=== PATIENT | female | born 1950 | race Caucasian/White ===

== ENCOUNTER 2016-04-06 14:21 | Outpatient (CLI) | payer MEDICARE, OTHER | END 2016-04-06 14:22 | disposition home or self-care (01) | DX: E55.9 Vitamin D deficiency, unspecified (principal) ==

== ENCOUNTER 2016-05-04 12:40 | Day surgery (SDC) | payer MEDICARE, OTHER ==
[2016-05-04] MEDS ORDERED: TROPICAMIDE 1% OPHTH 2 ML DROPS OPTH ONE (13:24)
[2016-05-04] MEDS ORDERED: CYCLOPENTOLATE 1% OPHTH DROPS 2 ML OPTH ONE (13:24)
[2016-05-04] MEDS ORDERED: KETOROLAC 0.45% OPHTH DROPS OPTH ONE (13:24)
[2016-05-04] MEDS ORDERED: LACTATED RINGERS 500 ML IV ONE (13:34)
[2016-05-04] MEDS ORDERED: CHONDR SULF/HYALURONATE SYRINGE IO ONE (14:25)
[2016-05-04] MEDS ORDERED: PROPARACAINE 0.5% OPHTH DROPS 15 ML OPTH ONE (14:25)
[2016-05-04] MEDS ORDERED: BRIMONIDINE 0.2% OPHTH DROPS 5 ML OPTH ONE (14:25)
[2016-05-04] MEDS ORDERED: TETRACAINE OPHTH DROPS 2 ML OPTH ONE (14:25)
[2016-05-04] MEDS ORDERED: EPINEPHrine 1 MG/ML AMP IO ONE (14:25)
[2016-05-04] MEDS ORDERED: MIDAZOLAM 2 MG/2 ML VIAL IVP ONE (14:30)
[2016-05-04] MEDS ORDERED: BSS/LIDOCAINE/EPINEPHRINE 1 ML SYRINGE IO ONE (14:31)
[2016-05-04] MEDS ORDERED: NEOMYCIN/POLYMYX/DEXAMETH OPHTH OINT OPTH ONE (14:48)
== END 2016-05-04 12:41 | disposition home or self-care (01) ==
PROC: 08RJ3JZ Replacement of Right Lens with Synthetic Substitute, Percutaneous Approach (ICD-10-PCS; principal; 2016-05-04 13:40)
DX: H26.9 Unspecified cataract (principal); J44.9 Chronic obstructive pulmonary disease, unspecified; K21.9 Gastro-esophageal reflux disease without esophagitis; Z85.820 Personal history of malignant melanoma of skin
CPT/HCPCS: 66984; J7120; V2632; V2787

== ENCOUNTER 2016-05-12 14:51 | Outpatient (CLI) | payer MEDICARE, OTHER | END 2016-05-12 14:52 | disposition home or self-care (01) | DX: R31.29 Other microscopic hematuria (principal) ==

== ENCOUNTER 2016-05-18 07:58 | Day surgery (SDC) | payer MEDICARE, OTHER ==
[~2016-05-18 07:58] MED LIST: MIDAZOLAM 2 MG/2 ML VIAL IVP ONE
[2016-05-18] MEDS ORDERED: TROPICAMIDE 1% OPHTH 2 ML DROPS OPTH ONE (08:15)
[2016-05-18] MEDS ORDERED: KETOROLAC 0.45% OPHTH DROPS OPTH ONE (08:15)
[2016-05-18] MEDS ORDERED: CYCLOPENTOLATE 1% OPHTH DROPS 2 ML OPTH ONE (08:15)
[2016-05-18] MEDS ORDERED: LACTATED RINGERS 1,000 ML IV ONE (08:20)
[2016-05-18] MEDS ORDERED: EPINEPHrine 1 MG/ML AMP IO ONE (09:53)
[2016-05-18] MEDS ORDERED: CHONDR SULF/HYALURONATE SYRINGE IO ONE (09:53)
[2016-05-18] MEDS ORDERED: PROPARACAINE 0.5% OPHTH DROPS 15 ML OPTH ONE (09:53)
[2016-05-18] MEDS ORDERED: BRIMONIDINE 0.2% OPHTH DROPS 5 ML OPTH ONE (09:53)
[2016-05-18] MEDS ORDERED: BSS/LIDOCAINE/EPINEPHRINE 1 ML SYRINGE IO ONE (09:53)
[2016-05-18] MEDS ORDERED: TETRACAINE 0.5% OPHTH DROPS 4 ML OPTH ONE (09:53)
== END 2016-05-18 07:59 | disposition home or self-care (01) ==
PROC: 08RK3JZ Replacement of Left Lens with Synthetic Substitute, Percutaneous Approach (ICD-10-PCS; principal; 2016-05-18 09:15)
DX: H26.9 Unspecified cataract (principal)
CPT/HCPCS: 66984; J7120; V2632

== ENCOUNTER 2017-04-17 13:24 | Outpatient (CLI) | payer MEDICARE, OTHER ==
--- NOTE | 2017-04-18 17:47 | XRAY Report ---
DATE OF SERVICE: 04/17/2017 TWO VIEW CHEST: 04/17/2017 CLINICAL INDICATION: Cough. COMPARISON: 12/18/2015 Frontal and lateral views of the chest demonstrate a normal cardiac silhouette. The lungs remain clear. No effusion or pneumothorax is present. IMPRESSION: No evidence of acute cardiopulmonary disease. No significant interval change. TD: 04/18/2017 18:46
== END 2017-04-17 13:25 | disposition home or self-care (01) ==
LOC: DI 13:24
PROVIDERS: ATTEND Internal Medicine
DX: R05 Cough (principal)
CPT/HCPCS: 71046

== ENCOUNTER 2017-05-15 09:18 | Outpatient (CLI) | payer MEDICARE, OTHER ==
[2017-05-15 09:53] LABS: BASOPHILS # (AUTO) 0.1 10^3/uL (0.0-0.1); BASOPHILS % (AUTO) 1.1 %; EOSINOPHILS # (AUTO) 0.2 10^3/uL (0.0-0.7); EOSINOPHILS % (AUTO) 3.8 %; HGB - HEMOGLOBIN 14.1 g/dL (12.0-16.0); LYMPHOCYTES # (AUTO) 1.2 10^3/uL (1.5-3.5); LYMPHOCYTES % (AUTO) 19.4 %; MEAN CORPUSCULAR HEMOGLOBIN 30.8 pg (27.0-31.0); MEAN CORPUSCULAR HGB CONC 33.6 g/dL (32.0-36.0); MEAN CORPUSCULAR VOLUME 91.8 fL (81.0-99.0); MEAN PLATELET VOLUME 8.4 fL (7.9-10.8); MONOCYTES # (AUTO) 0.8 10^3/uL (0.0-1.0); NEUTROPHILS # (AUTO) 3.9 10^3/uL (1.5-6.6); NEUTROPHILS % (AUTO) 62.7 %; PLT - PLATELET COUNT 245 10^3/uL (130-450); RED BLOOD COUNT 4.56 10^6/uL (4.20-5.40); RED CELL DISTRIBUTION WIDTH 13.4 % (12.0-15.0); WHITE BLOOD COUNT 6.3 x10^3/uL (4.8-10.8)
[2017-05-15 10:10] LABS: ALBUMIN 4.2 g/dL (3.2-5.5); ALBUMIN/GLOBULIN RATIO 1.2 (1.0-2.2); BILIRUBIN,TOTAL 0.8 mg/dL (0.2-1.0); CALCIUM 9.3 mg/dL (8.5-10.3); CREATININE 0.8 mg/dL (0.4-1.0); TOTAL PROTEIN 7.6 g/dL (6.7-8.2)
== END 2017-05-15 09:19 | disposition home or self-care (01) ==
LOC: LAB 09:18
PROVIDERS: ATTEND Internal Medicine
DX: M81.0 Age-related osteoporosis without current pathological fracture (principal); K21.9 Gastro-esophageal reflux disease without esophagitis; J42 Unspecified chronic bronchitis; E55.9 Vitamin D deficiency, unspecified; Z79.899 Other long term (current) drug therapy
CPT/HCPCS: 36415; 80053; 82306; 84443; 85025

== ENCOUNTER 2017-06-28 13:32 | Outpatient (CLI) | payer MEDICARE, OTHER ==
--- NOTE | 2017-06-28 17:01 | MRI Report ---
EXAM: LEFT KNEE MRI WITHOUT CONTRAST EXAM DATE: 06/28/2017 02:13 PM. CLINICAL HISTORY: Pain. Concern for meniscus tear. COMPARISON: Radiographs 06/22/2017. TECHNIQUE: Multiplanar, multisequence T1-weighted and fluid-sensitive sequences of the knee without c ontrast. Other: None. FINDINGS: Cruciate ligaments: The anterior and posterior cruciate ligaments appear intact. Medial meniscus: Punctate high signal focus adjacent to the root of the posterior horn near the free margin. Otherwise intact. Lateral meniscus: Small ill-defined tear at the tibial articular surface of the mid body. Remainder o f the meniscus intact. Collateral ligaments: The medial and fibular collateral ligaments appear intact. Bones and articular surfaces: Moderate cartilage thinning and surface irregularity over the patella. Focal subchondral edema at the central aspect of the upper patella. Mild lateral tracking of the cervantes lla. Slight cartilage thinning at the weightbearing medial and lateral compartment. No full thickness defect. Extensor mechanism: The patellar tendon and quadriceps insertion appear intact. IMPRESSION: 1. Small focal tear at the tibial articular surface of the body of the lateral meniscus. 2. Punctate tibial articular surface tear near the root of the posterior horn medial meniscus. 3. Moderate degenerative cartilage changes in the patellofemoral compartment. 4. Mild degenerative cartilage changes in the medial and lateral compartments. [facility] MUSCULOSKELET[facility] RADIOLOGY SECTION Referring Provider Line: [phone] SITE ID: [id number]
== END 2017-06-28 13:33 | disposition home or self-care (01) ==
LOC: DI 13:32
PROVIDERS: ATTEND Orthopaedic Surgery
DX: S83.282A Other tear of lateral meniscus, current injury, left knee, initial encounter (principal); S83.242A Other tear of medial meniscus, current injury, left knee, initial encounter; M17.12 Unilateral primary osteoarthritis, left knee

== ENCOUNTER 2017-12-28 12:02 | Outpatient (CLI) | payer MEDICARE, OTHER | END 2017-12-28 12:03 | disposition home or self-care (01) | LOC: LAB 12:02 | PROVIDERS: ATTEND Pharmacist Pharmacist Clinician (PhC)/ Clinical Pharmacy Specialist | DX: Z96.651 Presence of right artificial knee joint (principal); Z51.81 Encounter for therapeutic drug level monitoring; Z78.9 Other specified health status | CPT/HCPCS: 85610 ==

== ENCOUNTER 2018-07-26 10:51 | Outpatient (CLI) | payer MEDICARE, OTHER ==
--- NOTE | 2018-07-27 08:41 | DEXA Report ---
Reason: OSTEOPOROSIS Procedure Date: 07/26/2018 Accession Number: [id number] / [id number] Procedure: DEX - Dexa Spine and/or Hip CPT Code: FULL RESULT: EXAM: Dexa Spine and/or Hip DATE: 07/26/2018 11:13 AM CLINICAL HISTORY: OSTEOPOROSIS TECHNIQUE: Dual energy x-ray absorptiometry (DXA) was performed on a [employer] System. Regions measured are the AP Spine, femoral neck, and if needed forearm. COMPARISON: 01/04/2016. In accordance with the International Society for Clinical Densitometry (ISCD) guidelines, data from previous exams may be reanalyzed using current recommendations and techniques. This is done to allow a more accurate basis for comparison with the current study. FINDINGS: The data for the lumbar spine is as follows: BMD (g/cm/cm) T-SCORE Z-SCORE REGION L1 0.784 -2.9 -0.8 L2 0.832 -3.1 -1.0 L3 0.856 -2.9 -0.8 L4 0.906 -2.4 -0.4 TOTAL 0.851 -2.7 -0.7 NOTE: All evaluable vertebrae are used for classification The data for the hip is as follows: BMD (g/cm/cm) T-SCORE Z-SCORE REGION Neck 0.681 -2.6 -0.7 TOTAL 0.726 -2.2 -0.5 NOTE: The femoral neck or total proximal femur, whichever is lowest, is used for classification. DXA RESULTS SUMMARY: Spine SCAN DATE AGE BMD CHANGE VS CHANGE VS PREVIOUS PREVIOUS % 07[age]26[birth year]2018 [age] 0.851 -0.072* -7.8* 01/04/2016 65.7 0[age]923 * Denotes significant change at the 95% confidence level. Denotes dissimilar scan types or analysis methods. DXA RESULTS SUMMARY: Hip SCAN DATE AGE BMD CHANGE VS CHANGE VS PREVIOUS PREVIOUS % [birth year]26[birth year]2018 68.3 0.726 0.031 4.5 01/04/2016 65.7 0.695 * Denotes significant change at the 95% confidence level. Denotes dissimilar scan types or analysis methods. IMPRESSION: THE WHO CLASSIFICATION BASED ON THE INTERNATIONAL REFERENCE STANDARD IS OSTEOPOROSIS. THE FRACTURE RISK IS HIGH. RECOMMENDATION: Patients with diagnosis of osteoporosis or osteopenia should have regular bone mineral density assessment. For those eligible for Medicare, routine testing is allowed once every 2 years. Testing frequency can be increased for patients who have rapidly progressing disease or for those who are receiving medical therapy to restore bone mass. COMMENT: World Health Organization (WHO) definitions for osteoporosis and osteopenia: NORMAL BMD: T-score at -1.0 or higher, fracture risk is low OSTEOPENIA BMD: T-score between -1.0 and -2.5, fracture risk is increased. OSTEOPOROSIS BMD: T-score at -2.5 or lower, fracture risk is high. National Osteoporosis Foundation recommends: 1. Obtain adequate dietary calcium (at least 1200 mg per day) and vitamin D (400-800 international units per day). 2. Participate, as appropriate, in regular weightbearing and muscle-strengthening exercise. 3. Avoid tobacco use and reduce alcohol and caffeine intake. 4. For more detailed information see the website at www.NOF.org.
== END 2018-07-26 10:52 | disposition home or self-care (01) ==
LOC: DI 10:51
PROVIDERS: ATTEND Registered Nurse
DX: M81.0 Age-related osteoporosis without current pathological fracture (principal)
CPT/HCPCS: 77080

== ENCOUNTER 2018-08-03 08:19 | Outpatient (CLI) | payer MEDICARE, OTHER ==
[2018-08-03 08:39] LABS: BASOPHILS % (AUTO) 0.6 %; EOSINOPHILS # (AUTO) 0.1 10^3/uL (0.0-0.7); EOSINOPHILS % (AUTO) 1.4 %; HGB - HEMOGLOBIN 14.7 g/dL (12.0-16.0); LYMPHOCYTES # (AUTO) 1.3 10^3/uL (1.5-3.5); LYMPHOCYTES % (AUTO) 22.6 %; MEAN CORPUSCULAR HEMOGLOBIN 30.5 pg (27.0-31.0); MEAN CORPUSCULAR VOLUME 92.2 fL (81.0-99.0); MEAN PLATELET VOLUME 9.2 fL (7.9-10.8); MONOCYTES # (AUTO) 0.6 10^3/uL (0.0-1.0); MONOCYTES % (AUTO) 10.1 %; NEUTROPHILS # (AUTO) 3.8 10^3/uL (1.5-6.6); NEUTROPHILS % (AUTO) 65.3 %; PLT - PLATELET COUNT 275 10^3/uL (130-450); RED BLOOD COUNT 4.83 10^6/uL (4.20-5.40); RED CELL DISTRIBUTION WIDTH 12.9 % (12.0-15.0); WHITE BLOOD COUNT 5.9 x10^3/uL (4.8-10.8)
[2018-08-03 09:04] LABS: ALBUMIN 4.2 g/dL (3.2-5.5); ALBUMIN/GLOBULIN RATIO 1.4 (1.0-2.2); ALKALINE PHOSPHATASE 59 IU/L (42-121); ALT ALANINE AMINOTRANSFERASE 12 IU/L (10-60); AST ASPARTATE AMINOTRANSFERASE 21 IU/L (10-42); BUN - BLOOD UREA NITROGEN 24 mg/dL (6-20); CALCIUM 9.8 mg/dL (8.5-10.3); CARBON DIOXIDE - CO2 31 mmol/L (21-32); CHLORIDE 102 mmol/L (101-111); CHOL/HDL RATIO 3.3 (<4.4); CHOLESTEROL 220 mg/dL; CREATININE 0.8 mg/dL (0.4-1.0); GFR - MDRD 71 (>89); GLUCOSE 104 mg/dL (70-100); HDL CHOLESTEROL 66 mg/dL; LDL CHOLESTEROL,CALCULATED 133 mg/dL; SODIUM 142 mmol/L (135-145); TOTAL PROTEIN 7.1 g/dL (6.7-8.2); VLDL CHOLESTEROL 21 mg/dL
[2018-08-03 09:23] LABS: HB2 TOTAL 15.2 g/dL; HEMOGLOBIN A1C 0.57 g/dL; HEMOGLOBIN A1C % 5.6 % (4.6-6.2)
== END 2018-08-03 08:20 | disposition home or self-care (01) ==
LOC: LAB 08:19
PROVIDERS: ATTEND Registered Nurse
DX: Z78.0 Asymptomatic menopausal state (principal); Z79.899 Other long term (current) drug therapy
CPT/HCPCS: 36415; 80053; 80061; 83036; 83721; 84443; 85025

== ENCOUNTER 2018-08-09 17:13 | Outpatient (CLI) | payer MEDICARE, OTHER | END 2018-08-09 23:59 | disposition home or self-care (01) | LOC: LAB.R 17:13 | PROVIDERS: ATTEND Nurse Practitioner | DX: N39.0 Urinary tract infection, site not specified (principal) | CPT/HCPCS: 87086 ==

== ENCOUNTER 2018-08-29 15:48 | Outpatient (CLI) | payer MEDICARE, OTHER ==
--- NOTE | 2018-08-30 08:51 | Mammography Report ---
Reason: SCREENING FOR BREAST CANCER Procedure Date: 08/29/2018 Accession Number: [id number] / [id number] Procedure: [facility] - Screening Mammo w/Kieran CPT Code: FULL RESULT: EXAM: Screening Mammo w/Kieran DATE: 08/29/2018 4:44 PM CLINICAL HISTORY: TECHNIQUE: (B) - Bilateral CC and MLO views were obtained. In addition 3-D mammography was applied. COMPARISON: None PARENCHYMAL PATTERN: (A) - The breasts demonstrate scattered fibroglandular densities bilaterally. FINDINGS: There are no suspicious masses, calcifications, or areas of distortion. IMPRESSION: Negative examination. BI-RADS category 1. RECOMMENDATION: (ANNUAL) - Recommend routine annual screening mammography. BI-RADS CATEGORY: (1) - Negative. STANDARD QUALIFYING STATEMENTS: 1. This examination was not reviewed with the aid of Computer-Aided Detection (CAD). 2. A negative or benign imaging report should not preclude biopsy if clinically suspicious findings are present. 3. Dense breasts may obscure an underlying neoplasm. 4. This examination was reviewed with the aid of 3D breast imaging (tomosynthesis).
== END 2018-08-29 15:49 | disposition home or self-care (01) ==
LOC: DI 15:48
PROVIDERS: ATTEND Nurse Practitioner
DX: Z12.31 Encounter for screening mammogram for malignant neoplasm of breast (principal)
CPT/HCPCS: 77063; 77067

== ENCOUNTER 2018-12-07 17:44 | Emergency (ER) | payer MEDICARE, OTHER ==
--- NOTE | 2018-12-07 18:28 | ED Physician Documentation ---
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 Since yesterday she is had a sore throat, body aches, swollen glands.) Review of Systems Constitutional: reports: Fever, Chills, Myalgias, Fatigue Nose: denies: Rhinorrhea / runny nose Throat: reports: Sore throat Respiratory: denies: Cough GI: denies: Vomiting, Diarrhea PD PAST MEDICAL HISTORY - Past Medical History Cardiovascular: None Respiratory: None Endocrine/Autoimmune: None GI: None : None HEENT: Other Psych: None Musculoskeletal: None Derm: None - Past Surgical History Past Surgical History: Yes General: Bowel surgery HEENT: Cataracts Derm: Skin cancer surgery - Present Medications Home Medications: Ambulatory Orders Medication Instructions Recorded Confirmed Cholecalciferol (Vitamin D3) 2,000 unit PO DAILY 05/03/16 05/04/16 [Vitamin D] predniSONE [Deltasone] 20 mg PO [id number] #21 tab 12/07/18 - Allergies Allergies/Adverse Reactions: Allergies Allergy/AdvReac Type Severity Reaction Status Date / Time latex Allergy Unknown Verified 12/07/18 17:49 Penicillins Allergy Hives Verified 12/07/18 17:49 - Social History Does the pt smoke?: No Smoking Status: Never smoker Does the pt drink ETOH?: No Does the pt have substance abuse?: No - Immunizations Immunizations are current?: Yes PD ED PE NORMAL - Vitals Vital signs reviewed: Yes - General General: Alert and oriented X 3, No acute distress - HEENT HEENT: Ears normal, Pharynx benign - Neck Neck: Supple, no meningeal sign, No bony TTP, Other (Mild anterior cervical adenopathy, supple neck) - Cardiac Cardiac: RRR, No murmur - Respiratory Respiratory: No respiratory distress, Clear bilaterally - Abdomen Abdomen: Non tender - Neuro Neuro: Alert and oriented X 3, Normal speech Results - Vitals Vitals: Vital Signs - 24 hr 12/07/18 17:49 Temperature 36.9 C Heart Rate 80 Respiratory 16 Rate Blood Pressure 150/77 H O2 Saturation 99 Oxygen O2 Source Room air - Labs Labs: Laboratory Tests 12/07/18 12/07/18 17:53 18:29 Influenza A (Rapid) Negative Influenza B (Rapid) Negative Group A Strep Rapid Negative Departure - Departure Disposition: Home, Self Care Clinical Impression: Acute viral pharyngitis Condition: Good Record reviewed to determine appropriate education?: Yes Instructions: ED Pharyngitis Viral Report Pending Prescriptions: predniSONE [Deltasone] 20 mg PO [id number] #21 tab Comments: Call your doctor to arrange a follow-up appointment, make the next available appointment. In the interim, return anytime if worse or if new symptoms develop. Your blood pressure was elevated today on check into the emergency department. This does not mean that you have hypertension, it is a common phenomenon to come to the emergency department and have elevated blood pressure. I recommend that you see your primary care physician within the week to have it rechecked when you are feeling better.
[2018-12-07 19:23] VITALS: BP 104/80
== END 2018-12-07 19:21 | disposition home or self-care (01) ==
LOC: ED 17:44
DX: J02.8 Acute pharyngitis due to other specified organisms (principal); B97.89 Other viral agents as the cause of diseases classified elsewhere; R03.0 Elevated blood-pressure reading, without diagnosis of hypertension
CPT/HCPCS: 87070; 87275; 87276; 87430; 99283

== ENCOUNTER 2018-12-24 09:27 | Outpatient (CLI) | payer MEDICARE, OTHER ==
[2018-12-24 09:54] LABS: BASOPHILS # (AUTO) 0.1 10^3/uL (0.0-0.1); BASOPHILS % (AUTO) 0.7 %; EOSINOPHILS # (AUTO) 0.1 10^3/uL (0.0-0.7); EOSINOPHILS % (AUTO) 1.3 %; HGB - HEMOGLOBIN 13.9 g/dL (12.0-16.0); LYMPHOCYTES # (AUTO) 1.4 10^3/uL (1.5-3.5); LYMPHOCYTES % (AUTO) 20.5 %; MEAN CORPUSCULAR HEMOGLOBIN 31.2 pg (27.0-31.0); MEAN CORPUSCULAR HGB CONC 32.6 g/dL (32.0-36.0); MEAN CORPUSCULAR VOLUME 95.7 fL (81.0-99.0); MEAN PLATELET VOLUME 10.7 fL (7.9-10.8); MONOCYTES # (AUTO) 0.8 10^3/uL (0.0-1.0); MONOCYTES % (AUTO) 10.7 %; NEUTROPHILS # (AUTO) 4.7 10^3/uL (1.5-6.6); NEUTROPHILS % (AUTO) 66.2 %; PLT - PLATELET COUNT 329 10^3/uL (130-450); RED BLOOD COUNT 4.46 10^6/uL (4.20-5.40); RED CELL DISTRIBUTION WIDTH 12.1 % (12.0-15.0)
[2018-12-24 10:13] LABS: ALBUMIN 4.6 g/dL (3.2-5.5); ALBUMIN/GLOBULIN RATIO 1.5 (1.0-2.2); BILIRUBIN,TOTAL 0.8 mg/dL (0.2-1.0); CALCIUM 9.5 mg/dL (8.5-10.3); CREATININE 0.8 mg/dL (0.4-1.0); TOTAL PROTEIN 7.7 g/dL (6.7-8.2)
== END 2018-12-24 09:28 | disposition home or self-care (01) ==
LOC: LAB 09:27
PROVIDERS: ATTEND Nurse Practitioner
DX: R16.1 Splenomegaly, not elsewhere classified (principal); J45.909 Unspecified asthma, uncomplicated
CPT/HCPCS: 36415; 80053; 85025

== ENCOUNTER 2018-12-24 21:00 | Outpatient (CLI) | payer MEDICARE, OTHER | END 2018-12-24 21:01 | disposition critical access hospital (66) | LOC: EMS 21:00 | PROVIDERS: ATTEND Surgery | DX: R51 Headache (principal); R07.9 Chest pain, unspecified; R47.9 Unspecified speech disturbances | CPT/HCPCS: A0425; A0429 ==

== ENCOUNTER 2018-12-24 21:10 | Observation (INO) | payer MEDICARE, OTHER ==
--- NOTE | 2018-12-24 21:21 | ED Physician Documentation ---
PD HPI FOCAL NEURO - Stated complaint Stated Complaint: CHANGES IN SPEECH - History obtained from History obtained from: Patient, Family, EMS - History of Present Illness Timing - onset: Today Timing - duration: Minutes Timing - details: Abrupt onset, Now resolved Severity of deficit: Moderate Weakness: No: Face, Arm, Hand, Leg, Foot, Right, Left Numbness: No: Face, Arm, Hand, Leg, Foot, Right, Left Associated symptoms: Headache, Nausea / vomiting, Chest pain. 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 She is picked by the ambulance and brought to the hospital.The patient recalls that she was in her kitchen she had sudden onset of a unusual feeling sat down and told her that he needed to call 911. She felt she was having a heart attack. She described a headache and her blood pressure was markedly elevated. She has been in to the ED for a worsening in her cough Review of Systems Constitutional: reports: Myalgias, Fatigue, Sweats. denies: Fever Eyes: denies: Decreased vision Ears: denies: Ear pain Nose: reports: Congestion. denies: Rhinorrhea / runny nose Throat: denies: Sore throat Cardiac: reports: Chest pain / pressure. denies: Palpitations, Pedal edema, Calf pain Respiratory: reports: Cough. denies: Dyspnea GI: reports: Nausea. denies: Abdominal Pain, Vomiting : denies: Dysuria, Frequency Skin: denies: Rash Neurologic: reports: Generalized weakness, Difficulty speaking, Headache. denies: Focal weakness, Numbness, Syncope, Head injury, LOC PD PAST MEDICAL HISTORY - Past Medical History Cardiovascular: None Respiratory: None Endocrine/Autoimmune: None GI: None : None HEENT: Other Psych: None Musculoskeletal: None Derm: None - Past Surgical History Past Surgical History: Yes General: Bowel surgery HEENT: Cataracts Derm: Skin cancer surgery - Present Medications Home Medications: Ambulatory Orders Medication Instructions Recorded Confirmed Cholecalciferol (Vitamin D3) 2,000 unit PO DAILY 05/03/16 05/04/16 [Vitamin D] predniSONE [Deltasone] 20 mg PO [id number] #21 tab 12/07/18 - Allergies Allergies/Adverse Reactions: Allergies Allergy/AdvReac Type Severity Reaction Status Date / Time latex Allergy Unknown Verified 12/24/18 21:27 Penicillins Allergy Hives Verified 12/24/18 21:27 - Social History Does the pt smoke?: No Smoking Status: Never smoker Does the pt drink ETOH?: No Does the pt have substance abuse?: No - Immunizations Immunizations are current?: Yes PD ED PE NORMAL - Vitals Vital signs reviewed: Yes (hypertensive ) - General General: Alert and oriented X 3, Well developed/nourished, Other (speaks quietly with high pitched voice and appears oriented. Answers appropriately and accurately. ) - HEENT HEENT: Atraumatic, PERRL, EOMI, Moist mucous membranes, Pharynx benign, Other (mild inflammation in the right TM left is clear) - Neck Neck: Supple, no meningeal sign, No bony TTP - Cardiac Cardiac: RRR, No murmur - Respiratory Respiratory: No respiratory distress, Clear bilaterally - Abdomen Abdomen: Normal bowel sounds, Soft, Non tender, Non distended, No organomegaly - Back Back: No CVA TTP, No spinal TTP - Derm Derm: Normal color, Warm and dry, No rash - Extremities Extremities: No deformity, No edema - Neuro Neuro: Alert and oriented X 3, box maker wood 2-12 intact, No motor deficit, No sensory deficit, Normal speech Eye Opening: Spontaneous Motor: Obeys Commands Verbal: Oriented GCS Score: 15 - Psych Psych: Normal mood, Normal affect NIHSS - Time Time: 23:50 - Level of Consciousness Level of consciousness: (0) Alert, Keenly responsive LOC Questions: (0) Answers both Q's correct LOC Commands: (0) Performs both correctly - Gaze Best Gaze: (0) Normal - Visual Visual: (0) No loss - Facial Palsy Facial Palsy: (0) Normal, symmetrical movement - Motor Arms (both separate) Motor Arm (right): (0) No drift Motor Arm (left): (0) No drift - Motor Legs (both separate) Motor Leg (right): (0) No drift Motor Leg (left): (1) Drift - Limb Ataxia Limb Ataxia: (2) Present in 2 limbs - Sensory Sensory: (0) Normal - Best Language Best Language: (1) [id number] - Dysarthria Dysarthria: (1) [id number] dysarthria - Extinction and Inattention (formally neg Extinction and inattention: (1) Visual,tactile,auditory,spatial, or personal inattention - Total Score/Results Total Score/Result: 6 Results - Vitals Vitals: Vital Signs - 24 hr 12/24/18 12/24/18 12/24/18 21:23 21:51 22:27 Temperature 98.2 C H Heart Rate 94 89 98 Respiratory 18 15 16 Rate Blood Pressure 188/83 H 184/94 H 161/74 H O2 Saturation 100 98 98 12/24/18 12/25/18 12/25/18 23:00 00:00 01:11 Temperature Heart Rate 60 99 94 Respiratory 16 14 17 Rate Blood Pressure 135/72 H 173/87 H 151/75 H O2 Saturation 98 99 93 12/25/18 12/25/18 02:00 03:03 Temperature Heart Rate 85 87 Respiratory 15 18 Rate Blood Pressure 141/72 H 141/76 H O2 Saturation 97 97 Oxygen O2 Source Room air - EKG (time done) 2125 Rate: Rate (enter#) (94) Rhythm: NSR, LAE, HOME Intervals: Prolonged NV QRS: LVH Ischemia: Q waves Compare to prior EKG: Old EKG unavailable Computer interpretation: Agree with computer - Labs Labs: Laboratory Tests 12/24/18 12/24/18 12/24/18 21:30 21:30 23:05 WBC 7.6 RBC 4.60 Hgb 14.3 Hct 43.2 MCV 93.9 MCH 31.1 H MCHC 33.1 RDW 12.2 Plt Count 334 MPV 10.8 Neut # (Auto) 6.8 H Lymph # (Auto) 0.7 L Wagoner # (Auto) 0.1 Eos # (Auto) 0.0 Baso # (Auto) 0.0 Absolute Nucleated RBC 0.00 Nucleated RBC % 0.0 Sodium 138 Potassium 3.7 Chloride 100 L Carbon Dioxide 24 Anion Gap 14.0 H BUN 21 H Creatinine 1.3 H Estimated GFR (MDRD) 41 L Glucose 286 H Calcium 9.7 Total Bilirubin 0.8 AST 37 ALT 22 Alkaline Phosphatase 76 Total Protein 7.9 Albumin 4.6 Globulin 3.3 Albumin/Globulin Ratio 1.4 Lipase 33 Urine Color YELLOW Urine Clarity CLEAR Urine pH 7.0 Ur Specific Donora 1.010 Urine Protein NEGATIVE Urine Glucose (UA) >=1000 H Urine Ketones NEGATIVE Urine Occult Blood TRACE-INTA Urine Nitrite NEGATIVE Urine Bilirubin NEGATIVE Urine Urobilinogen 0.2 (NORMAL) Ur Leukocyte Esterase NEGATIVE Ur Microscopic Review NOT INDICATED Urine Culture Comments NOT INDICATED Ethyl Alcohol < 5.0 - Rads (name of study) CT head without Radiology: Prelim report reviewed (Impression: No CT evidence of acute intracran ial abnormality, specifically no CT evidence of acute infarct, intracranial hemorrhage, mass-effect, midline shift, or hydrocephalus. Aspect 10), EMP read indepedently, See rad report CT angio neck Radiology: Prelim report reviewed (Impression: 1. No carotid stenosis in the neck. 2. Patent vertebral arteries in the neck bilaterally. 3. No findings concerning for dissection.), EMP read indepedently, See rad report CT angio head Radiology: Prelim report reviewed (Impression: CT head no acute intracranial abnormality seen. Specifically no evidence of acute infarct, hemorrhage, or mass lesion. No abnormal enhancement. CTA head: No significant abnormality identified. No large vessel occlusion, stenosis or aneurysm.), EMP read i ndepedently, See rad report chest Radiology: Prelim report reviewed (Impression: Hyperinflated lungs. No acute cardiopulmonary disease seen.), EMP read indepedently, See rad report Procedures - IVC sono (time) 2134 Bedside IVC sono: IVC measures (cm) (1.43), IVC collapsed c insp (cm) (complete), Dehydration (mild at <1 liter deificit) PD MEDICAL DECISION MAKING - ED course Complexity details: reviewed old records, reviewed results, re-evaluated patient, considered differential, d/w patient, d/w family ED course: 68 y/o female with defined onset of episode of speech difficulty has a non focal exam on initial presentation. She has some high pitched speech and difficulty finding words but appropriate. She is found to have diabetes and has elevated blood sugar, glucosauria and dehydration. She is hydrated with IV saline. Her initial head CT is without acute findings. Her exam changes when she suddenly develops tachycardia and hyperventilation. She has more trouble talking and her left side is weak and difficult to control. 2349. A CT angio of the head and neck are undertaken. These studies are unremarkable as well. Dr. Vázquez neurology at [facility] is consulted in the case and recommends MRI of the brain in am and asa and dipyridamole. After careful review of findings and exam he is mostly concerned about a conversion reaction and recommends close observation and a re- call for new symptoms. In addition the patient's blood sugar is elevated to 269 with glucosauria and dehydration. She is provided hydration. Dr. Joshua is consulted in the case and graciously agrees to care for the patient in the hospital. Departure - Departure Disposition: 65 [facility] DC/[facility] Clinical Impression: Stroke-like symptoms Condition: Stable
--- NOTE | 2018-12-24 21:32 | CT Report ---
Reason: code stroke Procedure Date: 12/24/2018 Accession Number: [id number] / [id number] Procedure: CT - Head W/O Stroke Protocol CPT Code: FULL RESULT: EXAM: CT HEAD EXAM DATE: 12/24/2018 09:19 PM. CLINICAL HISTORY: 68-year-old female, trouble with speech. Code stroke. COMPARISON: None. TECHNIQUE: Multiaxial CT images were obtained from the foramen magnum to the vertex. Reformats: Sagittal and coronal. IV contrast: None. In accordance with CT protocol optimization, one or more of the following dose reduction techniques were utilized for this exam: automated exposure control, adjustment of mA and/or KV based on patient size, or use of iterative reconstructive technique. FINDINGS: Parenchyma: No intraparenchymal hemorrhage. No evidence of mass, midline shift, or CT findings of acute infarction. Bonds-white differentiation is distinct. Extraaxial Spaces: Normal for age. No subdural or epidural collections identified. Ventricles: Normal in size and position. Sinuses and Orbits: Imaged paranasal sinuses, orbits, and mastoids show no significant abnormality. Bones: No evidence of fracture or calvarial defect. Other: None. IMPRESSION: No CT evidence of acute intracranial abnormality, specifically no CT evidence of acute infarct, intracranial hemorrhage, mass effect, midline shift, or hydrocephalus. ASPECTS 10. [facility] The critical test notification system was initiated by Dr. Parminder Fraga at 09:30 PM on 12/24/2018. ADDENDUM: 12/24/18 21:42 The above critical test findings were discussed with ED Physician by Dr. Parminder Fraga at 09:42 PM on 12/24/2018.
[2018-12-24 21:40] LABS: BASOPHILS % (AUTO) 0.3 %; HGB - HEMOGLOBIN 14.3 g/dL (12.0-16.0); LYMPHOCYTES # (AUTO) 0.7 10^3/uL (1.5-3.5); LYMPHOCYTES % (AUTO) 9.4 %; MEAN CORPUSCULAR HEMOGLOBIN 31.1 pg (27.0-31.0); MEAN CORPUSCULAR HGB CONC 33.1 g/dL (32.0-36.0); MEAN CORPUSCULAR VOLUME 93.9 fL (81.0-99.0); MEAN PLATELET VOLUME 10.8 fL (7.9-10.8); MONOCYTES # (AUTO) 0.1 10^3/uL (0.0-1.0); MONOCYTES % (AUTO) 0.8 %; NEUTROPHILS # (AUTO) 6.8 10^3/uL (1.5-6.6); NEUTROPHILS % (AUTO) 89.2 %; PLT - PLATELET COUNT 334 10^3/uL (130-450); RED CELL DISTRIBUTION WIDTH 12.2 % (12.0-15.0); WHITE BLOOD COUNT 7.6 x10^3/uL (4.8-10.8)
[2018-12-24] MEDS ORDERED: SODIUM CHLORIDE 0.9% 1,000 ML IV ONE (21:43)
--- NOTE | 2018-12-24 21:50 | XRAY Report ---
Reason: chest pain Procedure Date: 12/24/2018 Accession Number: [id number] / [id number] Procedure: XR - Chest 1 View X-Ray CPT Code: 65221 FULL RESULT: EXAM: CHEST RADIOGRAPHY EXAM DATE: 12/24/2018 09:21 PM. CLINICAL HISTORY: Chest pain. COMPARISON: CHEST 2 VIEW 04/17/2017 2:16 PM. TECHNIQUE: 1 view. FINDINGS: Lungs/Pleura: Hyperinflated lungs. No consolidation, airspace disease, pleural effusion or pneumothorax. Mediastinum: Within exam limitations, the cardiomediastinal contour is normal. IMPRESSION: Hyperinflated lungs. No acute cardiopulmonary disease seen. [facility]
[2018-12-24 22:07] LABS: ALBUMIN 4.6 g/dL (3.2-5.5); ALBUMIN/GLOBULIN RATIO 1.4 (1.0-2.2); ALKALINE PHOSPHATASE 76 IU/L (42-121); ALT ALANINE AMINOTRANSFERASE 22 IU/L (10-60); AST ASPARTATE AMINOTRANSFERASE 37 IU/L (10-42); BILIRUBIN,TOTAL 0.8 mg/dL (0.2-1.0); BUN - BLOOD UREA NITROGEN 21 mg/dL (6-20); CALCIUM 9.7 mg/dL (8.5-10.3); CARBON DIOXIDE - CO2 24 mmol/L (21-32); CHLORIDE 100 mmol/L (101-111); CREATININE 1.3 mg/dL (0.4-1.0); GFR - MDRD 41 (>89); GLUCOSE 286 mg/dL (70-100); LIPASE 33 U/L (22-51); SODIUM 138 mmol/L (135-145); TOTAL PROTEIN 7.9 g/dL (6.7-8.2)
[2018-12-24 23:20] LABS: BILIRUBIN,URINE NEGATIVE (NEGATIVE); GLUCOSE, URINE (UA) >=1000 mg/dL (NEGATIVE); KETONES,URINE (UA) NEGATIVE (NEGATIVE); LEUKOCYTE ESTERASE, URINE NEGATIVE (NEGATIVE); NITRITE,URINE NEGATIVE (NEGATIVE); OCCULT BLOOD,URINE TRACE-INTA (NEGATIVE); PROTEIN,URINE NEGATIVE (NEGATIVE); UROBILINOGEN,URINE 0.2 (NORMAL) E.U./dL (NORMAL)
[2018-12-24 23:21] LABS: CLARITY,URINE CLEAR (CLEAR)
[2018-12-24] MEDS ORDERED: LORazepam 2 MG/ML VIAL ONE (23:52)
[2018-12-25] MEDS ORDERED: IOVERSOL 320 100 ML VIAL IVP ONE ×2 (00:17→00:48)
--- NOTE | 2018-12-25 01:52 | CT Report ---
Reason: L sided facial droop, L neck pain Procedure Date: 12/25/2018 Accession Number: [id number] / [id number] Procedure: CT - ANGIO NECK W CPT Code: FULL RESULT: EXAM: CT ANGIOGRAM NECK EXAM DATE: 12/25/2018 12:51 AM. CLINICAL HISTORY: L sided facial droop, L neck pain. COMPARISON: HEAD W/O STROKE PROTOCOL 12/24/2018 9:16 PM HEAD ANGIO 12/25/2018 12:32 AM. TECHNIQUE: Routine axial helical imaging was performed from the skull base through the aortic arch. Reconstructions: Routine multiplanar 3D MIP reconstructions. IV Contrast: OPTI 320 80ML. Evaluation of arterial stenosis is based on a NASCET method of measurement. In accordance with CT protocol optimization, one or more of the following dose reduction techniques were utilized for this exam: automated exposure control, adjustment of mA and/or KV based on patient size, or use of iterative reconstructive technique. FINDINGS: Aortic arch, origins of the great vessels, brachiocephalic in both subclavian arteries are patent and unremarkable. Right Carotid: The common carotid, internal carotid, and external carotid arteries are widely patent. No dissection, significant atherosclerotic plaque, or calcification identified. Left Carotid: The common carotid, internal carotid, and external carotid arteries are widely patent. No dissection, significant atherosclerotic plaque, or calcification identified. Vertebrals: Patent throughout the neck. Left is larger than the right. Intracranial Circulation: Normal. No stenoses or aneurysms of the visualized vessels. Other: Pleural/parenchymal scarring at both lung apices. No mass or significant lymphadenopathy identified in the neck. There are degenerative changes in the cervical spine, most pronounced at C5-C6. IMPRESSION: 1. No carotid stenosis in the neck. 2. Patent vertebral arteries in the neck bilaterally. 3. No findings concerning for dissection. [facility]
--- NOTE | 2018-12-25 02:00 | CT Report ---
Reason: L sided facial droop Procedure Date: 12/25/2018 Accession Number: [id number] / [id number] Procedure: CT - ANGIO HEAD W/WO CPT Code: FULL RESULT: EXAM: CT ANGIOGRAM HEAD. CT SCAN OF THE HEAD WITHOUT AND WITH CONTRAST. EXAM DATE: 12/25/2018 12:51 AM CLINICAL HISTORY: L sided facial droop. COMPARISON: HEAD W/O STROKE PROTOCOL 12/24/2018 9:16 PM NECK ANGIO 12/25/2018 12:32 AM. TECHNIQUE: - CT Scan Head: Using a multidetector scanner, axial images were acquired from the foramen magnum to the skull vertex prior to and following contrast administration. - CT Angiogram: Using a multidetector scanner, high-resolution axial images were acquired from the skull base through vertex following rapid infusion of intravenous contrast. Reformats: Multiplanar MIP reformats were reconstructed. Nascet criteria used for stenosis measurement. IV Contrast: OPTI 320 80ML. In accordance with CT protocol optimization, one or more of the following dose reduction techniques were utilized for this exam: automated exposure control, adjustment of mA and/or KV based on patient size, or use of iterative reconstructive technique. FINDINGS: NON-CONTRAST HEAD: Parenchyma: No intraparenchymal hemorrhage. No evidence of mass, midline shift, or CT findings of infarction. Bonds-white differentiation is distinct. Extraaxial Spaces: Normal for age. No subdural or epidural collections identified. Ventricles: Normal in size and position. Sinuses and orbits: Imaged paranasal sinuses, orbits, and mastoids show no significant abnormality. Bones: No evidence of fracture or calvarial defect. Other: None. POST-CONTRAST HEAD: No abnormal enhancement. CT ANGIOGRAM HEAD: Posterior circulation: Dominant left vertebral artery. Basilar artery and both posterior cerebral arteries are patent. Persistent origin right posterior cerebral. A left posterior communicating artery is not seen. Anterior circulation: Both internal carotid arteries, anterior and middle cerebral arteries are patent and unremarkable. Patent anterior communicating artery. DURAL VENOUS SINUSES AND MAJOR CENTRAL VEINS: Left sigmoid sinus does not opacify on the CT angiogram, normal opacification on the postcontrast head CT. IMPRESSION: CT Head: No acute intracranial abnormality. Specifically, no evidence of acute infarct, hemorrhage, or mass lesion. No abnormal enhancement. CTA Head: No significant abnormality identified. No large vessel occlusion, stenosis or aneurysm. RADIA
[2018-12-25] MEDS ORDERED: DIPYRIDAMOLE 25 MG TABLET PO STA (03:25)
[2018-12-25] MEDS ORDERED: ASPIRIN CHEW 81 MG TABLET PO STA (03:25)
[2018-12-25] MEDS ORDERED: ZOLPIDEM 5 MG TABLET PO PRN (03:36)
[2018-12-25] MEDS ORDERED: ACETAMINOPHEN 325 MG TABLET PO PRN (03:36)
[2018-12-25] MEDS ORDERED: ONDANSETRON 4 MG/2 ML VIAL IVP PRN (03:36)
[2018-12-25] MEDS ORDERED: IBUPROFEN 600 MG TABLET PO PRN (03:36)
[2018-12-25] MEDS ORDERED: PROCHLORPERAZINE 10 MG/2 ML VIAL IVP PRN (03:36)
[2018-12-25] MEDS ORDERED: SODIUM CHLORIDE FLUSH 0.9% 10 ML SYRINGE IVP PRN (03:36)
--- NOTE | 2018-12-25 03:44 | HISTORY & PHYSICAL EXAMINATION ---
Chief Complaint - Chief Complaint Chief Complaint: Expressive aphasia and headache History of Present Illness - Admitted From Admitted From:: Emergency department - History Obtained From Records Reviewed: Yes History obtained from: Patient and patient's Exam Limitations: None - History of Present Illness HPI Comment/Other: Patient is a 68-year-old female with a past medical history significant for Budd-Chiari malformation, High sensitivity to pollution with possible asthma, malignant melanoma removed from her left leg, history of diverticulitis status post sigmoidectomy, osteoarthritis status post right knee replacement, osteoporosis and recent concern for hypertension and hyperglycemia who presented to the emergency department with a chief complaint of difficulty with her speech. The patient states that she was in her normal state of health and in fact had seen her primary care physician yesterday and was told that her blood pressure was running high. She states that she was in her kitchen this evening at around 830 when she all of a sudden felt lightheaded and states she could not speak. She states that she knew what she wanted to say but could not get it out. She finally was able to get her 's attention and told him that she is having a heart attack and that he needs to call 911. The patient's then did call 911 and try to get his to raise her arms over her head and s he could not raise either arm over her head, she also could not smile. He stated that she was able to say some words but her speech was slurred. On arrival of EMS they found that she was hypertensive and was continuing to have neurologic symptoms so they brought her to the emergency department. On arrival to the emergency department the patient was able to speak but it was in a very singsong way. The patient's states that the patient was very slow to respond. The patient states that through the stay in the emergency department her symptoms have improved. While she was in the emergency department she did have an episode where she became very tachypneic and tachycardic but this r esolved without intervention. The patient's neurologic exam revealed that she had some left-sided weakness when the emergency room physician saw her. The patient otherwise denies any blurred vision, runny nose, sore throat, chest pain, shortness of breath, orthopnea, abdominal pain, nausea, vomiting, diarrhea, urinary urgency, urinary frequency, dysuria, back pain, neck stiffness, recent unintentional weight loss, night sweats, polyuria, polydipsia, fevers or chills. On presentation to the emergency department the patient was a febrile but she was quite hypertensive with a blood pressure of 188/83 and otherwise had normal respirations and was saturating at 100% on room air. The patient's lab work did reveal hyperglycemia with a blood glucose of 286, her CBC was within normal limits, urinalysis revealed greater than 1000 glucose. The patient's blood alcohol level was less than 5. The patient underwent a CT of her head which showed no evidence of acute intracranial abnormality, specifically no evidence of acute infarct, intracranial hemorrhage, mass-effect, midline shift or hydro cephalus. The patient's chest x-ray showed hyperinflated lungs. No acute cardiopulmonary disease seen. The patient underwent a CT of the head and neck which showed no acute intracranial abnormality. Given the patient's ongoing symptoms that were waxing and waning in the emergency department the emergency room physician spoke with the neurologist at [facility]. The neurologist there felt that the patient's symptoms were likely psychosomatic given that they did not go with any specific cerebral artery distribution. He did however recommend that the patient be treated with Aggrenox and Lipitor. He also recommended patient be placed in observation and undergo MRI and MRA. The patient was placed in observation. History - Past Medical History Cardiovascular: reports: Hypertension Respiratory: reports: None Neuro: reports: Other (Budd-Chiari malformation) Endocrine/Autoimmune: reports: Type 2 diabetes GI: reports: Diverticulitis (Status post sigmoidectomy) : reports: None HEENT: reports: Other Psych: reports: None Musculoskeletal: reports: Osteoarthritis (Status post right knee replacement), Osteoporosis Derm: reports: Other (History of malignant melanoma) MRSA Hx?: No - Past Surgical History General: reports: Bowel surgery Ortho: reports: Knee replacement HEENT: reports: Cataracts Derm: reports: Skin cancer surgery - Family & Social History Family History: Father: COPD/Emphysema, Diabetes, Type 2, Other family: Diabetes, Type 2 Living arrangement: At home Living Situation: With spouse/s.o. Social History Notes: The patient has been to her for over 40 years. They have 2 children together 1 of whom lives in [place]. 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 Her and her moved to [facility] about 3 years ago. Prior to that they lived in [facility] in [place], [place] and [place]. Patient's was in the . The patient does not smoke cigarettes, she occasionally drinks alcohol and denies any illicit drug use. - POLST Patient has POLST: No POLST Status: Full Code Meds/Allgy - Home Medications Home Medications: Ambulatory Orders Medication Instructions Recorded Confirmed Cholecalciferol (Vitamin D3) 2,000 unit PO DAILY 05/03/16 05/04/16 [Vitamin D] predniSONE [Deltasone] 20 mg PO [id number] #21 tab 12/07/18 - Allergies Allergies/Adverse Reactions: Allergies Allergy/AdvReac Type Severity Reaction Status Date / Time latex Allergy Unknown Verified 12/24/18 21:27 Penicillins Allergy Hives Verified 12/24/18 21:27 Review of Systems - Other Findings Other Findings: A comprehensive review of systems was performed the pertinent positives and negatives are stated above in the HPI and the remainder of the review of systems is negative. Prior Level of Functionality: Fully independent Exam - Vital Signs Reviewed Vital Signs: Yes Vital Signs: Vital Signs x48h Temp Pulse Resp BP Pulse Ox 12/25/18 03:03 87 18 141/76 H 97 12/25/18 02:00 85 15 141/72 H 97 12/25/18 01:11 94 17 151/75 H 93 12/25/18 00:00 99 14 173/87 H 99 12/24/18 23:00 60 16 135/72 H 98 12/24/18 22:27 98 16 161/74 H 98 12/24/18 21:51 89 15 184/94 H 98 12/24/18 21:23 98.2 C H 94 18 188/83 H 100 - Physical Exam General Appearance: positive: No acute distress, Alert Eyes Bilateral: positive: Normal inspection, PERRL, EOMI, No lid inflammation, Conjunctivae nml, No scleral icterus ENT: positive: ENT inspection nml, Pharynx nml, No signs of dehydration. negative: Purulent nasal drainage, Pharyngeal erythema, Oral lesions Neck: positive: Nml inspection, Thyroid nml, No JVD, Trachea midline. negative: Lymphadenopathy (R), Lymphadenopathy (L) Respiratory: positive: Chest non-tender, No respiratory distress, Breath sounds nml. negative: Wheezes, Rales, Rhonchi Cardiovascular: positive: Regular rate & rhythm, No murmur, No gallop Peripheral Pulses: positive: 2+ Abdomen: positive: Non-tender, No organomegaly, Nml bowel sounds, No distention. negative: Guarding, Rebound, Hepatomegaly, Splenomegaly Back: positive: Nml inspection. negative: CVA tenderness (R), CVA tenderness (L) Skin: positive: Color nml, No rash, Warm, Dry Extremities: positive: Non-tender, Full ROM, Nml appearance Neurologic/Psychiatric: positive: Oriented x3, Mood/affect nml, Weakness (Very inconsistent exam with left-sided weakness of her left leg and left arm. When the patient's asked to lift her left leg off the gurney she was barely able to lift it. However when I lifted it up for her she brings it down very slowly showing that she has good strength in the left leg. The same goes for her left arm as when I told her to lift it she is only able to lift it minimally against gravity. However when I lifted up for her she brings it down slowly showing again that she has good strength in that arm. When asked to the [id number] test she does not very quickly with her right side but on the left side she is extremely slow but is able to do the exam and completed. The patient's speech is completely intact.) Conclusion/Plan - Problem List (1) Stroke-like symptoms Conclusion/Plan: The patient's symptoms are very inconsistent with any specific cerebral artery distribution. Her expressive aphasia is completely resolved and speech is now completely normal. The patient's weakness on the left side does not appear to be true weakness as there is inconsistencies in her neurologic exam. [facility] neurology felt that this was most likely psychosomatic. I agree with this assessment as the patient's symptoms appear completely psychosomatic to me. However we will complete work-up for stroke with MRI/MRA, echocardiogram, telemetry monitoring The patient will be placed on Aggrenox and Lipitor per neurology recommendations I will have patient evaluated by PT/OT We will check a lipid profile and hemoglobin A1c Allow for permissive hypertension (2) Hyperglycemia Conclusion/Plan: Patient has a blood glucose of 286 on presentation. The patient states that her most recent checkup her blood glucose was also elevated at over 200 and she was told to manage this with diet. Patient states recently she has been having cravings for sweet foods. She denies any polyuria or polydipsia. The patient's UA shows glucose in the urine. The patient appears to have new diagnosis of diabetes. We will check a hemoglobin A1c to confirm. I will place the patient on sliding scale insulin and a diabetic diet. We will check blood glucose AC at bedtime This is obviously a risk factor for stroke (3) Hypertension Conclusion/Plan: The patient states that she is recently been told she has hypertension but is not on any medication at this time. On presentation to the emergency department the patient is hypertensive. Given that we are concerned about possibility of acute stroke will allow for permissive hypertension. Qualifiers: Hypertension type: essential hypertension Qualified Code(s): I10 - Essential (primary) hypertension - Lab Results Lab results reviewed: Yes Fish Bones: 12/24/18 21:30 12/24/18 21: Other Lab Results: Laboratory Results WBC 7.6 x10^3/uL (4.8-10.8) 12/24/18: RBC 4.60 10^6/uL (4.20-5.40) 12/24/18: Hgb 14.3 g/dL (12.0-16.0) 12/24/18: Hct 43.2 % (37.0-47.0) 12/24/18: MCV 93.9 fL (81.0-99.0) 12/24/18: MCH 31.1 pg (27.0-31.0) H 12/24/18: MCHC 33.1 g/dL (32.0-36.0) 12/24/18: RDW 12.2 % (12.0-15.0) 12/24/18: Plt Count 334 10^3/uL (130-450) 12/24/18: MPV 10.8 fL (7.9-10.8) 12/24/18:30 Neut # (Auto) 6.8 10^3/uL (1.5-6.6) H 12/24/18:30 Lymph # (Auto) 0.7 10^3/uL (1.5-3.5) L 12/24/18: [place] # (Auto) 0.1 10^3/uL (0.0-1.0) 12/24/18 21:30 Eos # (Auto) 0.0 10^3/uL (0.0-0.7) 12/24/18 21:30 Baso # (Auto) 0.0 10^3/uL (0.0-0.1) 12/24/18 21:30 Absolute Nucleated RBC 0.00 x10^3/uL 12/24/18 21:30 Nucleated RBC % 0.0 /100WBC 12/24/18 21:30 Sodium 138 mmol/L (135-145) 12/24/18 21:30 Potassium 3.7 mmol/L (3.5-5.0) 12/24/18 21:30 Chloride 100 mmol/L (101-111) L 12/24/18 21:30 Carbon Dioxide 24 mmol/L (21-32) 12/24/18 21:30 Anion Gap 14.0 (6-13) H 12/24/18 21:30 BUN 21 mg/dL (6-20) H 12/24/18 21:30 Creatinine 1.3 mg/dL (0.4-1.0) H 12/24/18 21:30 Estimated GFR (MDRD) 41 (>89) L 12/24/18 21:30 Glucose 286 mg/dL (70-100) H 12/24/18 21:30 Calcium 9.7 mg/dL (8.5-10.3) 12/24/18 21:30 Total Bilirubin 0.8 mg/dL (0.2-1.0) 12/24/18 21:30 AST 37 IU/L (10-42) 12/24/18 21:30 ALT 22 IU/L (10-60) 12/24/18 21:30 Alkaline Phosphatase 76 IU/L (42-121) 12/24/18 21:30 Total Protein 7.9 g/dL (6.7-8.2) 12/24/18 21:30 Albumin 4.6 g/dL (3.2-5.5) 12/24/18 21:30 Globulin 3.3 g/dL (2.1-4.2) 12/24/18 21:30 Albumin/Globulin Ratio 1.4 (1.0-2.2) 12/24/18 21:30 Lipase 33 U/L (22-51) 12/24/18 21:30 Urine Color YELLOW 12/24/18 23:05 Urine Clarity CLEAR (CLEAR) 12/24/18 23:05 Urine pH 7.0 PH (5.0-7.5) 12/24/18 23:05 Ur Specific [place] 1.010 (1.002-1.030) 12/24/18 23:05 Urine Protein NEGATIVE mg/dL (NEGATIVE) 12/24/18 23:05 Urine Glucose (UA) >=1000 mg/dL (NEGATIVE) H 12/24/18 23:05 Urine Ketones NEGATIVE mg/dL (NEGATIVE) 12/24/18 23:05 Urine Occult Blood TRACE-INTA (NEGATIVE) 12/24/18 23:05 Urine Nitrite NEGATIVE (NEGATIVE) 12/24/18 23:05 Urine Bilirubin NEGATIVE (NEGATIVE) 12/24/18 23:05 Urine Urobilinogen 0.2 (NORMAL) E.U./dL (NORMAL) 12/24/18 23:05 Ur Leukocyte Esterase NEGATIVE (NEGATIVE) 12/24/18 23:05 Ur Microscopic Review NOT INDICATED 12/24/18 23:05 Urine Culture Comments NOT INDICATED 12/24/18 23:05 Ethyl Alcohol < 5.0 mg/dL 12/24/18 21:30 - Diagnostic Imaging Results Diagnostic Imaging Results: positive: Final report reviewed - EKG Results EKG Interpreted Independently: Yes Core Measures - Anticipated LOS I expect patient to be DC'd or transferred within 96 hours.: Yes - DVT/VTE - Prophylaxis VTE/DVT Device ordered at admit?: Yes
[2018-12-25] MEDS: SODIUM CHLORIDE 0.9% 1,000 ML IV SCH ×2 (05:22→18:38)
[2018-12-25 05:32] LABS: BASOPHILS % (AUTO) 0.3 %; EOSINOPHILS % (AUTO) 0.1 %; HGB - HEMOGLOBIN 12.9 g/dL (12.0-16.0); LYMPHOCYTES # (AUTO) 1.4 10^3/uL (1.5-3.5); LYMPHOCYTES % (AUTO) 14.6 %; MEAN CORPUSCULAR HEMOGLOBIN 31.2 pg (27.0-31.0); MEAN CORPUSCULAR HGB CONC 33.3 g/dL (32.0-36.0); MEAN CORPUSCULAR VOLUME 93.5 fL (81.0-99.0); MEAN PLATELET VOLUME 10.8 fL (7.9-10.8); MONOCYTES % (AUTO) 9.9 %; NEUTROPHILS # (AUTO) 7.2 10^3/uL (1.5-6.6); NEUTROPHILS % (AUTO) 74.7 %; PLT - PLATELET COUNT 320 10^3/uL (130-450); RED BLOOD COUNT 4.14 10^6/uL (4.20-5.40); RED CELL DISTRIBUTION WIDTH 12.2 % (12.0-15.0); WHITE BLOOD COUNT 9.6 x10^3/uL (4.8-10.8)
[2018-12-25 05:45] LABS: INR 1.1 (0.8-1.2); PT - PROTHROMBIN TIME 12.3 secs (9.9-12.6)
[2018-12-25 05:51] LABS: CHOL/HDL RATIO 2.7 (<4.4); CHOLESTEROL 222 mg/dL; HB2 TOTAL 13.5 g/dL; HDL CHOLESTEROL 81 mg/dL; HEMOGLOBIN A1C 0.49 g/dL; HEMOGLOBIN A1C % 5.5 % (4.6-6.2); LDL CHOLESTEROL,CALCULATED 126 mg/dL; LDL/HDL RATIO 1.6 (<4.4); VLDL CHOLESTEROL 15 mg/dL
[2018-12-25 05:56] LABS: ALBUMIN 3.8 g/dL (3.2-5.5); ALBUMIN/GLOBULIN RATIO 1.4 (1.0-2.2); BILIRUBIN,TOTAL 0.7 mg/dL (0.2-1.0); CALCIUM 8.8 mg/dL (8.5-10.3); CREATININE 0.7 mg/dL (0.4-1.0); TOTAL PROTEIN 6.6 g/dL (6.7-8.2)
[2018-12-25] MEDS ORDERED: MULTIVITAMIN TABLET PO SCH (08:00)
[2018-12-25] MEDS: INSULIN ASPART 300 UNIT/3 ML PEN SUBQ SCH ×2 (08:50→11:10)
[2018-12-25] MEDS: SODIUM CHLORIDE FLUSH 0.9% 10 ML SYRINGE IVP SCH ×2 (08:51→18:39)
[2018-12-25] MEDS ORDERED: ASPIRIN/DIPYRIDAMOLE 25 MG/200 MG CAPSULE PO SCH ×2 (09:00)
[2018-12-25] MEDS ORDERED: FAMOTIDINE 20 MG TABLET PO SCH (09:00)
[2018-12-25] MEDS ORDERED: POLYETHYLENE GLYCOL 3350 17 GM PACKET PO SCH (09:00)
[2018-12-25] MEDS ORDERED: HALOPERIDOL 5 MG/ML VIAL IM ONE (15:00)
--- NOTE | 2018-12-25 15:15 | Discharge Plan ---
Discharge Plan Problem Reviewed?: Yes Disposition: Home, Self Care Condition: Stable Prescriptions: Atorvastatin [Lipitor] 40 mg PO QPM #10 tablet Diet: Regular Activity Restrictions: Activity as Tolerated Shower Restrictions: No (fall precaution, caregiver closely monitor) Instruction Topics: Atorvastatin tablets, TIA Health Concerns: TIA Plan of Treatment: your image studies are unremarkable. PT evaluated and treated with you. you have no focus neurological deficiency now. Lipitor is prescribed for your elevated cholesterol. Care Goals: stabilization and improvement of your medical conditions Assessment: assessment as the above Additional Instructions or Follow Up instructions: you may followup your PCP in two weeks. Should your symptoms return or worsen, you may present ER or call 911 for help. No Smoking: If you smoke, Please STOP! Call for help. Follow-up with: Karine White DO [Primary Care Provider] -
[2018-12-25] MEDS ORDERED: GADOBUTROL 10 MMOL/10 ML VIAL ONE (16:32)
[2018-12-25] MEDS ORDERED: GADOBUTROL 10 MMOL/10 ML VIAL IVP ONE (17:29)
--- NOTE | 2018-12-25 18:08 | MRI Report ---
Reason: Left sided weakness Procedure Date: 12/25/2018 Accession Number: [id number] / [id number] Procedure: MRI - Angio Brain W/O (MRA) CPT Code: FULL RESULT: EXAM MRA BRAIN EXAM DATE: 12/25/2018 05:31 PM. CLINICAL HISTORY: 68-year-old female. Left sided weakness. COMPARISON: CTA head 12/25/2018 TECHNIQUE: Multiplanar, multisequence MRA sequences of the brain were performed. Other: None. Post-processing: Multiplanar 3D MIP reconstructions. IV Contrast: None. FINDINGS: RIGHT Internal Carotid (ICA): No aneurysm, stenosis or anomaly. Middle Cerebral (MCA): No aneurysm, stenosis or anomaly. Anterior Cerebral (MELL): No aneurysm, stenosis or anomaly. Posterior Cerebral (BENCH WORKER HOLLOW HANDLE): origin. No aneurysm, stenosis or anomaly. Posterior Communicating (P-COM): No aneurysm, stenosis or anomaly. Vertebral: No aneurysm, stenosis or anomaly in the visualized upper vertebral artery. LEFT Internal Carotid (ICA): No aneurysm, stenosis or anomaly. Middle Cerebral (MCA): No aneurysm, stenosis or anomaly. Anterior Cerebral (MELL): No aneurysm, stenosis or anomaly. Posterior Cerebral (BENCH WORKER HOLLOW HANDLE): No aneurysm, stenosis or anomaly. Posterior Communicating (P-COM): Not visualized, aplastic versus markedly hypoplastic Vertebral: No aneurysm, stenosis or anomaly in the visualized upper vertebral artery. MIDLINE Anterior Communicating (A-COM): No aneurysm, stenosis or anomaly. Basilar Artery:No aneurysm, stenosis or anomaly. Other: None. IMPRESSION: 1. Normal brain MRA. No stenoses or aneurysms. RADIA
--- NOTE | 2018-12-25 18:33 | MRI Report ---
Reason: Left sided weakness Procedure Date: 12/25/2018 Accession Number: [id number] / [id number] Procedure: MRI - Brain W/O CPT Code: FULL RESULT: EXAM: MRI BRAIN WITHOUT CONTRAST; MRA NECK EXAM DATE: 12/25/2018 05:32 PM. CLINICAL HISTORY: Left sided weakness. COMPARISON: Concurrent MR angiogram brain/neck. Prior CT head 12/24/2018. TECHNIQUE: MRI brain: Multiplanar, multisequence T1-weighted and fluid-sensitive MR sequences of the brain were performed. Sequences optimized for routine evaluation. Other: None. IV Contrast: None. MRA neck: Postcontrast MRA neck performed, multiple maximum intensity projection images are generated. 6 cc Gadavist given intravenously. Findings: Relevant images are indicated (image number, series number). MRI brain: There is no acute/subacute ischemic change in the brain. There is no hemosiderin deposition present in the brain. There is no hemorrhage, mass or midline shift. Orbital contents negative. Some mild white matter disease present within the deidra, minimal periventricular white matter disease present. Pituitary, midbrain, craniocervical junction, limited upper cervical cord negative. MRA neck: Aortic arch: Normal, widely patent, normal configuration of the great vessels. Left carotid artery: Widely patent. Right carotid artery: Widely patent. Left vertebral artery: Widely patent. Right vertebral artery: Widely patent, nondominant vessel. Impressions: MRI brain: 1. No acute/subacute ischemic change. 2. Mild pontine white matter disease, minimal supratentorial white matter disease otherwise negative brain/orbits. MRA neck: 1. Normal. RADIA
--- NOTE | 2018-12-25 18:33 | MRI Report ---
Reason: Left sided weakness Procedure Date: 12/25/2018 Accession Number: [id number] / [id number] Procedure: MRI - Angio Neck W/WO (MRA) CPT Code: FULL RESULT: EXAM: MRI BRAIN WITHOUT CONTRAST; MRA NECK EXAM DATE: 12/25/2018 05:32 PM. CLINICAL HISTORY: Left sided weakness. COMPARISON: Concurrent MR angiogram brain/neck. Prior CT head 12/24/2018. TECHNIQUE: MRI brain: Multiplanar, multisequence T1-weighted and fluid-sensitive MR sequences of the brain were performed. Sequences optimized for routine evaluation. Other: None. IV Contrast: None. MRA neck: Postcontrast MRA neck performed, multiple maximum intensity projection images are generated. 6 cc Gadavist given intravenously. Findings: Relevant images are indicated (image number, series number). MRI brain: There is no acute/subacute ischemic change in the brain. There is no hemosiderin deposition present in the brain. There is no hemorrhage, mass or midline shift. Orbital contents negative. Some mild white matter disease present within the deidra, minimal periventricular white matter disease present. Pituitary, midbrain, craniocervical junction, limited upper cervical cord negative. MRA neck: Aortic arch: Normal, widely patent, normal configuration of the great vessels. Left carotid artery: Widely patent. Right carotid artery: Widely patent. Left vertebral artery: Widely patent. Right vertebral artery: Widely patent, nondominant vessel. Impressions: MRI brain: 1. No acute/subacute ischemic change. 2. Mild pontine white matter disease, minimal supratentorial white matter disease otherwise negative brain/orbits. MRA neck: 1. Normal. RADIA
--- NOTE | 2018-12-25 18:49 | DISCHARGE SUMMARY ---
Discharge Summary Admit Date: 12/24/18 Discharge Date: 12/25/18 Discharging Provider: VYAS Primary Care Provider: Karine Cavazos Condition at Discharge: Stable Discharge Disposition: 01 Home, Self Care Discharge Facility Name: home - DIAGNOSES Admission Diagnoses: (1) Stroke-like symptoms psychosomatic to me (2) Hyperglycemia (3) Hypertension Discharge Diagnoses with Status of Each Condition: 1) Stroke-like symptoms pt has no focus neurological deficiency. PT evaluated pt, pt walked 200 ft without weakness. reported symptoms by pt are psychosomatic to me either. please review Dr. Kaufman's HPI, he stated pt's symptoms are psychosomatic to him. pt's image studies including CT, CTA, MRI, MRA of head, CTA and MRA of neck, ECHO are unremarkable for acute findings. (2) Hyperglycemia resolved. A1C is 5.5. it is likely from the side effect of pt's recently taking Prednisone (3) Hypertension stable (4) elevated cholesterol pt has elevated Cholesterol level. pt is prescribed Lipitor - HPI History of Present Illness: Patient is a 68-year-old female with a past medical history significant for Budd-Chiari malformation, High sensitivity to pollution with possible asthma, malignant melanoma removed from her left leg, history of diverticulitis status post sigmoidectomy, osteoarthritis status post right knee replacement, os teoporosis and recent concern for hypertension and hyperglycemia who presented to the emergency department with a chief complaint of difficulty with her speech. The patient states that she was in her normal state of health and in fact had seen her primary care physician yesterday and was told that her blood pressure was running high. She states that she was in her kitchen this evening at around 830 when she all of a sudden felt lightheaded and states she could not speak. She states that she knew what she wanted to say but could not get it out. She finally was able to get her 's attention and told him that she is having a heart attack and that he needs to call 911. The patient's then did call 911 and try to get his to raise her arms over her head and she could not raise either arm over her head, she also could not smile. He stated that she was able to say some words but her speech was slurred. On arrival of EMS they found that she was hypertensive and was continuing to have neurologic symptoms so they brought her to the emergency department. On arrival to the emergency department the patient was able to speak but it was in a very singsong way. The patient's states that the patient was very slow to respond. The patient states that through the stay in the emergency department her symptoms have improved. While she was in the emergency department she did have an episode where she became very tachypneic and tachycardic but this resolved without intervention. The patient's neurologic exam revealed that she had some left-sided weakness when the emergency room physician saw her. The patient otherwise denies any blurred vision, runny nose, sore throat, chest pain, shortness of breath, orthopnea, abdominal pain, nausea, vomiting, diarrhea, urinary urgency, urinary frequency, dysuria, back pain, neck stiffness, recent unintentional weight loss, night sweats, polyuria, polydipsia, fevers or chills. On presentation to the emergency department the patient was a febrile but she was quite hypertensive with a blood pressure of 188/83 and otherwise had normal respirations and was saturating at 100% on room air. The patient's lab work did reveal hyperglycemia with a blood glucose of 286, her CBC was within normal limits, urinalysis revealed greater than 1000 glucose. The patient's blood alcohol level was less than 5. The patient underwent a CT of her head which showed no evidence of acute intracranial abnormality, specifically no evidence of acute infarct, intracranial hemorrhage, mass-effect, midline shift or hydrocephalus. The patient's chest x-ray showed hyperinflated lungs. No acute cardiopulmonary disease seen. The patient underwent a CT of the head and neck which showed no acute intracranial abnormality. Given the patient's ongoing symptoms that were waxing and waning in the emergency department the emergency room physician spoke with the neurologist at [facility]. The neurologist there felt that the patient's symptoms were likely psychosomatic given that they did not go with any specific cerebral artery distribution. He did however recommend that the patient be treated with Aggrenox and Lipitor. He also recommended patient be placed in observation and undergo MRI and MRA. The patient was placed in observation. - HOSPITAL COURSE Hospital Course: pt was admitted for evaluation of stroke-like symptoms, slurred speech, left side weakness. Admission physician and [facility] we consulted thought pt's symptoms were psychosomatic to them. I examined pt. I did think pt's symptoms were psychosomatic. pt has no focus neurological deficiency in my examination. PT evaluated pt. pt walked with PT for 200 foot without weakness per PT's report. pt's image studies including CT, CTA, MRI, MRA of head, CTA and MRA of neck, ECHO are unremarkable for acute findings. the detail of hospital course is as the below: 1) Stroke-like symptoms pt has no focus neurological deficiency. PT evaluated pt, pt walked 200 ft without weakness. reported symptoms by pt are psychosomatic to me either. please review Dr. Kaufman's HPI, he stated pt's symptoms are psychosomatic to him. pt's image studies including CT, CTA, MRI, MRA of head, CTA and MRA of neck, ECHO are unremarkable for acute findings. (2) Hyperglycemia resolved. A1C is 5.5. it is likely from the side effect of pt's recently taking Prednisone (3) Hypertension stable (4) elevated cholesterol pt has elevated Cholesterol level. pt is prescribed Lipitor - ALLERGIES Allergies/Adverse Reactions: Allergies Allergy/AdvReac Type Severity Reaction Status Date / Time latex Allergy Unknown Verified 12/24/18 21:27 Penicillins Allergy Hives Verified 12/24/18 21:27 - MEDICATIONS Home Medications: Ambulatory Orders Medication Instructions Recorded Confirmed Cholecalciferol (Vitamin D3) 2,000 unit PO DAILY 05/03/16 12/25/18 [Vitamin D3] predniSONE [Deltasone] 20 mg PO [id number] #21 tab 12/07/18 12/25/18 Albuterol Sulfate [Proair Hfa 1 - 2 puffs INH Q6HR PRN 12/25/18 12/25/18 Inhaler] Atorvastatin [Lipitor] 40 mg PO QPM #10 tablet 12/25/18 Benzonatate [Tessalon] 100 mg PO Q6HR PRN 12/25/18 12/25/18 Calcium Carb/Vitamin D3/Vit K1 1 tab PO DAILY 12/25/18 12/25/18 [Viactiv 650 mg-12.5 Mcg Chew] Multivitamin [Multiple Vitamins] 1 tab PO DAILY 12/25/18 12/25/18 - PHYSICAL EXAM AT DISCHARGE General Appearance: positive: No acute distress, Alert. negative: Lethargic Eyes Bilateral: positive: Normal inspection, PERRL, No lid inflammation, Conjunctivae nml ENT: positive: ENT inspection nml, Pharynx nml, No signs of dehydration. negative: Purulent nasal drainage, Pharyngeal erythema, Oral lesions Neck: positive: Nml inspection, Thyroid nml, No JVD, Trachea midline. negative: Thyromegaly, Lymphadenopathy (R), Lymphadenopathy (L), Stiff neck, Swelling/bruising, Tracheal deviation Respiratory: positive: Chest non-tender, No respiratory distress, Breath sounds nml. negative: Wheezes, Rales, Rhonchi Cardiovascular: positive: Regular rate & rhythm, No murmur, No gallop. n egative: Irregularly irregular, Extrasystoles, Tachycardia, Bradycardia, JVD present, Systolic murmur, Diastolic murmur Peripheral Pulses: positive: 2+ Abdomen: positive: Non-tender, No organomegaly, Nml bowel sounds, No distention. negative: Tenderness, Guarding, Rebound Back: positive: Nml inspection. negative: CVA tenderness (R), CVA tenderness (L) Skin: positive: Color nml, No rash, Warm, Dry. negative: Cyanosis, Diaphoresis, Pallor Extremities: positive: Non-tender, Full ROM, Nml appearance. negative: Calf tenderness, Joint swelling, Ting's sign/cords Neurologic/Psychiatric: positive: Oriented x3, Motor nml, Sensation nml, Mood/affect nml. negative: Weakness, Sensory loss, Facial droop, Slurred/abnml speech, Depressed mood/affect - LABS Result Diagrams: 12/25/18 05:10 12/25/18 05:10 - FOLLOW UP Follow Up: your image studies are unremarkable. PT evaluated and treated with you. you have no focus neurological deficiency now. Lipitor is prescribed for your elevated cholesterol. you may followup your PCP in two weeks. Should your symptoms return or worsen, you may present ER or call 911 for help. - TIME SPENT Time Spent in Discharge (Minutes): 50
[2018-12-25 19:10] VITALS: BP 153/75
[2018-12-25] MEDS ORDERED: ATORVASTATIN 40 MG TABLET PO SCH (21:00)
== END 2018-12-25 19:31 | disposition home or self-care (01) ==
LOC: EDUNIT# → ED 21:10 → MS2 12-25 03:36
PROVIDERS: ADMIT Internal Medicine; ATTEND Nurse Practitioner Gerontology
DX: R47.01 Aphasia (principal); R47.1 Dysarthria and anarthria; R47.81 Slurred speech; R53.1 Weakness; R42 Dizziness and giddiness; R51 Headache; R06.4 Hyperventilation; E86.0 Dehydration; E11.65 Type 2 diabetes mellitus with hyperglycemia; I10 Essential (primary) hypertension; E78.00 Pure hypercholesterolemia, unspecified; Z85.820 Personal history of malignant melanoma of skin; Z90.49 Acquired absence of other specified parts of digestive tract; Z87.19 Personal history of other diseases of the digestive system; Z86.718 Personal history of other venous thrombosis and embolism
CPT/HCPCS: 36415; 70450; 70496; 70498; 70544; 70549; 71045; 80053; 80061; 81003; 83036; 83690; 84484; 85025; 85610; 93005; 93306; 96360; 96361; 97161; 99284; 99285; A9270; A9585; G0378; Q9967; 70551; 80320; 81001; 83721; 87086

== ENCOUNTER 2018-12-26 07:49 | Outpatient (CLI) | payer MEDICARE, OTHER | END 2018-12-26 07:50 | disposition critical access hospital (66) | LOC: EMS 07:49 | PROVIDERS: ATTEND Surgery | DX: R07.9 Chest pain, unspecified (principal); R11.0 Nausea; R61 Generalized hyperhidrosis | CPT/HCPCS: A0425; A0427 ==

== ENCOUNTER 2018-12-26 07:59 | Emergency (ER) | payer MEDICARE, OTHER ==
--- NOTE | 2018-12-26 08:03 | ED Physician Documentation ---
PD HPI CHEST PAIN - Stated complaint Stated Complaint: CP - History obtained from History obtained from: Patient - History of Present Illness Timing - onset: Today (The patient was cooking breakfast and started to have some left-sided chest pain that was worse with movement and deep breathing. She had been having feeling of a little bit of shortness of breath the day or 2 before. No cough per se. She had been noticing some general body aches and some muscle aches. She states she does have a history of chronic mono that recurs and she gets arthritis type pains with it at times. She denies any history of coronary disease. The pain is improving on route) Timing - onset during: Light activity Timing - details: Abrupt onset, Still present (It is much lessened from the onset by time of arrival. She states that still hurts a little bit for movement and breathing.) Quality: Aching, Sharp, Pain Location: Left chest Radiation: Back Worsened by: Inspiration, Movement Associated symptoms: Cough, Other (She did notice some trouble speaking sentences briskly and had to be deliberate in her word choice on route. This is similar to 2 days ago when she was here in the hospital. She did not have the chest pain 2 days ago.). No: Shortness of air, Nausea, Vomiting, Feeling faint / dizzy Similar symptoms before: Has not had sx before Recently seen: Emergency Dept, Admitted (She was seen 2 days ago for onset of feeling off balance and some expressive aphasia with deliberate word searching and slow sentence structure. She was in the hospital overnight and had the initial evaluation for stroke assessment with CT and CTA of the head and neck and then overnight had echocardiogram and MRI and MRA of the brain and neck. No findings were found. There are no structural lesions and no ischemic lesions and all the vessels were widely patent. The echo showed normal ejection fraction and no effusion. Lab tests were normal.) Review of Systems Constitutional: reports: Myalgias (for a week or so, that she attributes to recurrent chronic mono.), Fatigue. denies: Fever, Chills Eyes: denies: Loss of vision, Decreased vision Nose: denies: Rhinorrhea / runny nose, Congestion Throat: denies: Sore throat Cardiac: reports: Chest pain / pressure. denies: Palpitations, Pedal edema, Calf pain Respiratory: reports: Cough. denies: Wheezing GI: denies: Nausea, Vomiting, Diarrhea Skin: denies: Rash, Lesions Neurologic: reports: Difficulty speaking. denies: Generalized weakness, Focal weakness, Numbness, Near syncope, Confused, Altered mental status PD PAST MEDICAL HISTORY - Past Medical History Cardiovascular: Hypertension Respiratory: None Neuro: Other Endocrine/Autoimmune: Type 2 diabetes GI: Diverticulitis (Status post sigmoidectomy) : None HEENT: Other Psych: None Musculoskeletal: Osteoarthritis, Osteoporosis Derm: Other (History of malignant melanoma) - Past Surgical History Past Surgical History: Yes General: Bowel surgery Ortho: Knee replacement HEENT: Cataracts Derm: Skin cancer surgery - Present Medications Home Medications: Ambulatory Orders Medication Instructions Recorded Confirmed Cholecalciferol (Vitamin D3) 2,000 unit PO DAILY 05/03/16 12/25/18 [Vitamin D3] predniSONE [Deltasone] 20 mg PO [id number] #21 tab 12/07/18 12/25/18 Albuterol Sulfate [Proair Hfa 1 - 2 puffs INH Q6HR PRN 12/25/18 12/25/18 Inhaler] Atorvastatin [Lipitor] 40 mg PO QPM #10 tablet 12/25/18 Benzonatate [Tessalon] 100 mg PO Q6HR PRN 12/25/18 12/25/18 Calcium Carb/Vitamin D3/Vit K1 1 tab PO DAILY 12/25/18 12/25/18 [Viactiv 650 mg-12.5 Mcg Chew] Multivitamin [Multiple Vitamins] 1 tab PO DAILY 12/25/18 12/25/18 Hydrocodone/Acetaminophen [[place] 1 each PO Q6H PRN #15 tablet 12/26/18 5-325 Tablet] Naproxen 375 mg PO BID #20 tablet 12/26/18 - Allergies Allergies/Adverse Reactions: Allergies Allergy/AdvReac Type Severity Reaction Status Date / Time latex Allergy Unknown Verified 12/24/18 21:27 Penicillins Allergy Hives Verified 12/24/18 21:27 - Social History Does the pt smoke?: No Smoking Status: Never smoker Does the pt drink ETOH?: No Does the pt have substance abuse?: No - Immunizations Immunizations are current?: Yes - POLST Patient has POLST: No POLST Status: Full Code PD ED PE NORMAL - Vitals Vital signs reviewed: Yes - General General: Alert and oriented X 3 (She is able to answer questions clearly and comprehend questions. Her sentences are accurate and clear but she is just very slow at getting the words out just 1 or 2 words at a time with a slight positive between.), No acute distress, Well developed/nourished - HEENT HEENT: Atraumatic, PERRL, EOMI, Pharynx benign - Neck Neck: Supple, no meningeal sign, No adenopathy - Cardiac Cardiac: RRR, No murmur - Respiratory Respiratory: Clear bilaterally, Other (There is some mild chest wall tenderness on the lower costal margin.) - Abdomen Abdomen: Normal bowel sounds, Soft, Non tender, Non distended, No organomegaly - Back Back: No CVA TTP - Derm Derm: Normal color, Warm and dry, No rash - Extremities Extremities: No tenderness to palpate, Normal ROM s pain, No edema, No calf tenderness / cord - Neuro Neuro: Alert and oriented X 3, computer project manager 2-12 intact, No motor deficit, No sensory deficit, Normal speech Eye Opening: Spontaneous Motor: Obeys Commands Verbal: Oriented GCS Score: 15 Results - Vitals Vitals: Vital Signs - 24 hr 12/26/18 12/26/18 08:04 12:18 Temperature 98.1 C H Heart Rate 74 68 Respiratory 14 14 Rate Blood Pressure 178/81 H 132/70 H O2 Saturation 100 97 Oxygen O2 Source Room air - EKG (time done) 08:03 Rate: Rate (enter#) (68) Rhythm: NSR [place]: Normal Intervals: Normal NE QRS: Normal Ischemia: Normal ST segments. No: ST elevation c/w ischemia, ST depression - Labs Labs: Laboratory Tests 12/26/18 12/26/18 12/26/18 09:22 09:22 09:22 WBC 8.2 RBC 4.30 Hgb 13.4 Hct 40.8 MCV 94.9 MCH 31.2 H MCHC 32.8 RDW 12.5 Plt Count 336 MPV 10.5 Neut # (Auto) 5.8 Lymph # (Auto) 1.5 [place] # (Auto) 0.8 Eos # (Auto) 0.1 Baso # (Auto) 0.1 Absolute Nucleated RBC 0.00 Nucleated RBC % 0.0 ESR Sodium 140 Potassium 3.7 Chloride 101 Carbon Dioxide 28 Anion Gap 11.0 BUN 19 Creatinine 0.7 Estimated GFR (MDRD) 83 L Glucose 102 H Calcium 9.0 Magnesium 2.1 Total Bilirubin 0.8 AST 26 ALT 18 Alkaline Phosphatase 60 Troponin I High Sens B-Natriuretic Peptide 135 H Total Protein 7.1 Albumin 4.1 Globulin 3.0 Albumin/Globulin Ratio 1.4 Lipase 32 12/26/18 12/26/18 09:22 09:22 WBC RBC Hgb Hct MCV MCH MCHC RDW Plt Count MPV Neut # (Auto) Lymph # (Auto) [place] # (Auto) Eos # (Auto) Baso # (Auto) Absolute Nucleated RBC Nucleated RBC % ESR 7 Sodium Potassium Chloride Carbon Dioxide Anion Gap BUN Creatinine Estimated GFR (MDRD) Glucose Calcium Magnesium Total Bilirubin AST ALT Alkaline Phosphatase Troponin I High Sens 6.2 B-Natriuretic Peptide Total Protein Albumin Globulin Albumin/Globulin Ratio Lipase - Rads (name of study) chest xray Radiology: Prelim report reviewed (no acute process), See rad report PD MEDICAL DECISION MAKING - ED course Complexity details: reviewed results, re-evaluated patient (Initially she was talking fairly clearly and then started having a very slow pause deliberate speaking style. This is apparently similar to the 2 days ago. I reviewed the records of the stroke work-up. I talked with neurology at [facility] regarding it and he did not see the need for repeating any stroke evaluation type tests. He thinks it is more stress or anxiety related given the negative work-up and the pattern of it.), considered differential (Her pain is more sharp and related to breathing and movement. She states she has been having some muscle aches and arthralgias related to her recurrent mono that she feels is been flaring for the last week or so. She had been in the hospital for day as well. Consider some pleurisy or even atelectasis. No symptoms to suggest pneumonia. She does not have any leg swelling or calf tenderness. We will check cardiac enzymes. Her EKG is normal.), d/w patient Departure - Departure Disposition: 01 Home, Self Care Clinical Impression: Pleurisy, Aphasia, Speaking difficulty Chest pain Qualifiers: Chest pain type: chest pain on breathing Qualified Code(s): R07.1 - Chest pain on breathing Condition: Stable Record reviewed to determine appropriate education?: Yes Instructions: ED Chest Pain Pleurisy Follow-Up: Sena Baker ARNP, WARD NURSE-C [Credentialed Staff Provider] - Prescriptions: Hydrocodone/Acetaminophen [[place] 5-325 Tablet] 1 each PO Q6H PRN #15 tablet PRN Reason: Pain Naproxen 375 mg PO BID #20 tablet Comments: No signs of significant cause of the pain in the chest. I presume some inflammation of the lining of the lung call pleurisy. Treat this with naproxen anti-inflammatory twice daily. Add Tylenol 4 times a day if needed for pain. Can add hydrocodone if needed for worse pain. I talked with the neurologist at [facility] and he did not see any other testing to do regarding the difficulty speaking. It does not appear to be a serious cause. Consideration would be a possible physiologic stress response without being stroke or tumor related or vascular per se. Follow-up with your primary care later this week or early next week for follow- up on these issues. Return as needed. Discharge Date/Time: 12/26/18 12:18
[2018-12-26] MEDS ORDERED: DEXAMETHASONE 10 MG/ML VIAL IVP STA (08:40)
[2018-12-26] MEDS ORDERED: SODIUM CHLORIDE 0.9% 1,000 ML IV ONE (08:40)
[2018-12-26] MEDS ORDERED: KETOROLAC 15 MG/ML VIAL IVP STA (08:59)
--- NOTE | 2018-12-26 09:16 | XRAY Report ---
Reason: dyspnea/ cough Procedure Date: 12/26/2018 Accession Number: [id number] / [id number] Procedure: XR - Chest 2 View X-Ray CPT Code: 29798 FULL RESULT: EXAM: CHEST RADIOGRAPHY EXAM DATE: 12/26/2018 09:05 AM. CLINICAL HISTORY: Dyspnea/cough. COMPARISON: CHEST 1 VIEW 12/24/2018 9:20 PM. TECHNIQUE: 2 views. FINDINGS: Lungs/Pleura: No focal opacities evident. No pleural effusion. No pneumothorax. Normal volumes. Mediastinum: Heart and mediastinal contours are unremarkable. Other: None. IMPRESSION: Normal 2-view chest radiography. [facility]
[2018-12-26 09:33] LABS: BASOPHILS # (AUTO) 0.1 10^3/uL (0.0-0.1); BASOPHILS % (AUTO) 0.6 %; EOSINOPHILS # (AUTO) 0.1 10^3/uL (0.0-0.7); EOSINOPHILS % (AUTO) 1.3 %; HGB - HEMOGLOBIN 13.4 g/dL (12.0-16.0); LYMPHOCYTES # (AUTO) 1.5 10^3/uL (1.5-3.5); LYMPHOCYTES % (AUTO) 18.1 %; MEAN CORPUSCULAR HEMOGLOBIN 31.2 pg (27.0-31.0); MEAN CORPUSCULAR HGB CONC 32.8 g/dL (32.0-36.0); MEAN CORPUSCULAR VOLUME 94.9 fL (81.0-99.0); MEAN PLATELET VOLUME 10.5 fL (7.9-10.8); MONOCYTES # (AUTO) 0.8 10^3/uL (0.0-1.0); MONOCYTES % (AUTO) 9.6 %; NEUTROPHILS # (AUTO) 5.8 10^3/uL (1.5-6.6); PLT - PLATELET COUNT 336 10^3/uL (130-450); RED CELL DISTRIBUTION WIDTH 12.5 % (12.0-15.0); WHITE BLOOD COUNT 8.2 x10^3/uL (4.8-10.8)
[2018-12-26 09:43] LABS: ALBUMIN 4.1 g/dL (3.2-5.5); ALBUMIN/GLOBULIN RATIO 1.4 (1.0-2.2); BILIRUBIN,TOTAL 0.8 mg/dL (0.2-1.0); CREATININE 0.7 mg/dL (0.4-1.0); MAGNESIUM 2.1 mg/dL (1.7-2.8); TOTAL PROTEIN 7.1 g/dL (6.7-8.2)
[2018-12-26 12:19] VITALS: BP 132/70
== END 2018-12-26 12:18 | disposition home or self-care (01) ==
LOC: EDUNIT# → ED 07:59
DX: R09.1 Pleurisy (principal); R07.1 Chest pain on breathing; R47.01 Aphasia; I10 Essential (primary) hypertension; E11.9 Type 2 diabetes mellitus without complications
CPT/HCPCS: 36415; 71046; 80053; 83690; 83735; 83880; 84484; 85025; 85651; 93005; 96361; 96374; 99284

== ENCOUNTER 2018-12-31 18:48 | Outpatient (CLI) | payer MEDICARE, OTHER | END 2018-12-31 18:49 | disposition critical access hospital (66) | LOC: EMS 18:48 | PROVIDERS: ATTEND Surgery | DX: R47.9 Unspecified speech disturbances (principal); R53.1 Weakness; R09.89 Other specified symptoms and signs involving the circulatory and respiratory systems | CPT/HCPCS: A0425; A0429 ==

== ENCOUNTER 2018-12-31 18:56 | Emergency (ER) | payer MEDICARE, OTHER ==
[2018-12-31] MEDS ORDERED: cloNIDine 0.1 MG TABLET PO STA (19:10)
--- NOTE | 2018-12-31 19:13 | ED Physician Documentation ---
PD HPI FOCAL NEURO - Stated complaint Stated Complaint: BILATERAL WEAKNESS - Chief complaint Chief Complaint: Neuro - History obtained from History obtained from: Patient - History of Present Illness Timing - onset: Today (68-year-old woman with history of Chiari malformation, glandular fever, osteoarthritis, history of melanoma. She has been having problems since about 6 days ago. She was admitted here for strokelike symptoms. Her work-up was negative including CTA of the head and neck, MRI/MRA of the head and neck. Subsequent to that she had a return visit and [facility] tele- neurology was called and felt that it was likely psychiatric. She returns tonight, it started again about half an hour ago. She is having trouble speaking with bilateral arm weakness. They note some high blood pressures at home.) Review of Systems Ten Systems: 10 systems reviewed and negative Constitutional: reports: Reviewed and negative Cardiac: reports: Reviewed and negative Respiratory: reports: Reviewed and negative PD PAST MEDICAL HISTORY - Past Medical History Cardiovascular: Hypertension Respiratory: None Neuro: Other Endocrine/Autoimmune: Type 2 diabetes GI: Diverticulitis (Status post sigmoidectomy) : None HEENT: Other Psych: None Musculoskeletal: Osteoarthritis, Osteoporosis Derm: Other (History of malignant melanoma) - Past Surgical History Past Surgical History: Yes General: Bowel surgery Ortho: Knee replacement HEENT: Cataracts Derm: Skin cancer surgery - Present Medications Home Medications: Ambulatory Orders Medication Instructions Recorded Confirmed Cholecalciferol (Vitamin D3) 2,000 unit PO DAILY 05/03/16 12/25/18 [Vitamin D3] predniSONE [Deltasone] 20 mg PO [id number] #21 tab 12/07/18 12/25/18 Albuterol Sulfate [Proair Hfa 1 - 2 puffs INH Q6HR PRN 12/25/18 12/25/18 Inhaler] Atorvastatin [Lipitor] 40 mg PO QPM #10 tablet 12/25/18 Benzonatate [Tessalon] 100 mg PO Q6HR PRN 12/25/18 12/25/18 Calcium Carb/Vitamin D3/Vit K1 1 tab PO DAILY 12/25/18 12/25/18 [Viactiv 650 mg-12.5 Mcg Chew] Multivitamin [Multiple Vitamins] 1 tab PO DAILY 12/25/18 12/25/18 Hydrocodone/Acetaminophen [[place] 1 each PO Q6H PRN #15 tablet 12/26/18 5-325 Tablet] Naproxen 375 mg PO BID #20 tablet 12/26/18 - Allergies Allergies/Adverse Reactions: Allergies Allergy/AdvReac Type Severity Reaction Status Date / Time imipenem Allergy Unknown Verified 12/31/18 19:09 latex Allergy Unknown Verified 12/31/18 19:09 levofloxacin Allergy Unknown Verified 12/31/18 19:09 Penicillins Allergy Hives Verified 12/31/18 19:09 - Social History Does the pt smoke?: No Smoking Status: Never smoker Does the pt drink ETOH?: No Does the pt have substance abuse?: No - Immunizations Immunizations are current?: Yes - POLST Patient has POLST: No POLST Status: Full Code PD ED PE NORMAL - Vitals Vital signs reviewed: Yes - General General: Alert and oriented X 3 (She is alert and oriented to person place and time. She is speaking slowly, kind of hissing speech getting only about 1 word out every couple of seconds. No word finding difficulties though.) - HEENT HEENT: PERRL, EOMI - Neck Neck: Supple, no meningeal sign, No bony TTP - Cardiac Cardiac: RRR, No murmur - Respiratory Respiratory: No respiratory distress, Clear bilaterally - Abdomen Abdomen: Normal bowel sounds, Soft, Non tender - Back Back: No CVA TTP, No spinal TTP - Derm Derm: Normal color, Warm and dry - Extremities Extremities: No edema, No calf tenderness / cord - Neuro Neuro: Alert and oriented X 3, Normal speech NIHSS - Time Time: 19:05 - Level of Consciousness Level of consciousness: (0) Alert, Keenly responsive LOC Questions: (0) Answers both Q's correct LOC Commands: (0) Performs both correctly - Gaze Best Gaze: (0) Normal - Visual Visual: (0) No loss - Facial Palsy Facial Palsy: (0) Normal, symmetrical movement - Motor Arms (both separate) Motor Arm (right): (0) No drift (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 is 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 in both arms, but does not have drift when I bring her arms up.) Motor Arm (left): (0) No drift - Motor Legs (both separate) Motor Leg (right): (0) No drift Motor Leg (left): (1) Drift - Limb Ataxia Limb Ataxia: (0) Absent - Sensory Sensory: (0) Normal - Best Language Best Language: (0) No aphasia - Dysarthria Dysarthria: (0) Normal - Extinction and Inattention (formally neg Extinction and inattention: (0) No abnormality - Total Score/Results Total Score/Result: 1 Results - Vitals Vitals: Vital Signs - 24 hr 12/31/18 12/31/18 12/31/18 19:00 19:45 21:03 Temperature 36.4 C L Heart Rate 74 84 75 Respiratory 16 18 15 Rate Blood Pressure 204/75 H 176/89 H 133/66 H O2 Saturation 98 99 97 Oxygen O2 Source Room air - EKG (time done) 1912 Rate: Rate (enter#) (73) Rhythm: NSR [place]: LAD Intervals: Normal [place] QRS: Normal Ischemia: Normal ST segments Computer interpretation: Agree with computer - Labs Labs: Laboratory Tests 12/31/18 12/31/18 12/31/18 17:20 19:30 19:30 WBC 6.8 RBC 4.15 L Hgb 13.0 Hct 40.5 MCV 97.6 MCH 31.3 H MCHC 32.1 RDW 12.3 Plt Count 279 MPV 11.3 H Neut # (Auto) 3.3 Lymph # (Auto) 2.3 [place] # (Auto) 1.0 Eos # (Auto) 0.2 Baso # (Auto) 0.1 Absolute Nucleated RBC 0.00 Nucleated RBC % 0.0 Sodium 140 Potassium 4.5 Chloride 101 Carbon Dioxide 31 Anion Gap 8.0 BUN 24 H Creatinine 0.8 Estimated GFR (MDRD) 71 L Glucose 105 H Calcium 9.5 Total Bilirubin 0.4 AST 24 ALT 16 Alkaline Phosphatase 63 Total Protein 7.5 Albumin 4.5 Globulin 3.0 Albumin/Globulin Ratio 1.5 Lipase 41 Urine Opiates Screen NEGATIVE Ur Oxycodone Screen NEGATIVE Urine Methadone Screen NEGATIVE Ur Propoxyphene Screen NEGATIVE Ur Barbiturates Screen NEGATIVE Ur Tricyclics Screen NEGATIVE Ur Phencyclidine Scrn NEGATIVE Ur Amphetamine Screen NEGATIVE U Methamphetamines Scrn NEGATIVE U Benzodiazepines Scrn NEGATIVE Urine Cocaine Screen NEGATIVE U Cannabinoids Screen NEGATIVE Ethyl Alcohol < 5.0 - Rads (name of study) Ct Head Radiology: EMP read contemporaneously (normal) PD MEDICAL DECISION MAKING - ED course ED course: Her examination and bilateral for signs and symptoms are more consistent with psychosomatic because then a primary neurologic cause. Blood pressure is high, we will trial some clonidine as it may give her some relief from her blood pressure and/or psychosomatic cause. She did not seem to have any improvement with this. I spoke with the tele- neurologist at [facility] wondering if she would examine her via the tele-stroke machine. She felt like the atypicality of the symptoms would necessitate an in person exam and as such recommended transfer to a facility capable of inpatient neurology. Subsequent to that after I talked to the family we called [facility]. They do not have neurology microsoft infrastructure consultant. And after further discussions with the family they requested a trial called to [facility]. Spoke with Dr Carpio, [facility]. He agrees with transfer and will see in consultation, [id number]. Spoke with Dr Taras Fu; hospitalist at , accepts in transfer. [id number] Departure - Departure Disposition: 02 Transfer Acute Care Hosp Clinical Impression: Stroke-like symptoms Condition: Stable
[2018-12-31 19:27] LABS: BASOPHILS # (AUTO) 0.1 10^3/uL (0.0-0.1); BASOPHILS % (AUTO) 0.7 %; EOSINOPHILS # (AUTO) 0.2 10^3/uL (0.0-0.7); EOSINOPHILS % (AUTO) 2.5 %; LYMPHOCYTES # (AUTO) 2.3 10^3/uL (1.5-3.5); MEAN CORPUSCULAR HEMOGLOBIN 31.3 pg (27.0-31.0); MEAN CORPUSCULAR HGB CONC 32.1 g/dL (32.0-36.0); MEAN CORPUSCULAR VOLUME 97.6 fL (81.0-99.0); MEAN PLATELET VOLUME 11.3 fL (7.9-10.8); MONOCYTES % (AUTO) 14.6 %; NEUTROPHILS # (AUTO) 3.3 10^3/uL (1.5-6.6); NEUTROPHILS % (AUTO) 48.8 %; PLT - PLATELET COUNT 279 10^3/uL (130-450); RED BLOOD COUNT 4.15 10^6/uL (4.20-5.40); RED CELL DISTRIBUTION WIDTH 12.3 % (12.0-15.0); WHITE BLOOD COUNT 6.8 x10^3/uL (4.8-10.8)
[2018-12-31 19:36] LABS: MUDS CUTOFF CONCENTRATIONS CUTOFF CONC BELOW:
[2018-12-31 19:51] LABS: ALBUMIN 4.5 g/dL (3.2-5.5); ALBUMIN/GLOBULIN RATIO 1.5 (1.0-2.2); ALKALINE PHOSPHATASE 63 IU/L (42-121); ALT ALANINE AMINOTRANSFERASE 16 IU/L (10-60); AST ASPARTATE AMINOTRANSFERASE 24 IU/L (10-42); BILIRUBIN,TOTAL 0.4 mg/dL (0.2-1.0); BUN - BLOOD UREA NITROGEN 24 mg/dL (6-20); CALCIUM 9.5 mg/dL (8.5-10.3); CARBON DIOXIDE - CO2 31 mmol/L (21-32); CHLORIDE 101 mmol/L (101-111); CREATININE 0.8 mg/dL (0.4-1.0); GFR - MDRD 71 (>89); GLUCOSE 105 mg/dL (70-100); LIPASE 41 U/L (22-51); SODIUM 140 mmol/L (135-145); TOTAL PROTEIN 7.5 g/dL (6.7-8.2)
[2018-12-31 19:55] LABS: AMPHETAMINE SCREEN,URINE NEGATIVE (NEGATIVE); BENZODIAZEPINES SCREEN, URINE NEGATIVE (NEGATIVE); COCAINE SCREEN URINE NEGATIVE (NEGATIVE); METHADONE SCREEN, URINE NEGATIVE (NEGATIVE); METHAMPHETAMINES SCREEN, URINE NEGATIVE (NEGATIVE); OPIATE SCREEN, URINE NEGATIVE (NEGATIVE); OXYCODONE SCREEN, URINE NEGATIVE (NEGATIVE); PROPOXYPHENE SCREEN, URINE NEGATIVE (NEGATIVE); TRICYCLIC ANTIDEPRESSANT,URINE NEGATIVE (NEGATIVE)
--- NOTE | 2018-12-31 20:27 | CT Report ---
Reason: neur sx Procedure Date: 12/31/2018 Accession Number: [id number] / [id number] Procedure: CT - HEAD WO CPT Code: FULL RESULT: EXAM: CT HEAD EXAM DATE: 12/31/2018 07:45 PM. CLINICAL HISTORY: Faculty speaking, left-sided weakness today COMPARISON: HEAD ANGIO 12/25/2018 12:32 AM. TECHNIQUE: Multiaxial CT images were obtained from the foramen magnum to the vertex. Reformats: Sagittal and coronal. IV contrast: None. In accordance with CT protocol optimization, one or more of the following dose reduction techniques were utilized for this exam: automated exposure control, adjustment of mA and/or KV based on patient size, or use of iterative reconstructive technique. FINDINGS: Parenchyma: No intraparenchymal hemorrhage. No evidence of mass, midline shift, or CT findings of acute infarction. Bonds-white differentiation is distinct. Extraaxial Spaces: Normal for age. No subdural or epidural collections identified. Ventricles: Normal in size and position. Sinuses and Orbits: Imaged paranasal sinuses, orbits, and mastoids show no significant abnormality. Bones: No evidence of fracture or calvarial defect. Other: None. IMPRESSION: No acute intracranial abnormality. RADIA
[2018-12-31 23:05] VITALS: BP 118/65
== END 2018-12-31 23:34 | disposition short-term general hospital (02) ==
LOC: EDBD → EDUNIT# → ED 18:56
DX: R47.89 Other speech disturbances (principal); R29.898 Other symptoms and signs involving the musculoskeletal system; I10 Essential (primary) hypertension; E11.9 Type 2 diabetes mellitus without complications; Z85.820 Personal history of malignant melanoma of skin
CPT/HCPCS: 36415; 70450; 80053; 83690; 85025; 93005; 99285; A9270; 80306; 80320

== ENCOUNTER 2019-01-07 09:49 | Outpatient (CLI) | payer MEDICARE, OTHER ==
[2019-01-07 11:19] LABS: THYROID STIMULATING HORMONE 0.68 uIU/mL (0.34-5.60)
[2019-01-07 11:20] LABS: FREE T4 (FREE THYROXINE) 0.92 ng/dL (0.58-1.64)
== END 2019-01-07 09:50 | disposition home or self-care (01) ==
LOC: LAB 09:49
PROVIDERS: ATTEND Family Medicine
DX: R27.9 Unspecified lack of coordination (principal); R07.1 Chest pain on breathing; I10 Essential (primary) hypertension; R53.81 Other malaise; M54.2 Cervicalgia
CPT/HCPCS: 36415; 84439; 84443; 84481

== ENCOUNTER 2019-01-08 10:07 | Outpatient (CLI) | payer MEDICARE, OTHER | END 2019-01-08 10:08 | disposition critical access hospital (66) | LOC: EMS 10:07 | PROVIDERS: ATTEND Surgery | DX: R47.81 Slurred speech (principal); R53.1 Weakness; R11.0 Nausea; R42 Dizziness and giddiness | CPT/HCPCS: A0425; A0429 ==

== ENCOUNTER 2019-01-08 10:14 | Emergency (ER) | payer MEDICARE, OTHER ==
[2019-01-08] MEDS ORDERED: KETOROLAC 30 MG/ML VIAL IVP STA (10:29)
[2019-01-08] MEDS ORDERED: HALOPERIDOL 5 MG/ML VIAL IVP STA (10:30)
[2019-01-08] MEDS ORDERED: diphenhydrAMINE INJ 50 MG/ML VIAL IVP STA (10:30)
--- NOTE | 2019-01-08 10:35 | ED Physician Documentation ---
History of Present Illness - Stated complaint Stated Complaint: POSS STROKE - History obtained from History obtained from: Patient, Family, EMS - History of Present Illness Timing: Today Pain level max: 0 Pain level now: 0 - Additonal information Additional information: 68-year-old female presents to the emergency department stating that she felt her heart racing, developed a headache then had trouble speaking as well as bilateral arm and leg weakness. This has happened to her 3 or 4 times in the past. Negative work-ups at both events. She was recently admitted to [facility] for same. She knows she is supposed to follow-up with ENT and neurology. She states negative MRI and MRA at that time. Typically this lasts for approximately 4 to 6 hours. No history of recent trauma. No recent stress or anxiety. Nothing makes it better or worse Review of Systems Ten Systems: 10 systems reviewed and negative Constitutional: denies: Fever, Chills Nose: denies: Rhinorrhea / runny nose, Congestion Throat: denies: Sore throat Cardiac: reports: Palpitations. denies: Chest pain / pressure Respiratory: denies: Dyspnea, Cough, Wheezing GI: reports: Nausea (She states that she has had nausea ongoing for the past several weeks.), Other (Early satiety). denies: Abdominal Pain, Vomiting, Diarrhea : denies: Dysuria, Frequency, Hesitancy Skin: denies: Rash Musculoskeletal: denies: Neck pain, Back pain Neurologic: reports: Headache (Gradual onset, 5 out of 10, holoacranial.). denies: Confused, Altered mental status PD PAST MEDICAL HISTORY - Past Medical History Cardiovascular: Hypertension Respiratory: None Neuro: Other Endocrine/Autoimmune: Type 2 diabetes GI: Diverticulitis (Status post sigmoidectomy) : None HEENT: Other Psych: None Musculoskeletal: Osteoarthritis, Osteoporosis Derm: Other (History of malignant melanoma) - Past Surgical History Past Surgical History: Yes General: Bowel surgery Ortho: Knee replacement HEENT: Cataracts Derm: Skin cancer surgery - Present Medications Home Medications: Ambulatory Orders Medication Instructions Recorded Confirmed Cholecalciferol (Vitamin D3) 2,000 unit PO DAILY 05/03/16 12/25/18 [Vitamin D3] predniSONE [Deltasone] 20 mg PO [id number] #21 tab 12/07/18 12/25/18 Albuterol Sulfate [Proair Hfa 1 - 2 puffs INH Q6HR PRN 12/25/18 12/25/18 Inhaler] Atorvastatin [Lipitor] 40 mg PO QPM #10 tablet 12/25/18 Benzonatate [Tessalon] 100 mg PO Q6HR PRN 12/25/18 12/25/18 Calcium Carb/Vitamin D3/Vit K1 1 tab PO DAILY 12/25/18 12/25/18 [Viactiv 650 mg-12.5 Mcg Chew] Multivitamin [Multiple Vitamins] 1 tab PO DAILY 12/25/18 12/25/18 Hydrocodone/Acetaminophen [[place] 1 each PO Q6H PRN #15 tablet 12/26/18 5-325 Tablet] Naproxen 375 mg PO BID #20 tablet 12/26/18 - Allergies Allergies/Adverse Reactions: Allergies Allergy/AdvReac Type Severity Reaction Status Date / Time imipenem Allergy Unknown Verified 12/31/18 19:09 latex Allergy Unknown Verified 12/31/18 19:09 levofloxacin Allergy Unknown Verified 12/31/18 19:09 Penicillins Allergy Hives Verified 12/31/18 19:09 - Social History Does the pt smoke?: No Smoking Status: Never smoker Does the pt drink ETOH?: No Does the pt have substance abuse?: No - Immunizations Immunizations are current?: Yes - POLST Patient has POLST: No POLST Status: Full Code PD ED PE NORMAL - Vitals Vital signs reviewed: Yes - General General: Alert and oriented X 3, No acute distress, Well developed/nourished - HEENT HEENT: Atraumatic, PERRL, Moist mucous membranes, Pharynx benign, Other (Speaking in a high-pitched voice, one word at a time.) - Neck Neck: Supple, no meningeal sign - Cardiac Cardiac: RRR, Strong equal pulses - Respiratory Respiratory: No respiratory distress, Clear bilaterally - Abdomen Abdomen: Soft, Non tender, Non distended - Back Back: No CVA TTP, No spinal TTP - Derm Derm: Warm and dry - Extremities Extremities: No edema, No calf tenderness / cord - Neuro Neuro: Alert and oriented X 3, No sensory deficit, Other (Generalized weakness throughout her entire exam.) Eye Opening: Spontaneous Motor: Obeys Commands Verbal: Oriented GCS Score: 15 - Psych Psych: Normal mood, Normal affect Results - Vitals Vitals: Vital Signs - 24 hr 1001/08/19 01/08/19 10:15 11:00 11:03 Temperature 36.7 C Heart Rate 81 74 89 Respiratory 16 14 14 Rate Blood Pressure 136/77 H 165/74 H 165/74 H O2 Saturation 100 99 100 01/08/19 01/08/19 01/08/19 11:42 12:57 13:06 Temperature 36.6 C Heart Rate 74 70 67 Respiratory 16 16 16 Rate Blood Pressure 135/78 H 141/72 H 116/62 O2 Saturation 100 99 99 01/08/19 01/08/19 01/08/19 13:21 14:28 15:26 Temperature Heart Rate 72 77 67 Respiratory 14 16 16 Rate Blood Pressure 113/62 131/64 H 121/70 O2 Saturation 99 99 98 01/08/19 01/08/19 01/08/19 16:00 16:46 17:03 Temperature 36.9 C Heart Rate 78 74 81 Respiratory 16 14 16 Rate Blood Pressure 139/68 H 110/53 L 133/74 H O2 Saturation 100 100 100 Oxygen O2 Source Room air - EKG (time done) 1017 Rate: Rate (enter#) (79) Rhythm: NSR [place]: Normal Intervals: Normal [place] QRS: Normal Ischemia: Normal ST segments - Labs Labs: Laboratory Tests 01/08/19 01/08/19 01/08/19 10:20 10:20 11:38 WBC 6.4 RBC 4.21 Hgb 13.2 Hct 39.9 MCV 94.8 MCH 31.4 H MCHC 33.1 RDW 12.3 Plt Count 244 MPV 11.1 H Neut # (Auto) 4.1 Lymph # (Auto) 1.3 L [place] # (Auto) 0.8 Eos # (Auto) 0.1 Baso # (Auto) 0.1 Absolute Nucleated RBC 0.00 Nucleated RBC % 0.0 Sodium 136 Potassium 4.1 Chloride 97 L Carbon Dioxide 28 Anion Gap 11.0 BUN 20 Creatinine 0.8 Estimated GFR (MDRD) 71 L Glucose 118 H Calcium 9.4 Total Bilirubin 0.7 AST 31 ALT 29 Alkaline Phosphatase 60 Total Protein 7.0 Albumin 4.3 Globulin 2.7 Albumin/Globulin Ratio 1.6 Lipase 32 Urine Color YELLOW Urine Clarity CLEAR Urine pH 6.5 Ur Specific [place] <=1.005 Urine Protein NEGATIVE Urine Glucose (UA) NEGATIVE Urine Ketones NEGATIVE Urine Occult Blood NEGATIVE Urine Nitrite NEGATIVE Urine Bilirubin NEGATIVE Urine Urobilinogen 0.2 (NORMAL) Ur Leukocyte Esterase NEGATIVE Ur Microscopic Review NOT INDICATED Urine Culture Comments NOT INDICATED - Rads (name of study) CT abdomen pelvis Radiology: Prelim report reviewed, EMP read contemporaneously, See rad report (No acute abnormality) PD MEDICAL DECISION MAKING - ED course Complexity details: reviewed old records, reviewed results, re-evaluated patient, considered differential, d/w patient, d/w family, d/w sap security consultant ED course: 68-year-old female with generalized weakness of unclear etiology. No acute findings on laboratory testing, EKG or CT of the abdomen pelvis. Since she was having neurological issues and palpitations, potential pheochromocytoma? She is also having early satiety and nausea. Recommend she have an endoscopy. Her symptoms seem to resolve after approximately 4 to 6 hours. Her symptoms are not consistent with stroke or TIA. She does frequently have a headache with this, possible complex migraine? She apparently has a history of a Chiari malformation, cervical spine should be evaluated for potential syringomyelia. This can be done with an MRI of the cervical spine with her doctor. I can only find MR angiograms of the cervical spine. Unclear if this is been done elsewhere. She has appointment scheduled with neurology and ENT already. As symptoms resolved, she would like to go home at this time. Patient and family counseled regarding signs and symptoms for which I believe and urgent re- evaluation would be necessary. Patient with good understanding of and agreement to plan and is comfortable going home at this time This document was made in part using voice recognition software. While efforts are made to proofread this document, sound alike and grammatical errors may occur. Departure - Departure Disposition: 01 Home, Self Care Clinical Impression: Dysphonia, Weakness Condition: Good Instructions: ED Weakness [facility] Follow-Up: Sam Franz MD [Primary Care Provider] - Within 1 week Comments: The cause of your symptoms is unclear today. Return if you worsen. Follow-up with neurology and ENT for further evaluation. You should have an MRI of your C-spine if this has not been done yet. Discharge Date/Time: 01/08/19 17:19 NIHSS - Time Time: 10:30 - Level of Consciousness Level of consciousness: (0) Alert, Keenly responsive LOC Questions: (0) Answers both Q's correct LOC Commands: (0) Performs both correctly - Gaze Best Gaze: (0) Normal - Visual Visual: (0) No loss - Facial Palsy Facial Palsy: (0) Normal, symmetrical movement - Motor Arms (both separate) Motor Arm (right): (0) No drift Motor Arm (left): (0) No drift - Motor Legs (both separate) Motor Leg (right): (0) No drift Motor Leg (left): (0) No drift - Limb Ataxia Limb Ataxia: (0) Absent - Sensory Sensory: (0) Normal - Best Language Best Language: (0) No aphasia - Dysarthria Dysarthria: (0) Normal - Extinction and Inattention (formally neg Extinction and inattention: (0) No abnormality - Total Score/Results Total Score/Result: 0
[2019-01-08 10:36] LABS: BASOPHILS # (AUTO) 0.1 10^3/uL (0.0-0.1); BASOPHILS % (AUTO) 0.8 %; EOSINOPHILS # (AUTO) 0.1 10^3/uL (0.0-0.7); HGB - HEMOGLOBIN 13.2 g/dL (12.0-16.0); LYMPHOCYTES # (AUTO) 1.3 10^3/uL (1.5-3.5); LYMPHOCYTES % (AUTO) 20.5 %; MEAN CORPUSCULAR HEMOGLOBIN 31.4 pg (27.0-31.0); MEAN CORPUSCULAR HGB CONC 33.1 g/dL (32.0-36.0); MEAN CORPUSCULAR VOLUME 94.8 fL (81.0-99.0); MEAN PLATELET VOLUME 11.1 fL (7.9-10.8); MONOCYTES # (AUTO) 0.8 10^3/uL (0.0-1.0); MONOCYTES % (AUTO) 12.4 %; NEUTROPHILS # (AUTO) 4.1 10^3/uL (1.5-6.6); PLT - PLATELET COUNT 244 10^3/uL (130-450); RED BLOOD COUNT 4.21 10^6/uL (4.20-5.40); RED CELL DISTRIBUTION WIDTH 12.3 % (12.0-15.0); WHITE BLOOD COUNT 6.4 x10^3/uL (4.8-10.8)
[2019-01-08 11:44] LABS: ALBUMIN 4.3 g/dL (3.2-5.5); ALBUMIN/GLOBULIN RATIO 1.6 (1.0-2.2); BILIRUBIN,TOTAL 0.7 mg/dL (0.2-1.0); CALCIUM 9.4 mg/dL (8.5-10.3); CREATININE 0.8 mg/dL (0.4-1.0)
[2019-01-08 12:07] LABS: BILIRUBIN,URINE NEGATIVE (NEGATIVE); GLUCOSE, URINE (UA) NEGATIVE (NEGATIVE); KETONES,URINE (UA) NEGATIVE (NEGATIVE); LEUKOCYTE ESTERASE, URINE NEGATIVE (NEGATIVE); NITRITE,URINE NEGATIVE (NEGATIVE); OCCULT BLOOD,URINE NEGATIVE (NEGATIVE); PH,URINE 6.5 PH (5.0-7.5); PROTEIN,URINE NEGATIVE (NEGATIVE); UROBILINOGEN,URINE 0.2 (NORMAL) E.U./dL (NORMAL)
[2019-01-08 12:09] LABS: CLARITY,URINE CLEAR (CLEAR)
[2019-01-08] MEDS ORDERED: SODIUM CHLORIDE 0.9% 1,000 ML IV ONE ×2 (12:37→14:54)
[2019-01-08] MEDS ORDERED: IOVERSOL 320 100 ML VIAL IVP ONE ×2 (13:53→14:01)
--- NOTE | 2019-01-08 14:26 | CT Report ---
Reason: abd pain, nausea Procedure Date: 01/08/2019 Accession Number: [id number] / [id number] Procedure: CT - Abdomen/Pelvis W CPT Code: FULL RESULT: EXAM: CT ABDOMEN AND PELVIS EXAM DATE: 01/08/2019 01:58 PM. CLINICAL HISTORY: Abd pain, nausea. COMPARISONS: None. TECHNIQUE: Routine helical CT imaging was performed through the abdomen and pelvis. IV contrast: OPTI 320 90ML. Enteric contrast: No. Reconstructions: Coronal and sagittal. In accordance with CT protocol optimization, one or more of the following dose reduction techniques were utilized for this exam: automated exposure control, adjustment of mA and/or KV based on patient size, or use of iterative reconstructive technique. FINDINGS: Lung Bases: Unremarkable. Liver: Normal. No masses. Gallbladder/Bile Ducts: Unremarkable. Spleen: Normal. Pancreas: Normal. Adrenal Glands: Normal. Kidneys: Normal. No masses or hydronephrosis. Peritoneal Cavity/Bowel: Patent bowel anastomosis in the pelvis.. No free fluid, free air or adenopathy. No masses or acute inflammatory process. The appendix is well visualized and normal. Pelvic Organs: Normal. The bladder and visualized pelvic organs are within normal limits. Vasculature: No aneurysms or other significant abnormality. Bones: No significant abnormality. Other: None. IMPRESSION: 1. No bowel obstruction or inflammatory process associated with bowel. 2. No free air or fluid in the abdomen or pelvis. 3. The appendix images normally. 4. Patent bowel anastomosis in the pelvis. RADIA
[2019-01-08 17:05] VITALS: BP 133/74
== END 2019-01-08 17:19 | disposition home or self-care (01) ==
LOC: EDUNIT# → ED 10:14
DX: R49.0 Dysphonia (principal); R53.1 Weakness; R00.2 Palpitations; R51 Headache; R11.0 Nausea; I10 Essential (primary) hypertension; E11.9 Type 2 diabetes mellitus without complications
CPT/HCPCS: 36415; 74177; 80053; 81003; 83690; 85025; 93005; 99284; J1200; Q9967; 81001; 87086

== ENCOUNTER 2019-01-17 07:00 | Outpatient (CLI) | payer MEDICARE, OTHER | END 2019-01-17 23:59 | disposition home or self-care (01) | LOC: LAB.R 07:00 | PROVIDERS: ATTEND Family Medicine | DX: I10 Essential (primary) hypertension (principal); R07.1 Chest pain on breathing; R53.81 Other malaise; R53.83 Other fatigue; G98.8 Other disorders of nervous system | CPT/HCPCS: 81599; 82384; 82570; 83835 ==

== ENCOUNTER 2019-07-01 12:51 | Outpatient (CLI) | payer MEDICARE, OTHER ==
[2019-07-01 17:30] LABS: BASOPHILS # (AUTO) 0.1 10^3/uL (0.0-0.1); BASOPHILS % (AUTO) 0.7 %; EOSINOPHILS # (AUTO) 0.2 10^3/uL (0.0-0.7); EOSINOPHILS % (AUTO) 2.2 %; LYMPHOCYTES # (AUTO) 1.7 10^3/uL (1.5-3.5); LYMPHOCYTES % (AUTO) 25.2 %; MEAN CORPUSCULAR HEMOGLOBIN 29.4 pg (27.0-31.0); MEAN CORPUSCULAR HGB CONC 31.3 g/dL (32.0-36.0); MEAN CORPUSCULAR VOLUME 93.9 fL (81.0-99.0); MEAN PLATELET VOLUME 11.6 fL (7.9-10.8); MONOCYTES # (AUTO) 0.8 10^3/uL (0.0-1.0); MONOCYTES % (AUTO) 11.3 %; NEUTROPHILS % (AUTO) 60.3 %; PLT - PLATELET COUNT 296 10^3/uL (130-450); RED BLOOD COUNT 4.42 10^6/uL (4.20-5.40); RED CELL DISTRIBUTION WIDTH 13.1 % (12.0-15.0); WHITE BLOOD COUNT 6.7 x10^3/uL (4.8-10.8)
[2019-07-01 17:52] LABS: ALBUMIN 4.6 g/dL (3.2-5.5); ALBUMIN/GLOBULIN RATIO 1.5 (1.0-2.2); BILIRUBIN,TOTAL 0.5 mg/dL (0.2-1.0); CALCIUM 9.3 mg/dL (8.5-10.3); CREATININE 0.8 mg/dL (0.4-1.0); TOTAL PROTEIN 7.6 g/dL (6.7-8.2)
--- NOTE | 2019-07-02 03:22 | XRAY Report ---
Reason: DORSALGIA Procedure Date: 07/01/2019 Accession Number: [id number] / [id number] Procedure: XR - Thoracic Spine 2 View CPT Code: Final Report FULL RESULT: EXAM: THORACIC SPINE RADIOGRAPHY EXAM DATE: 07/01/2019 01:03 PM. CLINICAL HISTORY: DORSALGIA. COMPARISON: CHEST 2 VIEW 12/26/2018 8:52 AM. TECHNIQUE: 3 views. FINDINGS: Alignment: Normal. No spondylolisthesis or scoliosis. Bones: No fractures or bone lesions. Disks: Minimal multilevel degenerative changes. Soft Tissues: Grossly unremarkable. IMPRESSION: 1. No acute thoracic spine abnormality. 2. Minimal multilevel degenerative disk disease. RADIA
--- NOTE | 2019-07-02 03:23 | XRAY Report ---
Reason: DORSALGIA Procedure Date: 07/01/2019 Accession Number: [id number] / [id number] Procedure: XR - Chest 2 View X-Ray CPT Code: 87702 Final Report FULL RESULT: EXAM: CHEST RADIOGRAPHY EXAM DATE: 07/01/2019 01:03 PM. CLINICAL HISTORY: Mid to lower back pain. Left-sided chest pain. COMPARISON: CHEST 2 VIEW 12/26/2018 8:52 AM. TECHNIQUE: 2 views. FINDINGS: Lungs/Pleura: No alveolar consolidation or pleural effusion seen. No pneumothorax. Mediastinum: Heart and mediastinal contours are unremarkable. Other: None. IMPRESSION: 1. No acute abnormality seen in the chest. RADIA
--- NOTE | 2019-07-02 03:25 | XRAY Report ---
Reason: DORSALGIA Procedure Date: 07/01/2019 Accession Number: [id number] / [id number] Procedure: XR - Ribs 2 View LT CPT Code: Final Report FULL RESULT: EXAM: LEFT RIB RADIOGRAPHY EXAM DATE: 07/01/2019 01:18 PM. CLINICAL HISTORY: Left-sided chest pain. COMPARISON: CHEST 2 VIEW 12/26/2018 8:52 AM. TECHNIQUE: 2 views. FINDINGS: Bones: No acute fracture seen. Lungs: No alveolar consolidation or pleural effusion seen. No pneumothorax. Mediastinum: Within exam limitations, cardiomediastinal silhouette is unremarkable. Other: None. IMPRESSION: 1. No acute abnormality seen. RADIA
== END 2019-07-01 12:52 | disposition home or self-care (01) ==
LOC: DI 12:51
PROVIDERS: ATTEND Family Medicine
DX: M51.34 Other intervertebral disc degeneration, thoracic region (principal); R07.1 Chest pain on breathing
CPT/HCPCS: 36415; 71046; 72070; 80053; 85025; 85651

== ENCOUNTER 2019-09-18 09:16 | Outpatient (CLI) | payer MEDICARE, OTHER ==
[2019-09-18 11:57] LABS: BILIRUBIN,URINE NEGATIVE (NEGATIVE); GLUCOSE, URINE (UA) NEGATIVE (NEGATIVE); KETONES,URINE (UA) NEGATIVE (NEGATIVE); LEUKOCYTE ESTERASE, URINE NEGATIVE (NEGATIVE); NITRITE,URINE NEGATIVE (NEGATIVE); OCCULT BLOOD,URINE TRACE-INTA (NEGATIVE); PH,URINE 5.5 PH (5.0-7.5); PROTEIN,URINE NEGATIVE (NEGATIVE); UROBILINOGEN,URINE 0.2 (NORMAL) E.U./dL (NORMAL)
[2019-09-18 11:58] LABS: BASOPHILS # (AUTO) 0.1 10^3/uL (0.0-0.1); BASOPHILS % (AUTO) 0.6 %; EOSINOPHILS # (AUTO) 0.1 10^3/uL (0.0-0.7); EOSINOPHILS % (AUTO) 1.7 %; LYMPHOCYTES # (AUTO) 1.4 10^3/uL (1.5-3.5); LYMPHOCYTES % (AUTO) 17.4 %; MEAN CORPUSCULAR HEMOGLOBIN 31.1 pg (27.0-31.0); MEAN CORPUSCULAR HGB CONC 33.4 g/dL (32.0-36.0); MEAN CORPUSCULAR VOLUME 93.1 fL (81.0-99.0); MEAN PLATELET VOLUME 11.6 fL (7.9-10.8); MONOCYTES # (AUTO) 0.7 10^3/uL (0.0-1.0); MONOCYTES % (AUTO) 8.8 %; NEUTROPHILS # (AUTO) 5.6 10^3/uL (1.5-6.6); NEUTROPHILS % (AUTO) 71.1 %; PLT - PLATELET COUNT 300 10^3/uL (130-450); RED CELL DISTRIBUTION WIDTH 12.4 % (12.0-15.0); WHITE BLOOD COUNT 7.8 x10^3/uL (4.8-10.8)
[2019-09-18 12:04] LABS: CLARITY,URINE CLEAR (CLEAR)
[2019-09-18 12:19] LABS: BACTERIA,URINE None Seen /HPF (None Seen); RBC,URINE 0-5 /HPF (0-5); SQUAMOUS EPITHELIAL CELL,UR RARE Squamous (<= Few)
[2019-09-18 12:52] LABS: ALBUMIN 4.7 g/dL (3.2-5.5); ALBUMIN/GLOBULIN RATIO 1.6 (1.0-2.2); ALKALINE PHOSPHATASE 87 IU/L (42-121); ALT ALANINE AMINOTRANSFERASE 23 IU/L (10-60); AST ASPARTATE AMINOTRANSFERASE 30 IU/L (10-42); BILIRUBIN,TOTAL 0.6 mg/dL (0.2-1.0); BUN - BLOOD UREA NITROGEN 29 mg/dL (6-20); CALCIUM 9.7 mg/dL (8.5-10.3); CARBON DIOXIDE - CO2 30 mmol/L (21-32); CHLORIDE 98 mmol/L (101-111); CREATININE 0.9 mg/dL (0.4-1.0); GLUCOSE 115 mg/dL (70-100); SODIUM 137 mmol/L (135-145); TOTAL PROTEIN 7.7 g/dL (6.7-8.2)
[2019-09-18 12:57] LABS: CRP - C-REACTIVE PROTEIN < 1.0 mg/dL (0-1.0)
[2019-09-18 12:58] LABS: THYROID STIMULATING HORMONE 0.8 uIU/mL (0.34-5.60)
[2019-09-18 12:59] LABS: FREE T3 3.64 pg/mL (2.5-3.9)
[2019-09-18 13:00] LABS: FREE T4 (FREE THYROXINE) 0.88 ng/dL (0.58-1.64)
[2019-09-18 16:10] LABS: RHEUMATOID FACTOR NEGATIVE (Negative)
[2019-09-23 15:09] LABS: ANA SCREEN NEGATIVE (NEGATIVE)
== END 2019-09-18 23:59 | disposition home or self-care (01) ==
LOC: LAB.WCP 09:16
PROVIDERS: ATTEND Family Medicine
DX: R63.5 Abnormal weight gain (principal); Z86.19 Personal history of other infectious and parasitic diseases; I10 Essential (primary) hypertension; M79.2 Neuralgia and neuritis, unspecified; R53.81 Other malaise; K21.9 Gastro-esophageal reflux disease without esophagitis; G98.8 Other disorders of nervous system; J45.909 Unspecified asthma, uncomplicated
CPT/HCPCS: 36415; 80053; 81001; 84439; 84443; 84481; 84550; 85025; 86038; 86140; 86200; 86430

== ENCOUNTER 2019-12-04 07:00 | Outpatient (CLI) | payer MEDICARE, OTHER ==
[2019-12-04 18:35] LABS: BASOPHILS # (AUTO) 0.1 10^3/uL (0.0-0.1); BASOPHILS % (AUTO) 0.8 %; EOSINOPHILS # (AUTO) 0.2 10^3/uL (0.0-0.7); EOSINOPHILS % (AUTO) 2.5 %; HGB - HEMOGLOBIN 12.8 g/dL (12.0-16.0); LYMPHOCYTES # (AUTO) 1.5 10^3/uL (1.5-3.5); LYMPHOCYTES % (AUTO) 25.4 %; MEAN CORPUSCULAR HEMOGLOBIN 30.8 pg (27.0-31.0); MEAN CORPUSCULAR HGB CONC 32.5 g/dL (32.0-36.0); MEAN CORPUSCULAR VOLUME 94.9 fL (81.0-99.0); MEAN PLATELET VOLUME 11.3 fL (7.9-10.8); MONOCYTES # (AUTO) 0.7 10^3/uL (0.0-1.0); NEUTROPHILS # (AUTO) 3.5 10^3/uL (1.5-6.6); NEUTROPHILS % (AUTO) 58.8 %; PLT - PLATELET COUNT 269 10^3/uL (130-450); RED BLOOD COUNT 4.15 10^6/uL (4.20-5.40); RED CELL DISTRIBUTION WIDTH 12.9 % (12.0-15.0); WHITE BLOOD COUNT 5.9 x10^3/uL (4.8-10.8)
[2019-12-04 19:00] LABS: ALBUMIN 4.3 g/dL (3.2-5.5); ALBUMIN/GLOBULIN RATIO 1.6 (1.0-2.2); BILIRUBIN,TOTAL 0.6 mg/dL (0.2-1.0); CREATININE 0.8 mg/dL (0.4-1.0)
[2019-12-04 19:02] LABS: CALCIUM 9.7 mg/dL (8.5-10.3)
== END 2019-12-04 23:59 | disposition home or self-care (01) ==
LOC: LAB.WCP 07:00
PROVIDERS: ATTEND Family Medicine
DX: K92.1 Melena (principal)
CPT/HCPCS: 36415; 80053; 85025

== ENCOUNTER 2020-01-02 08:00 | Outpatient (CLI) | payer MEDICARE, OTHER | END 2020-01-02 23:59 | LOC: LAB.R 08:00 | DX: R19.7 Diarrhea, unspecified (principal) | CPT/HCPCS: 81599; 83993; 87045; 87046; 87177; 87209; 87427; 87493 ==

== ENCOUNTER 2020-02-06 08:00 | Outpatient (CLI) | payer MEDICARE, OTHER ==
[2020-02-06 11:58] LABS: BASOPHILS # (AUTO) 0.1 10^3/uL (0.0-0.1); BASOPHILS % (AUTO) 0.8 %; EOSINOPHILS # (AUTO) 0.1 10^3/uL (0.0-0.7); EOSINOPHILS % (AUTO) 1.6 %; HGB - HEMOGLOBIN 13.7 g/dL (12.0-16.0); LYMPHOCYTES # (AUTO) 1.4 10^3/uL (1.5-3.5); LYMPHOCYTES % (AUTO) 22.2 %; MEAN CORPUSCULAR HEMOGLOBIN 30.4 pg (27.0-31.0); MEAN CORPUSCULAR HGB CONC 32.9 g/dL (32.0-36.0); MEAN CORPUSCULAR VOLUME 92.5 fL (81.0-99.0); MEAN PLATELET VOLUME 11.9 fL (7.9-10.8); MONOCYTES # (AUTO) 0.8 10^3/uL (0.0-1.0); MONOCYTES % (AUTO) 13.4 %; NEUTROPHILS # (AUTO) 3.8 10^3/uL (1.5-6.6); NEUTROPHILS % (AUTO) 61.7 %; PLT - PLATELET COUNT 284 10^3/uL (130-450); RED BLOOD COUNT 4.51 10^6/uL (4.20-5.40); RED CELL DISTRIBUTION WIDTH 12.5 % (12.0-15.0); WHITE BLOOD COUNT 6.1 x10^3/uL (4.8-10.8)
[2020-02-06 12:04] LABS: ALBUMIN 4.5 g/dL (3.2-5.5); ALBUMIN/GLOBULIN RATIO 1.5 (1.0-2.2); BILIRUBIN,TOTAL 0.7 mg/dL (0.2-1.0); CALCIUM 9.9 mg/dL (8.5-10.3); TOTAL PROTEIN 7.5 g/dL (6.7-8.2)
== END 2020-02-06 23:59 | disposition home or self-care (01) ==
LOC: LAB.WCP 08:00
PROVIDERS: ATTEND Family Medicine
DX: R10.13 Epigastric pain (principal); R63.5 Abnormal weight gain; R51.0 Headache with orthostatic component, not elsewhere classified; R11.0 Nausea
CPT/HCPCS: 36415; 80053; 85025

== ENCOUNTER 2020-06-12 09:04 | Outpatient (CLI) | payer MEDICARE, OTHER | END 2020-06-12 09:05 | disposition home or self-care (01) | LOC: DI 09:04 | PROVIDERS: ATTEND Family Medicine | DX: I51.7 Cardiomegaly (principal); I35.1 Nonrheumatic aortic (valve) insufficiency | CPT/HCPCS: 93306 ==

== ENCOUNTER 2020-11-06 09:33 | Outpatient (CLI) | payer MEDICARE, OTHER ==
[2020-11-06 09:52] LABS: BASOPHILS # (AUTO) 0.1 10^3/uL (0.0-0.1); EOSINOPHILS # (AUTO) 0.1 10^3/uL (0.0-0.7); EOSINOPHILS % (AUTO) 1.8 %; HCT - HEMATOCRIT 43.4 % (37.0-47.0); HGB - HEMOGLOBIN 14.2 g/dL (12.0-16.0); LYMPHOCYTES # (AUTO) 1.6 10^3/uL (1.5-3.5); LYMPHOCYTES % (AUTO) 33.3 %; MEAN CORPUSCULAR HEMOGLOBIN 30.5 pg (27.0-31.0); MEAN CORPUSCULAR HGB CONC 32.7 g/dL (32.0-36.0); MEAN CORPUSCULAR VOLUME 93.1 fL (81.0-99.0); MEAN PLATELET VOLUME 11.9 fL (7.9-10.8); MONOCYTES # (AUTO) 0.5 10^3/uL (0.0-1.0); MONOCYTES % (AUTO) 10.1 %; NEUTROPHILS # (AUTO) 2.7 10^3/uL (1.5-6.6); NEUTROPHILS % (AUTO) 53.8 %; PLT - PLATELET COUNT 258 10^3/uL (130-450); RED BLOOD COUNT 4.66 10^6/uL (4.20-5.40); RED CELL DISTRIBUTION WIDTH 13.2 % (12.0-15.0); WHITE BLOOD COUNT 4.9 x10^3/uL (4.8-10.8)
[2020-11-06 10:07] LABS: ALBUMIN 4.6 g/dL (3.2-5.5); ALBUMIN/GLOBULIN RATIO 1.6 (1.0-2.2); ALKALINE PHOSPHATASE 47 IU/L (42-121); ALT ALANINE AMINOTRANSFERASE 17 IU/L (10-60); AST ASPARTATE AMINOTRANSFERASE 24 IU/L (10-42); BILIRUBIN,TOTAL 0.8 mg/dL (0.2-1.0); BUN - BLOOD UREA NITROGEN 33 mg/dL (6-20); CALCIUM 9.8 mg/dL (8.5-10.3); CARBON DIOXIDE - CO2 31 mmol/L (21-32); CHLORIDE 102 mmol/L (101-111); CHOL/HDL RATIO 3.1 (<4.4); CHOLESTEROL 213 mg/dL; CREATININE 0.9 mg/dL (0.4-1.0); GFR - MDRD 62 (>89); GLUCOSE 112 mg/dL (70-100); HDL CHOLESTEROL 69 mg/dL; LDL CHOLESTEROL,CALCULATED 132 mg/dL; LDL/HDL RATIO 1.9 (<4.4); POTASSIUM 4.3 mmol/L (3.5-5.0); SODIUM 141 mmol/L (135-145); TOTAL PROTEIN 7.5 g/dL (6.7-8.2); TRIGLYCERIDES 59 mg/dL; VLDL CHOLESTEROL 12 mg/dL
[2020-11-06 10:18] LABS: THYROID STIMULATING HORMONE 0.76 uIU/mL (0.34-5.60)
== END 2020-11-06 09:34 | disposition home or self-care (01) ==
LOC: LAB 09:33
PROVIDERS: ATTEND Family Medicine
DX: E87.6 Hypokalemia (principal); K57.30 Diverticulosis of large intestine without perforation or abscess without bleeding; I48.0 Paroxysmal atrial fibrillation; M79.7 Fibromyalgia; B27.90 Infectious mononucleosis, unspecified without complication; I10 Essential (primary) hypertension
CPT/HCPCS: 36415; 80053; 80061; 83721; 84443; 85025

== ENCOUNTER 2021-05-05 10:31 | Outpatient (CLI) | payer MEDICARE, OTHER ==
[2021-05-05 10:52] LABS: BASOPHILS % (AUTO) 0.7 %; EOSINOPHILS # (AUTO) 0.1 10^3/uL (0.0-0.7); EOSINOPHILS % (AUTO) 1.2 %; HCT - HEMATOCRIT 43.6 % (37.0-47.0); HGB - HEMOGLOBIN 14.9 g/dL (12.0-16.0); LYMPHOCYTES # (AUTO) 1.6 10^3/uL (1.5-3.5); LYMPHOCYTES % (AUTO) 36.8 %; MEAN CORPUSCULAR HEMOGLOBIN 31.6 pg (27.0-31.0); MEAN CORPUSCULAR HGB CONC 34.2 g/dL (32.0-36.0); MEAN CORPUSCULAR VOLUME 92.4 fL (81.0-99.0); MEAN PLATELET VOLUME 10.8 fL (7.9-10.8); MONOCYTES # (AUTO) 0.5 10^3/uL (0.0-1.0); MONOCYTES % (AUTO) 11.1 %; NEUTROPHILS # (AUTO) 2.2 10^3/uL (1.5-6.6); NEUTROPHILS % (AUTO) 50.2 %; PLT - PLATELET COUNT 278 10^3/uL (130-450); RED BLOOD COUNT 4.72 10^6/uL (4.20-5.40); RED CELL DISTRIBUTION WIDTH 12.1 % (12.0-15.0); WHITE BLOOD COUNT 4.3 x10^3/uL (4.8-10.8)
[2021-05-05 11:22] LABS: THYROID STIMULATING HORMONE 1.27 uIU/mL (0.34-5.60)
[2021-05-05 13:18] LABS: ALBUMIN 4.5 g/dL (3.2-5.5); ALBUMIN/GLOBULIN RATIO 1.7 (1.0-2.2); ALKALINE PHOSPHATASE 50 IU/L (42-121); ALT ALANINE AMINOTRANSFERASE 24 IU/L (10-60); AST ASPARTATE AMINOTRANSFERASE 30 IU/L (10-42); BILIRUBIN,TOTAL 0.8 mg/dL (0.2-1.0); BUN - BLOOD UREA NITROGEN 23 mg/dL (6-20); CALCIUM 9.7 mg/dL (8.5-10.3); CARBON DIOXIDE - CO2 30 mmol/L (21-32); CHLORIDE 97 mmol/L (101-111); CHOL/HDL RATIO 2.6 (<4.4); CHOLESTEROL 198 mg/dL; CREATININE 0.9 mg/dL (0.4-1.0); CRP - C-REACTIVE PROTEIN < 1.0 mg/dL (0-1.0); GFR - MDRD 62 (>89); GLUCOSE 96 mg/dL (70-100); HDL CHOLESTEROL 76 mg/dL; LDL CHOLESTEROL,CALCULATED 107 mg/dL; LDL/HDL RATIO 1.4 (<4.4); POTASSIUM 3.7 mmol/L (3.5-5.0); SODIUM 138 mmol/L (135-145); TOTAL PROTEIN 7.2 g/dL (6.7-8.2); TRIGLYCERIDES 76 mg/dL; VLDL CHOLESTEROL 15 mg/dL
== END 2021-05-05 10:32 | disposition home or self-care (01) ==
LOC: LAB 10:31
PROVIDERS: ATTEND Family Medicine
DX: I48.0 Paroxysmal atrial fibrillation (principal); E87.6 Hypokalemia; M79.7 Fibromyalgia; M81.0 Age-related osteoporosis without current pathological fracture; Q07.00 Arnold-Chiari syndrome without spina bifida or hydrocephalus; B27.00 Gammaherpesviral mononucleosis without complication
CPT/HCPCS: 36415; 80053; 80061; 83721; 84443; 85025; 85651; 86140

== ENCOUNTER 2021-07-14 16:17 | Inpatient (IN) | payer MEDICARE, OTHER ==
[2021-07-14] MEDS ORDERED: SODIUM CHLORIDE 0.9% 1,000 ML IV STA (16:58)
[2021-07-14] MEDS ORDERED: diltiaZEM INJ 5 MG/ML VIAL IVP STA (16:58)
--- NOTE | 2021-07-14 17:00 | ED Physician Documentation ---
History of Present Illness - Stated complaint Stated Complaint: VOMIT/WEAK/ABD PX - Chief complaint Chief Complaint: Abd Pain - History obtained from History obtained from: Patient, Family - History of Present Illness Timing: How many days ago (2) Pain level max: 7 Pain level now: 6 - Additonal information Additional information: Patient is a 71-year-old female who presents to the emergency department stating that she has had abdominal pain, vomiting and no bowel movement for the past 2 days. Brought in by her today. Nothing makes it better. Worse with attempting to eat and drink. No fevers. She has not taken any medication for the past 2 days as she is unable to keep any medication down. Has had abdominal surgery for diverticulitis in the past. Patient also has a history of atrial fibrillation. No chest pain. No shortness of breath. Review of Systems Ten Systems: 10 systems reviewed and negative Constitutional: denies: Fever, Chills Respiratory: denies: Cough GI: reports: Nausea, Vomiting : denies: Dysuria, Frequency, Hesitancy Skin: denies: Rash Musculoskeletal: denies: Neck pain, Back pain Neurologic: denies: Focal weakness, Numbness, Headache PD PAST MEDICAL HISTORY - Past Medical History Past Medical History: Yes Cardiovascular: Hypertension Respiratory: None Neuro: Other Endocrine/Autoimmune: Type 2 diabetes GI: Diverticulitis (Status post sigmoidectomy) : None HEENT: Other Psych: None Musculoskeletal: Osteoarthritis, Osteoporosis Derm: Other (History of malignant melanoma) - Past Surgical History Past Surgical History: Yes General: Bowel surgery Ortho: Knee replacement HEENT: Cataracts Derm: Skin cancer surgery - Present Medications Home Medications: Ambulatory Orders Medication Instructions Recorded Confirmed Cholecalciferol (Vitamin D3) 2,000 unit PO DAILY 05/03/16 12/25/18 [Vitamin D3] predniSONE [Deltasone] 20 mg PO [id number] #21 tab 12/07/18 12/25/18 Albuterol Sulfate [Proair Hfa 1 - 2 puffs INH Q6HR PRN 12/25/18 12/25/18 Inhaler] Atorvastatin [Lipitor] 40 mg PO QPM #10 tablet 12/25/18 Benzonatate [Tessalon] 100 mg PO Q6HR PRN 12/25/18 12/25/18 Calcium Carb/Vitamin D3/Vit K1 1 tab PO DAILY 12/25/18 12/25/18 [Viactiv 650 mg-12.5 Mcg Chew] Multivitamin [Multiple Vitamins] 1 tab PO DAILY 12/25/18 12/25/18 Hydrocodone/Acetaminophen [[place] 1 each PO Q6H PRN #15 tablet 12/26/18 5-325 Tablet] Naproxen 375 mg PO BID #20 tablet 12/26/18 - Allergies Allergies/Adverse Reactions: Allergies Allergy/AdvReac Type Severity Reaction Status Date / Time imipenem Allergy Unknown Verified 12/31/18 19:09 latex Allergy Unknown Verified 07/14/21 16:45 levofloxacin Allergy Unknown Verified 12/31/18 19:09 Penicillins Allergy Hives Verified 07/14/21 16:45 - Social History Does the pt smoke?: No Smoking Status: Never smoker Does the pt drink ETOH?: No Does the pt have substance abuse?: No - Immunizations Immunizations are current?: Yes - POLST Patient has POLST: No POLST Status: Full Code PD ED PE NORMAL - Vitals Vital signs reviewed: Yes - General General: Alert and oriented X 3, No acute distress - HEENT HEENT: Moist mucous membranes - Neck Neck: Supple, no meningeal sign - Cardiac Cardiac: RRR, Strong equal pulses - Respiratory Respiratory: No respiratory distress, Clear bilaterally - Abdomen Abdomen: Other (Diffusely tender to palpation. Positive rebound and guarding. Distended abdomen.) - Derm Derm: Warm and dry - Extremities Extremities: No edema, No calf tenderness / cord - Neuro Neuro: Alert and oriented X 3 - Psych Psych: Normal mood, Normal affect Results - Vitals Vitals: Vital Signs - 24 hr 07/14/21 07/14/21 07/14/21 16:42 16:45 18:03 Temperature 35.7 C L Heart Rate 144 H 147 H 107 H Respiratory 24 25 H 24 Rate Blood Pressure 113/68 113/68 125/101 H O2 Saturation 95 98 97 07/14/21 18:11 Temperature Heart Rate 80 Respiratory 28 H Rate Blood Pressure 118/70 O2 Saturation 97 Oxygen O2 Source Room air - EKG (time done) 1821 Rate: Rate (enter#) (85) Rhythm: Atrial fibrillation QRS: LVH Ischemia: Q waves (II, III, aVF), Non specific changes - Labs Labs: Laboratory Tests 07/14/21 07/14/21 07/14/21 16:53 16:53 17:05 WBC 34.7 H RBC 5.24 Hgb 16.7 H Hct 47.1 H MCV 89.9 MCH 31.9 H MCHC 35.5 RDW 12.7 Plt Count 300 MPV 12.0 H Neut # (Auto) 29.9 H Lymph # (Auto) 1.4 L [place] # (Auto) 2.8 H Eos # (Auto) 0.0 Baso # (Auto) 0.1 Absolute Nucleated RBC 0.00 Band Neuts % (Manual) Not Reportable Abnorm Lymph % (Manual) Not Reportable Nucleated RBC % 0.0 Neutrophils # (Manual) Not Reportable Lymphocytes # (Manual) Not Reportable Monocytes # (Manual) Not Reportable Eosinophils # (Manual) Not Reportable Basophils # (Manual) Not Reportable Differential Comment MANUAL=AUTO DIFF Manual Slide Review Indicated WBC Morphology NORMAL APPEARANCE Platelet Estimate NORMAL (130-450,000) Platelet Morphology NORMAL APPEARANCE RBC Morph Micro Appear NORMAL APPEARANCE Sodium 127 L Potassium 3.7 Chloride 87 L Carbon Dioxide 22 Anion Gap 18.0 H BUN 81 H* Creatinine 2.6 H Estimated GFR (MDRD) 18 L Glucose 176 H Calcium 9.2 Total Bilirubin 1.6 H AST 48 H ALT 21 Alkaline Phosphatase 43 Total Protein 6.9 Albumin 4.0 Globulin 2.9 Albumin/Globulin Ratio 1.4 Lipase 28 Nasal Adenovirus (PCR) NOT DETECTED Nasal B. parapertussis DNA (PCR) NOT DETECTED Nasal Coronavir 229E PCR NOT DETECTED Nasal Coronavir HKU1 PCR NOT DETECTED Nasal Coronavir NL63 PCR NOT DETECTED Nasal Coronavir OC43 PCR NOT DETECTED Nasal Enterovir/Rhinovir PCR NOT DETECTED Nasal Influenza B PCR NOT DETECTED Nasal Influenza A PCR NOT DETECTED Nasal Parainfluen 1 PCR NOT DETECTED Nasal Parainfluen 2 PCR NOT DETECTED Nasal Parainfluen 3 PCR NOT DETECTED Nasal Parainfluen 4 PCR NOT DETECTED Nasal RSV (PCR) NOT DETECTED Nasal B.pertussis DNA PCR NOT DETECTED Nasal C.pneumoniae (PCR) NOT DETECTED [employer] Human Metapneumo PCR NOT DETECTED Nasal M.pneumoniae (PCR) NOT DETECTED Nasal SARS-CoV-2 (PCR) NOT DETECTED - Rads (name of study) CT abdomen pelvis Radiology: Final report received, EMP read contemporaneously, See rad report PD MEDICAL DECISION MAKING - ED course Complexity details: reviewed results, re-evaluated patient, considered differential, d/w patient, d/w field consultant ED course: 71-year-old female presents to the emergency department with a bowel obstruction. She appears significantly dehydrated, atrial fibrillation with rapid ventricular response, acute kidney injury. Given IV fluids, diltiazem. Heart rate stabilized. Feels better. Declines any pain medication here. NG tube was placed. Discussed the case with Dr. Orozco, general surgery who will evaluate the patient. Recommends admission to the hospitalist service. Discussed the case with KENRICK Frankel who accepts. This document was made in part using voice recognition software. While efforts are made to proofread this document, sound alike and grammatical errors may occur. IMPRESSION: 1. Small bowel obstruction. 2. Remote hysterectomy. 3. At least moderate right pleural effusion with compressive atelectasis in the right lung base. Small left pleural effusion with associated minimal atelectasis. Departure - Departure Disposition: 66 [facility] DC/Xfer Clinical Impression: Small bowel obstruction, Atrial fibrillation with RVR, Acute renal insufficiency, Dehydration Condition: Stable Discharge Date/Time: 07/14/21 19:09
[2021-07-14 17:02] LABS: BASOPHILS # (AUTO) 0.1 10^3/uL (0.0-0.1); BASOPHILS % (AUTO) 0.3 %; HCT - HEMATOCRIT 47.1 % (37.0-47.0); HGB - HEMOGLOBIN 16.7 g/dL (12.0-16.0); LYMPHOCYTES # (AUTO) 1.4 10^3/uL (1.5-3.5); LYMPHOCYTES % (AUTO) 4.1 %; MEAN CORPUSCULAR HEMOGLOBIN 31.9 pg (27.0-31.0); MEAN CORPUSCULAR HGB CONC 35.5 g/dL (32.0-36.0); MEAN CORPUSCULAR VOLUME 89.9 fL (81.0-99.0); MONOCYTES # (AUTO) 2.8 10^3/uL (0.0-1.0); MONOCYTES % (AUTO) 8.1 %; NEUTROPHILS # (AUTO) 29.9 10^3/uL (1.5-6.6); NEUTROPHILS % (AUTO) 86.2 %; PLT - PLATELET COUNT 300 10^3/uL (130-450); RED BLOOD COUNT 5.24 10^6/uL (4.20-5.40); RED CELL DISTRIBUTION WIDTH 12.7 % (12.0-15.0); WHITE BLOOD COUNT 34.7 x10^3/uL (4.8-10.8)
[2021-07-14 17:08] LABS: SLIDE REVIEW? Indicated
[2021-07-14 17:16] LABS: ALBUMIN/GLOBULIN RATIO 1.4 (1.0-2.2); BILIRUBIN,TOTAL 1.6 mg/dL (0.2-1.0); CALCIUM 9.2 mg/dL (8.5-10.3); CREATININE 2.6 mg/dL (0.4-1.0); POTASSIUM 3.7 mmol/L (3.5-5.0); TOTAL PROTEIN 6.9 g/dL (6.7-8.2)
[2021-07-14] MEDS ORDERED: IOVERSOL 320 50 ML VIAL ONE (17:17)
[2021-07-14 17:48] LABS: DIFFERENTIAL COMMENT MANUAL=AUTO DIFF; PLATELET ESTIMATE, MANUAL NORMAL (130-450,000) (NORMAL); PLATELET MORPHOLOGY NORMAL APPEARANCE (NORMAL); RBC MORPHOLOGY (MULTIPLE) NORMAL APPEARANCE (NORMAL); WBC MORPHOLOGY (MULTIPLE) NORMAL APPEARANCE (NORMAL)
[2021-07-14] MEDS ORDERED: MORPHINE 2 MG/ML CARPUJECT IVP STA (18:06)
[2021-07-14 18:07] LABS: B. PARAPERTUSSIS- RESP PCR PAN NOT DETECTED; B. PERTUSSIS- RESP PCR PANEL NOT DETECTED; C. PNEUMONIAE- RESP PCR PANEL NOT DETECTED; CORONAVIRUS 229E-RESP PCR NOT DETECTED; CORONAVIRUS HKU1-RESP PCR NOT DETECTED; CORONAVIRUS NL63-RESP PCR NOT DETECTED; CORONAVIRUS OC43-RESP PCR NOT DETECTED; HUMAN METAPNEUMOVIRUS NOT DETECTED; INFLUENZA A- RESP PCR PANEL NOT DETECTED; INFLUENZA B - RESP PCR PANEL NOT DETECTED; M. PNEUMONIAE- RESP PCR PANEL NOT DETECTED; PARAINFLUENZA VIRUS 1 NOT DETECTED; PARAINFLUENZA VIRUS 2 NOT DETECTED; PARAINFLUENZA VIRUS 3 NOT DETECTED; PARAINFLUENZA VIRUS 4 NOT DETECTED; RHINOVIRUS/ENTEROVIRUS NOT DETECTED; RSV- RESP PCR PANEL NOT DETECTED; SARS-CoV-2 -RESP PCR PANEL NOT DETECTED
[2021-07-14] MEDS: SODIUM CHLORIDE 0.9% 1,000 ML IV STA ×2 (18:11→20:51)
--- NOTE | 2021-07-14 18:18 | CT Report ---
PROCEDURE: Abdomen/Pelvis WO INDICATIONS: diffuse abd pain TECHNIQUE: Noncontrast 5 mm thick sections acquired from the diaphragms to the symphysis. 5 mm coronal and sagi ttal reformats were then performed. For radiation dose reduction, the following was used: automated exposure control, adjustment of mA and/or kV according to patient size. COMPARISON: 01/08/2019. FINDINGS: Image quality: Excellent. ABDOMEN: Lung bases: At least moderate right pleural effusion with compressive atelectasis in the right lung b ase. Small left pleural effusion with minimal left basilar compressive atelectasis. Heart size is nor mal. Small pericardial effusion. Solid organs: Liver and spleen are normal in size. Gallbladder is unremarkable. Pancreas is normal in contours. No adrenal nodules. Kidneys are normal in size, without hydronephrosis or nephrolithi asis. Peritoneum and bowel: There is a high-grade small bowel obstruction present. The exact location of th e obstruction is not well seen. There is a small amount of free fluid. There is no free air. Distal c olonic remote partial colonic resection. Nodes and vessels: No retroperitoneal or mesenteric adenopathy by size criteria. Aorta and inferior vena cava are normal in caliber. Miscellaneous: No ventral hernias. PELVIS: Genitourinary: Bladder wall thickness is normal. Miscellaneous: No inguinal hernias or adenopathy. Uterus is surgically absent. Bones: No suspicious bony lesions. No vertebral body compression fractures. IMPRESSION: 1. Small bowel obstruction. 2. Remote hysterectomy. 3. At least moderate right pleural effusion with compressive atelectasis in the right lung base. Smal l left pleural effusion with associated minimal atelectasis. Reviewed by: Brooks Ghosh MD on 07/14/2021 6:16 PM PDT Approved by: Brooks Ghosh MD on 07/14/2021 6:16 PM PDT Station ID: [id number]
[2021-07-14] MEDS ORDERED: ONDANSETRON 4 MG/2 ML VIAL IVP PRN (18:26)
[2021-07-14] MEDS ORDERED: LEVALBUTEROL 1.25 MG/3 ML NEB INH PRN (18:34)
--- NOTE | 2021-07-14 19:46 | HISTORY & PHYSICAL EXAMINATION ---
Chief Complaint - Chief Complaint Chief Complaint: abd pain w n/v History of Present Illness - Admitted From Admitted From:: ER/Home - History [facility]btained [facility] History obtained from: patient and Exam Limitations: pain - History of Present Illness HPI Comment/Other: She is a 71-year-old female who is seen by Dr. Franz in our local clinic and has high sensitivity problems to pollution with asthma, and hives due to imipenem, Levaquin, and penicillin. She has had previous diverticulitis with resection. The last time she was in the hospital and was in 2019 when she had a series of "TIAs" with aphasia, headache, and generalized weakness. It was also associate with high blood pressure episodes. She had a couple of episodes here in our emergency room and with the last one was transferred to [facility]. She has not been diagnosed with a stroke. She has been in good health. Has not been seen urgently or emergently in any institution since 2018 and now presents with abdominal pain that is been going on for 2 days. No bowel movement for 2 days. And then early yesterday started having vomiting. There is been no antecedent change in bowel habits prior to this. She denies fevers, chills, rigors. But anything that makes her body move, even the weight of a blanket coming across her belly is agonizingly painful. She has not been able to eat or drink anything for 2 days. She denies cough, wheezing, shortness of breath. She says that she had no antecedent weight changes. She has chronic intermittent atrial fibrillation and that has been stable without any chest pain, palpitations, edema, orthopnea. She had an echocardiogram in December 2018 as well as May 2020. She has mild concentric left ventricular hypertrophy. Overall left ventricular systolic function normal with an ejection fraction of 60 to 65%. Mild to moderate aortic regurgitation, mild primary (organic) mitral regurgitation. She has a mild increase in left atrial volume index. At 36 mils per meter squared. She states that she is stable with her weight. She is not any thinner than normal. But I am noting [employer] EMR that in 2019 weight varied between 52 kg that is lowest and 58 kg at its highest. Today's weight is 43.9 kg. In her primary care provider office, she was 148 pounds in November 2019. 135 pounds April 2020. 110 pounds October 2020. And most recently was 103 pounds in April 2021. In the emergency room temperature was 35.7. Heart rate 144. Respiratory rate 24. Blood pressure 113/68. 95% saturation on room air. She had moist mucous membranes. No respiratory distress. Abdomen was diffusely tender to palpation with positive rebound and guarding. Distended belly. White cell count was 34,000 with a left shift. Abdomen pelvis CT had high-grade bowel obstruction with the exact location not quite seen. There is a small amount of free fluid. No free air. Distal colonic remote partial colonic resection. It was noted that she was in atrial fibrillation when she first came in. Tachycardic. She converted to sinus in the emergency room. Her home medication list does not note anticoagulation or rate lowering medication. General surgery has been called. They would prefer that the patient be admitted to our service and they will consult. History - Past Medical History Cardiovascular: reports: Hypertension (w episodic severe eleva. Prim aldosteronism neg. Pheo neg. ), Atrial fibrillation (presented w/csope @ . paroxysmal. Card CHADS=2, needs apixabanor xarelto), Murmur (small ASD, cardiology feels no further treatment or eval. ), Valve disorder (Aortic regurg worsening since 2019) Respiratory: reports: Asthma (self diagnosis. Eval in past all neg in neg pressure test) Neuro: reports: TIA (multiple "TIA" in 2019 w/o CVA. 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 Seen by Neurology) Endocrine/Autoimmune: reports: Type 2 diabetes, Other (Low Vitamin D) GI: reports: GERD, Ulcers, Diverticulitis (Status post sigmoidectomy) DIRECTOR STARS: reports: Other () : reports: None HEENT: reports: Other Psych: reports: None Musculoskeletal: reports: Osteoarthritis, Fibromyalgia, Rheumatoid arthritis (seen by [facility]. Inflammatory markers all negative so doesn't treat as RA), Osteoporosis, Other (plantar fasciitis) Derm: reports: Other (History of malignant melanoma) MRSA Hx?: No Other Past Medical History: chronic ebstein mckeon infection - Past Surgical History General: reports: Bowel surgery Ortho: reports: Knee replacement /DIRECTOR STARS: reports: Hysterectomy HEENT: reports: Cataracts Derm: reports: Skin cancer surgery - Family & Social History Family History Comment/Other: Father had a history of diabetes, COPD, heart disease, stroke. Mom had a history of osteoporosis, anxiety, Parkinson's disease Living arrangement: At home Living Situation: With spouse/s.o. Social History Notes: The patient has been to her for over 40 ye ars. They have 2 children together 1 of whom lives in [place]. 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 She and her moved to [facility] about 2015. Prior to that they lived in [facility], [facility] and [place]. Patient's was in the . The patient does not smoke cigarettes, she occasionally drinks alcohol and denies any illicit drug use. - Substance History Use: Uses substance without health or social issues: Alcohol (1 glass of wine) Abuse: Recurrent use of substance despite neg consequences: NONE Dependence: Experiences withdrawal or developed tolerances: NONE - POLST Patient has POLST: No POLST Status: Full Code Meds/Allgy - Home Medications Home Medications: Ambulatory Orders Medication Instructions Recorded Confirmed Cholecalciferol (Vitamin D3) 2,000 unit PO DAILY 05/03/16 12/25/18 [Vitamin D3] predniSONE [Deltasone] 20 mg PO [id number] #21 tab 12/07/18 12/25/18 Albuterol Sulfate [Proair Hfa 1 - 2 puffs INH Q6HR PRN 12/25/18 12/25/18 Inhaler] Atorvastatin [Lipitor] 40 mg PO QPM #10 tablet 12/25/18 Benzonatate [Tessalon] 100 mg PO Q6HR PRN 12/25/18 12/25/18 Calcium Carb/Vitamin D3/Vit K1 1 tab PO DAILY 12/25/18 12/25/18 [Viactiv 650 mg-12.5 Mcg Chew] Multivitamin [Multiple Vitamins] 1 tab PO DAILY 12/25/18 12/25/18 Hydrocodone/Acetaminophen [Belden 1 each PO Q6H PRN #15 tablet 12/26/18 5-325 Tablet] Naproxen 375 mg PO BID #20 tablet 12/26/18 - Allergies Allergies/Adverse Reactions: Allergies Allergy/AdvReac Type Severity Reaction Status Date / Time imipenem Allergy Unknown Verified 12/31/18 19:09 latex Allergy Unknown Verified 07/14/21 16:45 levofloxacin Allergy Unknown Verified 12/31/18 19:09 Penicillins Allergy Hives Verified 07/14/21 16:45 Review of Systems - Constitutional Constitutional: reports: Fatigue, Other (she denies weight changes even though cachectic and record documents 10 Kg weight loss). denies: Fever, Chills, Malaise, Diaphoresis, Night sweats - Eyes Eyes: reports: Vision loss (with age). denies: Pain, Irritation, Amaurosis, Blurred vision - Ears, Nose & Throat Ears, Nose & Throat: denies: Ear pain, Hearing loss, Hearing aids, Tinnitus, Vertigo, Sore throat, Hoarseness - Cardiovascular Cariovascular: reports: Irregular heart rate (in the past but doesn't feel it), Palpitations. denies: Exertional dyspnea, Decr. exercise tolerance - Respiratory Respiratory: reports: Cough, Wheezing (Cough and wheezing due to "pollution in t he air", excessive sense. Objective evaluation has been negative to document obstructive response.). denies: Sputum production, SOB at rest, SOB with exertion - Gastrointestinal Gastrointestinal: reports: Abdominal pain, Abdominal distention, Bloody stools (in 2019 and scope w internal hemorrhoids at ? [facility]? States she had small bowel resection? 2005 after 1st scope years ago.), Reflux/heartburn (Underwent upper GI for dysphagia, GERD August 2017. Normal EGD with biopsies also negative), Bloating - Genitourinary Genitourinary: denies: Dysuria, Frequency, Urgency, Incontinence - Musculoskeletal Musculoskeletal: reports: Muscle pain, Back pain, Muscle aches, Stiffness, Joint pain, Joint swelling - Integumentary Integumentary: denies: Rash, Pruritis, Lesions - Neurological Neurological: reports: General weakness (worse proximally), Numbness, Incoordination (chronic balance probs), Slurred speech (tension dysphonia). denies: Focal weakness, Headache, Dizziness, Memory problems, Abnormal gait - Psychiatric Psychiatric: denies: Depression, Anxiety, Suicidal, Delusions, Hallucinations, Homicidal - Endocrine Endocrine: reports: Intolerance to cold. denies: Polyuria, Polydypsia, Polyphagia - Hematologic/Lymphatic Hematologic/Lymphatic: denies: Anemia, Bruising Prior Level of Functionality: She considers her self independent with activities of daily living. Exam - Vital Signs Reviewed Vital Signs: Yes Vital Signs: Vital Signs x48h Temp Pulse Pulse Resp BP BP Pulse Ox 07/14/21 19:16 36.7 C 89 16 123/60 93 07/14/21 18:54 96 22 97 07/14/21 18:45 90 30 H 144/107 H 997 H 07/14/21 18:11 80 28 H 118/70 97 07/14/21 18:03 107 H 24 125/101 H 97 07/14/21 16:45 147 H 25 H 113/68 98 07/14/21 16:42 35.7 C L 144 H 24 113/68 95 - Physical Exam General Appearance: positive: Severe distress (Lying perfectly still. The weighted the blanket causes her to cry out in pain. at the bedside, both anxious.), Other (Profoundly cachectic female who looks older than stated age) Eyes Bilateral: positive: PERRL, EOMI ENT: positive: Pharynx nml, Other (NG in place and draining green bilious drainage. voice so low and hoarse that she is almost inaudible) Neck: positive: No JVD. negative: Stiff neck Respiratory: positive: No respiratory distress, Other (Rib cage visible through soft tissue, cachexia). negative: Wheezes, Rales, Rhonchi Cardiovascular: positive: Regular rate & rhythm, Systolic murmur. negative: Gallop/S4, Friction rub Abdomen: positive: Other (Rigid abdomen, no bowel sounds, positive guarding and rebound. Any movement whatsoever causes her to cry out in pain) Skin: positive: Warm, Dry, Pallor Extremities: positive: Full ROM, No pedal edema Neurologic/Psychiatric: positive: Oriented x3, CN's nml (2-12), Motor nml, Sensation nml Conclusion/Plan - Problem List (1) Peritonitis Conclusion/Plan: CT abd is relatively benign other than showing the bowel obstruction. There is no free air, no leakage of fluid. But on physical exam this woman is quite rigid. White cell count is 34,000. It is reassuring that her lactic acid is only 2.1. I do not know if this was quite presented to the surgeon as I am seeing it at this point in time. I have called general surgery on-call and notified them of her severity of illness and they will come in and see her right now. Unfortunately this patient confirms that she is truly allergic to imipenem, Levaquin, and penicillins. She has never had anaphylaxis with them and is only had body rashes and occasional swollen mouth. I had initially thought to put her on single agent Zosyn but that is out of the question. Then meropenem but that is not possible. Then I thought Levaquin and Flagyl or Cipro and Flagyl but she is allergic to the Levaquin. At this time I will start her on cefepime. (2) Small bowel obstruction Conclusion/Plan: As seen on CT scan. She has a previous diverticular episode in the past. And notes that she has had a "small bowel resection" in 2004 but I am unclear if this is a small bowel disease or sigmoid disease. At this time CT reports a "high-grade small bowel obstruction". Cause would most likely be adhesions. She denies weight loss but she has had si gnificant weight loss in the last 2 years and I worry about neoplasm. Her primary care provider office does note that she has had colonoscopies in the past. But I am not finding the actual reports. (3) Atrial fibrillation with RVR Conclusion/Plan: Paroxysmal. Is followed by Dane [facility] at [facility] cardiology. Most recently seen in the last few months. At this time he had recommended Eliquis for stroke prevention but I am not noticing that on her list. She does not quite remember the conversation. She is asymptomatic with regards to her atrial fibrillation. She is not on any rate lowering drugs since her episodes appear to be episodic and infrequent. He does not recommend any treatment for her small ASD. During her stay she will be monitored on telemetry. We will try and document how many episodes she has, if any. We will need to discuss anticoagulation in the outpatient setting (4) MATILDA (acute kidney injury) Conclusion/Plan: Severe. Her usual baseline creatinine is 0.9 and she is 2.6. CT does not confirm any hydronephrosis. At this time she will be receiving antibiotics for peritoneal findings. She is also received IV fluids. We will recheck labs daily and avoid nephrotoxic agents. (5) Pleural effusion Conclusion/Plan: Unclear why this should be present. This woman does not have congestive heart failure. Atrial fibrillation is not severe. She does not have cirrhosis. She does appear to be quite malnourished but the effusion is isolated. She does not have diffuse anasarca. Depending on how long her stay is here we may have to address that issue with a diagnostic thoracentesis. (6) Polyarthralgia Conclusion/Plan: Long complicated history with this. She has chronic knee pain due to osteoarthritis and even a knee replacement has not helped. She has been seen by rheumatology for inflammatory disorders and all of her serologies have been negative. She has been evaluated a few times and no specific diagnosis other than possible fibromyalgia. She is not in any disease modulating agents at this time. We will continue to address this with intermittent Tylenol or intermitten t nonsteroidals. (7) Weight loss Conclusion/Plan: She states that she is always been "thin" and is not aware of any weight loss. She is not describing anorexia, change in bowel habits. This will have to be addressed in a global fashion. My concern is that of an eating disorder, psychological disorder, cancer, or malabsorption (but she does not describe d iarrhea). Pleural effusion on exam today is concerning. (8) Severe protein-calorie malnutrition Conclusion/Plan: She has lost a significant amount of weight in the last year. On examination severe loss of body mass. We will seek nutrition consult and support (9) Dysphonia Conclusion/Plan: In looking at her old records, she does not have vocal cord prolapse. My concern would be risk of aspiration. 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 Episodically worse. Today she is almost an audible and her ability to speak to me. We will just continue to monitor. - Lab Results Lab results reviewed: Yes Fish Bones: 07/14/21 16:53 07/14/21 16:53 - Diagnostic Imaging Results Diagnostic Imaging Results: positive: Final report reviewed Diagnostic Imaging Results Comments: Abdomen pelvis CT had high-grade bowel obstruction with the exact location not quite seen. There is a small amount of free fluid. No free air. Distal colonic remote partial colonic resection. She has a moderate right pleural effusion with compressive atelectasis in the right lung base. Small left pleural effusion with minimal left basilar compressive atelectasis. Heart size normal. No lung masses seen. - EKG Results EKG Interpreted Independently: No Core Measures - Anticipated LOS I expect patient to be DC'd or transferred within 96 hours.: Yes - DVT/VTE - Prophylaxis VTE/DVT Device ordered at admit?: Yes
--- NOTE | 2021-07-14 20:30 | HISTORY & PHYSICAL EXAMINATION ---
HPI - Admitted From Admitted from: ED - History Obtained From History obtained from: Patient, Family Exam limitations: No limitations - History of Present Illness Severity at the worst: reports: Severe Pain Quality: reports: Sharp, Aching Context-Pain started w/: reports: Rest Timing: reports: Gradual onset Duration: reports: Days: (2) Improved with: reports: Nothing Worsened by: reports: Exertion, Inspiration, Movement, Palpation Associated symptoms: reports: Vomiting HPI Comment/Other: Very pleasant and relatively healthy 71-year-old lady who presented to the emergency room with her after 2 days of severe abdominal pain associated with nausea and vomiting. He reports that she initially thought she might have a stomach virus but it did not get better. She has not passed any flatus or had a bowel movement for the 2-day. And she has had repeated vomiting. She has not been able to tolerate liquids. She had a sigmoid colectomy in around the year 1999 for diverticular disease. She reports that she had a TIA in 2019. Upon presenting to the emergency room she had atrial fibrillation with rapid ventricular response. She has a history of atrial fibrillation but her rate is generally controlled with meds and she has not been on anticoagulants. At this time she reports that she is quite miserable. She is hesitant to let me even touch her belly. She reports points to her umbilicus as the site of greatest tenderness.This has not been associated with any fever or constitutional symptom s. PMH/PSH - Past Medical History Cardiovascular: positive: Hypertension (w episodic severe eleva. Prim aldosteronism neg. Pheo neg. ), Atrial fibrillation (presented w/csope @ . paroxysmal. Card CHADS=2, needs apixabanor xarelto), Murmur (small ASD, cardiology feels no further treatment or eval. ), Valve disorder (Aortic regurg worsening since 2019) Respiratory: positive: Asthma (self diagnosis. Eval in past all neg in neg pressure test) Neuro: positive: TIA (multiple "TIA" in 2019 w/o CVA. 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 Seen by Neurology) Endocrine/Autoimmune: positive: Type 2 diabetes GI: positive: Diverticulitis (Status post sigmoidectomy) : positive: None HEENT: positive: Other Psych: positive: None Musculoskeletal: positive: Osteoarthritis, Fibromyalgia, Rheumatoid arthritis (seen by [facility]. Inflammatory markers all negative so doesn't treat as RA), Osteoporosis, Other (plantar fasciitis) Derm: positive: Other (History of malignant melanoma) MRSA Hx?: No - Past Surgical History General: positive: Bowel surgery Ortho: positive: Knee replacement HEENT: positive: Cataracts Derm: positive: Skin cancer surgery Social & Family Hx - Living Situation Living Arrangement: At home Living Situation: With spouse/s.o. - Social History Does the pt smoke?: No Smoking Status: Never smoker Does the pt drink ETOH?: No Does the pt have substance abuse?: No - POLST Patient has POLST: No POLST Status: Full Code Meds/Allgy - Home Medications Home Medications: Ambulatory Orders Medication Instructions Recorded Confirmed Cholecalciferol (Vitamin D3) 2,000 unit PO DAILY 05/03/16 12/25/18 [Vitamin D3] predniSONE [Deltasone] 20 mg PO [id number] #21 tab 12/07/18 12/25/18 Albuterol Sulfate [Proair Hfa 1 - 2 puffs INH Q6HR PRN 12/25/18 12/25/18 Inhaler] Atorvastatin [Lipitor] 40 mg PO QPM #10 tablet 12/25/18 Benzonatate [Tessalon] 100 mg PO Q6HR PRN 12/25/18 12/25/18 Calcium Carb/Vitamin D3/Vit K1 1 tab PO DAILY 12/25/18 12/25/18 [Viactiv 650 mg-12.5 Mcg Chew] Multivitamin [Multiple Vitamins] 1 tab PO DAILY 12/25/18 12/25/18 Hydrocodone/Acetaminophen [[place] 1 each PO Q6H PRN #15 tablet 12/26/18 5-325 Tablet] Naproxen 375 mg PO BID #20 tablet 12/26/18 - Allergies Allergies/Adverse Reactions: Allergies Allergy/AdvReac Type Severity Reaction Status Date / Time imipenem Allergy Unknown Verified 12/31/18 19:09 latex Allergy Unknown Verified 07/14/21 16:45 levofloxacin Allergy Unknown Verified 12/31/18 19:09 Penicillins Allergy Hives Verified 07/14/21 16:45 Review of Systems - Constitutional Constitutional: reports: Fatigue, Weakness, Poor appetite - Cardiovascular Cariovascular: reports: Irregular heart rate - Respiratory Respiratory: denies: Cough, Sputum production, Wheezing, SOB at rest, SOB with exertion - Gastrointestinal Gastrointestinal: reports: Abdominal pain, Nausea, Vomiting - All Other Systems All Other Systems: reports: Reviewed and negative Exam - Vital Signs Reviewed Vital Signs: Yes Vital Signs: Vital Signs x48h Temp Pulse Pulse Resp BP BP Pulse Ox 07/14/21 19:16 36.7 C 89 16 123/60 93 07/14/21 18:54 96 22 97 07/14/21 18:45 90 30 H 144/107 H 997 H 07/14/21 18:11 80 28 H 118/70 97 07/14/21 18:03 107 H 24 125/101 H 97 07/14/21 16:45 147 H 25 H 113/68 98 07/14/21 16:42 35.7 C L 144 H 24 113/68 95 - Physical Exam General Appearance: positive: Alert, Moderate distress Eyes Bilateral: positive: Normal inspection, PERRL, EOMI ENT: positive: ENT inspection nml, Pharynx nml, No signs of dehydration Neck: positive: Nml inspection Respiratory: positive: Chest non-tender, No respiratory distress, Breath sounds nml Cardiovascular: positive: Regular rate & rhythm Abdomen: positive: Tenderness, Guarding, Rebound, Abnml bowel sounds, Other (Distended and quiet and exquisitely tender.) Skin: positive: Color nml Extremities: positive: Non-tender Neurologic/Psychiatric: positive: Oriented x3 Results - Lab Results Fish Bones: 07/14/21 16:53 07/14/21 16:53 Other Lab Results: Lab Results x24hrs 07/14/21 07/14/21 07/14/21 Range/Units 19:30 17:05 16:53 WBC (4.8-10.8) x10^3/uL RBC (4.20-5.40) 10^6/uL Hgb (12.0-16.0) g/dL Hct (37.0-47.0) % MCV (81.0-99.0) fL MCH (27.0-31.0) pg MCHC (32.0-36.0) g/dL RDW (12.0-15.0) % Plt Count (130-450) 10^3/uL MPV (7.9-10.8) fL Neut # (Auto) (1.5-6.6) 10^3/uL Lymph # (Auto) (1.5-3.5) 10^3/uL [place] # (Auto) (0.0-1.0) 10^3/uL Eos # (Auto) (0.0-0.7) 10^3/uL Baso # (Auto) (0.0-0.1) 10^3/uL Absolute Nucleated RBC x10^3/uL Band Neuts % (Manual) Abnorm Lymph % (Manual) Nucleated RBC % /100WBC Neutrophils # (Manual) Lymphocytes # (Manual) Monocytes # (Manual) Eosinophils # (Manual) Basophils # (Manual) Differential Comment Manual Slide Review WBC Morphology (NORMAL) Platelet Estimate (NORMAL) Platelet Morphology (NORMAL) RBC Morph Micro Appear (NORMAL) Sodium 127 L (135-145) mmol/L Potassium 3.7 (3.5-5.0) mmol/L Chloride 87 L (101-111) mmol/L Carbon Dioxide 22 (21-32) mmol/L Anion Gap 18.0 H (6-13) BUN 81 H* (6-20) mg/dL Creatinine 2.6 H (0.4-1.0) mg/dL Estimated GFR (MDRD) 18 L (>89) Glucose 176 H (70-100) mg/dL Lactic Acid 2.1 (0.5-2.2) mmol/L Calcium 9.2 (8.5-10.3) mg/dL Total Bilirubin 1.6 H (0.2-1.0) mg/dL AST 48 H (10-42) IU/L ALT 21 (10-60) IU/L Alkaline Phosphatase 43 (42-121) IU/L Total Protein 6.9 (6.7-8.2) g/dL Albumin 4.0 (3.2-5.5) g/dL Globulin 2.9 (2.1-4.2) g/dL Albumin/Globulin Ratio 1.4 (1.0-2.2) Lipase 28 (22-51) U/L Nasal Adenovirus (PCR) NOT DETECTED Nasal B. parapertussis DNA (PCR) NOT DETECTED Nasal Coronavir 229E PCR NOT DETECTED Nasal Coronavir HKU1 PCR NOT DETECTED Nasal Coronavir NL63 PCR NOT DETECTED Nasal Coronavir OC43 PCR NOT DETECTED Nasal Enterovir/Rhinovir PCR NOT DETECTED Nasal Influenza B PCR NOT DETECTED Nasal Influenza A PCR NOT DETECTED Nasal Parainfluen 1 PCR NOT DETECTED Nasal Parainfluen 2 PCR NOT DETECTED Nasal Parainfluen 3 PCR NOT DETECTED Nasal Parainfluen 4 PCR NOT DETECTED Nasal RSV (PCR) NOT DETECTED Nasal B.pertussis DNA PCR NOT DETECTED Nasal C.pneumoniae (PCR) NOT DETECTED [employer] Human Metapneumo PCR NOT DETECTED Nasal M.pneumoniae (PCR) NOT DETECTED Nasal SARS-CoV-2 (PCR) NOT DETECTED 07/14/21 Range/Units 16:53 WBC 34.7 H (4.8-10.8) x10^3/uL RBC 5.24 (4.20-5.40) 10^6/uL Hgb 16.7 H (12.0-16.0) g/dL Hct 47.1 H (37.0-47.0) % MCV 89.9 (81.0-99.0) fL MCH 31.9 H (27.0-31.0) pg MCHC 35.5 (32.0-36.0) g/dL RDW 12.7 (12.0-15.0) % Plt Count 300 (130-450) 10^3/uL MPV 12.0 H (7.9-10.8) fL Neut # (Auto) 29.9 H (1.5-6.6) 10^3/uL Lymph # (Auto) 1.4 L (1.5-3.5) 10^3/uL [place] # (Auto) 2.8 H (0.0-1.0) 10^3/uL Eos # (Auto) 0.0 (0.0-0.7) 10^3/uL Baso # (Auto) 0.1 (0.0-0.1) 10^3/uL Absolute Nucleated RBC 0.00 x10^3/uL Band Neuts % (Manual) Not Reportable Abnorm Lymph % (Manual) Not Reportable Nucleated RBC % 0.0 /100WBC Neutrophils # (Manual) Not Reportable Lymphocytes # (Manual) Not Reportable Monocytes # (Manual) Not Reportable Eosinophils # (Manual) Not Reportable Basophils # (Manual) Not Reportable Differential Comment MANUAL=AUTO DIFF Manual Slide Review Indicated WBC Morphology NORMAL APPEARANCE (NORMAL) Platelet Estimate NORMAL (130-450,000) (NORMAL) Platelet Morphology NORMAL APPEARANCE (NORMAL) RBC Morph Micro Appear NORMAL APPEARANCE (NORMAL) Sodium (135-145) mmol/L Potassium (3.5-5.0) mmol/L Chloride (101-111) mmol/L Carbon Dioxide (21-32) mmol/L Anion Gap (6-13) BUN (6-20) mg/dL Creatinine (0.4-1.0) mg/dL Estimated GFR (MDRD) (>89) Glucose (70-100) mg/dL Lactic Acid (0.5-2.2) mmol/L Calcium (8.5-10.3) mg/dL Total Bilirubin (0.2-1.0) mg/dL AST (10-42) IU/L ALT (10-60) IU/L Alkaline Phosphatase (42-121) IU/L Total Protein (6.7-8.2) g/dL Albumin (3.2-5.5) g/dL Globulin (2.1-4.2) g/dL Albumin/Globulin Ratio (1.0-2.2) Lipase (22-51) U/L Nasal Adenovirus (PCR) Nasal B. parapertussis DNA (PCR) Nasal Coronavir 229E PCR Nasal Coronavir HKU1 PCR Nasal Coronavir NL63 PCR Nasal Coronavir OC43 PCR Nasal Enterovir/Rhinovir PCR Nasal Influenza B PCR Nasal Influenza A PCR Nasal Parainfluen 1 PCR Nasal Parainfluen 2 PCR Nasal Parainfluen 3 PCR Nasal Parainfluen 4 PCR Nasal RSV (PCR) Nasal B.pertussis DNA PCR Nasal C.pneumoniae (PCR) [employer] Human Metapneumo PCR Nasal M.pneumoniae (PCR) Nasal SARS-CoV-2 (PCR) - Diagnostic Imaging Results Diagnostic Imaging Results: positive: Final report reviewed Diagnostic Imaging Results Comments: Final report indicates a high grade small bowel obstruction with an associated small amount of free fluid Impression/Plan - Problem List Problem List: High grade small bowel obstruction 1. Profound leukocytosis and peritoneal signs - I have recommend urgent trip to the operating room for exploratory laparotomy with indicated procedures, possible bowel resection 2. Volume contraction with presumed prerenal azotemia. 3. Atrial fibrillation - management per Hospitalist service 4. Additional recommendations to follow surgical intervention.
[2021-07-14] MEDS ORDERED: fentaNYL 100 MCG/2 ML VIAL ONE (20:39)
[2021-07-14] MEDS ORDERED: PROPOFOL 200 MG/20 ML VIAL IVP ONE (20:39)
[2021-07-14] MEDS ORDERED: DEXAMETHASONE 4 MG/ML VIAL ONE (20:40)
[2021-07-14] MEDS ORDERED: ONDANSETRON 4 MG/2 ML VIAL ONE (20:40)
[2021-07-14] MEDS ORDERED: ROCURONIUM 50 MG/5 ML VIAL ONE (20:40)
--- NOTE | 2021-07-14 20:48 | ANESTHESIA ---
Pre-Anesthesia VS, & Labs - Diagnosis Bowel obstruction - Procedure exploratory laparotomy Vital Signs: Temp Pulse Resp BP Pulse Ox 36.7 C 89 16 123/60 93 07/14/21 19:16 07/14/21 19:16 07/14/21 19:16 07/14/21 19:16 07/14/21 19:16 Height: 5 ft 5 in Weight (kg): 45 kg Body Mass Index: 16.5 BMI Classification: Underweight - NPO >8 hours - Is Patient ?: No - Lab Results Current Lab Results: Laboratory Tests 07/14/21 19:30: Lactic Acid 2.1 07/14/21 16:53: Sodium 127 L, Potassium 3.7, Chloride 87 L, Carbon Dioxide 22, Anion Gap 18.0 H, BUN 81 H*, Creatinine 2.6 H, Estimated GFR (MDRD) 18 L, Glucose 176 H, Calcium 9.2, Total Bilirubin 1.6 H, AST 48 H, ALT 21, Alkaline Phosphatase 43, Total Protein 6.9, Albumin 4.0, Globulin 2.9, Albumin/Globulin Ratio 1.4, Lipase 28 07/14/21 16:53: WBC 34.7 H, RBC 5.24, Hgb 16.7 H, Hct 47.1 H, MCV 89.9, MCH 31.9 H, MCHC 35.5, RDW 12.7, Plt Count 300, MPV 12.0 H, Neut # (Auto) 29.9 H, Lymph # (Auto) 1.4 L, [place] # (Auto) 2.8 H, Eos # (Auto) 0.0, Baso # (Auto) 0.1, Absolute Nucleated RBC 0.00, Band Neuts % (Manual) Not Reportable, Abnorm Lymph % (Manual) Not Reportable, Nucleated RBC % 0.0, Neutrophils # (Manual) Not Reportable, Lymphocytes # (Manual) Not Reportable, Monocytes # (Manual) Not Reportable, Eosinophils # (Manual) Not Reportable, Basophils # (Manual) Not Reportable, Differential Comment MANUAL=AUTO DIFF, Manual Slide Review Indicated, WBC Morphology NORMAL APPEARANCE, Platelet Estimate NORMAL (130- 450,000), Platelet Morphology NORMAL APPEARANCE, RBC Morph Micro Appear NORMAL APPEARANCE Lab results reviewed: Yes Fish Bones: 07/14/21 16:53 07/14/21 16:53 Home Medications and Allergies Active Medications Acetaminophen (Acetaminophen 325 Mg Tablet) 650 mg PO Q4HR PRN PRN Reason: Pain 1 to 4, or Fever Heparin Sodium (Porcine) (Heparin 5,000 Unit/Ml Vial) 5,000 unit SUBQ BID [facility] Sodium Chloride (Normal Saline 0.9%) 1,000 mls @ 150 mls/hr IV .Q6H40M STA Stop: 07/14/21 23:37 Last Admin: 07/14/21 18:11 Dose: 150 mls/hr Sodium Chloride (Normal Saline 0.9%) 1,000 mls @ 100 mls/hr IV .Q10H KARLY Cefepime HCl 2 gm/ Sodium (Chloride) 100 mls @ 200 mls/hr IV BID KARLY Levalbuterol HCl (Levalbuterol 1.25 Mg/3 Ml Neb) 1.25 mg INH Q4H PRN PRN Reason: Shortness of Air/Wheezing Metoprolol Tartrate (Metoprolol 5 Mg/5 Ml Vial) 5 mg IVP Q6H PRN PRN Reason: Tachycardia Morphine Sulfate (Morphine 2 Mg/Ml Carpuject) 2 mg IVP Q2HR PRN PRN Reason: Pain 8 to 10 Ondansetron HCl (Ondansetron 4 Mg/2 Ml Vial) 4 mg IVP Q6HR PRN PRN Reason: Nausea / Vomiting Sodium Chloride (Sodium Chloride Flush 0.9% 10 Ml Syringe) 10 ml IVP PRN PRN PRN Reason: NEEDED PER PROVIDER ORDERS Sodium Chloride (Sodium Chloride Flush 0.9% 10 Ml Syringe) 10 ml IVP 0100,0900,1700 [facility] Cholecalciferol (Vitamin D3) [Vitamin D3] 2,000 unit PO DAILY 05/03/16 Albuterol Sulfate [Proair Hfa Inhaler] 1 - 2 puffs INH Q6HR PRN 12/25/18 Benzonatate [Tessalon] 100 mg PO Q6HR PRN 12/25/18 Calcium Carb/Vitamin D3/Vit K1 [Viactiv 650 mg-12.5 Mcg Chew] 1 tab PO DAILY 12/25/18 Multivitamin [Multiple Vitamins] 1 tab PO DAILY 12/25/18 Allergies/Adverse Reactions: Allergies Allergy/AdvReac Type Severity Reaction Status Date / Time imipenem Allergy Unknown Verified 12/31/18 19:09 latex Allergy Unknown Verified 07/14/21 16:45 levofloxacin Allergy Unknown Verified 12/31/18 19:09 Penicillins Allergy Hives Verified 07/14/21 16:45 Anes History & Medical History - Anesthetic History Anesthesia Complications: reports: No previous complications Family history of Anesthesia Complications: Denies Family history of Malignant Hyperthermia: Denies - Medical History Cardiovascular: reports: Hypertension (w episodic severe eleva. Prim aldosteronism neg. Pheo neg. ), Atrial fibrillation (presented w/csope @ . paroxysmal. Card CHADS=2, needs apixabanor xarelto), Murmur (small ASD, cardiology feels no further treatment or eval. ), Valve disorder (Aortic regurg worsening since 2019) Pulmonary: reports: Asthma (self diagnosis. Eval in past all neg in neg pressure test) Gastrointestinal: reports: GERD, Ulcers, Diverticulitis (Status post sigmoide ctomy) Urinary: reports: None Neuro: reports: TIA (multiple "TIA" in 2019 w/o CVA. 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 Seen by Neurology) Musculoskeletal: reports: Osteoarthritis, Fibromyalgia, Rheumatoid arthritis (seen by [facility]. Inflammatory markers all negative so doesn't treat as RA), Osteoporosis, Other (plantar fasciitis) Endocrine/Autoimmune: reports: Type 2 diabetes, Other (Low Vitamin D) Skin: reports: Other (History of malignant melanoma) Smoking Status: Never smoker Other Past Medical History: chronic ebstein mckeon infection - Surgical History General: reports: Bowel surgery Eyes Ears Nose Throat (EENT): reports: Cataracts Gynecologic: reports: Hysterectomy Orthopedic: reports: Knee replacement Dermatologic: reports: Skin cancer surgery Results - Echo Results Echo Results: Report reviewed Exam General: Alert, Oriented x3, Cooperative, No acute distress Dental: WNL Mouth Openin Fingerbreadth Neck Mobility: Reduced Mallampati classification: II Plan Anesthesia Type: General Consent for Procedure(s) Verified and Reviewed: Yes Code Status: Attempt Resuscitation ASA classification: 3-Severe systemic disease Is this case an emergency?: Yes
[2021-07-14 20:52] LABS: BILIRUBIN,URINE NEGATIVE (NEGATIVE); GLUCOSE, URINE (UA) NEGATIVE (NEGATIVE); KETONES,URINE (UA) NEGATIVE (NEGATIVE); LEUKOCYTE ESTERASE, URINE NEGATIVE (NEGATIVE); NITRITE,URINE NEGATIVE (NEGATIVE); OCCULT BLOOD,URINE SMALL (NEGATIVE); PROTEIN,URINE NEGATIVE (NEGATIVE); UROBILINOGEN,URINE 0.2 (NORMAL) E.U./dL (NORMAL)
[2021-07-14 20:54] LABS: CLARITY,URINE CLEAR (CLEAR)
[2021-07-14] MEDS ORDERED: CEFEPIME 2 GM in SODIUM CHLORIDE 0.9% MINIBAG 100 ML IV SCH (21:00)
--- NOTE | 2021-07-14 21:04 | XRAY Report ---
PROCEDURE: Chest 1 View X-Ray INDICATIONS: sob TECHNIQUE: One view of the chest was acquired. COMPARISON: 07/01/2019 FINDINGS: Surgical changes and devices: NG tube in satisfactory position.. Lungs and pleura: Trace left pleural effusion. No definite right pleural effusion. Lungs are mildly h yperinflated. There is prominent biapical pleural plaquing. Mediastinum: Mediastinal contours appear normal. Heart size is normal. Bones and chest wall: No suspicious bony lesions. Overlying soft tissues appear unremarkable. IMPRESSION: 1. NG tube in satisfactory position. 2. Trace left pleural effusion. 3. Mildly hyperinflated lungs. Reviewed by: Leila Sommer MD on 07/14/2021 9:02 PM PDT Approved by: Leila Sommer MD on 07/14/2021 9:02 PM PDT Station ID: [id number]
[2021-07-14 21:05] LABS: BACTERIA,URINE Rare /HPF (None Seen); CASTS, URINE 0-2 Hyaline Casts /LPF; RBC,URINE 0-5 /HPF (0-5); SQUAMOUS EPITHELIAL CELL,UR RARE Squamous (<= Few); WBC,URINE 0-3 /HPF (0-5)
[2021-07-14] MEDS ORDERED: LIDOCAINE 2%-EPI 1:100000 20 ML MDV ONE (21:17)
[2021-07-14] MEDS ORDERED: BUPIVACAINE 0.25% PF 10 ML VIAL ONE (21:17)
[2021-07-14] MEDS ORDERED: LIDOCAINE 2%-EPI 1:100000 20 ML MDV SUBQ ONE (21:45)
[2021-07-14] MEDS ORDERED: BUPIVACAINE 0.25% PF 10 ML VIAL SUBQ ONE (21:45)
[2021-07-14] MEDS ORDERED: KETAMINE 500 MG/10 ML VIAL ONE (22:09)
[2021-07-14] MEDS ORDERED: SUGAMMADEX 200 MG/2 ML VIAL IVP ONE (23:06)
--- NOTE | 2021-07-14 23:20 | OPERATIVE REPORT ---
Operative Report - General Admit Date: 07/14/21 Procedure Date: 07/14/21 Planned Procedure: Exploratory laparotomy with indicated procedures Pre-Op Diagnosis: High-grade small bowel obstruction Procedure Performed: Exploratory laparotomy with lysis of adhesions, small bowel resection, and primary anastomosis Post Op Diagnosis: Internal hernia causing a high-grade small bowel obstruction with necrosis - Procedure Note Primary Surgeon: Ernesto Anesthesia Provider: LYNDA Ulloa Anesthesia Technique: General ET tube Pathology: Portions of mid small bowel to pathology in formalin Estimated Blood Loss (mL): 20 Findings: Internal hernia with near complete obstruction and vascular compromise. Approximately at 100 cm of ischemic small bowel with a frankly necrotic section of approximately 30 cm. Complications: None apparent - Other Other Information/Narrative: After obtaining informed consent, the patient is brought to the operating room and placed in the supine position on the operating table. Following successful induction of general endotracheal anesthesia, appropriate padding of all bony prominences, and placement of appropriate monitors, the abdomen was prepped and draped in the standard surgical fashion. A timeout was held per scope protocol. All elements of the surgical safety checklist were followed before, during, and after the procedure. We began the procedure by infiltrating a mixture of local anesthetics in the existing healed lower midline incision and up around the umbilicus. We began our incision just above the umbilicus and an area of virgin abdominal territory. The abdomen was entered under direct vision and we noted there were minimal adhesions to the surface of the abdominal wall. We immediately encountered frankly bloody peritoneal fluid and distended and necrotic appearing small bowel. The incision was extended inferiorly and the bowel lifted into the wound. This revealed a tight adhesive band at the root of the mesentery causing vascular compromise and near complete obstruction. This band was lysed sharply freeing the bowel.There were no other significant adhesions.The frankly necrotic bowel was immediately isolated by creating windows in the involved mesentery and placing cramp clamps across that portion. A 75 mm gastrointestinal anastomotic device was used to divide the bowel at the proximal and distal portions of the frankly necrotic area. This was approximately 20 to 30 cm of the mid small bowel.Once the frankly necrotic area was removed, the bowel was covered with a warm damp lap sponge and kept moist as we waited approximately 10 minutes to reexamine the bowel.It did improve appear improved after approximately 10 minutes. A Doppler ultrasound was used to verify an arterial pulse in all segments of the remaining small bowel.I elected to perform side to side functional end-to-end anastomosis.This was accomplished using a 75 mm ALONZO stapling device and oversewing all areas of the anastomosis with 3-0 Vicryl suture. The mesenteric window was then completely closed.The abdomen was checked for hemostasis and irrigated with 2 L of warm saline solution until it was free of all bloody fluid and particulate matter.The colon was normal in appearance but had notably large firm fecal matter throughout the transverse colon and extending into the right colon.No other nathalie pathology or abnormalities were appreciated.The small bowel was then gently placed back into the abdominal cavity and covered with the tiny bit of remaining omentum.The abdominal incision was closed with a running looped PDS suture and skin clips were applied in the skin.All sponge, needle, and instrument counts were correct at the conclusion of the case. The patient was allowed to awaken from anesthesia and taken to the critical care unit in guarded condition.
[2021-07-14] MEDS ORDERED: LACTATED RINGERS 800 ML IV ONE (23:37)
--- NOTE | 2021-07-14 23:51 | ANESTHESIA POST OP EVALUATION ---
Anesthesia Post Eval - Post Anesthesia Eval Vitals: Last Vital Signs Temp 36.7 C 07/14/21 19:16 Pulse 89 07/14/21 19:16 Resp 16 07/14/21 19:16 BP 123/60 07/14/21 19:16 Pulse Ox 93 07/14/21 19:16 CV Function Including HR & BP: Stable Pain Control: Satisfactory Nausea & Vomiting: Negative Mental Status: Baseline Respiratory Status: Airway Patent Hydration Status: Satisfactory Anesthesia Complications: None
[2021-07-15] MEDS: HEPARIN 5,000 UNIT/ML VIAL SUBQ SCH ×3 (00:14→20:33)
[2021-07-15] MEDS ORDERED: PHENOL THROAT SPRAY 177 ML MM PRN (00:14)
[2021-07-15] MEDS ORDERED: CEFEPIME 1 GM in SODIUM CHLORIDE 0.9% MINIBAG 100 ML IV SCH (01:00)
[2021-07-15] MEDS: SODIUM CHLORIDE 0.9% 1,000 ML IV SCH ×4 (01:07→23:06)
[2021-07-15] MEDS: SODIUM CHLORIDE FLUSH 0.9% 10 ML SYRINGE IVP SCH ×4 (01:08→23:06)
[2021-07-15 01:22] LABS: LACTIC ACID, VENOUS 2.9 mmol/L (0.5-2.2)
[2021-07-15 04:08] LABS: BASOPHILS % (AUTO) 0.2 %; HCT - HEMATOCRIT 36.1 % (37.0-47.0); LYMPHOCYTES % (AUTO) 2.6 %; MEAN CORPUSCULAR HEMOGLOBIN 31.8 pg (27.0-31.0); MEAN CORPUSCULAR VOLUME 88.3 fL (81.0-99.0); MEAN PLATELET VOLUME 11.6 fL (7.9-10.8); MONOCYTES % (AUTO) 8.9 %; NEUTROPHILS % (AUTO) 87.7 %; PLT - PLATELET COUNT 249 10^3/uL (130-450); RED BLOOD COUNT 4.09 10^6/uL (4.20-5.40); RED CELL DISTRIBUTION WIDTH 12.5 % (12.0-15.0); WHITE BLOOD COUNT 24.8 x10^3/uL (4.8-10.8)
[2021-07-15 04:11] LABS: ABNORMAL LYMPHS % (MANUAL) 0 %; BAND NEUTROPHILS % (MANUAL) 0 %
[2021-07-15] MEDS: MORPHINE 2 MG/ML CARPUJECT IVP PRN ×5 (04:14→19:44)
[2021-07-15 04:17] LABS: CREATININE 1.3 mg/dL (0.4-1.0); POTASSIUM 3.7 mmol/L (3.5-5.0)
[2021-07-15 04:29] LABS: LYMPHOCYTES # (MANUAL) 1.5 10^3/uL (1.5-3.5); LYMPHOCYTES % (MANUAL) 6 %; NEUTROPHILS # (MANUAL) 21.3 10^3/uL (1.5-6.6)
[2021-07-15 04:30] LABS: DIFFERENTIAL COMMENT MANUAL DIFFERENTIAL; PLATELET ESTIMATE, MANUAL NORMAL (130-450,000) (NORMAL); PLATELET MORPHOLOGY NORMAL APPEARANCE (NORMAL); RBC MORPHOLOGY (MULTIPLE) NORMAL APPEARANCE (NORMAL); WBC MORPHOLOGY (MULTIPLE) NORMAL APPEARANCE (NORMAL)
--- NOTE | 2021-07-15 06:46 | PROVIDER PROGRESS NOTE ---
Subjective - Prog Note Date Prog Note Date: 07/15/21 Prog Note Time: 18:26 - Subjective Subjective: After being seen by general surgery yesterday evening, she was taken to the operating room. A segment of necrotic black bowel was seen with further extens ion of dusky bowel. The necrotic section was resected. The bowel was then warmed and Doppler studies were done and there was viable bowel still present and as such anastomosed. The cause was adhesion. During the case she remained hemodynamically stable and produced urine. Patient was placed in the ICU. She is still currently on antibiotics. Has not needed pressors. Vitals have remained stable with a blood pressure in the 120s to 140s systolic. She is on room air oxygen at 93 to 94%. Urine output overnight was 240 cc. She got up and sat in a chair today for many hours. She says it hurt but she would rather be sitting up than laying in bed. She feels that her pain that she had yesterday is much, much improved in spite of incisional pain today. Still no flatus. No bowel sounds. NG tube in place and draining Current Medications - Current Medications Current Medications: Active Medications Acetaminophen (Acetaminophen 325 Mg Tablet) 650 mg PO Q4HR PRN PRN Reason: Pain 1 to 4, or Fever Heparin Sodium (Porcine) (Heparin 5,000 Unit/Ml Vial) 5,000 unit SUBQ BID [facility] Last Admin: 07/15/21 00:14 Dose: Not Given Sodium Chloride (Normal Saline 0.9%) 1,000 mls @ 100 mls/hr IV .Q10H [facility] Last Infusion: 07/15/21 05:00 Dose: 100 mls/hr Cefepime HCl 1 gm/ Sodium (Chloride) 100 mls @ 200 mls/hr IV Q24H [facility] Last Infusion: 07/15/21 01:40 Dose: Infused Levalbuterol HCl (Levalbuterol 1.25 Mg/3 Ml Neb) 1.25 mg INH Q4H PRN PRN Reason: Shortness of Air/Wheezing Metoprolol Tartrate (Metoprolol 5 Mg/5 Ml Vial) 5 mg IVP Q6H PRN PRN Reason: Tachycardia Morphine Sulfate (Morphine 2 Mg/Ml Carpuject) 2 mg IVP Q2HR PRN PRN Reason: Pain 8 to 10 Last Admin: 07/15/21 04:14 Dose: 2 mg Ondansetron HCl (Ondansetron 4 Mg/2 Ml Vial) 4 mg IVP Q6HR PRN PRN Reason: Nausea / Vomiting Phenol/Menthol (Phenol Throat [place] 177 Ml) 2 sprays MM Q2HR PRN PRN Reason: Throat Pain Last Admin: 07/15/21 04:15 Dose: 2 sprays Sodium Chloride (Sodium Chloride Flush 0.9% 10 Ml Syringe) 10 ml IVP PRN PRN PRN Reason: NEEDED PER PROVIDER ORDERS Sodium Chloride (Sodium Chloride Flush 0.9% 10 Ml Syringe) 10 ml IVP 0100,0900,1700 KARLY Last Admin: 07/15/21 01:08 Dose: 10 ml Cholecalciferol (Vitamin D3) [Vitamin D3] 2,000 unit PO DAILY 05/03/16 Albuterol Sulfate [Proair Hfa Inhaler] 1 - 2 puffs INH Q6HR PRN 12/25/18 Benzonatate [Tessalon] 100 mg PO Q6HR PRN 12/25/18 Calcium Carb/Vitamin D3/Vit K1 [Viactiv 650 mg-12.5 Mcg Chew] 1 tab PO DAILY 12/25/18 Multivitamin [Multiple Vitamins] 1 tab PO DAILY 12/25/18 Objective - Vital Signs/Intake & Output Reviewed Vital Signs: Yes Vital Signs: Vital Signs x48h Temp Pulse Resp BP Pulse Ox 07/15/21 06:00 96 20 137/72 H 93 07/15/21 05:00 96 18 129/71 93 07/15/21 04:25 37.1 C 93 22 131/68 H 93 07/15/21 03:00 91 19 140/70 H 94 07/15/21 02:24 20 94 07/15/21 02:00 91 18 133/69 H 97 07/15/21 01:16 17 98 07/15/21 00:30 91 24 159/72 H 97 Intake & Output: Intake & Output 07/12/21 07/13/21 07/14/21 07/15/21 23:59 23:59 23:59 23:59 Intake Total 1819.5 468.333 Output Total 240 Balance 1819.5 228.333 - Objective General Appearance: positive: Alert, Moderate distress (Abdominal incision site.), Other ( Cachectic, Good skin color, at the bedside) Eyes Bilateral: positive: PERRL, EOMI ENT: positive: Other (NG in place. Sipping on ice chips) Neck: positive: No JVD. negative: Stiff neck Respiratory: positive: No respiratory distress. negative: Wheezes, Rales, Rhonchi Cardiovascular: positive: Regular rate & rhythm, No murmur, No gallop. negative: Gallop/S4, Friction rub Abdomen: positive: Other (Tender, slightly distended. It is not rigid. Much softer than yesterday. No bowel sounds.) Skin: positive: Warm, Dry, Pallor Extremities: positive: Full ROM, No pedal edema Neurologic/Psychiatric: positive: Oriented x3, CN's nml (2-12), Motor nml - Lab Results Fish Bones: 07/15/21 04:03 07/15/21 04:03 Other Labs: Lab Results x24hrs 07/15/21 07/15/21 07/15/21 Range/Units 04:03 04:03 04:03 WBC 24.8 H (4.8-10.8) x10^3/uL RBC 4.09 L (4.20-5.40) 10^6/uL Hgb 13.0 (12.0-16.0) g/dL Hct 36.1 L (37.0-47.0) % MCV 88.3 (81.0-99.0) fL MCH 31.8 H (27.0-31.0) pg MCHC 36.0 (32.0-36.0) g/dL RDW 12.5 (12.0-15.0) % Plt Count 249 (130-450) 10^3/uL MPV 11.6 H (7.9-10.8) fL Neut # (Auto) Not Reportable (1.5-6.6) 10^3/uL Lymph # (Auto) Not Reportable (1.5-3.5) 10^3/uL Wilkin # (Auto) Not Reportable (0.0-1.0) 10^3/uL Eos # (Auto) Not Reportable (0.0-0.7) 10^3/uL Baso # (Auto) Not Reportable (0.0-0.1) 10^3/uL Absolute Nucleated RBC Not Reportable x10^3/uL Total Counted 100 Band Neuts % (Manual) 0 Abnorm Lymph % (Manual) 0 Nucleated RBC % Not Reportable /100WBC Neutrophils # (Manual) 21.3 H Lymphocytes # (Manual) 1.5 Monocytes # (Manual) 2.0 H Eosinophils # (Manual) 0.0 Basophils # (Manual) 0.0 Differential Comment MANUAL DIFFERENTIAL Manual Slide Review WBC Morphology NORMAL APPEARANCE (NORMAL) Platelet Estimate NORMAL (130-450,000) (NORMAL) Platelet Morphology NORMAL APPEARANCE (NORMAL) RBC Morph Micro Appear NORMAL APPEARANCE (NORMAL) Sodium 134 L (135-145) mmol/L Potassium 3.7 (3.5-5.0) mmol/L Chloride 100 L (101-111) mmol/L Carbon Dioxide 24 (21-32) mmol/L Anion Gap 10.0 (6-13) BUN 62 H (6-20) mg/dL Creatinine 1.3 H (0.4-1.0) mg/dL Estimated GFR (MDRD) 40 L (>89) Glucose 138 H (70-100) mg/dL Lactic Acid 1.1 Calcium 8.0 L (8.5-10.3) mg/dL Total Bilirubin (0.2-1.0) mg/dL AST (10-42) IU/L ALT (10-60) IU/L Alkaline Phosphatase (42-121) IU/L Total Protein (6.7-8.2) g/dL Albumin (3.2-5.5) g/dL Globulin (2.1-4.2) g/dL Albumin/Globulin Ratio (1.0-2.2) Lipase (22-51) U/L Urine Color Urine Clarity (CLEAR) Urine pH (5.0-7.5) PH Ur Specific B[place]te (1.002-1.030) Urine Protein (NEGATIVE) mg/dL Urine Glucose (UA) (NEGATIVE) mg/dL Urine Ketones (NEGATIVE) mg/dL Urine Occult Blood (NEGATIVE) Urine Nitrite (NEGATIVE) Urine Bilirubin (NEGATIVE) Urine Urobilinogen (NORMAL) E.U./dL Ur Leukocyte Esterase (NEGATIVE) Urine RBC (0-5) /HPF Urine WBC (0-5) /HPF Ur Squamous Epith Cells (<= Few) Urine Bacteria (None Seen) /HPF Urine Casts /LPF Ur Microscopic Review Urine Culture Comments Nasal Adenovirus (PCR) Nasal B. parapertussis DNA (PCR) Nasal Coronavir 229E PCR Nasal Coronavir HKU1 PCR Nasal Coronavir NL63 PCR Nasal Coronavir OC43 PCR Nasal Enterovir/Rhinovir PCR Nasal Influenza B PCR Nasal Influenza A PCR Nasal Parainfluen 1 PCR Nasal Parainfluen 2 PCR Nasal Parainfluen 3 PCR Nasal Parainfluen 4 PCR Nasal RSV (PCR) Nasal Screen MRSA (PCR) (NEGATIVE) Nasal B.pertussis DNA PCR Nasal C.pneumoniae (PCR) [employer] Human Metapneumo PCR Nasal M.pneumoniae (PCR) Nasal SARS-CoV-2 (PCR) 07/15/21 07/14/21 07/14/21 Range/Units 00:18 23:45 20:15 WBC (4.8-10.8) x10^3/uL RBC (4.20-5.40) 10^6/uL Hgb (12.0-16.0) g/dL Hct (37.0-47.0) % MCV (81.0-99.0) fL MCH (27.0-31.0) pg MCHC (32.0-36.0) g/dL RDW (12.0-15.0) % Plt Count (130-450) 10^3/uL MPV (7.9-10.8) fL Neut # (Auto) (1.5-6.6) 10^3/uL Lymph # (Auto) (1.5-3.5) 10^3/uL Wilkin # (Auto) (0.0-1.0) 10^3/uL Eos # (Auto) (0.0-0.7) 10^3/uL Baso # (Auto) (0.0-0.1) 10^3/uL Absolute Nucleated RBC x10^3/uL Total Counted Band Neuts % (Manual) Abnorm Lymph % (Manual) Nucleated RBC % /100WBC Neutrophils # (Manual) Lymphocytes # (Manual) Monocytes # (Manual) Eosinophils # (Manual) Basophils # (Manual) Differential Comment Manual Slide Review WBC Morphology (NORMAL) Platelet Estimate (NORMAL) Platelet Morphology (NORMAL) RBC Morph Micro Appear (NORMAL) Sodium (135-145) mmol/L Potassium (3.5-5.0) mmol/L Chloride (101-111) mmol/L Carbon Dioxide (21-32) mmol/L Anion Gap (6-13) BUN (6-20) mg/dL Creatinine (0.4-1.0) mg/dL Estimated GFR (MDRD) (>89) Glucose (70-100) mg/dL Lactic Acid 2.9 H Calcium (8.5-10.3) mg/dL Total Bilirubin (0.2-1.0) mg/dL AST (10-42) IU/L ALT (10-60) IU/L Alkaline Phosphatase (42-121) IU/L Total Protein (6.7-8.2) g/dL Albumin (3.2-5.5) g/dL Globulin (2.1-4.2) g/dL Albumin/Globulin Ratio (1.0-2.2) Lipase (22-51) U/L Urine Color YELLOW Urine Clarity CLEAR (CLEAR) Urine pH 6.0 (5.0-7.5) PH Ur Specific [place] 1.025 (1.002-1.030) Urine Protein NEGATIVE (NEGATIVE) mg/dL Urine Glucose (UA) NEGATIVE (NEGATIVE) mg/dL Urine Ketones NEGATIVE (NEGATIVE) mg/dL Urine Occult Blood SMALL H (NEGATIVE) Urine Nitrite NEGATIVE (NEGATIVE) Urine Bilirubin NEGATIVE (NEGATIVE) Urine Urobilinogen 0.2 (NORMAL) (NORMAL) E.U./dL Ur Leukocyte Esterase NEGATIVE (NEGATIVE) Urine RBC 0-5 (0-5) /HPF Urine WBC 0-3 (0-5) /HPF Ur Squamous Epith Cells RARE Squamous (<= Few) Urine Bacteria Rare (None Seen) /HPF Urine Casts 0-2 Hyaline Casts /LPF Ur Microscopic Review INDICATED Urine Culture Comments NOT INDICATED Nasal Adenovirus (PCR) Nasal B. parapertussis DNA (PCR) Nasal Coronavir 229E PCR Nasal Coronavir HKU1 PCR Nasal Coronavir NL63 PCR Nasal Coronavir OC43 PCR Nasal Enterovir/Rhinovir PCR Nasal Influenza B PCR Nasal Influenza A PCR Nasal Parainfluen 1 PCR Nasal Parainfluen 2 PCR Nasal Parainfluen 3 PCR Nasal Parainfluen 4 PCR Nasal RSV (PCR) Nasal Screen MRSA (PCR) NEGATIVE (NEGATIVE) Nasal B.pertussis DNA PCR Nasal C.pneumoniae (PCR) [employer] Human Metapneumo PCR Nasal M.pneumoniae (PCR) Nasal SARS-CoV-2 (PCR) 07/14/21 07/14/21 07/14/21 Range/Units 19:30 17:05 16:53 WBC (4.8-10.8) x10^3/uL RBC (4.20-5.40) 10^6/uL Hgb (12.0-16.0) g/dL Hct (37.0-47.0) % MCV (81.0-99.0) fL MCH (27.0-31.0) pg MCHC (32.0-36.0) g/dL RDW (12.0-15.0) % Plt Count (130-450) 10^3/uL MPV (7.9-10.8) fL Neut # (Auto) (1.5-6.6) 10^3/uL Lymph # (Auto) (1.5-3.5) 10^3/uL [place] # (Auto) (0.0-1.0) 10^3/uL Eos # (Auto) (0.0-0.7) 10^3/uL Baso # (Auto) (0.0-0.1) 10^3/uL Absolute Nucleated RBC x10^3/uL Total Counted Band Neuts % (Manual) Abnorm Lymph % (Manual) Nucleated RBC % /100WBC Neutrophils # (Manual) Lymphocytes # (Manual) Monocytes # (Manual) Eosinophils # (Manual) Basophils # (Manual) Differential Comment Manual Slide Review WBC Morphology (NORMAL) Platelet Estimate (NORMAL) Platelet Morphology (NORMAL) RBC Morph Micro Appear (NORMAL) Sodium 127 L (135-145) mmol/L Potassium 3.7 (3.5-5.0) mmol/L Chloride 87 L (101-111) mmol/L Carbon Dioxide 22 (21-32) mmol/L Anion Gap 18.0 H (6-13) BUN 81 H* (6-20) mg/dL Creatinine 2.6 H (0.4-1.0) mg/dL Estimated GFR (MDRD) 18 L (>89) Glucose 176 H (70-100) mg/dL Lactic Acid 2.1 Calcium 9.2 (8.5-10.3) mg/dL Total Bilirubin 1.6 H (0.2-1.0) mg/dL AST 48 H (10-42) IU/L ALT 21 (10-60) IU/L Alkaline Phosphatase 43 (42-121) IU/L Total Protein 6.9 (6.7-8.2) g/dL Albumin 4.0 (3.2-5.5) g/dL Globulin 2.9 (2.1-4.2) g/dL Albumin/Globulin Ratio 1.4 (1.0-2.2) Lipase 28 (22-51) U/L Urine Color Urine Clarity (CLEAR) Urine pH (5.0-7.5) PH Ur Specific [place] (1.002-1.030) Urine Protein (NEGATIVE) mg/dL Urine Glucose (UA) (NEGATIVE) mg/dL Urine Ketones (NEGATIVE) mg/dL Urine Occult Blood (NEGATIVE) Urine Nitrite (NEGATIVE) Urine Bilirubin (NEGATIVE) Urine Urobilinogen (NORMAL) E.U./dL Ur Leukocyte Esterase (NEGATIVE) Urine RBC (0-5) /HPF Urine WBC (0-5) /HPF Ur Squamous Epith Cells (<= Few) Urine Bacteria (None Seen) /HPF Urine Casts /LPF Ur Microscopic Review Urine Culture Comments Nasal Adenovirus (PCR) NOT DETECTED Nasal B. parapertussis DNA (PCR) NOT DETECTED Nasal Coronavir 229E PCR NOT DETECTED Nasal Coronavir HKU1 PCR NOT DETECTED Nasal Coronavir NL63 PCR NOT DETECTED Nasal Coronavir OC43 PCR NOT DETECTED Nasal Enterovir/Rhinovir PCR NOT DETECTED Nasal Influenza B PCR NOT DETECTED Nasal Influenza A PCR NOT DETECTED Nasal Parainfluen 1 PCR NOT DETECTED Nasal Parainfluen 2 PCR NOT DETECTED Nasal Parainfluen 3 PCR NOT DETECTED Nasal Parainfluen 4 PCR NOT DETECTED Nasal RSV (PCR) NOT DETECTED Nasal Screen MRSA (PCR) (NEGATIVE) Nasal B.pertussis DNA PCR NOT DETECTED Nasal C.pneumoniae (PCR) NOT DETECTED [employer] Human Metapneumo PCR NOT DETECTED Nasal M.pneumoniae (PCR) NOT DETECTED Nasal SARS-CoV-2 (PCR) NOT DETECTED 07/14/21 07/14/21 Range/Units 16:53 00:18 WBC 34.7 H (4.8-10.8) x10^3/uL RBC 5.24 (4.20-5.40) 10^6/uL Hgb 16.7 H (12.0-16.0) g/dL Hct 47.1 H (37.0-47.0) % MCV 89.9 (81.0-99.0) fL MCH 31.9 H (27.0-31.0) pg MCHC 35.5 (32.0-36.0) g/dL RDW 12.7 (12.0-15.0) % Plt Count 300 (130-450) 10^3/uL MPV 12.0 H (7.9-10.8) fL Neut # (Auto) 29.9 H (1.5-6.6) 10^3/uL Lymph # (Auto) 1.4 L (1.5-3.5) 10^3/uL [place] # (Auto) 2.8 H (0.0-1.0) 10^3/uL Eos # (Auto) 0.0 (0.0-0.7) 10^3/uL Baso # (Auto) 0.1 (0.0-0.1) 10^3/uL Absolute Nucleated RBC 0.00 x10^3/uL Total Counted Band Neuts % (Manual) Not Reportable Abnorm Lymph % (Manual) Not Reportable Nucleated RBC % 0.0 /100WBC Neutrophils # (Manual) Not Reportable Lymphocytes # (Manual) Not Reportable Monocytes # (Manual) Not Reportable Eosinophils # (Manual) Not Reportable Basophils # (Manual) Not Reportable Differential Comment MANUAL=AUTO DIFF Manual Slide Review Indicated WBC Morphology NORMAL APPEARANCE (NORMAL) Platelet Estimate NORMAL (130-450,000) (NORMAL) Platelet Morphology NORMAL APPEARANCE (NORMAL) RBC Morph Micro Appear NORMAL APPEARANCE (NORMAL) Sodium (135-145) mmol/L Potassium (3.5-5.0) mmol/L Chloride (101-111) mmol/L Carbon Dioxide (21-32) mmol/L Anion Gap (6-13) BUN (6-20) mg/dL Creatinine (0.4-1.0) mg/dL Estimated GFR (MDRD) (>89) Glucose (70-100) mg/dL Lactic Acid Cancelled Calcium (8.5-10.3) mg/dL Total Bilirubin (0.2-1.0) mg/dL AST (10-42) IU/L ALT (10-60) IU/L Alkaline Phosphatase (42-121) IU/L Total Protein (6.7-8.2) g/dL Albumin (3.2-5.5) g/dL Globulin (2.1-4.2) g/dL Albumin/Globulin Ratio (1.0-2.2) Lipase (22-51) U/L Urine Color Urine Clarity (CLEAR) Urine pH (5.0-7.5) PH Ur Specific Boutte (1.002-1.030) Urine Protein (NEGATIVE) mg/dL Urine Glucose (UA) (NEGATIVE) mg/dL Urine Ketones (NEGATIVE) mg/dL Urine Occult Blood (NEGATIVE) Urine Nitrite (NEGATIVE) Urine Bilirubin (NEGATIVE) Urine Urobilinogen (NORMAL) E.U./dL Ur Leukocyte Esterase (NEGATIVE) Urine RBC (0-5) /HPF Urine WBC (0-5) /HPF Ur Squamous Epith Cells (<= Few) Urine Bacteria (None Seen) /HPF Urine Casts /LPF Ur Microscopic Review Urine Culture Comments Nasal Adenovirus (PCR) Nasal B. parapertussis DNA (PCR) Nasal Coronavir 229E PCR Nasal Coronavir HKU1 PCR Nasal Coronavir NL63 PCR Nasal Coronavir OC43 PCR Nasal Enterovir/Rhinovir PCR Nasal Influenza B PCR Nasal Influenza A PCR Nasal Parainfluen 1 PCR Nasal Parainfluen 2 PCR Nasal Parainfluen 3 PCR Nasal Parainfluen 4 PCR Nasal RSV (PCR) Nasal Screen MRSA (PCR) (NEGATIVE) Nasal B.pertussis DNA PCR Nasal C.pneumoniae (PCR) [employer] Human Metapneumo PCR Nasal M.pneumoniae (PCR) Nasal SARS-CoV-2 (PCR) ABX Reporting Has patient been on IV antibiotics over the past 48 hours?: Yes Assessment/Plan - Problem List (1) Peritonitis Impression: She presented has 2 days of abdominal pain with nausea and vomiting. CT abd was relatively benign other than showing the bowel obstruction. There is no free air, no leakage of fluid. But on physical exam this woman was quite rigid. White cell count is 34,000. It is reassuring that her lactic acid is only 2.1. As such general surgery was called and they came in after I reexamined her. Taken her to the operating room. Due to multiple allergens patient is on cefepime. Post op day #1 Plan: Hopefully she will progress. Still NPO. No bowel sounds. As normal bowel function returns, she will go from n.p.o. to clear liquids and then diet. General surgery to follow. (2) Small bowel obstruction resolved Conclusion/Plan: As seen on CT scan. She has a previous diverticular episode in the past. Even though the medical record and the patient stated that she had a small bowel resection in 2004, general surgery states the patient had a sigmoid bowel resection. Because of obstruction was an adhesion. Please read the op report (3) Atrial fibrillation with RVR Conclusion/Plan: Paroxysmal. Is followed by Dane Diaz at [facility] cardiology. Most recently seen in the last few months. At that time he had recommended Eliquis for stroke prevention but I am not noticing that on her list. She does not quite remember the conversation. She is asymptomatic with regards to her atrial fibrillation. She is not on any rate lowering drugs since her episodes appear to be episodic and infrequent. He did not recommend any treatment for her small ASD. Plan:Monitor on telemetry. Document how many episodes she has, if any. We will need to discuss anticoagulation in the outpatient setting. Lopressor prn for rate control. (4) MATILDA (acute kidney injury) improving Conclusion/Plan: Severe. Her usual baseline creatinine is 0.9 and she is 2.6. CT does not confirm any hydronephrosis. Creat 2.6>>1.3 (5) Pleural effusion Conclusion/Plan: Unclear why this should be present. This woman does not have congestive heart failure. Atrial fibrillation is not severe. She does not have cirrhosis. She does appear to be quite malnourished but the effusion is isolated. She does not have diffuse anasarca. Depending on how long her stay is here we may have to address that issue with a diagnostic thoracentesis. (6) Polyarthralgia Conclusion/Plan: Long complicated history with this. She has chronic knee pain due to osteoarthritis and even a knee replacement has not helped. She has been seen by rheumatology for inflammatory disorders and all of her serologies have been negative. She has been evaluated a few times and no specific diagnosis other than possible fibromyalgia. She is not in any disease modulating agents at this time. We will continue to address this with intermittent Tylenol or intermittent nonsteroidals. (7) Weight loss Conclusion/Plan: She states that she is always been "thin" and is not aware of any weight loss. She is not describing anorexia, change in bowel habits. This will have to be addressed in a global fashion. My concern is that of an eating disorder, psychological disorder, cancer, or malabsorption (but she does not describe diarrhea). Pleural effusion on exam today is concerning. (8) Severe protein-calorie malnutrition Conclusion/Plan: She has lost a significant amount of weight in the last year. On examination severe loss of body mass. PICC line for today is planned and then TPN to start. (9) Dysphonia Conclusion/Plan: In looking at her old records, she does not have vocal cord prolapse. My co ncern would be risk of aspiration. 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 Episodically worse. On admission, she was almost an audible in her ability to speak to me. We will just continue to monitor. Today much clearer tone. Even w NG in place.
[2021-07-15] MEDS ORDERED: BENZOCAINE/MENTHOL LOZENGE MM PRN (09:48)
--- NOTE | 2021-07-15 09:59 | PROVIDER PROGRESS NOTE ---
Subjective - General Admit Date: 07/14/21 Procedure Date: 07/14/21 Post Op Days: 1 Procedure Performed: Exploratory laparotomy with small bowel resection and primary anastomosis - Review of Systems Wound/Incisions: positive: Dressing dry and intact All Other Systems: positive: Reviewed and negative - Other Other Information/Narrative: Alysa looks remarkably well this morning considering the events of last night. She is awake and alert. She reports that she is comfortable. She did get a dose of morphine this morning and that was followed by a good nap. She says the discomfort is manageable as long as she is quite still.She denies any nausea.She continued to make urine overnight and there have been no additional episodes of atrial fibrillation. Her is at the bedside.Excellent nursing staff reports she has been using her I-S as instructed. Volumes are not large but they are consistent. Objective - Patient Data Reviewed Vital Signs: Yes Vital Signs: Vital Signs x48h Temp Pulse Resp BP Pulse Ox 07/15/21 09:00 90 21 143/57 H 95 07/15/21 08:00 36.8 C 89 26 H 133/73 H 94 07/15/21 07:00 93 21 134/75 H 93 07/15/21 06:00 96 20 137/72 H 93 07/15/21 05:00 96 18 129/71 93 07/15/21 04:25 37.1 C 93 22 131/68 H 93 07/15/21 03:00 91 19 140/70 H 94 07/15/21 02:24 20 94 07/15/21 02:00 91 18 133/69 H 97 Weight: Weight 07/13/21 07/14/21 07/15/21 23:59 23:59 23:59 Weight (kg) 45 kg Intake & Output: Intake and Output Totals x24h 07/13/21 07/14/21 07/15/21 23:59 23:59 23:59 Intake Total 1819.5 768.333 Output Total 400 Balance 1819.5 368.333 - Lab Results Lab Results: 07/15/21 04:03 07/15/21 04:03 Other Lab Results: Lab Results x24hrs 07/15/21 07/15/21 07/15/21 Range/Units 04:03 04:03 04:03 WBC 24.8 H (4.8-10.8) x10^3/uL RBC 4.09 L (4.20-5.40) 10^6/uL Hgb 13.0 (12.0-16.0) g/dL Hct 36.1 L (37.0-47.0) % MCV 88.3 (81.0-99.0) fL MCH 31.8 H (27.0-31.0) pg MCHC 36.0 (32.0-36.0) g/dL RDW 12.5 (12.0-15.0) % Plt Count 249 (130-450) 10^3/uL MPV 11.6 H (7.9-10.8) fL Neut # (Auto) Not Reportable (1.5-6.6) 10^3/uL Lymph # (Auto) Not Reportable (1.5-3.5) 10^3/uL Hale # (Auto) Not Reportable (0.0-1.0) 10^3/uL Eos # (Auto) Not Reportable (0.0-0.7) 10^3/uL Baso # (Auto) Not Reportable (0.0-0.1) 10^3/uL Absolute Nucleated RBC Not Reportable x10^3/uL Total Counted 100 Band Neuts % (Manual) 0 Abnorm Lymph % (Manual) 0 Nucleated RBC % Not Reportable /100WBC Neutrophils # (Manual) 21.3 H Lymphocytes # (Manual) 1.5 Monocytes # (Manual) 2.0 H Eosinophils # (Manual) 0.0 Basophils # (Manual) 0.0 Differential Comment MANUAL DIFFERENTIAL Manual Slide Review WBC Morphology NORMAL APPEARANCE (NORMAL) Platelet Estimate NORMAL (130-450,000) (NORMAL) Platelet Morphology NORMAL APPEARANCE (NORMAL) RBC Morph Micro Appear NORMAL APPEARANCE (NORMAL) Sodium 134 L (135-145) mmol/L Potassium 3.7 (3.5-5.0) mmol/L Chloride 100 L (101-111) mmol/L Carbon Dioxide 24 (21-32) mmol/L Anion Gap 10.0 (6-13) BUN 62 H (6-20) mg/dL Creatinine 1.3 H (0.4-1.0) mg/dL Estimated GFR (MDRD) 40 L (>89) Glucose 138 H (70-100) mg/dL Lactic Acid 1.1 Calcium 8.0 L (8.5-10.3) mg/dL Total Bilirubin (0.2-1.0) mg/dL AST (10-42) IU/L ALT (10-60) IU/L Alkaline Phosphatase (42-121) IU/L Total Protein (6.7-8.2) g/dL Albumin (3.2-5.5) g/dL Globulin (2.1-4.2) g/dL Albumin/Globulin Ratio (1.0-2.2) Lipase (22-51) U/L Urine Color Urine Clarity (CLEAR) Urine pH (5.0-7.5) PH Ur Specific [place] (1.002-1.030) Urine Protein (NEGATIVE) mg/dL Urine Glucose (UA) (NEGATIVE) mg/dL Urine Ketones (NEGATIVE) mg/dL Urine Occult Blood (NEGATIVE) Urine Nitrite (NEGATIVE) Urine Bilirubin (NEGATIVE) Urine Urobilinogen (NORMAL) E.U./dL Ur Leukocyte Esterase (NEGATIVE) Urine RBC (0-5) /HPF Urine WBC (0-5) /HPF Ur Squamous Epith Cells (<= Few) Urine Bacteria (None Seen) /HPF Urine Casts /LPF Ur Microscopic Review Urine Culture Comments Nasal Adenovirus (PCR) Nasal B. parapertussis DNA (PCR) Nasal Coronavir 229E PCR Nasal Coronavir HKU1 PCR Nasal Coronavir NL63 PCR Nasal Coronavir OC43 PCR Nasal Enterovir/Rhinovir PCR Nasal Influenza B PCR Nasal Influenza A PCR Nasal Parainfluen 1 PCR Nasal Parainfluen 2 PCR Nasal Parainfluen 3 PCR Nasal Parainfluen 4 PCR Nasal RSV (PCR) Nasal Screen MRSA (PCR) (NEGATIVE) Nasal B.pertussis DNA PCR Nasal C.pneumoniae (PCR) [employer] Human Metapneumo PCR Nasal M.pneumoniae (PCR) Nasal SARS-CoV-2 (PCR) 07/15/21 07/14/21 07/14/21 Range/Units 00:18 23:45 20:15 WBC (4.8-10.8) x10^3/uL RBC (4.20-5.40) 10^6/uL Hgb (12.0-16.0) g/dL Hct (37.0-47.0) % MCV (81.0-99.0) fL MCH (27.0-31.0) pg MCHC (32.0-36.0) g/dL RDW (12.0-15.0) % Plt Count (130-450) 10^3/uL MPV (7.9-10.8) fL Neut # (Auto) (1.5-6.6) 10^3/uL Lymph # (Auto) (1.5-3.5) 10^3/uL Hale # (Auto) (0.0-1.0) 10^3/uL Eos # (Auto) (0.0-0.7) 10^3/uL Baso # (Auto) (0.0-0.1) 10^3/uL Absolute Nucleated RBC x10^3/uL Total Counted Band Neuts % (Manual) Abnorm Lymph % (Manual) Nucleated RBC % /100WBC Neutrophils # (Manual) Lymphocytes # (Manual) Monocytes # (Manual) Eosinophils # (Manual) Basophils # (Manual) Differential Comment Manual Slide Review WBC Morphology (NORMAL) Platelet Estimate (NORMAL) Platelet Morphology (NORMAL) RBC Morph Micro Appear (NORMAL) Sodium (135-145) mmol/L Potassium (3.5-5.0) mmol/L Chloride (101-111) mmol/L Carbon Dioxide (21-32) mmol/L Anion Gap (6-13) BUN (6-20) mg/dL Creatinine (0.4-1.0) mg/dL Estimated GFR (MDRD) (>89) Glucose (70-100) mg/dL Lactic Acid 2.9 H Calcium (8.5-10.3) mg/dL Total Bilirubin (0.2-1.0) mg/dL AST (10-42) IU/L ALT (10-60) IU/L Alkaline Phosphatase (42-121) IU/L Total Protein (6.7-8.2) g/dL Albumin (3.2-5.5) g/dL Globulin (2.1-4.2) g/dL Albumin/Globulin Ratio (1.0-2.2) Lipase (22-51) U/L Urine Color YELLOW Urine Clarity CLEAR (CLEAR) Urine pH 6.0 (5.0-7.5) PH Ur Specific [place] 1.025 (1.002-1.030) Urine Protein NEGATIVE (NEGATIVE) mg/dL Urine Glucose (UA) NEGATIVE (NEGATIVE) mg/dL Urine Ketones NEGATIVE (NEGATIVE) mg/dL Urine Occult Blood SMALL H (NEGATIVE) Urine Nitrite NEGATIVE (NEGATIVE) Urine Bilirubin NEGATIVE (NEGATIVE) Urine Urobilinogen 0.2 (NORMAL) (NORMAL) E.U./dL Ur Leukocyte Esterase NEGATIVE (NEGATIVE) Urine RBC 0-5 (0-5) /HPF Urine WBC 0-3 (0-5) /HPF Ur Squamous Epith Cells RARE Squamous (<= Few) Urine Bacteria Rare (None Seen) /HPF Urine Casts 0-2 Hyaline Casts /LPF Ur Microscopic Review INDICATED Urine Culture Comments NOT INDICATED Nasal Adenovirus (PCR) Nasal B. parapertussis DNA (PCR) Nasal Coronavir 229E PCR Nasal Coronavir HKU1 PCR Nasal Coronavir NL63 PCR Nasal Coronavir OC43 PCR Nasal Enterovir/Rhinovir PCR Nasal Influenza B PCR Nasal Influenza A PCR Nasal Parainfluen 1 PCR Nasal Parainfluen 2 PCR Nasal Parainfluen 3 PCR Nasal Parainfluen 4 PCR Nasal RSV (PCR) Nasal Screen MRSA (PCR) NEGATIVE (NEGATIVE) Nasal B.pertussis DNA PCR Nasal C.pneumoniae (PCR) [employer] Human Metapneumo PCR Nasal M.pneumoniae (PCR) Nasal SARS-CoV-2 (PCR) 07/14/21 07/14/21 07/14/21 Range/Units 19:30 17:05 16:53 WBC (4.8-10.8) x10^3/uL RBC (4.20-5.40) 10^6/uL Hgb (12.0-16.0) g/dL Hct (37.0-47.0) % MCV (81.0-99.0) fL MCH (27.0-31.0) pg MCHC (32.0-36.0) g/dL RDW (12.0-15.0) % Plt Count (130-450) 10^3/uL MPV (7.9-10.8) fL Neut # (Auto) (1.5-6.6) 10^3/uL Lymph # (Auto) (1.5-3.5) 10^3/uL [place] # (Auto) (0.0-1.0) 10^3/uL Eos # (Auto) (0.0-0.7) 10^3/uL Baso # (Auto) (0.0-0.1) 10^3/uL Absolute Nucleated RBC x10^3/uL Total Counted Band Neuts % (Manual) Abnorm Lymph % (Manual) Nucleated RBC % /100WBC Neutrophils # (Manual) Lymphocytes # (Manual) Monocytes # (Manual) Eosinophils # (Manual) Basophils # (Manual) Differential Comment Manual Slide Review WBC Morphology (NORMAL) Platelet Estimate (NORMAL) Platelet Morphology (NORMAL) RBC Morph Micro Appear (NORMAL) Sodium 127 L (135-145) mmol/L Potassium 3.7 (3.5-5.0) mmol/L Chloride 87 L (101-111) mmol/L Carbon Dioxide 22 (21-32) mmol/L Anion Gap 18.0 H (6-13) BUN 81 H* (6-20) mg/dL Creatinine 2.6 H (0.4-1.0) mg/dL Estimated GFR (MDRD) 18 L (>89) Glucose 176 H (70-100) mg/dL Lactic Acid 2.1 Calcium 9.2 (8.5-10.3) mg/dL Total Bilirubin 1.6 H (0.2-1.0) mg/dL AST 48 H (10-42) IU/L ALT 21 (10-60) IU/L Alkaline Phosphatase 43 (42-121) IU/L Total Protein 6.9 (6.7-8.2) g/dL Albumin 4.0 (3.2-5.5) g/dL Globulin 2.9 (2.1-4.2) g/dL Albumin/Globulin Ratio 1.4 (1.0-2.2) Lipase 28 (22-51) U/L Urine Color Urine Clarity (CLEAR) Urine pH (5.0-7.5) PH Ur Specific [place] (1.002-1.030) Urine Protein (NEGATIVE) mg/dL Urine Glucose (UA) (NEGATIVE) mg/dL Urine Ketones (NEGATIVE) mg/dL Urine Occult Blood (NEGATIVE) Urine Nitrite (NEGATIVE) Urine Bilirubin (NEGATIVE) Urine Urobilinogen (NORMAL) E.U./dL Ur Leukocyte Esterase (NEGATIVE) Urine RBC (0-5) /HPF Urine WBC (0-5) /HPF Ur Squamous Epith Cells (<= Few) Urine Bacteria (None Seen) /HPF Urine Casts /LPF Ur Microscopic Review Urine Culture Comments Nasal Adenovirus (PCR) NOT DETECTED Nasal B. parapertussis DNA (PCR) NOT DETECTED Nasal Coronavir 229E PCR NOT DETECTED Nasal Coronavir HKU1 PCR NOT DETECTED Nasal Coronavir NL63 PCR NOT DETECTED Nasal Coronavir OC43 PCR NOT DETECTED Nasal Enterovir/Rhinovir PCR NOT DETECTED Nasal Influenza B PCR NOT DETECTED Nasal Influenza A PCR NOT DETECTED Nasal Parainfluen 1 PCR NOT DETECTED Nasal Parainfluen 2 PCR NOT DETECTED Nasal Parainfluen 3 PCR NOT DETECTED Nasal Parainfluen 4 PCR NOT DETECTED Nasal RSV (PCR) NOT DETECTED Nasal Screen MRSA (PCR) (NEGATIVE) Nasal B.pertussis DNA PCR NOT DETECTED Nasal C.pneumoniae (PCR) NOT DETECTED [employer] Human Metapneumo PCR NOT DETECTED Nasal M.pneumoniae (PCR) NOT DETECTED Nasal SARS-CoV-2 (PCR) NOT DETECTED 07/14/21 07/14/21 Range/Units 16:53 00:18 WBC 34.7 H (4.8-10.8) x10^3/uL RBC 5.24 (4.20-5.40) 10^6/uL Hgb 16.7 H (12.0-16.0) g/dL Hct 47.1 H (37.0-47.0) % MCV 89.9 (81.0-99.0) fL MCH 31.9 H (27.0-31.0) pg MCHC 35.5 (32.0-36.0) g/dL RDW 12.7 (12.0-15.0) % Plt Count 300 (130-450) 10^3/uL MPV 12.0 H (7.9-10.8) fL Neut # (Auto) 29.9 H (1.5-6.6) 10^3/uL Lymph # (Auto) 1.4 L (1.5-3.5) 10^3/uL Hale # (Auto) 2.8 H (0.0-1.0) 10^3/uL Eos # (Auto) 0.0 (0.0-0.7) 10^3/uL Baso # (Auto) 0.1 (0.0-0.1) 10^3/uL Absolute Nucleated RBC 0.00 x10^3/uL Total Counted Band Neuts % (Manual) Not Reportable Abnorm Lymph % (Manual) Not Reportable Nucleated RBC % 0.0 /100WBC Neutrophils # (Manual) Not Reportable Lymphocytes # (Manual) Not Reportable Monocytes # (Manual) Not Reportable Eosinophils # (Manual) Not Reportable Basophils # (Manual) Not Reportable Differential Comment MANUAL=AUTO DIFF Manual Slide Review Indicated WBC Morphology NORMAL APPEARANCE (NORMAL) Platelet Estimate NORMAL (130-450,000) (NORMAL) Platelet Morphology NORMAL APPEARANCE (NORMAL) RBC Morph Micro Appear NORMAL APPEARANCE (NORMAL) Sodium (135-145) mmol/L Potassium (3.5-5.0) mmol/L Chloride (101-111) mmol/L Carbon Dioxide (21-32) mmol/L Anion Gap (6-13) BUN (6-20) mg/dL Creatinine (0.4-1.0) mg/dL Estimated GFR (MDRD) (>89) Glucose (70-100) mg/dL Lactic Acid Cancelled Calcium (8.5-10.3) mg/dL Total Bilirubin (0.2-1.0) mg/dL AST (10-42) IU/L ALT (10-60) IU/L Alkaline Phosphatase (42-121) IU/L Total Protein (6.7-8.2) g/dL Albumin (3.2-5.5) g/dL Globulin (2.1-4.2) g/dL Albumin/Globulin Ratio (1.0-2.2) Lipase (22-51) U/L Urine Color Urine Clarity (CLEAR) Urine pH (5.0-7.5) PH Ur Specific [place] (1.002-1.030) Urine Protein (NEGATIVE) mg/dL Urine Glucose (UA) (NEGATIVE) mg/dL Urine Ketones (NEGATIVE) mg/dL Urine Occult Blood (NEGATIVE) Urine Nitrite (NEGATIVE) Urine Bilirubin (NEGATIVE) Urine Urobilinogen (NORMAL) E.U./dL Ur Leukocyte Esterase (NEGATIVE) Urine RBC (0-5) /HPF Urine WBC (0-5) /HPF Ur Squamous Epith Cells (<= Few) Urine Bacteria (None Seen) /HPF Urine Casts /LPF Ur Microscopic Review Urine Culture Comments Nasal Adenovirus (PCR) Nasal B. parapertussis DNA (PCR) Nasal Coronavir 229E PCR Nasal Coronavir HKU1 PCR Nasal Coronavir NL63 PCR Nasal Coronavir OC43 PCR Nasal Enterovir/Rhinovir PCR Nasal Influenza B PCR Nasal Influenza A PCR Nasal Parainfluen 1 PCR Nasal Parainfluen 2 PCR Nasal Parainfluen 3 PCR Nasal Parainfluen 4 PCR Nasal RSV (PCR) Nasal Screen MRSA (PCR) (NEGATIVE) Nasal B.pertussis DNA PCR Nasal C.pneumoniae (PCR) [employer] Human Metapneumo PCR Nasal M.pneumoniae (PCR) Nasal SARS-CoV-2 (PCR) - Current Medications Current Medications: Current Medications Generic Name Dose Route Start Last Admin Trade Name Freq PRN Reason Stop Dose Admin Heparin Sodium (Porcine) 5,000 unit 07/14/21 21:00 07/15/21 08:36 Heparin 5,000 Unit/Ml Vial SUBQ 5,000 unit BID KARLY Administration Sodium Chloride 1,000 mls @ 100 mls/hr 07/14/21 19:00 07/15/21 08:00 Normal Saline 0.9% IV 100 mls/hr .Q10H KARLY Infusion Morphine Sulfate 2 mg 07/14/21 18:26 07/15/21 04:14 Morphine 2 Mg/Ml Carpuject IVP 2 mg Q2HR PRN Administration Pain 8 to 10 Phenol/Menthol 2 sprays 07/15/21 00:14 07/15/21 04:15 Phenol Throat [place] 177 Ml MM 2 sprays Q2HR PRN Administration Throat Pain Sodium Chloride 10 ml 07/15/21 01:00 07/15/21 08:40 Sodium Chloride Flush 0.9% 10 Ml Syringe IVP 10 ml 0100,0900,1700 KARLY Administration - Physical Exam General Appearance: positive: No acute distress, Alert Eyes Bilateral: positive: Normal inspection Neck: positive: Nml inspection Respiratory: positive: No respiratory distress, Breath sounds nml Cardiovascular: positive: Regular rate & rhythm Skin: positive: Color nml Neurologic/Psychiatric: positive: Oriented x3 Comments/Other: Abdomen is quiet. Dressing is dry and intact. Betadine on the dressing from the gauze packed in between the openings. We will plan to remove that tomorrow. ABX Reporting Has patient been on IV antibiotics over the past 48 hours?: Yes Impression/Plan - Problem List Problem List: 1. High-grade, closed-loop, bowel obstruction secondary to adhesions. Necrotic bowel removed with a new anastomosis. She did have a long segment of ischemic bowel that will require time for healing. I would expect a prolonged ileus. 2. We will request a PICC line today. Patient is quite thin and will benefit from TPN. Nutritional support services already been consulted. 3. PPI added today. 4. Continue twice daily heparin for DVT prophylaxis. 5. Would continue Cefepime until we see normal white count and normal differential. Bacterial translocation is a certainty here 6. If vitals continue within acceptable limits and she continues to improve over the next 24 hours, could consider transfer to Med/Surg tomorrow
--- NOTE | 2021-07-15 10:09 | PHARMACY PROGRESS NOTE ---
- Best Possible Medication History Admit Date and Time: 07/14/21 1826 Processed by: Pharmacy Medication History completed: Yes Patient Interview: Pt unable to participate Secondary Source(s): Physician records, Pharmacy records, Insurance records As the person ultimately responsible for medication therapy, providers are able to order a medication from an existing home medication list in [facility] via the "Reconcile Routine" prior to Confirmation of that medication by litigation support analyst. Such practice is discouraged except when the physician, in their clinical judgment, deems that a medical need exists for a medication without regard to previous use.
[2021-07-15] MEDS: PANTOPRAZOLE 40 MG VIAL IVP SCH (10:30)
[2021-07-15] MEDS: CEFEPIME 1 GM in SODIUM CHLORIDE 0.9% MINIBAG 100 ML IV SCH ×2 (11:10→20:33)
[2021-07-15] MEDS: FAT EMULSION 20% 250 ML IV SCH (19:56)
[2021-07-15] MEDS: TPN (CLINIMIX E 5/15) 2,000 ML with MULTIVITAMIN 10 ML, TRACE ELEMENTS 1 ML IV SCH ×3 (19:56)
[2021-07-15 22:06] LABS: CALCIUM 7.9 mg/dL (8.5-10.3); CREATININE 0.7 mg/dL (0.4-1.0); MAGNESIUM 2.4 mg/dL (1.7-2.8); PHOSPHORUS 1.8 mg/dL (2.5-4.6); POTASSIUM 3.9 mmol/L (3.5-5.0)
[2021-07-15] MEDS ORDERED: POTASSIUM PHOSPHATE 15 MMOL in SODIUM CHLORIDE 0.9% 250 ML IV ONE (22:15)
[2021-07-16] MEDS: MORPHINE 2 MG/ML CARPUJECT IVP PRN ×2 (02:26→09:21)
[2021-07-16 05:50] LABS: CALCIUM, IONIZED 1.09 mmol/L (1.15-1.33); VBG PH 7.457 (7.31-7.41)
[2021-07-16 05:51] LABS: BASOPHILS % (AUTO) 0.1 %; HCT - HEMATOCRIT 29.7 % (37.0-47.0); HGB - HEMOGLOBIN 10.3 g/dL (12.0-16.0); LYMPHOCYTES # (AUTO) 0.6 10^3/uL (1.5-3.5); LYMPHOCYTES % (AUTO) 4.9 %; MEAN CORPUSCULAR HEMOGLOBIN 31.9 pg (27.0-31.0); MEAN CORPUSCULAR HGB CONC 34.7 g/dL (32.0-36.0); MEAN PLATELET VOLUME 11.5 fL (7.9-10.8); MONOCYTES # (AUTO) 1.3 10^3/uL (0.0-1.0); MONOCYTES % (AUTO) 10.2 %; NEUTROPHILS # (AUTO) 10.8 10^3/uL (1.5-6.6); NEUTROPHILS % (AUTO) 84.4 %; PLT - PLATELET COUNT 183 10^3/uL (130-450); RED BLOOD COUNT 3.23 10^6/uL (4.20-5.40); WHITE BLOOD COUNT 12.7 x10^3/uL (4.8-10.8)
[2021-07-16 06:06] LABS: ALBUMIN 2.5 g/dL (3.2-5.5); ALBUMIN/GLOBULIN RATIO 1.1 (1.0-2.2); BILIRUBIN,TOTAL 0.9 mg/dL (0.2-1.0); CALCIUM 7.9 mg/dL (8.5-10.3); CREATININE 0.6 mg/dL (0.4-1.0); MAGNESIUM 2.3 mg/dL (1.7-2.8); PHOSPHORUS 2.3 mg/dL (2.5-4.6); POTASSIUM 3.9 mmol/L (3.5-5.0); TOTAL PROTEIN 4.8 g/dL (6.7-8.2)
[2021-07-16] MEDS ORDERED: CALCIUM GLUC 1,000MG/50ML-NACL 1,000 MG/50 ML BAG IV ONE (06:10)
[2021-07-16] MEDS: PANTOPRAZOLE 40 MG VIAL IVP SCH (06:38)
[2021-07-16] MEDS: METOPROLOL 5 MG/5 ML VIAL IVP PRN (07:26)
[2021-07-16] MEDS ORDERED: POTASSIUM PHOSPHATE 15 MMOL in SODIUM CHLORIDE 0.9% 250 ML IV ONE ×2 (08:00→15:30)
[2021-07-16] MEDS: CEFEPIME 1 GM in SODIUM CHLORIDE 0.9% MINIBAG 100 ML IV SCH ×2 (09:08→21:21)
[2021-07-16] MEDS: HEPARIN 5,000 UNIT/ML VIAL SUBQ SCH ×2 (09:21→21:23)
[2021-07-16] MEDS: SODIUM CHLORIDE FLUSH 0.9% 10 ML SYRINGE IVP PRN ×3 (09:22→12:20)
--- NOTE | 2021-07-16 09:35 | XRAY Report ---
PROCEDURE: Chest for Line Placement INDICATIONS: Picc line placement TECHNIQUE: One view of the chest was acquired. COMPARISON: CXR 07/14/2021. CT abdomen pelvis 07/14/2021. FINDINGS: Surgical changes and devices: Right-sided PICC line with the tip at the cavoatrial junction. Enteric tube coursing down the esophagus and into the stomach. The tip is outside the field of view. Lungs and pleura: No pneumothorax. Layering of pleural effusions. Lungs appear clear. Prominent lung volumes. Mediastinum: Mediastinal contours appear normal. Heart size is normal. Bones and chest wall: No suspicious bony lesions. Overlying soft tissues appear unremarkable. IMPRESSION: Right-sided PICC line with the tip at the cavoatrial junction in satisfactory position. Layering pleural effusions. Reviewed by: Shiva Morales MD on 07/16/2021 9:33 AM PDT Approved by: Shiva Morales MD on 07/16/2021 9:33 AM PDT Station ID: [id number]
[2021-07-16] MEDS: SODIUM CHLORIDE FLUSH 0.9% 10 ML SYRINGE IVP SCH ×2 (10:11→19:16)
--- NOTE | 2021-07-16 10:17 | ANESTHESIA PROCEDURE NOTE ---
Anesth Central Line Template - Central Line Central Line Preparation: Consent Obtained Central line location: Right Basilic Central line type: PICC Double Lumen Central line catheter tip site resides: Superior vena cava (SVC) Central line aftercare: Chlorhexidine disc placed, Secured, Placement confirmed, No pneumothorax, No complications, Bundle checklist complete, Pt tolerated well
[2021-07-16] MEDS: FAT EMULSION 20% 250 ML IV SCH ×2 (10:24→20:30)
[2021-07-16] MEDS: TPN (CLINIMIX E 5/15) 2,000 ML with MULTIVITAMIN 10 ML, TRACE ELEMENTS 1 ML IV SCH ×6 (10:50→19:50)
[2021-07-16] MEDS: ACETAMINOPHEN 325 MG TABLET PO PRN ×2 (12:16→20:28)
--- NOTE | 2021-07-16 12:18 | PROVIDER PROGRESS NOTE ---
Subjective - Subjective Pt reports feeling: No change (no problems. abdomen still quiet. no flatus) Objective - Vital Signs/Intake & Output Vital Signs: Vital Signs x48h Temp Pulse Resp BP BP BP Pulse Ox 07/16/21 12:00 37 C 105 H 25 H 104/50 L 96 07/16/21 11:00 90 16 104/59 L 97 07/16/21 09:00 98 26 H 124/69 96 07/16/21 08:32 36.5 C 102 H 21 124/78 100 07/16/21 07:53 107/54 L 07/16/21 07:35 82 111/74 07/16/21 07:26 117/61 07/16/21 07:00 81 16 121/60 97 07/16/21 06:00 85 25 H 157/61 H 99 07/16/21 04:30 36.8 C Intake & Output: Intake & Output 07/13/21 07/14/21 07/15/21 07/16/21 23:59 23:59 23:59 23:59 Intake Total 1819.5 3371.667 1510.000 Output Total 2125 1600 Balance 1819.5 1246.667 -90.000 - Objective General Appearance: positive: No acute distress, Alert Eyes Bilateral: positive: PERRL, EOMI, No scleral icterus Neck: positive: No JVD, Trachea midline Respiratory: positive: No respiratory distress Cardiovascular: positive: Irregularly irregular Abdomen: positive: Non-tender, No distention, Other (incision c/d/i. no erythema. gauze strips removed and dressing changed) Neurologic/Psychiatric: positive: Oriented x3 - Lab Results Fish Bones: 07/16/21 05:23 07/16/21 05:23 Other Labs: Lab Results x24hrs 07/16/21 07/16/21 07/16/21 Range/Units 05:23 05:23 05:23 WBC 12.7 H (4.8-10.8) x10^3/uL RBC 3.23 L (4.20-5.40) 10^6/uL Hgb 10.3 L (12.0-16.0) g/dL Hct 29.7 L (37.0-47.0) % MCV 92.0 (81.0-99.0) fL MCH 31.9 H (27.0-31.0) pg MCHC 34.7 (32.0-36.0) g/dL RDW 13.0 (12.0-15.0) % Plt Count 183 (130-450) 10^3/uL MPV 11.5 H (7.9-10.8) fL Neut # (Auto) 10.8 H (1.5-6.6) 10^3/uL Lymph # (Auto) 0.6 L (1.5-3.5) 10^3/uL [place] # (Auto) 1.3 H (0.0-1.0) 10^3/uL Eos # (Auto) 0.0 (0.0-0.7) 10^3/uL Baso # (Auto) 0.0 (0.0-0.1) 10^3/uL Absolute Nucleated RBC 0.00 x10^3/uL Nucleated RBC % 0.0 /100WBC VBG pH 7.457 H (7.31-7.41) Ionized Calcium 1.09 L (1.15-1.33) mmol/L Sodium 142 (135-145) mmol/L Potassium 3.9 (3.5-5.0) mmol/L Chloride 108 (101-111) mmol/L Carbon Dioxide 26 (21-32) mmol/L Anion Gap 8.0 (6-13) BUN 34 H (6-20) mg/dL Creatinine 0.6 (0.4-1.0) mg/dL Estimated GFR (MDRD) 98 (>89) Glucose 93 (70-100) mg/dL Calcium 7.9 L (8.5-10.3) mg/dL Phosphorus 2.3 L (2.5-4.6) mg/dL Magnesium 2.3 (1.7-2.8) mg/dL Total Bilirubin 0.9 (0.2-1.0) mg/dL AST 48 H (10-42) IU/L ALT 22 (10-60) IU/L Alkaline Phosphatase 29 L (42-121) IU/L Total Protein 4.8 L (6.7-8.2) g/dL Albumin 2.5 L (3.2-5.5) g/dL Globulin 2.3 (2.1-4.2) g/dL Albumin/Globulin Ratio 1.1 (1.0-2.2) Prealbumin 7 L (18-45) mg/dL Triglycerides 63 ( - 149) mg/dL 07/15/21 Range/Units 21:47 WBC (4.8-10.8) x10^3/uL RBC (4.20-5.40) 10^6/uL Hgb (12.0-16.0) g/dL Hct (37.0-47.0) % MCV (81.0-99.0) fL MCH (27.0-31.0) pg MCHC (32.0-36.0) g/dL RDW (12.0-15.0) % Plt Count (130-450) 10^3/uL MPV (7.9-10.8) fL Neut # (Auto) (1.5-6.6) 10^3/uL Lymph # (Auto) (1.5-3.5) 10^3/uL [place] # (Auto) (0.0-1.0) 10^3/uL Eos # (Auto) (0.0-0.7) 10^3/uL Baso # (Auto) (0.0-0.1) 10^3/uL Absolute Nucleated RBC x10^3/uL Nucleated RBC % /100WBC VBG pH (7.31-7.41) Ionized Calcium (1.15-1.33) mmol/L Sodium 138 (135-145) mmol/L Potassium 3.9 (3.5-5.0) mmol/L Chloride 105 (101-111) mmol/L Carbon Dioxide 25 (21-32) mmol/L Anion Gap 8.0 (6-13) BUN 41 H (6-20) mg/dL Creatinine 0.7 (0.4-1.0) mg/dL Estimated GFR (MDRD) 82 L (>89) Glucose 102 H (70-100) mg/dL Calcium 7.9 L (8.5-10.3) mg/dL Phosphorus 1.8 L (2.5-4.6) mg/dL Magnesium 2.4 (1.7-2.8) mg/dL Total Bilirubin (0.2-1.0) mg/dL AST (10-42) IU/L ALT (10-60) IU/L Alkaline Phosphatase (42-121) IU/L Total Protein (6.7-8.2) g/dL Albumin (3.2-5.5) g/dL Globulin (2.1-4.2) g/dL Albumin/Globulin Ratio (1.0-2.2) Prealbumin (18-45) mg/dL Triglycerides ( - 149) mg/dL Assessment/Plan - Problem List (1) Small bowel obstruction Impression: ileus. improving. continue present care
[2021-07-16 14:19] LABS: CALCIUM, IONIZED 1.12 mmol/L (1.15-1.33); VBG PH 7.425 (7.31-7.41)
[2021-07-16] MEDS: SODIUM CHLORIDE 0.9% 1,000 ML IV SCH (14:37)
--- NOTE | 2021-07-16 18:23 | PROVIDER PROGRESS NOTE ---
Subjective - Prog Note Date Prog Note Date: 07/16/21 Prog Note Time: 18:36 - Subjective Subjective: General surgery notes that the patient has ileus that is slowly resolving. He feels that the incision is clean dry and intact. No new orders today. The patient herself states that she is doing well. She is uncomfortable from her abdominal pain but that is significantly better from when she was first admitted. That her effective peritoneal findings are much improved. Still no flatus, and no bowel sounds Up in chair today for several hours. She laments that she gets so tired so easily that when she gets back in bed she sleeps. Current Medications - Current Medications Current Medications: Active Medications Acetaminophen (Acetaminophen 325 Mg Tablet) 650 mg PO Q4HR PRN PRN Reason: Pain 1 to 4, or Fever Last Admin: 07/16/21 12:16 Dose: 650 mg Heparin Sodium (Porcine) (Heparin 5,000 Unit/Ml Vial) 5,000 unit SUBQ BID KARLY Last Admin: 07/16/21 09:21 Dose: 5,000 unit Cefepime HCl 1 gm/ Sodium (Chloride) 100 mls @ 200 mls/hr IV BID KARLY Last Infusion: 07/16/21 09:40 Dose: Infused Multivitamins 10 ml/ TRACE ELEMENTS 1 ml/ Amino Ac/Electrol/Dextrose/Calcium 2,011 mls @ 50 mls/hr IV 1900 KARLY; Protocol Last Infusion: 07/16/21 11:02 Dose: 30 mls/hr Fat Emulsion Intravenous (Intralipid 20%) 250 mls @ 21 mls/hr IV 1900 KARLY Last Admin: 07/16/21 10:24 Dose: 21 mls/hr Potassium Phosphate 15 mmol/ (Sodium Chloride) 255 mls @ 63 mls/hr IV ONCE ONE; Protocol Stop: 07/16/21 19:32 Last Admin: 07/16/21 15:00 Dose: 63 mls/hr Levalbuterol HCl (Levalbuterol 1.25 Mg/3 Ml Neb) 1.25 mg INH Q4H PRN PRN Reason: Shortness of Air/Wheezing Metoprolol Tartrate (Metoprolol 5 Mg/5 Ml Vial) 5 mg IVP Q6H PRN PRN Reason: Tachycardia Last Admin: 07/16/21 07:26 Dose: 5 mg Morphine Sulfate (Morphine 2 Mg/Ml Carpuject) 2 mg IVP Q2HR PRN PRN Reason: Pain 8 to 10 Last Admin: 07/16/21 09:21 Dose: 2 mg Ondansetron HCl (Ondansetron 4 Mg/2 Ml Vial) 4 mg IVP Q6HR PRN PRN Reason: Nausea / Vomiting Pantoprazole Sodium (Pantoprazole 40 Mg Vial) 40 mg IVP QDAC [facility] Last Admin: 07/16/21 06:38 Dose: 40 mg Phenol/Menthol (Phenol Throat [place] 177 Ml) 2 sprays MM Q2HR PRN PRN Reason: Throat Pain Last Admin: 07/15/21 04:15 Dose: 2 sprays Sodium Chloride (Sodium Chloride Flush 0.9% 10 Ml Syringe) 10 ml IVP PRN PRN PRN Reason: NEEDED PER PROVIDER ORDERS Last Admin: 07/16/21 12:20 Dose: 10 ml Sodium Chloride (Sodium Chloride Flush 0.9% 10 Ml Syringe) 10 ml IVP 0100,0900,1700 [facility] Last Admin: 07/16/21 10:11 Dose: Not Given Throat Lozenges (Benzocaine/Menthol Lozenge) 1 lozenge MM Q2HR PRN PRN Reason: Mouth Sore Pain Cholecalciferol (Vitamin D3) [Vitamin D3] 2,000 unit PO DAILY 05/03/16 Albuterol Sulfate [Proair Hfa Inhaler] 2 puffs INH Q4H PRN 12/25/18 Calcium Carb/Vitamin D3/Vit K1 [Viactiv 650 mg-12.5 Mcg Chew] 1 tab PO DAILY 12/25/18 Multivitamin [Multiple Vitamins] 1 tab PO DAILY 12/25/18 DULoxetine [Cymbalta] 20 mg PO DAILY 07/15/21 Hydroxychloroquine [Plaquenil] 200 mg PO DAILY 07/15/21 Sucralfate [Carafate] 1 tablet PO ACHS 07/15/21 amLODIPine [Norvasc] 2.5 mg PO DAILY 07/15/21 hydroCHLOROthiazide [Hydrodiuril] 25 mg PO DAILY 07/15/21 Objective - Vital Signs/Intake & Output Reviewed Vital Signs: Yes Vital Signs: Vital Signs x48h Temp Pulse Resp BP Pulse Ox 07/16/21 17:00 80 110/65 96 07/16/21 15:00 87 18 105/58 L 96 07/16/21 13:00 101 H 18 108/67 94 07/16/21 12:00 37 C 105 H 25 H 104/50 L 96 07/16/21 11:00 90 16 104/59 L 97 Intake & Output: Intake & Output 07/13/21 07/14/21 07/15/21 07/16/21 23:59 23:59 23:59 23:59 Intake Total 1819.5 3371.667 2448.000 Output Total 2125 2870 Balance 1819.5 1246.667 -422.000 - Objective General Appearance: positive: No acute distress, Alert, Other (Cachectic white female. Hazen cheeks, warm skin, good turgor. Has been at the bedside.) Eyes Bilateral: positive: PERRL, EOMI ENT: positive: Other (Voice much more audible today than usual) Neck: positive: No JVD. negative: Stiff neck Respiratory: positive: No respiratory distress. negative: Wheezes, Rales, Rhonchi Cardiovascular: positive: Irregularly irregular. negative: Gallop/S4, Friction rub Abdomen: positive: Other (No bowel sounds, not distended, soft. generalized tenderness but mainly centered around the incision site. She said is not worse than yesterday.) Skin: positive: Warm, Dry Extremities: positive: Full ROM, No pedal edema Neurologic/Psychiatric: positive: Oriented x3, CN's nml (2-12), Motor nml - Lab Results Fish Bones: 07/16/21 05:23 07/16/21 05:23 Other Labs: Lab Results x24hrs 07/16/21 07/16/21 07/16/21 Range/Units 14:00 14:00 05:23 WBC (4.8-10.8) x10^3/uL RBC (4.20-5.40) 10^6/uL Hgb (12.0-16.0) g/dL Hct (37.0-47.0) % MCV (81.0-99.0) fL MCH (27.0-31.0) pg MCHC (32.0-36.0) g/dL RDW (12.0-15.0) % Plt Count (130-450) 10^3/uL MPV (7.9-10.8) fL Neut # (Auto) (1.5-6.6) 10^3/uL Lymph # (Auto) (1.5-3.5) 10^3/uL [place] # (Auto) (0.0-1.0) 10^3/uL Eos # (Auto) (0.0-0.7) 10^3/uL Baso # (Auto) (0.0-0.1) 10^3/uL Absolute Nucleated RBC x10^3/uL Nucleated RBC % /100WBC VBG pH 7.425 H 7.457 H (7.31-7.41) Ionized Calcium 1.12 L 1.09 L (1.15-1.33) mmol/L Sodium (135-145) mmol/L Potassium (3.5-5.0) mmol/L Chloride (101-111) mmol/L Carbon Dioxide (21-32) mmol/L Anion Gap (6-13) BUN (6-20) mg/dL Creatinine (0.4-1.0) mg/dL Estimated GFR (MDRD) (>89) Glucose (70-100) mg/dL Calcium (8.5-10.3) mg/dL Phosphorus 1.6 L (2.5-4.6) mg/dL Magnesium (1.7-2.8) mg/dL Total Bilirubin (0.2-1.0) mg/dL AST (10-42) IU/L ALT (10-60) IU/L Alkaline Phosphatase (42-121) IU/L Total Protein (6.7-8.2) g/dL Albumin (3.2-5.5) g/dL Globulin (2.1-4.2) g/dL Albumin/Globulin Ratio (1.0-2.2) Prealbumin (18-45) mg/dL Triglycerides ( - 149) mg/dL 07/16/21 07/16/21 07/15/21 Range/Units 05:23 05:23 21:47 WBC 12.7 H (4.8-10.8) x10^3/uL RBC 3.23 L (4.20-5.40) 10^6/uL Hgb 10.3 L (12.0-16.0) g/dL Hct 29.7 L (37.0-47.0) % MCV 92.0 (81.0-99.0) fL MCH 31.9 H (27.0-31.0) pg MCHC 34.7 (32.0-36.0) g/dL RDW 13.0 (12.0-15.0) % Plt Count 183 (130-450) 10^3/uL MPV 11.5 H (7.9-10.8) fL Neut # (Auto) 10.8 H (1.5-6.6) 10^3/uL Lymph # (Auto) 0.6 L (1.5-3.5) 10^3/uL [place] # (Auto) 1.3 H (0.0-1.0) 10^3/uL Eos # (Auto) 0.0 (0.0-0.7) 10^3/uL Baso # (Auto) 0.0 (0.0-0.1) 10^3/uL Absolute Nucleated RBC 0.00 x10^3/uL Nucleated RBC % 0.0 /100WBC VBG pH (7.31-7.41) Ionized Calcium (1.15-1.33) mmol/L Sodium 142 138 (135-145) mmol/L Potassium 3.9 3.9 (3.5-5.0) mmol/L Chloride 108 105 (101-111) mmol/L Carbon Dioxide 26 25 (21-32) mmol/L Anion Gap 8.0 8.0 (6-13) BUN 34 H 41 H (6-20) mg/dL Creatinine 0.6 0.7 (0.4-1.0) mg/dL Estimated GFR (MDRD) 98 82 L (>89) Glucose 93 102 H (70-100) mg/dL Calcium 7.9 L 7.9 L (8.5-10.3) mg/dL Phosphorus 2.3 L 1.8 L (2.5-4.6) mg/dL Magnesium 2.3 2.4 (1.7-2.8) mg/dL Total Bilirubin 0.9 (0.2-1.0) mg/dL AST 48 H (10-42) IU/L ALT 22 (10-60) IU/L Alkaline Phosphatase 29 L (42-121) IU/L Total Protein 4.8 L (6.7-8.2) g/dL Albumin 2.5 L (3.2-5.5) g/dL Globulin 2.3 (2.1-4.2) g/dL Albumin/Globulin Ratio 1.1 (1.0-2.2) Prealbumin 7 L (18-45) mg/dL Triglycerides 63 ( - 149) mg/dL ABX Reporting Has patient been on IV antibiotics over the past 48 hours?: Yes Assessment/Plan - Problem List (1) Peritonitis Impression: She presented has 2 days of abdominal pain with nausea and vomiting. CT abd was relatively benign other than showing the bowel obstruction. There is no free air, no leakage of fluid. But on physical exam this woman was quite rigid. White cell count is 34,000. It is reassuring that her lactic acid is only 2.1. A s such general surgery was called and they came in after I reexamined her. Taken to the operating room. Due to multiple allergens patient is on cefepime. Post op day #2 Plan: Hopefully she will progress. Still NPO. No bowel sounds. As normal bowel function returns, she will go from n.p.o. to clear liquids and then diet. General surgery is following (2) Small bowel obstruction resolved and now with postop ileus Conclusion/Plan: SBO seen on Ct scan. She has a previous diverticular episode in the past. Even though the medical record and the patient stated that she had a small bowel resection in 2004, general surgery states the patient had a sigmoid bowel resection. Because of obstruction was an adhesion. Please read the op report (3) Atrial fibrillation with RVR Conclusion/Plan: Paroxysmal. Is followed by Dane Diaz at [facility] cardiology. Most recently seen in the last few months. At that time he had recommended Eliquis for stroke prevention but I am not noticing that on her list. She does not quite remember the conversation. She is asymptomatic with regards to her atrial fibrillation. She is not on any rate lowering drugs since her episodes appear to be episodic and infrequent. He did not recommend any treatment for her small ASD. Plan:Monitor on telemetry. She is in afib today. We will need to discuss anticoagulation in the outpatient setting. Lopressor prn for rate control. (4) MATILDA (acute kidney injury) resolved. Conclusion/Plan: Severe. Her usual baseline creatinine is 0.9 and she is 2.6. CT does not confirm any hydronephrosis. Creat 2.6>>1.3>>0.7>>0.6 today. (5) Pleural effusion Conclusion/Plan: Unclear why this should be present. This woman does not have congestive heart failure. Atrial fibrillation is not severe. She does not have cirrhosis. She does appear to be quite malnourished but the effusion is isolated. She does not have diffuse anasarca. Depending on how long her stay is here we may have to address that issue with a diagnostic thoracentesis. (6) Polyarthralgia Conclusion/Plan: Long complicated history with this. She has chronic knee pain due to osteoarthritis and even a knee replacement has not helped. She has been seen by rheumatology for inflammatory disorders and all of her serologies have been negative. She has been evaluated a few times and no specific diagnosis other than possible fibromyalgia. She is not in any disease modulating agents at this time. We will continue to address this with intermittent Tylenol or intermittent nonsteroidals. (7) Weight loss Conclusion/Plan: She states that she is always been "thin" and is not aware of any weight loss. She is not describing anorexia, change in bowel habits. This will have to be addressed in a global fashion. My concern is that of an eating disorder, psychological disorder, cancer, or malabsorption (but she does not describe diarrhea). Pleural effusion on exam today is concerning. (8) Severe protein-calorie malnutrition Conclusion/Plan: She has lost a significant amount of weight in the last year. On examination severe loss of body mass. PICC line this morning. TPN has been started. (9) Dysphonia Conclusion/Plan: In looking at her old records, she does not have vocal cord prolapse. My concern would be risk of aspiration. 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 Episodically worse. On admission, she was almost an audible in her ability to speak to me. We will just continue to monitor. Today even stronger voice. Even w NG in place.
[2021-07-17 05:36] LABS: BASOPHILS % (AUTO) 0.1 %; CALCIUM, IONIZED 1.15 mmol/L (1.15-1.33); EOSINOPHILS % (AUTO) 0.3 %; HCT - HEMATOCRIT 30.6 % (37.0-47.0); HGB - HEMOGLOBIN 10.4 g/dL (12.0-16.0); LYMPHOCYTES # (AUTO) 1.1 10^3/uL (1.5-3.5); LYMPHOCYTES % (AUTO) 10.8 %; MEAN CORPUSCULAR HEMOGLOBIN 31.8 pg (27.0-31.0); MEAN CORPUSCULAR VOLUME 93.6 fL (81.0-99.0); MEAN PLATELET VOLUME 12.2 fL (7.9-10.8); MONOCYTES % (AUTO) 9.6 %; NEUTROPHILS % (AUTO) 78.9 %; PLT - PLATELET COUNT 206 10^3/uL (130-450); RED BLOOD COUNT 3.27 10^6/uL (4.20-5.40); VBG PH 7.431 (7.31-7.41); WHITE BLOOD COUNT 10.2 x10^3/uL (4.8-10.8)
[2021-07-17] MEDS: ACETAMINOPHEN 325 MG TABLET PO PRN ×3 (05:49→16:16)
[2021-07-17] MEDS: SODIUM CHLORIDE FLUSH 0.9% 10 ML SYRINGE IVP SCH ×3 (05:50→17:45)
[2021-07-17 05:53] LABS: CREATININE 0.5 mg/dL (0.4-1.0); POTASSIUM 3.4 mmol/L (3.5-5.0)
[2021-07-17 06:27] LABS: MAGNESIUM 2.2 mg/dL (1.7-2.8); PHOSPHORUS 1.5 mg/dL (2.5-4.6)
[2021-07-17] MEDS: PANTOPRAZOLE 40 MG VIAL IVP SCH (06:36)
[2021-07-17] MEDS: MORPHINE 2 MG/ML CARPUJECT IVP PRN (09:03)
[2021-07-17] MEDS: CEFEPIME 1 GM in SODIUM CHLORIDE 0.9% MINIBAG 100 ML IV SCH ×2 (09:07→21:25)
[2021-07-17] MEDS: SODIUM CHLORIDE FLUSH 0.9% 10 ML SYRINGE IVP PRN ×2 (09:08→09:53)
[2021-07-17] MEDS ORDERED: POTASSIUM PHOSPHATE 21 MMOL in SODIUM CHLORIDE 0.9% 250 ML IV ONE ×3 (09:10→16:38)
[2021-07-17] MEDS: HEPARIN 5,000 UNIT/ML VIAL SUBQ SCH ×2 (09:39→21:44)
[2021-07-17] MEDS: METOPROLOL 5 MG/5 ML VIAL IVP PRN (09:46)
--- NOTE | 2021-07-17 16:49 | PROVIDER PROGRESS NOTE ---
Subjective - Prog Note Date Prog Note Date: 07/17/21 Prog Note Time: 16:47 - Subjective Subjective: she is exhausted today. voice back to being low and almost inaudible. daughter is at the bedside today as well as later. pain is controlled but she winces more today with exam. no flatus. tolerating TPN. has been in atrial fib since yesterday am. Current Medications - Current Medications Current Medications: Active Medications Acetaminophen (Acetaminophen 325 Mg Tablet) 650 mg PO Q4HR PRN PRN Reason: Pain 1 to 4, or Fever Last Admin: 07/17/21 16:16 Dose: 650 mg Heparin Sodium (Porcine) (Heparin 5,000 Unit/Ml Vial) 5,000 unit SUBQ BID KARLY Last Admin: 07/17/21 09:39 Dose: 5,000 unit Cefepime HCl 1 gm/ Sodium (Chloride) 100 mls @ 200 mls/hr IV BID KARLY Last Infusion: 07/17/21 09:54 Dose: Infused Multivitamins 10 ml/ TRACE ELEMENTS 1 ml/ Amino Ac/Electrol/Dextrose/Calcium 2,011 mls @ 50 mls/hr IV 1900 KARLY; Protocol Last Infusion: 07/17/21 07:56 Dose: 50 mls/hr Fat Emulsion Intravenous (Intralipid 20%) 250 mls @ 21 mls/hr IV 1900 KARLY Last Infusion: 07/17/21 08:25 Dose: Infused Potassium Phosphate 21 mmol/ (Sodium Chloride) 257 mls @ 64 mls/hr IV ONCE ONE; Protocol Stop: 07/17/21 20:38 Levalbuterol HCl (Levalbuterol 1.25 Mg/3 Ml Neb) 1.25 mg INH Q4H PRN PRN Reason: Shortness of Air/Wheezing Metoprolol Tartrate (Metoprolol 5 Mg/5 Ml Vial) 5 mg IVP Q6H PRN PRN Reason: Tachycardia Last Admin: 07/17/21 09:46 Dose: 5 mg Morphine Sulfate (Morphine 2 Mg/Ml Carpuject) 2 mg IVP Q2HR PRN PRN Reason: Pain 8 to 10 Last Admin: 07/17/21 09:03 Dose: 2 mg Ondansetron HCl (Ondansetron 4 Mg/2 Ml Vial) 4 mg IVP Q6HR PRN PRN Reason: Nausea / Vomiting Pantoprazole Sodium (Pantoprazole 40 Mg Vial) 40 mg IVP QDAC KARLY Last Admin: 07/17/21 06:36 Dose: 40 mg Phenol/Menthol (Phenol Throat [place] 177 Ml) 2 sprays MM Q2HR PRN PRN Reason: Throat Pain Last Admin: 07/15/21 04:15 Dose: 2 sprays Sodium Chloride (Sodium Chloride Flush 0.9% 10 Ml Syringe) 10 ml IVP PRN PRN PRN Reason: NEEDED PER PROVIDER ORDERS Last Admin: 07/17/21 09:53 Dose: 10 ml Sodium Chloride (Sodium Chloride Flush 0.9% 10 Ml Syringe) 10 ml IVP 0100,0900,1700 [facility] Last Admin: 07/17/21 08:12 Dose: 20 ml Throat Lozenges (Benzocaine/Menthol Lozenge) 1 lozenge MM Q2HR PRN PRN Reason: Mouth Sore Pain Cholecalciferol (Vitamin D3) [Vitamin D3] 2,000 unit PO DAILY 05/03/16 Albuterol Sulfate [Proair Hfa Inhaler] 2 puffs INH Q4H PRN 12/25/18 Calcium Carb/Vitamin D3/Vit K1 [Viactiv 650 mg-12.5 Mcg Chew] 1 tab PO DAILY 12/25/18 Multivitamin [Multiple Vitamins] 1 tab PO DAILY 12/25/18 DULoxetine [Cymbalta] 20 mg PO DAILY 07/15/21 Hydroxychloroquine [Plaquenil] 200 mg PO DAILY 07/15/21 Sucralfate [Carafate] 1 tablet PO ACHS 07/15/21 amLODIPine [Norvasc] 2.5 mg PO DAILY 07/15/21 hydroCHLOROthiazide [Hydrodiuril] 25 mg PO DAILY 07/15/21 Objective - Vital Signs/Intake & Output Reviewed Vital Signs: Yes Vital Signs: Vital Signs x48h Temp Pulse Resp BP BP Pulse Ox 07/17/21 16:00 37.3 C 102 H 21 139/70 H 96 07/17/21 14:57 91 20 123/63 97 07/17/21 14:00 81 20 118/60 98 07/17/21 13:00 88 16 135/6 H 97 07/17/21 11:00 90 26 H 118/55 L 99 07/17/21 10:10 96/62 07/17/21 09:57 83 24 109/59 L 98 07/17/21 09:46 136/63 H Intake & Output: Intake & Output 07/14/21 07/15/21 07/16/21 07/17/21 23:59 23:59 23:59 23:59 Intake Total 1819.5 3371.667 3830.100 1612.00 Output Total 2125 2950 1052 Balance 1819.5 1246.667 880.100 560.00 - Objective General Appearance: positive: No acute distress, Alert, Other (pale, cachectic, not as interactive today,) Eyes Bilateral: positive: PERRL, EOMI ENT: positive: Pharynx nml Neck: positive: No JVD. negative: Stiff neck Respiratory: positive: No respiratory distress. negative: Wheezes, Rales, Rhonchi Abdomen: positive: Tenderness, Other (hypoactive bowel tones present.) Skin: positive: Warm, Dry, Pallor Extremities: positive: Full ROM, No pedal edema Neurologic/Psychiatric: positive: Oriented x3, CN's nml (2-12) (except for voice today), Motor nml - Lab Results Fish Bones: 07/17/21 04:30 07/17/21 04:30 Other Labs: Lab Results x24hrs 07/17/21 07/17/21 07/17/21 Range/Units 04:30 04:30 04:30 WBC (4.8-10.8) x10^3/uL RBC (4.20-5.40) 10^6/uL Hgb (12.0-16.0) g/dL Hct (37.0-47.0) % MCV (81.0-99.0) fL MCH (27.0-31.0) pg MCHC (32.0-36.0) g/dL RDW (12.0-15.0) % Plt Count (130-450) 10^3/uL MPV (7.9-10.8) fL Neut # (Auto) (1.5-6.6) 10^3/uL Lymph # (Auto) (1.5-3.5) 10^3/uL [place] # (Auto) (0.0-1.0) 10^3/uL Eos # (Auto) (0.0-0.7) 10^3/uL Baso # (Auto) (0.0-0.1) 10^3/uL Absolute Nucleated RBC x10^3/uL Nucleated RBC % /100WBC VBG pH 7.431 H (7.31-7.41) Ionized Calcium 1.15 (1.15-1.33) mmol/L Sodium (135-145) mmol/L Potassium 3.5 (3.5-5.0) mmol/L Chloride (101-111) mmol/L Carbon Dioxide (21-32) mmol/L Anion Gap (6-13) BUN (6-20) mg/dL Creatinine (0.4-1.0) mg/dL Estimated GFR (MDRD) (>89) Glucose (70-100) mg/dL Calcium (8.5-10.3) mg/dL Phosphorus 1.5 L 1.5 L (2.5-4.6) mg/dL Magnesium 2.2 (1.7-2.8) mg/dL 07/17/21 07/17/21 Range/Units 04:30 04:30 WBC 10.2 (4.8-10.8) x10^3/uL RBC 3.27 L (4.20-5.40) 10^6/uL Hgb 10.4 L (12.0-16.0) g/dL Hct 30.6 L (37.0-47.0) % MCV 93.6 (81.0-99.0) fL MCH 31.8 H (27.0-31.0) pg MCHC 34.0 (32.0-36.0) g/dL RDW 13.0 (12.0-15.0) % Plt Count 206 (130-450) 10^3/uL MPV 12.2 H (7.9-10.8) fL Neut # (Auto) 8.0 H (1.5-6.6) 10^3/uL Lymph # (Auto) 1.1 L (1.5-3.5) 10^3/uL [place] # (Auto) 1.0 (0.0-1.0) 10^3/uL Eos # (Auto) 0.0 (0.0-0.7) 10^3/uL Baso # (Auto) 0.0 (0.0-0.1) 10^3/uL Absolute Nucleated RBC 0.00 x10^3/uL Nucleated RBC % 0.0 /100WBC VBG pH (7.31-7.41) Ionized Calcium (1.15-1.33) mmol/L Sodium 140 (135-145) mmol/L Potassium 3.4 L (3.5-5.0) mmol/L Chloride 104 (101-111) mmol/L Carbon Dioxide 27 (21-32) mmol/L Anion Gap 9.0 (6-13) BUN 23 H (6-20) mg/dL Creatinine 0.5 (0.4-1.0) mg/dL Estimated GFR (MDRD) 121 (>89) Glucose 131 H (70-100) mg/dL Calcium 8.0 L (8.5-10.3) mg/dL Phosphorus (2.5-4.6) mg/dL Magnesium (1.7-2.8) mg/dL Assessment/Plan - Problem List (1) Peritonitis Impression: She presented has 2 days of abdominal pain with nausea and vomiting. CT abd was relatively benign other than showing the bowel obstruction. There is no free air, no leakage of fluid. But on physical exam this woman was quite rigid. White cell count is 34,000. It is reassuring that her lactic acid is only 2.1. As such general surgery was called and they came in after I reexamined her. Taken to the operating room. Due to multiple allergens patient is on cefepime. Laboratory Tests 07/14/21 07/15/21 07/16/21 16:53 04:03 05:23 WBC 34.7 H 24.8 H 12.7 H 07/17/21 04:30 WBC 10.2 Post op day #3. [place] and wounds good. Plan: Bowel sounds today. No flatus. Still NPO. As normal bowel function returns, she will go from n.p.o. to clear liquids and then diet. General surgery is following (2) Small bowel obstruction resolved and now with postop ileus Conclusion/Plan: SBO seen on Ct scan. She has a previous diverticular episode in the past. Even though the medical record and the patient stated that she had a small bowel resection in 2004, general surgery states the patient had a sigmoid bowel resection. Because of obstruction was an adhesion. Please read the op report (3) Atrial fibrillation with RVR Conclusion/Plan: Paroxysmal. Is followed by Dane Diaz at [facility] cardiology. Most recently seen in the last few months. At that time he had recommended Eliquis for stroke prevention but I am not noticing that on her list. She does not quite remember the conversation. She is asymptomatic with regards to her atrial fibrillation. She is not on any rate lowering drugs since her episodes appear to be episodic and infrequent. He did not recommend any treatment for her small ASD. She has gone from NSR to afib since morning of 07/16 so I will most likely dc on eliquis. Plan: continue to monitor tele. In afib. Anticoagulation in the outpatient setting. Lopressor prn for rate control. (4) MATILDA (acute kidney injury) resolved. Conclusion/Plan: Severe. Her usual baseline creatinine is 0.9 and she was 2.[address] does not confirm any hydronephrosis. Creat 2.6>>1.3>>0.7>>0.6>>0.5 today. (5) Pleural effusion Conclusion/Plan: Unclear why this should be present. This woman does not have congestive heart failure. Atrial fibrillation is not severe. She does not have cirrhosis. She does appear to be quite malnourished but the effusion is isolated. She does not have diffuse anasarca. Depending on how long her stay is here we may have to address that issue with a diagnostic thoracentesis. (6) Polyarthralgia Conclusion/Plan: Long complicated history with this. She has chronic knee pain due to osteoarth ritis and even a knee replacement has not helped. She has been seen by rheumatology for inflammatory disorders and all of her serologies have been negative. She has been evaluated a few times and no specific diagnosis other than possible fibromyalgia. Her admit med list was not correct and she was not on a DMARD. Pharmacy updated it and she is on plaquenil. I won't resume until discharge. We will continue to address this with intermittent Tylenol or intermittent nonsteroidals. (7) Weight loss Conclusion/Plan: She states that she is always been "thin" and is not aware of any weight loss. She is not describing anorexia, change in bowel habits. This will have to be addressed in a global fashion. My concern is that of an eating disorder, psychological disorder, cancer, or malabsorption (but she does not describe diarrhea). Pleural effusion on exam today is concerning. (8) Severe protein-calorie malnutrition Conclusion/Plan: She has lost a significant amount of weight in the last year. On examination severe loss of body mass. PICC line am of 07/16. TPN has been started. (9) Dysphonia Conclusion/Plan: In looking at her old records, she does not have vocal cord prolapse. My concern would be risk of aspiration. She appears to have atrophic vocal cords b ut they are intact. 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 Episodically worse. On admission, she was almost an audible in her ability to speak to me. We will just continue to monitor. Today even stronger voice. Even w NG in place.
[2021-07-17 17:20] LABS: PHOSPHORUS 2.7 mg/dL (2.5-4.6); POTASSIUM 3.9 mmol/L (3.5-5.0)
[2021-07-17] MEDS: POTASSIUM CHLOR 10 MEQ/100 ML 10 MEQ/100 ML BAG IV SCH ×2 (17:41→18:50)
[2021-07-17] MEDS: FAT EMULSION 20% 250 ML IV SCH (18:55)
[2021-07-17] MEDS: TPN (CLINIMIX E 5/15) 2,000 ML with MULTIVITAMIN 10 ML, TRACE ELEMENTS 1 ML IV SCH ×3 (18:56)
[2021-07-18 05:23] LABS: BASOPHILS % (AUTO) 0.1 %; EOSINOPHILS # (AUTO) 0.2 10^3/uL (0.0-0.7); EOSINOPHILS % (AUTO) 1.9 %; HCT - HEMATOCRIT 32.4 % (37.0-47.0); HGB - HEMOGLOBIN 10.8 g/dL (12.0-16.0); LYMPHOCYTES # (AUTO) 1.1 10^3/uL (1.5-3.5); LYMPHOCYTES % (AUTO) 11.9 %; MEAN CORPUSCULAR HEMOGLOBIN 31.2 pg (27.0-31.0); MEAN CORPUSCULAR HGB CONC 33.3 g/dL (32.0-36.0); MEAN CORPUSCULAR VOLUME 93.6 fL (81.0-99.0); MEAN PLATELET VOLUME 11.7 fL (7.9-10.8); MONOCYTES # (AUTO) 0.8 10^3/uL (0.0-1.0); MONOCYTES % (AUTO) 9.1 %; NEUTROPHILS # (AUTO) 6.9 10^3/uL (1.5-6.6); NEUTROPHILS % (AUTO) 76.7 %; PLT - PLATELET COUNT 237 10^3/uL (130-450); RED BLOOD COUNT 3.46 10^6/uL (4.20-5.40); RED CELL DISTRIBUTION WIDTH 12.9 % (12.0-15.0); WHITE BLOOD COUNT 9.1 x10^3/uL (4.8-10.8)
[2021-07-18 05:34] LABS: CALCIUM, IONIZED 1.1 mmol/L (1.15-1.33); VBG PH 7.467 (7.31-7.41)
[2021-07-18 05:40] LABS: ALBUMIN 2.4 g/dL (3.2-5.5); ALBUMIN/GLOBULIN RATIO 0.9 (1.0-2.2); BILIRUBIN,TOTAL 0.4 mg/dL (0.2-1.0); CALCIUM 8.2 mg/dL (8.5-10.3); CREATININE 0.5 mg/dL (0.4-1.0); MAGNESIUM 1.8 mg/dL (1.7-2.8); PHOSPHORUS 2.1 mg/dL (2.5-4.6); POTASSIUM 3.6 mmol/L (3.5-5.0); TOTAL PROTEIN 5.2 g/dL (6.7-8.2)
[2021-07-18] MEDS ORDERED: SODIUM PHOSPHATE 15 MMOL in SODIUM CHLORIDE 0.9% 250 ML IV ONE (06:01)
[2021-07-18] MEDS: SODIUM CHLORIDE FLUSH 0.9% 10 ML SYRINGE IVP SCH ×3 (07:02→21:36)
[2021-07-18] MEDS: PANTOPRAZOLE 40 MG VIAL IVP SCH (07:02)
[2021-07-18] MEDS: CALCIUM CARBONATE CHEW 500 MG TABLET PO SCH ×2 (07:03→13:51)
[2021-07-18] MEDS: MORPHINE 2 MG/ML CARPUJECT IVP PRN ×4 (08:01→19:56)
[2021-07-18] MEDS ORDERED: POTASSIUM PHOSPHATE 15 MMOL in SODIUM CHLORIDE 0.9% 250 ML IV ONE (09:00)
[2021-07-18] MEDS: CEFEPIME 1 GM in SODIUM CHLORIDE 0.9% MINIBAG 100 ML IV SCH ×2 (10:34→21:35)
[2021-07-18] MEDS: HEPARIN 5,000 UNIT/ML VIAL SUBQ SCH ×2 (10:35→21:35)
--- NOTE | 2021-07-18 14:31 | PROVIDER PROGRESS NOTE ---
Subjective - Prog Note Date Prog Note Date: 07/18/21 Prog Note Time: 14:39 - Subjective Subjective: Tired yesterday. Was much more awake this morning. Pain is about the same. Controlled. She is able to get out of bed and sit in a chair. Good she marc nues to have bowel sounds, occasional flatus, but no BM yet. Tolerating TPN. Vitals are stable. No fever. White cell count has dropped to normal since yesterday and drops even further today. Current Medications - Current Medications Current Medications: Active Medications Acetaminophen (Acetaminophen 325 Mg Tablet) 650 mg PO Q4HR PRN PRN Reason: Pain 1 to 4, or Fever Last Admin: 07/17/21 16:16 Dose: 650 mg Heparin Sodium (Porcine) (Heparin 5,000 Unit/Ml Vial) 5,000 unit SUBQ BID [facility] Last Admin: 07/18/21 10:35 Dose: 5,000 unit Cefepime HCl 1 gm/ Sodium (Chloride) 100 mls @ 200 mls/hr IV BID [facility] Last Admin: 07/18/21 10:34 Dose: 200 mls/hr Multivitamins 10 ml/ TRACE ELEMENTS 1 ml/ Amino Ac/Electrol/Dextrose/Calcium 2,011 mls @ 50 mls/hr IV 1900 KARLY; Protocol Last Admin: 07/17/21 18:56 Dose: 50 mls/hr Fat Emulsion Intravenous (Intralipid 20%) 250 mls @ 21 mls/hr IV 1900 KARLY Last Infusion: 07/18/21 07:15 Dose: Infused Levalbuterol HCl (Levalbuterol 1.25 Mg/3 Ml Neb) 1.25 mg INH Q4H PRN PRN Reason: Shortness of Air/Wheezing Metoprolol Tartrate (Metoprolol 5 Mg/5 Ml Vial) 5 mg IVP Q6H PRN PRN Reason: Tachycardia Last Admin: 07/17/21 09:46 Dose: 5 mg Morphine Sulfate (Morphine 2 Mg/Ml Carpuject) 2 mg IVP Q2HR PRN PRN Reason: Pain 8 to 10 Last Admin: 07/18/21 13:52 Dose: 2 mg Ondansetron HCl (Ondansetron 4 Mg/2 Ml Vial) 4 mg IVP Q6HR PRN PRN Reason: Nausea / Vomiting Pantoprazole Sodium (Pantoprazole 40 Mg Vial) 40 mg IVP QDAC [facility] Last Admin: 07/18/21 07:02 Dose: 40 mg Phenol/Menthol (Phenol Throat [place] 177 Ml) 2 sprays MM Q2HR PRN PRN Reason: Throat Pain Last Admin: 07/15/21 04:15 Dose: 2 sprays Sodium Chloride (Sodium Chloride Flush 0.9% 10 Ml Syringe) 10 ml IVP PRN PRN PRN Reason: NEEDED PER PROVIDER ORDERS Last Admin: 07/17/21 09:53 Dose: 10 ml Sodium Chloride (Sodium Chloride Flush 0.9% 10 Ml Syringe) 10 ml IVP 0100,0900,1700 [facility] Last Admin: 07/18/21 10:58 Dose: 10 ml Throat Lozenges (Benzocaine/Menthol Lozenge) 1 lozenge MM Q2HR PRN PRN Reason: Mouth Sore Pain Cholecalciferol (Vitamin D3) [Vitamin D3] 2,000 unit PO DAILY 05/03/16 Albuterol Sulfate [Proair Hfa Inhaler] 2 puffs INH Q4H PRN 12/25/18 Calcium Carb/Vitamin D3/Vit K1 [Viactiv 650 mg-12.5 Mcg Chew] 1 tab PO DAILY 12/25/18 Multivitamin [Multiple Vitamins] 1 tab PO DAILY 12/25/18 DULoxetine [Cymbalta] 20 mg PO DAILY 07/15/21 Hydroxychloroquine [Plaquenil] 200 mg PO DAILY 07/15/21 Sucralfate [Carafate] 1 tablet PO ACHS 07/15/21 amLODIPine [Norvasc] 2.5 mg PO DAILY 07/15/21 hydroCHLOROthiazide [Hydrodiuril] 25 mg PO DAILY 07/15/21 Objective - Vital Signs/Intake & Output Reviewed Vital Signs: Yes Vital Signs: Vital Signs x48h Temp Pulse Resp BP Pulse Ox 07/18/21 11:00 117 H 26 H 145/66 H 96 07/18/21 09:00 80 15 148/62 H 98 07/18/21 06:30 36.9 C 86 18 139/70 H 96 Intake & Output: Intake & Output 07/15/21 07/16/21 07/17/21 07/18/21 23:59 23:59 23:59 23:59 Intake Total 3371.667 3830.100 2552.00 340 Output Total 2125 2950 1702 1925 Balance 1246.667 880.100 850.00 -1585 - Objective General Appearance: positive: No acute distress - Lab Results Fish Bones: 07/18/21 04:10 07/18/21 04:10 Other Labs: Lab Results x24hrs 07/18/21 07/18/21 07/18/21 Range/Units 04:10 04:10 04:10 WBC 9.1 (4.8-10.8) x10^3/uL RBC 3.46 L (4.20-5.40) 10^6/uL Hgb 10.8 L (12.0-16.0) g/dL Hct 32.4 L (37.0-47.0) % MCV 93.6 (81.0-99.0) fL MCH 31.2 H (27.0-31.0) pg MCHC 33.3 (32.0-36.0) g/dL RDW 12.9 (12.0-15.0) % Plt Count 237 (130-450) 10^3/uL MPV 11.7 H (7.9-10.8) fL Neut # (Auto) 6.9 H (1.5-6.6) 10^3/uL Lymph # (Auto) 1.1 L (1.5-3.5) 10^3/uL [place] # (Auto) 0.8 (0.0-1.0) 10^3/uL Eos # (Auto) 0.2 (0.0-0.7) 10^3/uL Baso # (Auto) 0.0 (0.0-0.1) 10^3/uL Absolute Nucleated RBC 0.00 x10^3/uL Nucleated RBC % 0.0 /100WBC VBG pH 7.467 H (7.31-7.41) Ionized Calcium 1.10 L (1.15-1.33) mmol/L Sodium 139 (135-145) mmol/L Potassium 3.6 (3.5-5.0) mmol/L Chloride 103 (101-111) mmol/L Carbon Dioxide 28 (21-32) mmol/L Anion Gap 8.0 (6-13) BUN 16 (6-20) mg/dL Creatinine 0.5 (0.4-1.0) mg/dL Estimated GFR (MDRD) 121 (>89) Glucose 133 H (70-100) mg/dL Calcium 8.2 L (8.5-10.3) mg/dL Phosphorus 2.1 L (2.5-4.6) mg/dL Magnesium 1.8 (1.7-2.8) mg/dL Total Bilirubin 0.4 (0.2-1.0) mg/dL AST 34 (10-42) IU/L ALT 22 (10-60) IU/L Alkaline Phosphatase 33 L (42-121) IU/L Total Protein 5.2 L (6.7-8.2) g/dL Albumin 2.4 L (3.2-5.5) g/dL Globulin 2.8 (2.1-4.2) g/dL Albumin/Globulin Ratio 0.9 L (1.0-2.2) Prealbumin 13 L (18-45) mg/dL Triglycerides 135 ( - 149) mg/dL 07/17/21 07/17/21 Range/Units 20:10 16:00 WBC (4.8-10.8) x10^3/uL RBC (4.20-5.40) 10^6/uL Hgb (12.0-16.0) g/dL Hct (37.0-47.0) % MCV (81.0-99.0) fL MCH (27.0-31.0) pg MCHC (32.0-36.0) g/dL RDW (12.0-15.0) % Plt Count (130-450) 10^3/uL MPV (7.9-10.8) fL Neut # (Auto) (1.5-6.6) 10^3/uL Lymph # (Auto) (1.5-3.5) 10^3/uL [place] # (Auto) (0.0-1.0) 10^3/uL Eos # (Auto) (0.0-0.7) 10^3/uL Baso # (Auto) (0.0-0.1) 10^3/uL Absolute Nucleated RBC x10^3/uL Nucleated RBC % /100WBC VBG pH (7.31-7.41) Ionized Calcium (1.15-1.33) mmol/L Sodium (135-145) mmol/L Potassium 4.1 3.9 (3.5-5.0) mmol/L Chloride (101-111) mmol/L Carbon Dioxide (21-32) mmol/L Anion Gap (6-13) BUN (6-20) mg/dL Creatinine (0.4-1.0) mg/dL Estimated GFR (MDRD) (>89) Glucose (70-100) mg/dL Calcium (8.5-10.3) mg/dL Phosphorus 2.7 (2.5-4.6) mg/dL Magnesium (1.7-2.8) mg/dL Total Bilirubin (0.2-1.0) mg/dL AST (10-42) IU/L ALT (10-60) IU/L Alkaline Phosphatase (42-121) IU/L Total Protein (6.7-8.2) g/dL Albumin (3.2-5.5) g/dL Globulin (2.1-4.2) g/dL Albumin/Globulin Ratio (1.0-2.2) Prealbumin (18-45) mg/dL Triglycerides ( - 149) mg/dL Assessment/Plan - Problem List (1) Peritonitis Impression: Resolved. She presented as 2 days of abdominal pain with nausea and vomiting. CT abd was relatively benign other than showing the bowel obstruction. There was no free air, no leakage of fluid. But on physical exam this woman was quite rigid. White cell count is 34,000. It is reassuring that her lactic acid is only 2.1. As such general surgery was called and they came in after I reexamined her. Taken to the operating room. Due to multiple allergens patient is on cefepime. Laboratory Tests 07/14/21 07/15/21 07/16/21 16:53 04:03 05:23 WBC 34.7 H 24.8 H 12.7 H 07/17/21 04:30 WBC 10.2 Laboratory Tests 07/18/21 04:10 WBC 9.1 Post op day #4. walden and wounds good. So far no complications. Plan: Bowel sounds since 07/17, flatus was yesterday and today. Still NPO. General surgery has not rounded since 07/16. Will ask them to round. As normal bowel function returns, she will go from n.p.o. to clear liquids and then diet. Transfer to med surg status from ICU status. (2) Small bowel obstruction resolved and now with postop ileus Conclusion/Plan: On admit, SBO seen on Ct scan. She has a previous diverticular episode in the past. Even though the medical record and the patient stated that she had a small bowel resection in 2004, general surgery states the patient had a sigmoid bowel resection. Because of obstruction was an adhesion. Please read the op report (3) Atrial fibrillation with RVR Conclusion/Plan: Paroxysmal. Is followed by Dane Diaz at [facility] cardiology. Most recently seen in the last few months. At that time he had recommended Eliquis for stroke prevention but I am not noticing that on her list. She does not quite remember the conversation. She is asymptomatic with regards to her atrial fibrillation. She is not on any rate lowering drugs since her episodes appear to be episodic and infrequent. He did not recommend any treatment for her small ASD. She has gone from NSR to afib on the morning of 07/16 so I will most likely dc on eliquis. She then converted back to sinus yesterday afternoon (07/17) Plan: continue to monitor tele. Anticoagulation in the outpatient setting. Lopressor prn for rate control. (4) MATILDA (acute kidney injury) resolved. Conclusion/Plan: Severe. Her usual baseline creatinine is 0.9 and she was 2.[address] does not confirm any hydronephrosis. Creat 2.6>>1.3>>0.7>>0.6>>0.5>>0.5 today. (5) Pleural effusion Conclusion/Plan: Unclear why this should be present. This woman does not have congestive heart failure. Atrial fibrillation is not severe. She does not have cirrhosis. She does appear to be quite malnourished but the effusion is isolated. She does not have diffuse anasarca. Depending on how long her stay is here we may have to address that issue with a diagnostic thoracentesis. (6) Polyarthralgia Conclusion/Plan: Long complicated history with this. She has chronic knee pain due to osteoarthritis and even a knee replacement has not helped. She has been seen by rheumatology for inflammatory disorders and all of her serologies have been negative. She has been evaluated a few times and no specific diagnosis other than possible fibromyalgia. Her admit med list was not correct and she was not on a DMARD. Pharmacy updated it and she is on plaquenil. I won't resume until discharge. We will continue to address this with intermittent Tylenol or intermittent nonsteroidals. (7) Weight loss Conclusion/Plan: She states that she is always been "thin" and is not aware of any weight loss. She is not describing anorexia, change in bowel habits. This will have to be addressed in a global fashion. My concern is that of an eating disorder, psychological disorder, cancer, or malabsorption (but she does not describe diarrhea). Pleural effusion on exam today is concerning. (8) Severe protein-calorie malnutrition Conclusion/Plan: She has lost a significant amount of weight in the last year. On examination severe loss of body mass. PICC line am of 07/16. TPN has been started. (9) Dysphonia Conclusion/Plan: In looking at her old records, she does not have vocal cord prolapse. My concern would be risk of aspiration. 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 Episodically worse. On admission, she was almost an audible in her ability to speak to me. We will just continue to monitor. Today even stronger voice. Even w NG in place.
[2021-07-18] MEDS: FAT EMULSION 20% 250 ML IV SCH (19:20)
[2021-07-18] MEDS: TPN (CLINIMIX E 5/15) 2,000 ML with MULTIVITAMIN 10 ML, TRACE ELEMENTS 1 ML IV SCH ×3 (19:21)
[2021-07-19] MEDS: SODIUM CHLORIDE FLUSH 0.9% 10 ML SYRINGE IVP SCH ×3 (01:04→21:30)
[2021-07-19 06:03] LABS: BASOPHILS % (AUTO) 0.2 %; EOSINOPHILS # (AUTO) 0.3 10^3/uL (0.0-0.7); EOSINOPHILS % (AUTO) 2.8 %; HCT - HEMATOCRIT 34.3 % (37.0-47.0); HGB - HEMOGLOBIN 11.6 g/dL (12.0-16.0); LYMPHOCYTES # (AUTO) 1.4 10^3/uL (1.5-3.5); LYMPHOCYTES % (AUTO) 14.1 %; MEAN CORPUSCULAR HEMOGLOBIN 31.6 pg (27.0-31.0); MEAN CORPUSCULAR HGB CONC 33.8 g/dL (32.0-36.0); MEAN CORPUSCULAR VOLUME 93.5 fL (81.0-99.0); MONOCYTES # (AUTO) 1.2 10^3/uL (0.0-1.0); MONOCYTES % (AUTO) 11.8 %; NEUTROPHILS # (AUTO) 7.1 10^3/uL (1.5-6.6); NEUTROPHILS % (AUTO) 70.3 %; PLT - PLATELET COUNT 297 10^3/uL (130-450); RED BLOOD COUNT 3.67 10^6/uL (4.20-5.40); RED CELL DISTRIBUTION WIDTH 12.7 % (12.0-15.0); WHITE BLOOD COUNT 10.1 x10^3/uL (4.8-10.8)
[2021-07-19 06:12] LABS: CALCIUM 8.4 mg/dL (8.5-10.3); CREATININE 0.4 mg/dL (0.4-1.0); POTASSIUM 4.1 mmol/L (3.5-5.0)
[2021-07-19] MEDS: PANTOPRAZOLE 40 MG VIAL IVP SCH (06:12)
[2021-07-19] MEDS ORDERED: guaiFENesin 600 MG TABLET PO SCH (09:00)
[2021-07-19] MEDS: CEFEPIME 1 GM in SODIUM CHLORIDE 0.9% MINIBAG 100 ML IV SCH ×2 (09:28→21:30)
[2021-07-19] MEDS: HEPARIN 5,000 UNIT/ML VIAL SUBQ SCH ×2 (09:29→21:30)
--- NOTE | 2021-07-19 10:07 | PROVIDER PROGRESS NOTE ---
Subjective - General Admit Date: 07/14/21 Procedure Date: 07/14/21 Post Op Days: 5 Procedure Performed: Exploratory laparotomy with small bowel resection and primary anastomosis - Review of Systems Wound/Incisions: positive: Dressing dry and intact General: positive: No symptoms HEENT: positive: Sore throat Pulmonary: positive: No symptoms Cardiovascular: positive: No symptoms Gastrointestinal: positive: Abdominal pain. negative: Nausea, Vomiting Genitourinary: positive: Other (Walden remains in place) Musculoskeletal: positive: No symptoms Skin: positive: No symptoms Psychiatric: positive: No symptoms All Other Systems: positive: Reviewed and negative - Other Other Information/Narrative: Sleepy but easily aroused. Reports pain is well controlled. Denies nausea. Reports bowel movements and flatus today. Objective - Patient Data Reviewed Vital Signs: Yes Vital Signs: Vital Signs x48h Temp Pulse Resp BP BP Pulse Ox 07/19/21 09:03 36.7 C 91 19 133/53 H 96 07/19/21 05:00 36.7 C 88 18 132/57 H 96 Weight: Weight 07/17/21 07/18/21 07/19/21 23:59 23:59 23:59 Weight (kg) 44 kg Intake & Output: Intake and Output Totals x24h 07/17/21 07/18/21 07/19/21 23:59 23:59 23:59 Intake Total 2552.00 2065.833 290 Output Total 1702 2435 850 Balance 850.00 -369.167 -560 - Lab Results Lab Results: 07/19/21 05:50 07/19/21 05:50 Other Lab Results: Lab Results x24hrs 07/19/21 07/19/21 07/18/21 Range/Units 05:50 05:50 14:46 WBC 10.1 (4.8-10.8) x10^3/uL RBC 3.67 L (4.20-5.40) 10^6/uL Hgb 11.6 L (12.0-16.0) g/dL Hct 34.3 L (37.0-47.0) % MCV 93.5 (81.0-99.0) fL MCH 31.6 H (27.0-31.0) pg MCHC 33.8 (32.0-36.0) g/dL RDW 12.7 (12.0-15.0) % Plt Count 297 (130-450) 10^3/uL MPV 11.0 H (7.9-10.8) fL Neut # (Auto) 7.1 H (1.5-6.6) 10^3/uL Lymph # (Auto) 1.4 L (1.5-3.5) 10^3/uL [place] # (Auto) 1.2 H (0.0-1.0) 10^3/uL Eos # (Auto) 0.3 (0.0-0.7) 10^3/uL Baso # (Auto) 0.0 (0.0-0.1) 10^3/uL Absolute Nucleated RBC 0.00 x10^3/uL Nucleated RBC % 0.0 /100WBC Sodium 136 (135-145) mmol/L Potassium 4.1 4.1 (3.5-5.0) mmol/L Chloride 100 L (101-111) mmol/L Carbon Dioxide 28 (21-32) mmol/L Anion Gap 8.0 (6-13) BUN 16 (6-20) mg/dL Creatinine 0.4 (0.4-1.0) mg/dL Estimated GFR (MDRD) 157 (>89) Glucose 109 H (70-100) mg/dL Calcium 8.4 L (8.5-10.3) mg/dL Phosphorus (2.5-4.6) mg/dL 07/18/21 Range/Units 14:46 WBC (4.8-10.8) x10^3/uL RBC (4.20-5.40) 10^6/uL Hgb (12.0-16.0) g/dL Hct (37.0-47.0) % MCV (81.0-99.0) fL MCH (27.0-31.0) pg MCHC (32.0-36.0) g/dL RDW (12.0-15.0) % Plt Count (130-450) 10^3/uL MPV (7.9-10.8) fL Neut # (Auto) (1.5-6.6) 10^3/uL Lymph # (Auto) (1.5-3.5) 10^3/uL [place] # (Auto) (0.0-1.0) 10^3/uL Eos # (Auto) (0.0-0.7) 10^3/uL Baso # (Auto) (0.0-0.1) 10^3/uL Absolute Nucleated RBC x10^3/uL Nucleated RBC % /100WBC Sodium (135-145) mmol/L Potassium (3.5-5.0) mmol/L Chloride (101-111) mmol/L Carbon Dioxide (21-32) mmol/L Anion Gap (6-13) BUN (6-20) mg/dL Creatinine (0.4-1.0) mg/dL Estimated GFR (MDRD) (>89) Glucose (70-100) mg/dL Calcium (8.5-10.3) mg/dL Phosphorus 3.1 (2.5-4.6) mg/dL - Current Medications Current Medications: Current Medications Generic Name Dose Route Start Last Admin Trade Name Freq PRN Reason Stop Dose Admin Acetaminophen 650 mg 07/14/21 18:26 07/17/21 16:16 Acetaminophen 325 Mg Tablet PO 650 mg Q4HR PRN Administration Pain 1 to 4, or Fever Heparin Sodium (Porcine) 5,000 unit 07/14/21 21:00 07/19/21 09:29 Heparin 5,000 Unit/Ml Vial SUBQ 5,000 unit BID KARLY Administration Cefepime HCl 1 gm/ Sodium 100 mls @ 200 mls/hr 07/15/21 11:00 07/19/21 09:28 Chloride IV 200 mls/hr BID KARLY Administration Multivitamins 10 ml/ TRACE 2,011 mls @ 50 mls/hr 07/15/21 19:00 07/18/21 19:21 ELEMENTS 1 ml/ Amino Ac/ IV 50 mls/hr Electrol/Dextrose/Calcium 1900 [facility] Administration Protocol Fat Emulsion Intravenous 250 mls @ 21 mls/hr 07/15/21 19:00 07/19/21 07:17 Intralipid 20% IV Infused 1900 [facility] Infusion Metoprolol Tartrate 5 mg 07/14/21 18:32 07/17/21 09:46 Metoprolol 5 Mg/5 Ml Vial IVP 5 mg Q6H PRN Administration Tachycardia Morphine Sulfate 2 mg 07/14/21 18:26 07/18/21 19:56 Morphine 2 Mg/Ml Carpuject IVP 2 mg Q2HR PRN Administration Pain 8 to 10 Pantoprazole Sodium 40 mg 07/15/21 10:00 07/19/21 06:12 Pantoprazole 40 Mg Vial IVP 40 mg QDAC KARLY Administration Phenol/Menthol 2 sprays 07/15/21 00:14 07/15/21 04:15 Phenol Throat [place] 177 Ml MM 2 sprays Q2HR PRN Administration Throat Pain Sodium Chloride 10 ml 07/14/21 18:26 07/17/21 09:53 Sodium Chloride Flush 0.9% 10 Ml Syringe IVP 10 ml PRN PRN Administration NEEDED PER PROVIDER ORDERS Sodium Chloride 10 ml 07/15/21 01:00 07/19/21 09:28 Sodium Chloride Flush 0.9% 10 Ml Syringe IVP 10 ml 0100,0900,1700 KARLY Administration - Physical Exam Wound/Incisions: positive: Healing well, Dressing dry and intact, No drainage General Appearance: positive: No acute distress Eyes Bilateral: positive: Normal inspection Respiratory: positive: No respiratory distress, Other (decreased at the bases bilaterally) Cardiovascular: positive: Regular rate & rhythm Abdomen: positive: Nml bowel sounds, No distention. negative: Guarding, Rebound Skin: positive: Color nml Neurologic/Psychiatric: positive: Oriented x3 ABX Reporting Has patient been on IV antibiotics over the past 48 hours?: Yes Impression/Plan - Problem List Problem List: POD #5 After Ex Lap with Small bowel resection 1. Remove NGT and start clears 2. Remove walden catheter 3. Could stop antibiotic as she has normal WBCs and no continuing source of intra-abdominal infection 4. Would continue TPN through the day but plan to stop after this bag if she is able to tolerate clears
[2021-07-19] MEDS: ACETAMINOPHEN 325 MG TABLET PO PRN (10:17)
--- NOTE | 2021-07-19 11:05 | PROVIDER PROGRESS NOTE ---
Subjective - Prog Note Date Prog Note Date: 07/19/21 Prog Note Time: 11:03 - Subjective Subjective: she is just really tired and her incision hurts but she is so happy she had a BM today. no cp, no sob, no leg edema Current Medications - Current Medications Current Medications: Active Medications Acetaminophen (Acetaminophen 325 Mg Tablet) 650 mg PO Q4HR PRN PRN Reason: Pain 1 to 4, or Fever Last Admin: 07/19/21 10:17 Dose: 650 mg Heparin Sodium (Porcine) (Heparin 5,000 Unit/Ml Vial) 5,000 unit SUBQ BID [facility] Last Admin: 07/19/21 09:29 Dose: 5,000 unit Cefepime HCl 1 gm/ Sodium (Chloride) 100 mls @ 200 mls/hr IV BID [facility] Last Infusion: 07/19/21 10:06 Dose: Infused Multivitamins 10 ml/ TRACE ELEMENTS 1 ml/ Amino Ac/Electrol/Dextrose/Calcium 2,011 mls @ 50 mls/hr IV 1900 [facility]; Protocol Last Admin: 07/18/21 19:21 Dose: 50 mls/hr Fat Emulsion Intravenous (Intralipid 20%) 250 mls @ 21 mls/hr IV 1900 [facility] Last Infusion: 07/19/21 07:17 Dose: Infused Levalbuterol HCl (Levalbuterol 1.25 Mg/3 Ml Neb) 1.25 mg INH Q4H PRN PRN Reason: Shortness of Air/Wheezing Metoprolol Tartrate (Metoprolol 5 Mg/5 Ml Vial) 5 mg IVP Q6H PRN PRN Reason: Tachycardia Last Admin: 07/17/21 09:46 Dose: 5 mg Morphine Sulfate (Morphine 2 Mg/Ml Carpuject) 2 mg IVP Q2HR PRN PRN Reason: Pain 8 to 10 Last Admin: 07/18/21 19:56 Dose: 2 mg Ondansetron HCl (Ondansetron 4 Mg/2 Ml Vial) 4 mg IVP Q6HR PRN PRN Reason: Nausea / Vomiting Pantoprazole Sodium (Pantoprazole 40 Mg Vial) 40 mg IVP QDAC [facility] Last Admin: 07/19/21 06:12 Dose: 40 mg Phenol/Menthol (Phenol Throat [place] 177 Ml) 2 sprays MM Q2HR PRN PRN Reason: Throat Pain Last Admin: 07/15/21 04:15 Dose: 2 sprays Sodium Chloride (Sodium Chloride Flush 0.9% 10 Ml Syringe) 10 ml IVP PRN PRN PRN Reason: NEEDED PER PROVIDER ORDERS Last Admin: 07/17/21 09:53 Dose: 10 ml Sodium Chloride (Sodium Chloride Flush 0.9% 10 Ml Syringe) 10 ml IVP 0100,0900,1700 KARLY Last Admin: 07/19/21 09:28 Dose: 10 ml Throat Lozenges (Benzocaine/Menthol Lozenge) 1 lozenge MM Q2HR PRN PRN Reason: Mouth Sore Pain Cholecalciferol (Vitamin D3) [Vitamin D3] 2,000 unit PO DAILY 05/03/16 Albuterol Sulfate [Proair Hfa Inhaler] 2 puffs INH Q4H PRN 12/25/18 Calcium Carb/Vitamin D3/Vit K1 [Viactiv 650 mg-12.5 Mcg Chew] 1 tab PO DAILY 12/25/18 Multivitamin [Multiple Vitamins] 1 tab PO DAILY 12/25/18 DULoxetine [Cymbalta] 20 mg PO DAILY 07/15/21 Hydroxychloroquine [Plaquenil] 200 mg PO DAILY 07/15/21 Sucralfate [Carafate] 1 tablet PO ACHS 07/15/21 amLODIPine [Norvasc] 2.5 mg PO DAILY 07/15/21 hydroCHLOROthiazide [Hydrodiuril] 25 mg PO DAILY 07/15/21 Objective - Vital Signs/Intake & Output Reviewed Vital Signs: Yes Vital Signs: Vital Signs x48h Temp Pulse Resp BP BP Pulse Ox 07/19/21 09:03 36.7 C 91 19 133/53 H 96 07/19/21 05:00 36.7 C 88 18 132/57 H 96 Intake & Output: Intake & Output 07/16/21 07/17/21 07/18/21 07/19/21 23:59 23:59 23:59 23:59 Intake Total 3830.100 2552.00 2065.833 390 Output Total 2950 1702 2435 925 Balance 880.100 850.00 -369.167 -535 - Objective General Appearance: positive: No acute distress, Alert, Other (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 negative: Stiff neck Respiratory: positive: No respiratory distress. negative: Wheezes, Rales, Rhonchi Cardiovascular: positive: Regular rate & rhythm (she was atrial fib for 24 hours and self resolved). negative: Gallop/S4, Friction rub Abdomen: positive: Nml bowel sounds, No distention, Tenderness (at incision that is clean, dry). negative: Guarding, Rebound Skin: positive: Warm, Dry, Pallor Extremities: positive: Full ROM, No pedal edema (cachectic female) Neurologic/Psychiatric: positive: Oriented x3, CN's nml (2-12), Motor nml, Sensation nml - Lab Results Fish Bones: 07/19/21 05:50 07/19/21 05:50 Other Labs: Lab Results x24hrs 07/19/21 07/19/21 07/18/21 Range/Units 05:50 05:50 14:46 WBC 10.1 (4.8-10.8) x10^3/uL RBC 3.67 L (4.20-5.40) 10^6/uL Hgb 11.6 L (12.0-16.0) g/dL Hct 34.3 L (37.0-47.0) % MCV 93.5 (81.0-99.0) fL MCH 31.6 H (27.0-31.0) pg MCHC 33.8 (32.0-36.0) g/dL RDW 12.7 (12.0-15.0) % Plt Count 297 (130-450) 10^3/uL MPV 11.0 H (7.9-10.8) fL Neut # (Auto) 7.1 H (1.5-6.6) 10^3/uL Lymph # (Auto) 1.4 L (1.5-3.5) 10^3/uL [place] # (Auto) 1.2 H (0.0-1.0) 10^3/uL Eos # (Auto) 0.3 (0.0-0.7) 10^3/uL Baso # (Auto) 0.0 (0.0-0.1) 10^3/uL Absolute Nucleated RBC 0.00 x10^3/uL Nucleated RBC % 0.0 /100WBC Sodium 136 (135-145) mmol/L Potassium 4.1 4.1 (3.5-5.0) mmol/L Chloride 100 L (101-111) mmol/L Carbon Dioxide 28 (21-32) mmol/L Anion Gap 8.0 (6-13) BUN 16 (6-20) mg/dL Creatinine 0.4 (0.4-1.0) mg/dL Estimated GFR (MDRD) 157 (>89) Glucose 109 H (70-100) mg/dL Calcium 8.4 L (8.5-10.3) mg/dL Phosphorus (2.5-4.6) mg/dL 07/18/21 Range/Units 14:46 WBC (4.8-10.8) x10^3/uL RBC (4.20-5.40) 10^6/uL Hgb (12.0-16.0) g/dL Hct (37.0-47.0) % MCV (81.0-99.0) fL MCH (27.0-31.0) pg MCHC (32.0-36.0) g/dL RDW (12.0-15.0) % Plt Count (130-450) 10^3/uL MPV (7.9-10.8) fL Neut # (Auto) (1.5-6.6) 10^3/uL Lymph # (Auto) (1.5-3.5) 10^3/uL [place] # (Auto) (0.0-1.0) 10^3/uL Eos # (Auto) (0.0-0.7) 10^3/uL Baso # (Auto) (0.0-0.1) 10^3/uL Absolute Nucleated RBC x10^3/uL Nucleated RBC % /100WBC Sodium (135-145) mmol/L Potassium (3.5-5.0) mmol/L Chloride (101-111) mmol/L Carbon Dioxide (21-32) mmol/L Anion Gap (6-13) BUN (6-20) mg/dL Creatinine (0.4-1.0) mg/dL Estimated GFR (MDRD) (>89) Glucose (70-100) mg/dL Calcium (8.5-10.3) mg/dL Phosphorus 3.1 (2.5-4.6) mg/dL ABX Reporting Has patient been on IV antibiotics over the past 48 hours?: Yes Assessment/Plan - Problem List (1) Peritonitis Impression: She presented as 2 days of abdominal pain with nausea and vomiting. CT abd was relatively benign other than showing the small bowel obstruction. There was no free air, no leakage of fluid. But on physical exam this woman was quite rigid. White cell count is 34,000. It is reassuring that her lactic acid is only 2.1. As such general surgery was called and they came in after I reexamined her. Taken to the operating room. Due to multiple allergens patient is on cefepime. She underwent she was found to have had a small bowel obstruction . Small bowel was necrotic due to internal hernia. She underwent an exploratory laparotomy with lysis of adhesions, small bowel resection and primary anastomosis on July 14. She is now postoperative day #5. She had a large bowel movement today. NG tube has been pulled, Fernandez has been pulled. She will now be progressed to clear liquids and then a full diet per orders of general surgery. Plan: Start assessing for discharge. I would anticipate discharge in the next 2 days when she is tolerating a diet. She is ambulating in the room with 2-3 steps. Sits up in her chair. Main barrier to discharge is incisional pain. But that appears to be well controlled. She is on day #6 of antibiotics. I would think those can be stopped now as well. She is currently on TPN. I will let that last bag stop at 7 PM tonight and no further TPN. I will look at her home medication list and reconcile home meds. (2) Atrial fibrillation with RVR Conclusion/Plan: Paroxysmal. Is followed by Dane Diaz at [facility], [place], operated by [facility] cardiology. Most recently seen in the last few months. At that time he had recommended Eliquis for stroke prevention but I am not noticing that on her list. She does not quite remember the conversation. She is asymptomatic with regards to her atrial fibrillation. She is not on any rate lowering drugs since her episodes appear to be episodic and infrequent. He did not recommend any treatment for her small ASD. She has gone from NSR to afib on the morning of 07/16 so I will most likely dc on eliquis. 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 We need to make sure that Dr. Diaz knows that. I would consider anticoagulation in the outpatient setting with Em. She is received it twice here. That was when she was in atrial fibrillation. I will stop her as needed Lopressor IV and changed that to metoprolol XL 25 mg a day. At discharge would consider only low-dose in order to avoid significant bradycardia when not in atrial fibrillation. (3) MATILDA (acute kidney injury) resolved. Conclusion/Plan: Severe. Her usual baseline creatinine is 0.9 and she was 2.[address] does not confirm any hydronephrosis. Creat 2.6>>1.3>>0.7>>0.6>>0.5>>0.5>>0.4 today. (4) Pleural effusion Conclusion/Plan: Unclear why this should be present on admission. Effusion was not present on 06/2019 xrays. She does not have sob or wu as complaint. No fever, chills, cough. This woman does not have congestive heart failure. Atrial fibrillation is intermittent and she does not describe tachycardic episodes. She does not have cirrhosis. She does appear to be quite malnourished but the effusion is isolated. She does not have diffuse anasarca. Depending on how long her stay is here we may have to address that issue with a diagnostic thoracentesis. So far we have not addressed this due to her surgery and recovery. She is not having symptoms from this effusion so if she gets a thoracentesis it would be diagnostic. (6) Polyarthralgia Conclusion/Plan: Long complicated history with this. She has chronic knee pain due to osteoarthritis and even a knee replacement has not helped. She has been seen by rheumatology for inflammatory disorders and all of her serologies have been ne gative. She has been evaluated a few times and no specific diagnosis other than possible fibromyalgia. Her admit med list was not correct and she was not on a DMARD on that list. Once Pharmacy updated it, she is on plaquenil. I won't resume until discharge. We will continue to address the arthralgia with intermittent Tylenol or intermittent nonsteroidals. (7) Weight loss Conclusion/Plan: She states that she is always been "thin" and is not aware of any weight loss. She is not describing anorexia, change in bowel habits. This will have to be addressed in a global fashion. My concern is that of an eating disorder, psychological disorder, cancer, or malabsorption (but she does not describe diarrhea). Pleural effusion on xray is concerning since neoplasm is in the differential diagnosis in view of her weight loss as well. (8) Severe protein-calorie malnutrition Conclusion/Plan: She has lost a significant amount of weight in the last year. On examination severe loss of body mass. PICC line am of 07/16. TPN has been started. TPN will stop tonight at the end of her current bag at 7 pm. She is being started on a diet today and will progress. (9) Dysphonia Conclusion/Plan: In looking at her old records, she does not have vocal cord prolapse. My concern would be risk of aspiration. 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 Episodically worse. On admission, she was almost an audible in her ability to speak to me. We will just continue to monitor. Today even stronger voice. Even w NG in place.
[2021-07-20] MEDS: PANTOPRAZOLE 40 MG TABLET PO SCH (07:21)
[2021-07-20] MEDS: ACETAMINOPHEN 325 MG TABLET PO PRN (07:21)
[2021-07-20] MEDS: SODIUM CHLORIDE FLUSH 0.9% 10 ML SYRINGE IVP PRN (07:23)
[2021-07-20 07:28] LABS: BASOPHILS % (AUTO) 0.3 %; EOSINOPHILS # (AUTO) 0.2 10^3/uL (0.0-0.7); EOSINOPHILS % (AUTO) 2.9 %; HCT - HEMATOCRIT 30.2 % (37.0-47.0); HGB - HEMOGLOBIN 10.4 g/dL (12.0-16.0); LYMPHOCYTES # (AUTO) 1.1 10^3/uL (1.5-3.5); LYMPHOCYTES % (AUTO) 16.6 %; MEAN CORPUSCULAR HEMOGLOBIN 32.2 pg (27.0-31.0); MEAN CORPUSCULAR HGB CONC 34.4 g/dL (32.0-36.0); MEAN CORPUSCULAR VOLUME 93.5 fL (81.0-99.0); MONOCYTES # (AUTO) 0.9 10^3/uL (0.0-1.0); MONOCYTES % (AUTO) 13.7 %; NEUTROPHILS # (AUTO) 4.5 10^3/uL (1.5-6.6); NEUTROPHILS % (AUTO) 65.2 %; PLT - PLATELET COUNT 275 10^3/uL (130-450); RED BLOOD COUNT 3.23 10^6/uL (4.20-5.40); RED CELL DISTRIBUTION WIDTH 12.5 % (12.0-15.0); WHITE BLOOD COUNT 6.9 x10^3/uL (4.8-10.8)
[2021-07-20 07:35] LABS: ALBUMIN 2.4 g/dL (3.2-5.5); ALBUMIN/GLOBULIN RATIO 0.9 (1.0-2.2); BILIRUBIN,TOTAL 0.5 mg/dL (0.2-1.0); CALCIUM 8.3 mg/dL (8.5-10.3); CREATININE 0.5 mg/dL (0.4-1.0); MAGNESIUM 1.7 mg/dL (1.7-2.8); PHOSPHORUS 2.7 mg/dL (2.5-4.6); POTASSIUM 4.1 mmol/L (3.5-5.0)
--- NOTE | 2021-07-20 07:38 | PROVIDER PROGRESS NOTE ---
Assessment/Plan - Problem List (1) Small bowel obstruction Assessment/Plan: Post small bowel resection and primary anastomosis postop day #6. Bowel obstruction was due to internal hernia causing a high-grade small bowel obstruction with necrosis. Abdominal pain is minimal. Patient reported flatulence and a bowel movement within the past 24 hours. TPN and NG tube were discontinued on 07/19/2021 Placed on a soft diet on 07/20/21. If patient tolerates diet and continues to do well, she could potentially be discharged on 07/21/2021. General surgery following. (2) Atrial fibrillation with RVR Assessment/Plan: Paroxysmal. 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 Heart rate is currently between 70 and 90. Currently on metoprolol succinate 25 mg p.o. daily. It has been recommended that patient be on an anticoagulant. It is unclear why she currently is not on 1. Will recommend Eliquis in the outpatient setting. (3) MATILDA (acute kidney injury) Assessment/Plan: Resolved. Creatinine on 07/20/21 was 0.5 with an estimated GFR of 121. At time of admission creatinine was 2.6 (4) Pleural effusion Assessment/Plan: Etiology undetermined. Patient was asymptomatic. (5) Polyarthralgia Assessment/Plan: Chronic. Chronic knee pain due to osteoarthritis and subsequent knee replacement has not helped. Will resume patient's Plaquenil upon discharge. Tramadol ordered for pain management in the hospital. (6) Severe protein-calorie malnutrition Assessment/Plan: Patient was on TPN from 07/16/2021 until 07/19/2021. Nutrition to assist with continued management. - Current Meds Current Meds: Current Medications Generic Name Dose Route Start Last Admin Trade Name Freq PRN Reason Stop Dose Admin Acetaminophen 650 mg 07/14/21 18:26 07/20/21 07:21 Acetaminophen 325 Mg Tablet PO 650 mg Q4HR PRN Administration Pain 1 to 4, or Fever Heparin Sodium (Porcine) 5,000 unit 07/14/21 21:00 07/19/21 21:30 Heparin 5,000 Unit/Ml Vial SUBQ 5,000 unit BID KARLY Administration Cefepime HCl 1 gm/ Sodium 100 mls @ 200 mls/hr 07/15/21 11:00 07/19/21 22:00 Chloride IV 07/20/21 09:00 Infused BID KARLY Infusion Morphine Sulfate 2 mg 07/14/21 18:26 07/18/21 19:56 Morphine 2 Mg/Ml Carpuject IVP 2 mg Q2HR PRN Administration Pain 8 to 10 Pantoprazole Sodium 40 mg 07/20/21 07:00 07/20/21 07:21 Pantoprazole 40 Mg Tablet PO 40 mg QDAC KARLY Administration Phenol/Menthol 2 sprays 07/15/21 00:14 07/15/21 04:15 Phenol Throat [place] 177 Ml MM 2 sprays Q2HR PRN Administration Throat Pain Sodium Chloride 10 ml 07/14/21 18:26 07/20/21 07:23 Sodium Chloride Flush 0.9% 10 Ml Syringe IVP 50 ml PRN PRN Administration NEEDED PER PROVIDER ORDERS Sodium Chloride 10 ml 07/15/21 01:00 07/19/21 21:30 Sodium Chloride Flush 0.9% 10 Ml Syringe IVP 10 ml 0100,0900,1700 KARLY Administration - Lab Result Fish Bone Diagrams: 07/20/21 07:00 07/20/21 07:00 - Additional Planning My Orders: My Active Orders 07/20/21 07:36 BMP - BASIC METABOLIC PANEL [CHEM] Stat CBC - COMP BLD CT W/AUTO DIFF [HEME] Stat 07/21/21 05:00 BMP - BASIC METABOLIC PANEL [CHEM] DAILYLAB CBC - COMP BLD CT W/AUTO DIFF [HEME] DAILYLAB 07/22/21 05:00 BMP - BASIC METABOLIC PANEL [CHEM] DAILYLAB CBC - COMP BLD CT W/AUTO DIFF [HEME] DAILYLAB 07/23/21 05:00 BMP - BASIC METABOLIC PANEL [CHEM] DAILYLAB CBC - COMP BLD CT W/AUTO DIFF [HEME] DAILYLAB Subjective - Subjective Patient Reports: Other (Resting comfortably in bed at time of exam. was at bedside. She rated her abdominal pain 1 out of 10 scale. She denied nausea or vomiting. Reported flatulence and bowel movement in the past 24 hours. Significant bowel sounds appreciable on auscultation.) Objective Vital Signs: Vital Signs - 24 hr 07/19/21 07/19/21 07/19/21 09:03 12:06 16:09 Temperature 36.7 C 36.5 C 37.1 C Heart Rate [ Monitoring electrodes] Heart Rate [ 91 106 H 70 Radial] Respiratory 19 16 18 Rate Blood Pressure 133/53 H 103/79 112/44 L [Left Brachial artery] Blood Pressure [Right Brachial artery] O2 Saturation 96 98 98 07/19/21 07/20/21 07/20/21 21:00 00:15 05:35 Temperature 37.1 C 37 C 36.9 C Heart Rate [ 89 83 82 Monitoring electrodes] Heart Rate [ Radial] Respiratory 14 18 18 Rate Blood Pressure 100/52 L [Left Brachial artery] Blood Pressure 115/53 L 116/58 L [Right Brachial artery] O2 Saturation 97 95 96 Oxygen O2 Source Room air I&O (Last 24 Hrs): Intake and Output Totals x24h 07/18/21 07/19/21 07/20/21 23:59 23:59 23:59 Intake Total 2065.833 2442.5 Output Total 2435 1525 Balance -369.167 917.5 General: Alert, Oriented x3, Mild distress HEENT: PERRLA, EOMI Neck: Supple, No JVD Neuro: Alert, Non Focal, Oriented Times 3 Cardiovascular: Regular rate Respiratory: Chest non-tender, No respiratory distress, Breath sounds nml Abdomen: Normal bowel sounds, Soft, Other (tenderness to palpation at surgical site) Extremities: No clubbing, No cyanosis, No edema Skin: No rashes, No breakdown, No significant lesion - Results Results: Laboratory Results WBC 6.9 x10^3/uL (4.8-10.8) 07/20/21 07:00 RBC 3.23 10^6/uL (4.20-5.40) L 07/20/21 07:00 Hgb 10.4 g/dL (12.0-16.0) L 07/20/21 07:00 Hct 30.2 % (37.0-47.0) L 07/20/21 07:00 MCV 93.5 fL (81.0-99.0) 07/20/21 07:00 MCH 32.2 pg (27.0-31.0) H 07/20/21 07:00 MCHC 34.4 g/dL (32.0-36.0) 07/20/21 07:00 RDW 12.5 % (12.0-15.0) 07/20/21 07:00 Plt Count 275 10^3/uL (130-450) 07/20/21 07:00 MPV 11.0 fL (7.9-10.8) H 07/20/21 07:00 Neut # (Auto) 4.5 10^3/uL (1.5-6.6) 07/20/21 07:00 Lymph # (Auto) 1.1 10^3/uL (1.5-3.5) L 07/20/21 07:00 [place] # (Auto) 0.9 10^3/uL (0.0-1.0) 07/20/21 07:00 Eos # (Auto) 0.2 10^3/uL (0.0-0.7) 07/20/21 07:00 Baso # (Auto) 0.0 10^3/uL (0.0-0.1) 07/20/21 07:00 Absolute Nucleated RBC 0.00 x10^3/uL 07/20/21 07:00 Total Counted 100 07/15/21 04:03 Band Neuts % (Manual) 0 % (0-10) 07/15/21 04:03 Abnorm Lymph % (Manual) 0 % 07/15/21 04:03 Nucleated RBC % 0.0 /100WBC 07/20/21 07:00 Neutrophils # (Manual) 21.3 10^3/uL (1.5-6.6) H 07/15/21 04:03 Lymphocytes # (Manual) 1.5 10^3/uL (1.5-3.5) 07/15/21 04:03 Monocytes # (Manual) 2.0 10^3/uL (0.0-1.0) H 07/15/21 04:03 Eosinophils # (Manual) 0.0 10^3/uL (0-0.7) 07/15/21 04:03 Basophils # (Manual) 0.0 10^3/uL (0-0.1) 07/15/21 04:03 Differential Comment MANUAL DIFFERENTIAL 07/15/21 04:03 Manual Slide Review Indicated 07/14/21 16:53 WBC Morphology NORMAL APPEARANCE (NORMAL) 07/15/21 04:03 Platelet Estimate NORMAL (130-450,000) (NORMAL) 07/15/21 04:03 Platelet Morphology NORMAL APPEARANCE (NORMAL) 07/15/21 04:03 RBC Morph Micro Appear NORMAL APPEARANCE (NORMAL) 07/15/21 04:03 VBG pH 7.467 (7.31-7.41) H 07/18/21 04:10 Ionized Calcium 1.10 mmol/L (1.15-1.33) L 07/18/21 04:10 Sodium 140 mmol/L (135-145) 07/20/21 07:00 Potassium 4.1 mmol/L (3.5-5.0) 07/20/21 07:00 Chloride 105 mmol/L (101-111) 07/20/21 07:00 Carbon Dioxide 28 mmol/L (21-32) 07/20/21 07:00 Anion Gap 7.0 (6-13) 07/20/21 07:00 BUN 16 mg/dL (6-20) 07/20/21 07:00 Creatinine 0.5 mg/dL (0.4-1.0) 07/20/21 07:00 Estimated GFR (MDRD) 121 (>89) 07/20/21 07:00 Glucose 94 mg/dL (70-100) 07/20/21 07:00 Lactic Acid 1.1 mmol/L (0.5-2.2) 07/15/21 04:03 Calcium 8.3 mg/dL (8.5-10.3) L 07/20/21 07:00 Phosphorus 2.7 mg/dL (2.5-4.6) 07/20/21 07:00 Magnesium 1.7 mg/dL (1.7-2.8) 07/20/21 07:00 Total Bilirubin 0.5 mg/dL (0.2-1.0) 07/20/21 07:00 AST 103 IU/L (10-42) H 07/20/21 07:00 ALT 68 IU/L (10-60) H 07/20/21 07:00 Alkaline Phosphatase 92 IU/L (42-121) 07/20/21 07:00 Total Protein 5.0 g/dL (6.7-8.2) L 07/20/21 07:00 Albumin 2.4 g/dL (3.2-5.5) L 07/20/21 07:00 Globulin 2.6 g/dL (2.1-4.2) 07/20/21 07:00 Albumin/Globulin Ratio 0.9 (1.0-2.2) L 07/20/21 07:00 Prealbumin 17 mg/dL (18-45) L 07/20/21 07:00 Triglycerides 149 mg/dL (-149) 07/20/21 07:00 Lipase 28 U/L (22-51) 07/14/21 16:53 Urine Color YELLOW 07/14/21 20:15 Urine Clarity CLEAR (CLEAR) 07/14/21 20:15 Urine pH 6.0 PH (5.0-7.5) 07/14/21 20:15 Ur Specific [place] 1.025 (1.002-1.030) 07/14/21 20:15 Urine Protein NEGATIVE mg/dL (NEGATIVE) 07/14/21 20:15 Urine Glucose (UA) NEGATIVE mg/dL (NEGATIVE) 07/14/21 20:15 Urine Ketones NEGATIVE mg/dL (NEGATIVE) 07/14/21 20:15 Urine Occult Blood SMALL (NEGATIVE) H 07/14/21 20:15 Urine Nitrite NEGATIVE (NEGATIVE) 07/14/21 20:15 Urine Bilirubin NEGATIVE (NEGATIVE) 07/14/21 20:15 Urine Urobilinogen 0.2 (NORMAL) E.U./dL (NORMAL) 07/14/21 20:15 Ur Leukocyte Esterase NEGATIVE (NEGATIVE) 07/14/21 20:15 Urine RBC 0-5 /HPF (0-5) 07/14/21 20:15 Urine WBC 0-3 /HPF (0-5) 07/14/21 20:15 Ur Squamous Epith Cells RARE Squamous (<= Few) 07/14/21 20:15 Urine Bacteria Rare /HPF (None Seen) 07/14/21 20:15 Urine Casts 0-2 Hyaline Casts /LPF 07/14/21 20:15 Ur Microscopic Review INDICATED 07/14/21 20:15 Urine Culture Comments NOT INDICATED 07/14/21 20:15 Nasal Adenovirus (PCR) NOT DETECTED 07/14/21 17:05 Nasal B. parapertussis DNA (PCR) NOT DETECTED 07/14/21 17:05 Nasal Coronavir 229E PCR NOT DETECTED 07/14/21 17:05 Nasal Coronavir HKU1 PCR NOT DETECTED 07/14/21 17:05 Nasal Coronavir NL63 PCR NOT DETECTED 07/14/21 17:05 Nasal Coronavir OC43 PCR NOT DETECTED 07/14/21 17:05 Nasal Enterovir/Rhinovir PCR NOT DETECTED 07/14/21 17:05 Nasal Influenza B PCR NOT DETECTED 07/14/21 17:05 Nasal Influenza A PCR NOT DETECTED 07/14/21 17:05 Nasal Parainfluen 1 PCR NOT DETECTED 07/14/21 17:05 Nasal Parainfluen 2 PCR NOT DETECTED 07/14/21 17:05 Nasal Parainfluen 3 PCR NOT DETECTED 07/14/21 17:05 Nasal Parainfluen 4 PCR NOT DETECTED 07/14/21 17:05 Nasal RSV (PCR) NOT DETECTED 07/14/21 17:05 Nasal Screen MRSA (PCR) NEGATIVE (NEGATIVE) 07/14/21 23:45 Nasal B.pertussis DNA PCR NOT DETECTED 07/14/21 17:05 Nasal C.pneumoniae (PCR) NOT DETECTED 07/14/21 17:05 [employer] Human Metapneumo PCR NOT DETECTED 07/14/21 17:05 Nasal M.pneumoniae (PCR) NOT DETECTED 07/14/21 17:05 Nasal SARS-CoV-2 (PCR) NOT DETECTED 07/14/21 17:05 - Procedures Procedures: Procedures REPLACEMENT OF LEFT LENS WITH SYNTH SUB, PERC APPROACH (05/18/16) REPLACEMENT OF RIGHT LENS WITH SYNTH SUB, PERC APPROACH (05/04/16) ABX Reporting Has patient been on IV antibiotics over the past 48 hours?: No
--- NOTE | 2021-07-20 08:44 | PROVIDER PROGRESS NOTE ---
Subjective - General Admit Date: 07/14/21 Procedure Date: 07/14/21 Post Op Days: 6 Procedure Performed: Exploratory laparotomy with small bowel resection and primary anastomosis - Review of Systems Wound/Incisions: positive: Healing well, Dressing dry and intact, No drainage General: positive: No symptoms HEENT: positive: Sore throat Pulmonary: positive: No symptoms Cardiovascular: positive: No symptoms Gastrointestinal: positive: Abdominal pain. negative: Nausea, Vomiting Genitourinary: positive: Other (Fernandez remains in place) Musculoskeletal: positive: No symptoms Skin: positive: No symptoms Psychiatric: positive: No symptoms All Other Systems: positive: Reviewed and negative - Other Other Information/Narrative: Very bright and awake and alert this morning. Feeling much better. No complaints. Has not had any nausea. Tolerating clear liquids without difficulty. Pain is well controlled Objective - Patient Data Reviewed Vital Signs: Yes Vital Signs: Vital Signs x48h Temp Pulse Pulse Resp BP Pulse Ox 07/20/21 07:48 36.5 C 79 16 113/53 L 99 07/20/21 05:35 36.9 C 82 18 116/58 L 96 Intake & Output: Intake and Output Totals x24h 07/18/21 07/19/21 07/20/21 23:59 23:59 23:59 Intake Total 2065.833 2442.5 Output Total 2435 1525 Balance -369.167 917.5 - Lab Results Lab Results: 07/20/21 07:00 07/20/21 07:00 Other Lab Results: Lab Results x24hrs 07/20/21 07/20/21 Range/Units 07:00 07:00 WBC 6.9 (4.8-10.8) x10^3/uL RBC 3.23 L (4.20-5.40) 10^6/uL Hgb 10.4 L (12.0-16.0) g/dL Hct 30.2 L (37.0-47.0) % MCV 93.5 (81.0-99.0) fL MCH 32.2 H (27.0-31.0) pg MCHC 34.4 (32.0-36.0) g/dL RDW 12.5 (12.0-15.0) % Plt Count 275 (130-450) 10^3/uL MPV 11.0 H (7.9-10.8) fL Neut # (Auto) 4.5 (1.5-6.6) 10^3/uL Lymph # (Auto) 1.1 L (1.5-3.5) 10^3/uL [place] # (Auto) 0.9 (0.0-1.0) 10^3/uL Eos # (Auto) 0.2 (0.0-0.7) 10^3/uL Baso # (Auto) 0.0 (0.0-0.1) 10^3/uL Absolute Nucleated RBC 0.00 x10^3/uL Nucleated RBC % 0.0 /100WBC Sodium 140 (135-145) mmol/L Potassium 4.1 (3.5-5.0) mmol/L Chloride 105 (101-111) mmol/L Carbon Dioxide 28 (21-32) mmol/L Anion Gap 7.0 (6-13) BUN 16 (6-20) mg/dL Creatinine 0.5 (0.4-1.0) mg/dL Estimated GFR (MDRD) 121 (>89) Glucose 94 (70-100) mg/dL Calcium 8.3 L (8.5-10.3) mg/dL Phosphorus 2.7 (2.5-4.6) mg/dL Magnesium 1.7 (1.7-2.8) mg/dL Total Bilirubin 0.5 (0.2-1.0) mg/dL AST 103 H (10-42) IU/L ALT 68 H (10-60) IU/L Alkaline Phosphatase 92 (42-121) IU/L Total Protein 5.0 L (6.7-8.2) g/dL Albumin 2.4 L (3.2-5.5) g/dL Globulin 2.6 (2.1-4.2) g/dL Albumin/Globulin Ratio 0.9 L (1.0-2.2) Prealbumin 17 L (18-45) mg/dL Triglycerides 149 ( - 149) mg/dL - Current Medications Current Medications: Current Medications Generic Name Dose Route Start Last Admin Trade Name Freq PRN Reason Stop Dose Admin Acetaminophen 650 mg 07/14/21 18:26 07/20/21 07:21 Acetaminophen 325 Mg Tablet PO 650 mg Q4HR PRN Administration Pain 1 to 4, or Fever Heparin Sodium (Porcine) 5,000 unit 07/14/21 21:00 07/19/21 21:30 Heparin 5,000 Unit/Ml Vial SUBQ 5,000 unit BID KARLY Administration Cefepime HCl 1 gm/ Sodium 100 mls @ 200 mls/hr 07/15/21 11:00 07/19/21 22:00 Chloride IV 07/20/21 09:00 Infused BID KARLY Infusion Morphine Sulfate 2 mg 07/14/21 18:26 07/18/21 19:56 Morphine 2 Mg/Ml Carpuject IVP 2 mg Q2HR PRN Administration Pain 8 to 10 Pantoprazole Sodium 40 mg 07/20/21 07:00 07/20/21 07:21 Pantoprazole 40 Mg Tablet PO 40 mg QDAC KARLY Administration Phenol/Menthol 2 sprays 07/15/21 00:14 07/15/21 04:15 Phenol Throat [place] 177 Ml MM 2 sprays Q2HR PRN Administration Throat Pain Sodium Chloride 10 ml 07/14/21 18:26 07/20/21 07:23 Sodium Chloride Flush 0.9% 10 Ml Syringe IVP 50 ml PRN PRN Administration NEEDED PER PROVIDER ORDERS Sodium Chloride 10 ml 07/15/21 01:00 07/19/21 21:30 Sodium Chloride Flush 0.9% 10 Ml Syringe IVP 10 ml 0100,[id number],1700 [facility] Administration - Physical Exam Wound/Incisions: positive: Healing well General Appearance: positive: No acute distress, Alert Eyes Bilateral: positive: Normal inspection, PERRL, EOMI ENT: positive: Pharynx nml Respiratory: positive: No respiratory distress, Breath sounds nml Cardiovascular: positive: Regular rate & rhythm, No murmur Abdomen: positive: Nml bowel sounds, No distention, Other (Appropriately tender to palpation) Back: positive: Nml inspection Skin: positive: Color nml Extremities: positive: Non-tender, Full ROM ABX Reporting Has patient been on IV antibiotics over the past 48 hours?: Yes Impression/Plan - Problem List Problem List: Improving daily. Much better today even than yesterday. 1. Advance to soft diet. 2. Change to p.o. pain medications. 3. Resume p.o. outpatient meds if hospitalist service is in agreement. 4. Ambulate in the halls at least twice today. 5. Plan Home tomorrow if she continues to improve and tolerates oral medications.
[2021-07-20] MEDS ORDERED: traMADol 50 MG TABLET PO PRN (08:49)
[2021-07-20] MEDS: HEPARIN 5,000 UNIT/ML VIAL SUBQ SCH ×2 (10:54→20:42)
[2021-07-20] MEDS: CEFEPIME 1 GM in SODIUM CHLORIDE 0.9% MINIBAG 100 ML IV SCH (10:57)
[2021-07-20] MEDS: METOPROLOL SUCCINATE 25 MG TABLET PO SCH (10:58)
[2021-07-20] MEDS: SODIUM CHLORIDE FLUSH 0.9% 10 ML SYRINGE IVP SCH ×4 (10:58→23:57)
[2021-07-20] MEDS: MULTIVITAMIN W/MINERALS TABLET PO SCH (12:59)
[2021-07-20] MEDS: SACCHAROMYCES BOULARDII 250 MG CAPSULE PO SCH (16:47)
[2021-07-21 05:19] LABS: BASOPHILS % (AUTO) 0.4 %; EOSINOPHILS # (AUTO) 0.2 10^3/uL (0.0-0.7); EOSINOPHILS % (AUTO) 2.1 %; HCT - HEMATOCRIT 30.8 % (37.0-47.0); HGB - HEMOGLOBIN 10.1 g/dL (12.0-16.0); LYMPHOCYTES # (AUTO) 1.2 10^3/uL (1.5-3.5); LYMPHOCYTES % (AUTO) 16.9 %; MEAN CORPUSCULAR HEMOGLOBIN 30.8 pg (27.0-31.0); MEAN CORPUSCULAR HGB CONC 32.8 g/dL (32.0-36.0); MEAN CORPUSCULAR VOLUME 93.9 fL (81.0-99.0); MEAN PLATELET VOLUME 11.6 fL (7.9-10.8); MONOCYTES % (AUTO) 14.2 %; NEUTROPHILS # (AUTO) 4.6 10^3/uL (1.5-6.6); PLT - PLATELET COUNT 275 10^3/uL (130-450); RED BLOOD COUNT 3.28 10^6/uL (4.20-5.40); RED CELL DISTRIBUTION WIDTH 12.6 % (12.0-15.0); WHITE BLOOD COUNT 7.1 x10^3/uL (4.8-10.8)
[2021-07-21 05:28] LABS: CALCIUM 8.6 mg/dL (8.5-10.3); CREATININE 0.6 mg/dL (0.4-1.0); POTASSIUM 3.9 mmol/L (3.5-5.0)
[2021-07-21] MEDS: PANTOPRAZOLE 40 MG TABLET PO SCH (05:36)
[2021-07-21] MEDS: HEPARIN 5,000 UNIT/ML VIAL SUBQ SCH (07:44)
[2021-07-21] MEDS: MULTIVITAMIN W/MINERALS TABLET PO SCH (07:46)
[2021-07-21] MEDS: SACCHAROMYCES BOULARDII 250 MG CAPSULE PO SCH (07:46)
[2021-07-21] MEDS: METOPROLOL SUCCINATE 25 MG TABLET PO SCH (07:46)
[2021-07-21] MEDS: SODIUM CHLORIDE FLUSH 0.9% 10 ML SYRINGE IVP SCH (07:47)
[2021-07-21 08:15] VITALS: BP 118/68
--- NOTE | 2021-07-21 09:07 | DISCHARGE SUMMARY ---
Discharge Summary Admit Date: 07/14/21 Discharge Date: 07/21/21 Discharging Provider: Eduar Boswell Primary Care Provider: Sam Franz Code Status: Attempt Resuscitation Condition at Discharge: Stable Discharge Disposition: 01 Home, Self Care - DIAGNOSES Admission Diagnoses: Peritonitis Small bowel obstruction Atrial fibrillation with RVR MATILDA Pleural effusion Polyarthralgia Weight loss Severe protein calorie malnutrition Dysphonia Discharge Diagnoses with Status of Each Condition: Small bowel obstruction: Acute. Resolved. S/P Bowel resection Atrial fibrillation with RVR: Paroxysmal. Resolved. On metoprolol. To follow up with marine animal trainer regarding oral anticoagulation MATILDA: Acute. Resolved Pleural effusion: Asymptomatic. Stable Polyarthralgia: Chronic. Continue home medication Weight loss Severe protein calorie malnutrition Dysphonia: Chronic - HPI History of Present Illness: She is a 71-year-old female who is seen by Dr. Franz in our local clinic and has high sensitivity problems to pollution with asthma, and hives due to imipenem, Levaquin, and penicillin. She has had previous diverticulitis with resection. The last time she was in the hospital and was in 2018 when she had a series of "TIAs" with aphasia, headache, and generalized weakness. It was also associate with high blood pressure episodes. She had a couple of episodes here in our emergency room and with the last one was transferred to [facility]. She has not been diagnosed with a stroke. She has been in good health. Has not been seen urgently or emergently in any institution since 2018 and now presents with abdominal pain that is been going on for 2 days. No bowel movement for 2 days. And then early yesterday started having vomiting. There is been no antecedent change in bowel habits prior to this. She denies fevers, chills, rigors. But anything that makes her body move, even the weight of a blanket coming across her belly is agonizingly painful. She has not been able to eat or drink anything for 2 days. She denies cough, wheezing, shortness of breath. She says that she had no antecedent weight changes. She has chronic intermittent atrial fibrillation and that has been stable without any chest pain, palpitations, edema, orthopnea. She had an echocardiogram in December 2018 as well as May 2020. She has mild concentric left ventricular hypertrophy. Overall left ventricular systolic function normal with an ejection fraction of 60 to 65%. Mild to moderate aortic regurgitation, mild primary (organic) mitral regurgitation. She has a mild increase in left atrial volume index. At 36 mils per meter squared. She states that she is stable with her weight. She is not any thinner than normal. But I am noting [facility]YL[facility] EMR that in 2019 weight varied between 52 kg that is lowest and 58 kg at its highest. Today's weight is 43.9 kg. In her primary care provider office, she was 148 pounds in November 2019. 135 pounds April 2020. 110 pounds October 2020. And most recently was 103 pounds in April 2021. In the emergency room temperature was 35.7. Heart rate 144. Respiratory rate 24. Blood pressure 113/68. 95% saturation on room air. She had moist mucous membranes. No respiratory distress. Abdomen was diffusely tender to palpation with positive rebound and guarding. Distended belly. White cell count was 34,000 with a left shift. Abdomen pelvis CT had high-grade bowel obstruction with the exact location not quite seen. There is a small amount of free fluid. No free air. Distal colonic remote partial colonic resection. It was noted that she was in atrial fibrillation when she first came in. Tachycardic. She converted to sinus in the emergency room. Her home medication list does not note anticoagulation or rate lowering medication. General surgery has been called. They would prefer that the patient be admitted to our service and they will consult. - HOSPITAL COURSE Hospital Course: She was seen by Dr. María Orozco with general surgery on the day of admission. She was taken to the OR on 07/14/21 and underwent an Exploratory laparotomy with lysis of adhesions, small bowel resection and primary anastomosis. This is because an internal hernia was causing a high-grade small bowel obstruction with necrosis. She was treated with cefepime around the time of surgery. She had an NG tube in place and received TPN after surgery. 3 days prior to discharge TPN was discontinued, she was started on a diet which was advanced to soft diet as tolerated. She had several bowel movements prior to discharge. Her pain was managed initially with morphine and then subsequently switched to tramadol. She was discharged home with a prescription of tramadol to take 1 tablet every 6 hours as needed. Her pain was minimal by the time of discharge. She has history of paroxysmal atrial fibrillation. She sees Dr. Dane Diaz cardiology with [facility]. It had been recommended in the past that she take an oral anticoagulation however she is currently not on 1. The reason is unknown. She has been advised to follow-up with her marine animal trainer regarding oral anticoagulation. She is to resume her home medications at home doses upon discharge. She is to follow-up with general surgery in the outpatient setting as planned. She may follow-up with her primary care physician within 7 to 10 days as needed. - ALLERGIES Allergies/Adverse Reactions: Allergies Allergy/AdvReac Type Severity Reaction Status Date / Time imipenem Allergy Unknown Verified 12/31/18 19:09 latex Allergy Unknown Verified 07/14/21 16:45 levofloxacin Allergy Unknown Verified 12/31/18 19:09 Penicillins Allergy Hives Verified 07/14/21 16:45 - MEDICATIONS Home Medications: Ambulatory Orders Medication Instructions Recorded Confirmed Cholecalciferol (Vitamin D3) 2,000 unit PO DAILY 05/03/16 07/15/21 [Vitamin D3] Albuterol Sulfate [Proair Hfa 2 puffs INH Q4H PRN 12/25/18 07/15/21 Inhaler] Calcium Carb/Vitamin D3/Vit K1 1 tab PO DAILY 12/25/18 07/15/21 [Viactiv 650 mg-12.5 Mcg Chew] Multivitamin [Multiple Vitamins] 1 tab PO DAILY 12/25/18 07/15/21 DULoxetine [Cymbalta] 20 mg PO DAILY 07/15/21 07/15/21 Hydroxychloroquine [Plaquenil] 200 mg PO DAILY 07/15/21 07/15/21 Sucralfate [Carafate] 1 tablet PO ACHS 07/15/21 07/15/21 amLODIPine [Norvasc] 2.5 mg PO DAILY 07/15/21 07/15/21 hydroCHLOROthiazide [Hydrodiuril] 25 mg PO DAILY 07/15/21 07/15/21 traMADol [Ultram] 50 mg PO Q6HR PRN #20 tablet 07/21/21 - PHYSICAL EXAM AT DISCHARGE General Appearance: positive: Alert, Mild distress Eyes Bilateral: positive: PERRL, EOMI ENT: positive: No signs of dehydration Neck: positive: No JVD, Trachea midline Cardiovascular: positive: Irregularly irregular Abdomen: positive: Tenderness (mild to moderate. Around surgical sites) Back: positive: Nml inspection Skin: positive: Color nml, No rash, Warm, Dry Extremities: positive: Non-tender, Full ROM, Nml appearance, No pedal edema Neurologic/Psychiatric: positive: Oriented x3, Mood/affect nml - LABS Result Diagrams: 07/21/21 04:10 07/21/21 04:10 - TIME SPENT Time Spent in Discharge (Minutes): 20
--- NOTE | 2021-07-21 09:15 | Discharge Plan ---
Discharge Plan Problem Reviewed?: Yes Disposition: Home, Self Care Condition: Stable Prescriptions: traMADol [Ultram] 50 mg PO Q6HR PRN #20 tablet PRN Reason: Pain Diet: Soft Activity Restrictions: Activity as Tolerated Health Concerns: You were admitted on 07/14/21 with abdominal pain, nausea and vomiting. She was evaluated by general surgery and subsequently taken to the OR where she un derwent a small bowel resction For a high-grade small bowel obstruction with necrosis. This was caused by an internal hernia. Surgery was fairly unremarkable and you steadily recovered over the course of the following 7 days. 2 days prior to discharge diet was initiated and advanced to soft diet as tolerated. You tolerated this well. Consequently you are being discharged home on 07/21/21 in stable condition. You are advised to maintain a soft diet for the next 3 to 5 days. Then advance as tolerated. You have been advised to keep hydrated. Activity as tolerated. You have been prescribed tramadol to take for pain as needed. You may resume your home medications at the home doses you have been taking. You are to follow-up with general surgery as planned or call (Dr María Orozco's) office for an appointment. Avoid lifting any weights greater than 5 pounds while you recover and your stitches are still in place. You may follow-up with your primary care physician within 7 to 10 days or as needed. No Smoking: If you smoke, Please STOP! Call for help. Follow-up with: Sam Franz MD [Primary Care Provider] -
== END 2021-07-21 11:25 | disposition home or self-care (01) | DRG 329 ==
LOC: ED 16:17 → MS2 18:26 → ICU 23:41 → MS2 07-18 16:46
PROVIDERS: ADMIT Specialist; ATTEND Internal Medicine
PROC: 0DN80ZZ Release Small Intestine, Open Approach (ICD-10-PCS; 2021-07-14)
PROC: 0DB80ZZ Excision of Small Intestine, Open Approach (ICD-10-PCS; principal; 2021-07-14 19:15)
PROC: 02HV33Z Insertion of Infusion Device into Superior Vena Cava, Percutaneous Approach (ICD-10-PCS; 2021-07-16)
DX: K56.609 Unspecified intestinal obstruction, unspecified as to partial versus complete obstruction (principal); E86.0 Dehydration; N28.9 Disorder of kidney and ureter, unspecified; I10 Essential (primary) hypertension; I48.91 Unspecified atrial fibrillation; E11.9 Type 2 diabetes mellitus without complications; M19.90 Unspecified osteoarthritis, unspecified site; K56.51 Intestinal adhesions [bands], with partial obstruction; Z20.822 Contact with and (suspected) exposure to COVID-19; E43 Unspecified severe protein-calorie malnutrition; K65.9 Peritonitis, unspecified; N17.9 Acute kidney failure, unspecified; J90 Pleural effusion, not elsewhere classified; I48.20 Chronic atrial fibrillation, unspecified; K46.0 Unspecified abdominal hernia with obstruction, without gangrene; Z68.1 Body mass index [BMI] 19.9 or less, adult; I48.0 Paroxysmal atrial fibrillation; E11.42 Type 2 diabetes mellitus with diabetic polyneuropathy; K21.9 Gastro-esophageal reflux disease without esophagitis; M06.9 Rheumatoid arthritis, unspecified; M17.10 Unilateral primary osteoarthritis, unspecified knee; M81.0 Age-related osteoporosis without current pathological fracture; R49.0 Dysphonia; Z79.899 Other long term (current) drug therapy; Z82.3 Family history of stroke; Z82.49 Family history of ischemic heart disease and other diseases of the circulatory system; Z83.3 Family history of diabetes mellitus; Z83.6 Family history of other diseases of the respiratory system; Z86.73 Personal history of transient ischemic attack (TIA), and cerebral infarction without residual deficits; Z88.0 Allergy status to penicillin; Z88.8 Allergy status to other drugs, medicaments and biological substances; Z90.49 Acquired absence of other specified parts of digestive tract; Z90.710 Acquired absence of both cervix and uterus; Z91.040 Latex allergy status
CPT/HCPCS: 36415; 71045; 74176; 80048; 80053; 81001; 82330; 83605; 83690; 83735; 84100; 84132; 84134; 84478; 85025; 87150; 87633; 93005; 96361; 96374; 99284; 99285; A9270; J3490; J7120; 81003; 87086

== ENCOUNTER 2021-07-28 17:37 | Inpatient (IN) | payer MEDICARE, OTHER ==
[2021-07-28] MEDS ORDERED: SODIUM CHLORIDE 0.9% 1,000 ML IV STA ×3 (17:51→19:42)
[2021-07-28] MEDS ORDERED: HYDROmorphone 1 MG/ML CARPUJECT IVP STA (17:51)
[2021-07-28] MEDS ORDERED: ONDANSETRON 4 MG/2 ML VIAL IVP STA (17:53)
[2021-07-28] MEDS ORDERED: IOPAMIDOL-300 100 ML VIAL ONE (18:05)
[2021-07-28] MEDS ORDERED: IOVERSOL 320 50 ML VIAL ONE (18:05)
--- NOTE | 2021-07-28 18:13 | ED Physician Documentation ---
PD HPI ABD PAIN - Stated complaint Stated Complaint: ABD PX POST SURG - Chief complaint Chief Complaint: Abd Pain - History obtained from History obtained from: Patient, Family - History of Present Illness Timing - onset: Today Timing - duration: Days (1) Timing - details: Gradual onset Pain level max: 8 Pain level now: 8 Quality: Aching, Pain Location: All over / everywhere Radiation: No: Chest, , Lower back, Left flank, Left shoulder, Right flank, Right shoulder, Upper back Improved by: Vomiting Worsened by: Eating Associated symptoms: Vomiting. No: Fever, Nausea, Hematemesis, Diarrhea, Constipation, Melena, Hematochezia, Dysuria, Hematuria - Additional information Additional information: 71-year-old female who is 2 weeks status post a high-grade small bowel obstruction with approximately 100 cm of necrotic bowel. She states that she had been doing well until today when she developed recurrent abdominal pain and vomiting. Came in for evaluation. No fevers. No chills. No blood in the vomit. She states she has not been needing pain medication at home. Did have constipation recently. Review of Systems Ten Systems: 10 systems reviewed and negative Constitutional: denies: Fever, Chills Ears: denies: Ear pain Nose: denies: Rhinorrhea / runny nose, Congestion Cardiac: denies: Chest pain / pressure, Palpitations Respiratory: denies: Cough GI: reports: Abdominal Pain : denies: Dysuria Skin: denies: Rash Musculoskeletal: denies: Neck pain, Back pain Neurologic: denies: Headache PD PAST MEDICAL HISTORY - Past Medical History Cardiovascular: Hypertension, Atrial fibrillation Respiratory: None Neuro: Other Endocrine/Autoimmune: Type 2 diabetes GI: Diverticulitis (Status post sigmoidectomy) BOAT FINISHER: Other () : None HEENT: Other Psych: None Musculoskeletal: Osteoarthritis, Osteoporosis Derm: Other (History of malignant melanoma) - Past Surgical History Past Surgical History: Yes General: Bowel surgery Ortho: Knee replacement /BOAT FINISHER: Hysterectomy HEENT: Cataracts Derm: Skin cancer surgery - Present Medications Home Medications: Ambulatory Orders Medication Instructions Recorded Confirmed Cholecalciferol (Vitamin D3) 2,000 unit PO DAILY 05/03/16 07/28/21 [Vitamin D3] Albuterol Sulfate [Proair Hfa 2 puffs INH Q4H PRN 12/25/18 07/28/21 Inhaler] Calcium Carb/Vitamin D3/Vit K1 1 tab PO DAILY 12/25/18 07/28/21 [Viactiv 650 mg-12.5 Mcg Chew] Multivitamin [Multiple Vitamins] 1 tab PO DAILY 12/25/18 07/28/21 DULoxetine [Cymbalta] 20 mg PO DAILY 07/15/21 07/28/21 Hydroxychloroquine [Plaquenil] 200 mg PO DAILY 07/15/21 07/28/21 Sucralfate [Carafate] 1 tablet PO ACHS 07/15/21 07/28/21 amLODIPine [Norvasc] 2.5 mg PO DAILY 07/15/21 07/28/21 hydroCHLOROthiazide [Hydrodiuril] 25 mg PO DAILY 07/15/21 07/28/21 traMADol [Ultram] 50 mg PO Q6HR PRN #20 tablet 07/21/21 07/28/21 - Allergies Allergies/Adverse Reactions: Allergies Allergy/AdvReac Type Severity Reaction Status Date / Time imipenem Allergy Unknown Verified 07/28/21 17:45 latex Allergy Unknown Verified 07/28/21 17:45 levofloxacin Allergy Unknown Verified 07/28/21 17:45 Penicillins Allergy Hives Verified 07/28/21 17:45 - Social History Does the pt smoke?: No Smoking Status: Never smoker Does the pt drink ETOH?: No Does the pt have substance abuse?: No - Immunizations Immunizations are current?: Yes - POLST Patient has POLST: No POLST Status: Full Code PD ED PE NORMAL - Vitals Vital signs reviewed: Yes - General General: Alert and oriented X 3, No acute distress - HEENT HEENT: PERRL, Moist mucous membranes - Neck Neck: Supple, no meningeal sign - Cardiac Cardiac: RRR - Respiratory Respiratory: Clear bilaterally - Abdomen Abdomen: Soft, Other (Diffusely tender to palpation. No peritoneal signs. Mildly distended.) - Derm Derm: Warm and dry - Extremities Extremities: No edema - Neuro Neuro: Alert and oriented X 3 - Psych Psych: Normal mood, Normal affect Results - Vitals Vitals: Vital Signs - 24 hr 07/28/21 07/28/21 07/28/21 17:40 18:42 19:04 Temperature 36.7 C Heart Rate 108 H 78 81 Respiratory 14 11 L 14 Rate Blood Pressure 116/67 150/68 H 150/69 H O2 Saturation 99 100 95 07/28/21 07/28/21 19:11 19:40 Temperature Heart Rate 90 Respiratory 15 15 Rate Blood Pressure 149/73 H O2 Saturation 95 99 Oxygen O2 Source Room air - Labs Labs: Laboratory Tests 07/28/21 07/28/21 07/28/21 18:11 18:11 18:11 WBC 10.5 RBC 4.19 L Hgb 13.7 Hct 39.1 MCV 93.3 MCH 32.7 H MCHC 35.0 RDW 13.0 Plt Count 591 H MPV 10.7 Neut # (Auto) 8.2 H Lymph # (Auto) 1.3 L [place] # (Auto) 0.8 Eos # (Auto) 0.0 Baso # (Auto) 0.1 Absolute Nucleated RBC 0.00 Nucleated RBC % 0.0 Sodium 137 Potassium 3.6 Chloride 91 L Carbon Dioxide 30 Anion Gap 16.0 H BUN 16 Creatinine 1.0 Estimated GFR (MDRD) 55 L Glucose 168 H Lactic Acid 2.3 H Calcium 10.2 Total Bilirubin 1.0 AST 32 ALT 42 Alkaline Phosphatase 184 H Total Protein 7.6 Albumin 4.1 Globulin 3.5 Albumin/Globulin Ratio 1.2 Lipase 37 Nasal Adenovirus (PCR) Nasal B. parapertussis DNA (PCR) Nasal Coronavir 229E PCR Nasal Coronavir HKU1 PCR Nasal Coronavir NL63 PCR Nasal Coronavir OC43 PCR Nasal Enterovir/Rhinovir PCR Nasal Influenza B PCR Nasal Influenza A PCR Nasal Parainfluen 1 PCR Nasal Parainfluen 2 PCR Nasal Parainfluen 3 PCR Nasal Parainfluen 4 PCR Nasal RSV (PCR) Nasal B.pertussis DNA PCR Nasal C.pneumoniae (PCR) [place] Human Metapneumo PCR Nasal M.pneumoniae (PCR) Nasal SARS-CoV-2 (PCR) 07/28/21 18:18 WBC RBC Hgb Hct MCV MCH MCHC RDW Plt Count MPV Neut # (Auto) Lymph # (Auto) [place] # (Auto) Eos # (Auto) Baso # (Auto) Absolute Nucleated RBC Nucleated RBC % Sodium Potassium Chloride Carbon Dioxide Anion Gap BUN Creatinine Estimated GFR (MDRD) Glucose Lactic Acid Calcium Total Bilirubin AST ALT Alkaline Phosphatase Total Protein Albumin Globulin Albumin/Globulin Ratio Lipase Nasal Adenovirus (PCR) NOT DETECTED Nasal B. parapertussis DNA (PCR) NOT DETECTED Nasal Coronavir 229E PCR NOT DETECTED Nasal Coronavir HKU1 PCR NOT DETECTED Nasal Coronavir NL63 PCR NOT DETECTED Nasal Coronavir OC43 PCR NOT DETECTED Nasal Enterovir/Rhinovir PCR NOT DETECTED Nasal Influenza B PCR NOT DETECTED Nasal Influenza A PCR NOT DETECTED Nasal Parainfluen 1 PCR NOT DETECTED Nasal Parainfluen 2 PCR NOT DETECTED Nasal Parainfluen 3 PCR NOT DETECTED Nasal Parainfluen 4 PCR NOT DETECTED Nasal RSV (PCR) NOT DETECTED Nasal B.pertussis DNA PCR NOT DETECTED Nasal C.pneumoniae (PCR) NOT DETECTED [place] Human Metapneumo PCR NOT DETECTED Nasal M.pneumoniae (PCR) NOT DETECTED Nasal SARS-CoV-2 (PCR) NOT DETECTED - Rads (name of study) CT abdomen pelvis Radiology: Final report received, EMP read contemporaneously, See rad report PD MEDICAL DECISION MAKING - ED course Complexity details: reviewed old records, reviewed results, re-evaluated patient, considered differential, d/w patient, d/w family, d/w corporate travel consultant ED course: 71-year-old female presents the emergency department with what appears to be a recurrent small bowel obstruction with transition in the right lower quadrant. She underwent a bowel resection 2 weeks ago for small bowel obstruction with necrotic bowel. Discussed the case with Dr. Peterson, general surgery on-call who recommends placing an NG tube, pain control, n.p.o. and admit for further care. Patient's pain is well controlled with a dose of Dilaudid here. NG tube was placed. Patient will be admitted for further care. This document was made in part using voice recognition software. While efforts are made to proofread this document, sound alike and grammatical errors may occur. IMPRESSION: 1. Findings consistent with a recurrent small bowel obstruction with a transition point in the right lower quadrant. 2. Mild wall thickening involving multiple small bowel loops. The findings are nonspecific and the differential includes reactive changes secondary to free fluid but the differential includes bowel ischemia or an infectious/inflammatory enteritis. 3. Small amount of intraperitoneal free fluid without a discrete abscess collection identified. 4. Small right pleural effusion. Departure - Departure Disposition: 66 [facility] DC/Xfer Clinical Impression: Small bowel obstruction Condition: Stable
[2021-07-28 18:33] LABS: ALBUMIN 4.1 g/dL (3.2-5.5); ALBUMIN/GLOBULIN RATIO 1.2 (1.0-2.2); CALCIUM 10.2 mg/dL (8.5-10.3); POTASSIUM 3.6 mmol/L (3.5-5.0); TOTAL PROTEIN 7.6 g/dL (6.7-8.2)
[2021-07-28 18:37] LABS: BASOPHILS # (AUTO) 0.1 10^3/uL (0.0-0.1); BASOPHILS % (AUTO) 0.7 %; EOSINOPHILS % (AUTO) 0.2 %; HCT - HEMATOCRIT 39.1 % (37.0-47.0); HGB - HEMOGLOBIN 13.7 g/dL (12.0-16.0); LYMPHOCYTES # (AUTO) 1.3 10^3/uL (1.5-3.5); LYMPHOCYTES % (AUTO) 12.5 %; MEAN CORPUSCULAR HEMOGLOBIN 32.7 pg (27.0-31.0); MEAN CORPUSCULAR VOLUME 93.3 fL (81.0-99.0); MEAN PLATELET VOLUME 10.7 fL (7.9-10.8); MONOCYTES # (AUTO) 0.8 10^3/uL (0.0-1.0); NEUTROPHILS # (AUTO) 8.2 10^3/uL (1.5-6.6); NEUTROPHILS % (AUTO) 78.3 %; PLT - PLATELET COUNT 591 10^3/uL (130-450); RED BLOOD COUNT 4.19 10^6/uL (4.20-5.40); WHITE BLOOD COUNT 10.5 x10^3/uL (4.8-10.8)
[2021-07-28 19:21] LABS: B. PARAPERTUSSIS- RESP PCR PAN NOT DETECTED; B. PERTUSSIS- RESP PCR PANEL NOT DETECTED; C. PNEUMONIAE- RESP PCR PANEL NOT DETECTED; CORONAVIRUS 229E-RESP PCR NOT DETECTED; CORONAVIRUS HKU1-RESP PCR NOT DETECTED; CORONAVIRUS NL63-RESP PCR NOT DETECTED; CORONAVIRUS OC43-RESP PCR NOT DETECTED; HUMAN METAPNEUMOVIRUS NOT DETECTED; INFLUENZA A- RESP PCR PANEL NOT DETECTED; INFLUENZA B - RESP PCR PANEL NOT DETECTED; M. PNEUMONIAE- RESP PCR PANEL NOT DETECTED; PARAINFLUENZA VIRUS 1 NOT DETECTED; PARAINFLUENZA VIRUS 2 NOT DETECTED; PARAINFLUENZA VIRUS 3 NOT DETECTED; PARAINFLUENZA VIRUS 4 NOT DETECTED; RHINOVIRUS/ENTEROVIRUS NOT DETECTED; RSV- RESP PCR PANEL NOT DETECTED; SARS-CoV-2 -RESP PCR PANEL NOT DETECTED
[2021-07-28] MEDS ORDERED: LIDOCAINE TOPICAL 4% 50 ML BOTTLE MM STA (19:41)
[2021-07-28] MEDS ORDERED: IOPAMIDOL-300 100 ML VIAL IVP ONE (19:46)
[2021-07-28] MEDS ORDERED: IOVERSOL 320 50 ML VIAL PO ONE (19:47)
[2021-07-28] MEDS ORDERED: ZOLPIDEM 5 MG TABLET PO PRN (20:04)
[2021-07-28] MEDS ORDERED: PROCHLORPERAZINE 10 MG/2 ML VIAL IVP PRN (20:04)
[2021-07-28] MEDS ORDERED: oxyCODONE 5 MG TABLET PO PRN (20:04)
[2021-07-28] MEDS ORDERED: SODIUM CHLORIDE FLUSH 0.9% 10 ML SYRINGE IVP PRN (20:04)
[2021-07-28] MEDS ORDERED: SODIUM CHLORIDE 0.9% 1,000 ML IV ONE (20:11)
[2021-07-28] MEDS ORDERED: FAMOTIDINE 20 MG TABLET PO STA (20:14)
--- NOTE | 2021-07-28 20:29 | CT Report ---
PROCEDURE: Abdomen/Pelvis W INDICATIONS: abd pain s/p surgery CONTRAST: IV CONTRAST: Isovue 300 ml: 80 PO CONTRAST: Isovue 300 ml50 TECHNIQUE: After the administration of oral and intravenous contrast, 5 mm thick sections acquired from the diap hragms to the symphysis. 5 mm thick coronal and sagittal reformats were acquired. For radiation dos e reduction, the following was used: automated exposure control, adjustment of mA and/or kV accordin g to patient size. COMPARISON: CT abdomen pelvis 07/14/2021. FINDINGS: Image quality: Excellent. ABDOMEN: Lung bases: Lung bases are clear. Heart size is normal. There is a small pericardial effusion infer iorly which appears decreased from prior study. Solid organs: Evaluation of the liver demonstrates no focal hepatic lesions. Gallbladder appears wit hin normal limits without calcified gallstones. Biliary system is non dilated. The spleen is normal in size. Pancreas enhances normally without peripancreatic fat stranding or fluid collections. No ad renal nodules. Kidneys demonstrate no hydronephrosis. Peritoneum and bowel: There is prominent distention of the stomach and multiple proximal small bowel loops with associated air-fluid levels extending through transition point in the right lower quadran t as seen on axial series 3 image 50 and coronal series 6 image 15. The distal loops of small bowel a re nondistended. The colon is also nondistended. Findings are consistent with a small bowel ejection. There are surgical sutures in the right mid abdomen consistent with interval partial small bowel res ection. There is mild wall thickening of multiple small bowel loops which are nonspecific. Surgical s utures are redemonstrated in the sigmoid colon status post partial resection. There is a small amount of free fluid in the abdomen and pelvis. No discrete loculated fluid collections to suggest an absce ss. No definite free air. Nodes and vessels: No retroperitoneal or mesenteric adenopathy by size criteria. Aorta and inferior vena cava are normal in size. Miscellaneous: There is a midline surgical incision within the ventral abdominal wall. No ventral he rnias. PELVIS: Genitourinary: Bladder wall thickness is normal. Miscellaneous: No inguinal hernias or adenopathy. Bones: No suspicious bony lesions. No vertebral body compression fractures. IMPRESSION: 1. Findings consistent with a recurrent small bowel obstruction with a transition point in the right lower quadrant. 2. Mild wall thickening involving multiple small bowel loops. The findings are nonspecific and the di fferential includes reactive changes secondary to free fluid but the differential includes bowel isch emia or an infectious/inflammatory enteritis. 3. Small amount of intraperitoneal free fluid without a discrete abscess collection identified. 4. Small right pleural effusion. Findings discussed with Dr. Ruiz on 07/28/2021 at 8:20 PM. Reviewed by: Fer Luna MD on 07/28/2021 8:28 PM PDT Approved by: Fer Luna MD on 07/28/2021 8:28 PM PDT Station ID: [id number]
[2021-07-28] MEDS: SODIUM CHLORIDE FLUSH 0.9% 10 ML SYRINGE IVP SCH (21:45)
[2021-07-28] MEDS: HYDROmorphone 0.5 MG/0.5 ML SYRINGE IVP PRN (22:00)
[2021-07-28] MEDS: D5.45NS W/20 MEQ KCL 1,000 ML IV SCH (22:13)
[2021-07-28] MEDS: HEPARIN 5,000 UNIT/ML VIAL SUBQ SCH (22:18)
[2021-07-29] MEDS: HYDROmorphone 0.5 MG/0.5 ML SYRINGE IVP PRN ×3 (04:11→11:24)
[2021-07-29 06:00] LABS: CALCIUM 8.7 mg/dL (8.5-10.3); CREATININE 0.7 mg/dL (0.4-1.0); POTASSIUM 3.4 mmol/L (3.5-5.0)
[2021-07-29] MEDS: D5.45NS W/20 MEQ KCL 1,000 ML IV SCH ×3 (06:00→22:06)
[2021-07-29] MEDS: SODIUM CHLORIDE FLUSH 0.9% 10 ML SYRINGE IVP SCH ×2 (07:56→16:11)
[2021-07-29] MEDS: HYDROXYCHLOROQUINE 200 MG TABLET PO SCH (08:00)
[2021-07-29] MEDS: amLODIPine 5 MG TABLET PO SCH (08:01)
[2021-07-29] MEDS: HEPARIN 5,000 UNIT/ML VIAL SUBQ SCH ×2 (08:01→21:41)
[2021-07-29] MEDS: DULoxetine 20 MG CAPSULE PO SCH (08:14)
--- NOTE | 2021-07-29 09:57 | HISTORY & PHYSICAL EXAMINATION ---
Chief Complaint - Chief Complaint Chief Complaint: bloating, cramping, nausea History of Present Illness - Admitted From Admitted From:: ed - History Obtained From Records Reviewed: yes History obtained from: pt Exam Limitations: none - History of Present Illness HPI Comment/Other: She had surgery 2 weeks ago for high grade small bowel obstruction from a single band that caused and internal hernia. 100 cm small bowel excised. She was well until yesterday when she developed discomfort, n/v x 1. She had a normal bm yes terday. History - Past Medical History Cardiovascular: reports: Hypertension, Atrial fibrillation Respiratory: reports: None Neuro: reports: Other Endocrine/Autoimmune: reports: Type 2 diabetes GI: reports: Diverticulitis ENROBER TENDER: reports: Other () : reports: None HEENT: reports: Other Psych: reports: None Musculoskeletal: reports: Osteoarthritis, Osteoporosis Derm: reports: Other MRSA Hx?: No - Past Surgical History General: reports: Bowel surgery Ortho: reports: Knee replacement /ENROBER TENDER: reports: Hysterectomy HEENT: reports: Cataracts Derm: reports: Skin cancer surgery - Family & Social History Family History: Father: COPD/Emphysema, Diabetes, Type 2, Other family: Di abetes, Type 2 Family History Comment/Other: Father had a history of diabetes, COPD, heart disease, stroke. Mom had a history of osteoporosis, anxiety, Parkinson's disease Living Situation: With spouse/s.o. Social History Notes: The patient has been to her for over 40 years. They have 2 children together 1 of whom lives in [place]. 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 She and her moved to [facility] about 2015. Prior to that they lived in [facility], [facility] and [place]. Patient's was in the . The patient does not smoke cigarettes, she occasionally drinks alcohol and denies any illicit drug use. - Substance History Use: Uses substance without health or social issues: Alcohol (1 glass of wine) - POLST Patient has POLST: No POLST Status: Full Code Meds/Allgy - Home Medications Home Medications: Ambulatory Orders Medication Instructions Recorded Confirmed Cholecalciferol (Vitamin D3) 2,000 unit PO DAILY 05/03/16 07/28/21 [Vitamin D3] Albuterol Sulfate [Proair Hfa 2 puffs INH Q4H PRN 12/25/18 07/28/21 Inhaler] Calcium Carb/Vitamin D3/Vit K1 1 tab PO DAILY 12/25/18 07/28/21 [Viactiv 650 mg-12.5 Mcg Chew] Multivitamin [Multiple Vitamins] 1 tab PO DAILY 12/25/18 07/28/21 DULoxetine [Cymbalta] 20 mg PO DAILY 07/15/21 07/28/21 Hydroxychloroquine [Plaquenil] 200 mg PO DAILY 07/15/21 07/28/21 Sucralfate [Carafate] 1 tablet PO ACHS 07/15/21 07/28/21 amLODIPine [Norvasc] 2.5 mg PO DAILY 07/15/21 07/28/21 hydroCHLOROthiazide [Hydrodiuril] 25 mg PO DAILY 07/15/21 07/28/21 traMADol [Ultram] 50 mg PO Q6HR PRN #20 tablet 07/21/21 07/28/21 - Allergies Allergies/Adverse Reactions: Allergies Allergy/AdvReac Type Severity Reaction Status Date / Time imipenem Allergy Unknown Verified 07/28/21 17:45 latex Allergy Unknown Verified 07/28/21 17:45 levofloxacin Allergy Unknown Verified 07/28/21 17:45 Penicillins Allergy Hives Verified 07/28/21 17:45 Review of Systems - Other Findings Other Findings: 10 pt ros as above otherwise unremarkable Exam - Vital Signs Reviewed Vital Signs: Yes Vital Signs: Vital Signs x48h Temp Pulse Resp BP Pulse Ox 07/29/21 07:59 36.7 C 82 16 139/65 H 98 - Physical Exam General Appearance: positive: No acute distress, Alert Eyes Bilateral: positive: PERRL, EOMI, No scleral icterus ENT: positive: No signs of dehydration Neck: positive: No JVD, Trachea midline Respiratory: positive: No respiratory distress, Breath sounds nml Cardiovascular: positive: Regular rate & rhythm Abdomen: positive: Other (mimimal distension and tenderness. benign abdomen incision c/d/i no erythema) Neurologic/Psychiatric: positive: Oriented x3 Conclusion/Plan - Problem List (1) Small bowel obstruction Conclusion/Plan: surgery 2 weeks ago for high grade sbo. well until yesterday. plan ngt, ivf, replace kcl, observation. if not improving quickly picc line and tpn - Lab Results Fish Bones: 07/28/21 18:11 07/29/21 05:16
[2021-07-29] MEDS ORDERED: POTASSIUM CHLOR 10 MEQ/100 ML 10 MEQ/100 ML BAG IV SCH (10:00)
[2021-07-29] MEDS: POTASSIUM CHLOR 10 MEQ/100 ML 10 MEQ/100 ML BAG IV SCH ×4 (10:28→18:15)
--- NOTE | 2021-07-29 10:51 | PHARMACY PROGRESS NOTE ---
- Best Possible Medication History Admit Date and Time: 07/28/212003 Processed by: Nursing Medication History completed: Yes Patient Interview: Completed Secondary Source(s): Physician records, Pharmacy records, Insurance records, Previous admit records As the person ultimately responsible for medication therapy, providers are able to order a medication from an existing home medication list in [facility] via the "Reconcile Routine" prior to Confirmation of that medication by application support lead. Such practice is discouraged except when the physician, in their clinical judgment, deems that a medical need exists for a medication without regard to p revious use.
[2021-07-29] MEDS: ACETAMINOPHEN 325 MG TABLET PO PRN (16:10)
[2021-07-30] MEDS: SODIUM CHLORIDE FLUSH 0.9% 10 ML SYRINGE IVP SCH ×3 (01:11→16:11)
[2021-07-30] MEDS: D5.45NS W/20 MEQ KCL 1,000 ML IV SCH ×2 (05:26→13:34)
[2021-07-30 06:10] LABS: BUN - BLOOD UREA NITROGEN < 5 mg/dL (6-20); CALCIUM 8.7 mg/dL (8.5-10.3); CARBON DIOXIDE - CO2 31 mmol/L (21-32); CHLORIDE 105 mmol/L (101-111); CREATININE 0.6 mg/dL (0.4-1.0); GFR - MDRD 98 (>89); GLUCOSE 114 mg/dL (70-100); POTASSIUM 3.7 mmol/L (3.5-5.0); SODIUM 141 mmol/L (135-145)
[2021-07-30] MEDS: HYDROXYCHLOROQUINE 200 MG TABLET PO SCH (08:30)
[2021-07-30] MEDS: amLODIPine 5 MG TABLET PO SCH (08:30)
[2021-07-30] MEDS: DULoxetine 20 MG CAPSULE PO SCH (08:30)
[2021-07-30] MEDS: HEPARIN 5,000 UNIT/ML VIAL SUBQ SCH ×2 (08:40→22:11)
--- NOTE | 2021-07-30 11:20 | PROVIDER PROGRESS NOTE ---
Subjective - Prog Note Date Prog Note Date: 07/30/21 - Subjective Pt reports feeling: Improved (pain improved. slept well. no flatus) Objective - Vital Signs/Intake & Output Reviewed Vital Signs: Yes Vital Signs: Vital Signs x48h Temp Pulse Resp BP Pulse Ox 07/30/21 08:00 36.6 C 87 18 131/62 H 100 Intake & Output: Intake & Output 07/27/21 07/28/21 07/29/21 07/30/21 23:59 23:59 23:59 23:59 Intake Total 3257.5 3421.250 936.667 Output Total 600 250 250 Balance 2657.5 3171.250 686.667 - Objective General Appearance: positive: No acute distress, Alert Eyes Bilateral: positive: PERRL, EOMI, No scleral icterus ENT: positive: No signs of dehydration Neck: positive: No JVD Respiratory: positive: No respiratory distress Abdomen: positive: Non-tender, No distention Neurologic/Psychiatric: positive: Oriented x3 - Lab Results Fish Bones: 07/28/21 18:11 07/30/21 05:34 Other Labs: Lab Results x24hrs 07/30/21 Range/Units 05:34 Sodium 141 (135-145) mmol/L Potassium 3.7 (3.5-5.0) mmol/L Chloride 105 (101-111) mmol/L Carbon Dioxide 31 (21-32) mmol/L Anion Gap 5.0 L (6-13) BUN < 5 L (6-20) mg/dL Creatinine 0.6 (0.4-1.0) mg/dL Estimated GFR (MDRD) 98 (>89) Glucose 114 H (70-100) mg/dL Calcium 8.7 (8.5-10.3) mg/dL Assessment/Plan - Problem List (1) Small bowel obstruction Impression: improving. pain much improved. ng output minimal and nearly clear. start ppn/ nutrition and pharmacy consult continue ngt until flatus/ bowel activity
[2021-07-30] MEDS ORDERED: PPN (CLINIMIX E 4.25/5) 2,000 ML with MULTIVITAMIN 10 ML, TRACE ELEMENTS 1 ML IV SCH ×3 (19:00)
[2021-07-30] MEDS: FAT EMULSION 20% 250 ML IV SCH (19:58)
[2021-07-30] MEDS: ACETAMINOPHEN 325 MG TABLET PO PRN (22:13)
[2021-07-31] MEDS: SODIUM CHLORIDE FLUSH 0.9% 10 ML SYRINGE IVP SCH ×4 (01:04→23:43)
[2021-07-31] MEDS: D5.45NS W/20 MEQ KCL 1,000 ML IV SCH (05:37)
[2021-07-31 06:52] LABS: ALBUMIN/GLOBULIN RATIO 1.1 (1.0-2.2); BILIRUBIN,TOTAL 0.5 mg/dL (0.2-1.0); CALCIUM 9.2 mg/dL (8.5-10.3); CREATININE 0.6 mg/dL (0.4-1.0); MAGNESIUM 1.8 mg/dL (1.7-2.8); PHOSPHORUS 4.4 mg/dL (2.5-4.6); POTASSIUM 3.9 mmol/L (3.5-5.0); TOTAL PROTEIN 5.8 g/dL (6.7-8.2)
[2021-07-31] MEDS: HEPARIN 5,000 UNIT/ML VIAL SUBQ SCH ×2 (10:32→22:05)
[2021-07-31] MEDS: DULoxetine 20 MG CAPSULE PO SCH (12:35)
[2021-07-31] MEDS: amLODIPine 5 MG TABLET PO SCH (12:36)
[2021-07-31] MEDS: HYDROXYCHLOROQUINE 200 MG TABLET PO SCH (12:36)
[2021-07-31] MEDS: MULTIVITAMIN IV SCH ×7 (19:06)
[2021-07-31] MEDS: TRACE ELEMENTS IV SCH ×7 (19:06)
[2021-07-31] MEDS: PPN IV SCH ×7 (19:06)
[2021-07-31] MEDS: [UNRECOGNIZED DRUG - OTHER] IV SCH ×7 (19:06)
[2021-07-31] MEDS: FAT EMULSION 20% 250 ML IV SCH (19:07)
--- NOTE | 2021-07-31 20:45 | PROVIDER PROGRESS NOTE ---
Subjective - General Admit Date: 07/28/21 Procedure Date: 07/14/21 Post Op Days: 17 Procedure Performed: Exploratory laparotomy with small bowel resection - Review of Systems General: positive: No symptoms HEENT: positive: No symptoms Pulmonary: positive: No symptoms Cardiovascular: positive: No symptoms Gastrointestinal: positive: No symptoms Genitourinary: positive: No symptoms Musculoskeletal: positive: No symptoms All Other Systems: positive: Reviewed and negative - Other Other Information/Narrative: Alysa reports feeling much better today. She denies any nausea or any pain. She has had tylenol only for discomfort in the past 24 hours. NG output has been clear and minimal. She passed a small amount of flatus this AM. Objective - Patient Data Vital Signs: Vital Signs x48h Temp Pulse Resp BP Pulse Ox 07/31/21 15:40 36.6 C 79 16 127/54 L 97 Weight: Weight 07/29/21 07/30/21 07/31/21 23:59 23:59 23:59 Weight (kg) 43 kg 42.5 kg Intake & Output: Intake and Output Totals x24h 07/29/21 07/30/21 07/31/21 23:59 23:59 23:59 Intake Total 3421.250 2858.750 2498.917 Output Total 250 950 450 Balance 3171.250 3198.718 0175.917 - Lab Results Lab Results: 07/28/21 18:11 07/31/21 06:31 Other Lab Results: Lab Results x24hrs 07/31/21 Range/Units 06:31 Sodium 137 (135-145) mmol/L Potassium 3.9 (3.5-5.0) mmol/L Chloride 100 L (101-111) mmol/L Carbon Dioxide 29 (21-32) mmol/L Anion Gap 8.0 (6-13) BUN 11 (6-20) mg/dL Creatinine 0.6 (0.4-1.0) mg/dL Estimated GFR (MDRD) 98 (>89) Glucose 112 H (70-100) mg/dL Calcium 9.2 (8.5-10.3) mg/dL Phosphorus 4.4 (2.5-4.6) mg/dL Magnesium 1.8 (1.7-2.8) mg/dL Total Bilirubin 0.5 (0.2-1.0) mg/dL AST 21 (10-42) IU/L ALT 22 (10-60) IU/L Alkaline Phosphatase 99 (42-121) IU/L Total Protein 5.8 L (6.7-8.2) g/dL Albumin 3.0 L (3.2-5.5) g/dL Globulin 2.8 (2.1-4.2) g/dL Albumin/Globulin Ratio 1.1 (1.0-2.2) Prealbumin 19 (18-45) mg/dL Triglycerides 103 ( - 149) mg/dL - Current Medications Current Medications: Current Medications Generic Name Dose Route Start Last Admin Trade Name Freq PRN Reason Stop Dose Admin Acetaminophen 650 mg 07/28/21 20:04 07/30/21 22:13 Acetaminophen 325 Mg Tablet PO 650 mg Q4HR PRN Administration Pain 1 to 4, or Fever Amlodipine Besylate 2.5 mg 07/29/21 09:00 07/31/21 12:36 Amlodipine 5 Mg Tablet PO Not Given DAILY KARLY Duloxetine HCl 20 mg 07/29/21 09:00 07/31/21 12:35 Duloxetine 20 Mg Capsule PO 20 mg DAILY KARLY Administration Heparin Sodium (Porcine) 5,000 unit 07/28/21 21:00 07/31/21 10:32 Heparin 5,000 Unit/Ml Vial SUBQ 5,000 unit BID KARLY Administration Hydromorphone HCl 0.5 mg 07/28/21 20:04 07/29/21 11:24 Hydromorphone 0.5 Mg/0.5 Ml Syringe IVP 0.5 mg Q2H PRN Administration Pain 8 to 10 Hydroxychloroquine Sulfate 200 mg 07/29/21 08:00 07/31/21 12:36 Hydroxychloroquine 200 Mg Tablet PO Not Given QDBREAKFAST KARLY Potassium Chloride/Dextrose/Sod Cl 1,000 mls @ 125 mls/hr 07/28/21 21:00 07/31/21 05:37 D5.45ns W/20 Meq Kcl IV 21 mls/hr .Q8H KARLY Administration Fat Emulsion Intravenous 250 mls @ 21 mls/hr 07/30/21 19:00 07/31/21 19:07 Intralipid 20% IV 21 mls/hr 1900 KARLY Infusion Multivitamins 10 ml/ TRACE 2,073 mls @ 83 mls/hr 05/14/22 19:00 07/31/21 19:06 ELEMENTS 1 ml/ Sodium IV 83 mls/hr Phosphate 30 mmol/ Potassium 1900 KARLY Administration Chloride 60 meq/ Calcium Gluconate 2,000 mg/ Magnesium Sulfate 1 gm/ Amino Acids/ Protocol Dextrose Sodium Chloride 10 ml 07/28/21 20:04 07/29/21 11:25 Sodium Chloride Flush 0.9% 10 Ml Syringe IVP 10 ml PRN PRN Administration NEEDED PER PROVIDER ORDERS Sodium Chloride 10 ml 07/29/21 01:00 07/31/21 19:07 Sodium Chloride Flush 0.9% 10 Ml Syringe IVP 10 ml 0100,0900,1700 [facility] Administration - Physical Exam Wound/Incisions: positive: Healing well General Appearance: positive: No acute distress Eyes Bilateral: positive: Normal inspection ENT: positive: ENT inspection nml Neck: positive: Nml inspection Respiratory: positive: Chest non-tender, No respiratory distress Cardiovascular: positive: Regular rate & rhythm, No murmur Abdomen: positive: Other (minimal tenderness to palpation. mild distension with active bowel sounds) Skin: positive: Color nml Extremities: positive: Non-tender Neurologic/Psychiatric: positive: Oriented x3 ABX Reporting Has patient been on IV antibiotics over the past 48 hours?: No Impression/Plan - Problem List Problem List: Symptoms have improved significantly. Will continue PPN and check labs in the AM. If she continues to do well, will consider removing the NG in the AM
[2021-08-01 06:59] LABS: BASOPHILS # (AUTO) 0.1 10^3/uL (0.0-0.1); BASOPHILS % (AUTO) 0.9 %; EOSINOPHILS # (AUTO) 0.2 10^3/uL (0.0-0.7); EOSINOPHILS % (AUTO) 3.3 %; HCT - HEMATOCRIT 33.8 % (37.0-47.0); HGB - HEMOGLOBIN 11.6 g/dL (12.0-16.0); LYMPHOCYTES # (AUTO) 1.4 10^3/uL (1.5-3.5); LYMPHOCYTES % (AUTO) 21.6 %; MEAN CORPUSCULAR HEMOGLOBIN 32.1 pg (27.0-31.0); MEAN CORPUSCULAR HGB CONC 34.3 g/dL (32.0-36.0); MEAN CORPUSCULAR VOLUME 93.6 fL (81.0-99.0); MEAN PLATELET VOLUME 11.1 fL (7.9-10.8); MONOCYTES # (AUTO) 0.9 10^3/uL (0.0-1.0); MONOCYTES % (AUTO) 14.1 %; NEUTROPHILS # (AUTO) 3.9 10^3/uL (1.5-6.6); NEUTROPHILS % (AUTO) 59.9 %; PLT - PLATELET COUNT 416 10^3/uL (130-450); RED BLOOD COUNT 3.61 10^6/uL (4.20-5.40); RED CELL DISTRIBUTION WIDTH 12.9 % (12.0-15.0); WHITE BLOOD COUNT 6.6 x10^3/uL (4.8-10.8)
[2021-08-01 07:10] LABS: ALBUMIN 3.1 g/dL (3.2-5.5); ALBUMIN/GLOBULIN RATIO 1.1 (1.0-2.2); ALKALINE PHOSPHATASE 88 IU/L (42-121); ALT ALANINE AMINOTRANSFERASE 19 IU/L (10-60); AST ASPARTATE AMINOTRANSFERASE 20 IU/L (10-42); BILIRUBIN,TOTAL 0.4 mg/dL (0.2-1.0); BUN - BLOOD UREA NITROGEN 23 mg/dL (6-20); CALCIUM 9.1 mg/dL (8.5-10.3); CARBON DIOXIDE - CO2 28 mmol/L (21-32); CHLORIDE 101 mmol/L (101-111); CREATININE 0.6 mg/dL (0.4-1.0); GFR - MDRD 98 (>89); GLUCOSE 114 mg/dL (70-100); IONIZED CALCIUM IF INDICATED NO; POTASSIUM 3.7 mmol/L (3.5-5.0); SODIUM 139 mmol/L (135-145); TOTAL PROTEIN 5.9 g/dL (6.7-8.2)
[2021-08-01] MEDS: HYDROXYCHLOROQUINE 200 MG TABLET PO SCH (09:17)
[2021-08-01] MEDS: amLODIPine 5 MG TABLET PO SCH (09:17)
[2021-08-01] MEDS: DULoxetine 20 MG CAPSULE PO SCH (09:18)
[2021-08-01] MEDS: HEPARIN 5,000 UNIT/ML VIAL SUBQ SCH ×2 (09:18→20:30)
[2021-08-01] MEDS: SODIUM CHLORIDE FLUSH 0.9% 10 ML SYRINGE IVP SCH ×2 (15:46→16:57)
[2021-08-01] MEDS: D5.45NS W/20 MEQ KCL 1,000 ML IV SCH ×3 (15:46→18:43)
--- NOTE | 2021-08-01 17:35 | PROVIDER PROGRESS NOTE ---
Subjective - General Admit Date: 07/28/21 Procedure Date: 07/14/21 Post Op Days: 18 Procedure Performed: Exploratory laparotomy with small bowel resection - Review of Systems Wound/Incisions: positive: Healing well General: positive: No symptoms HEENT: positive: No symptoms Pulmonary: positive: No symptoms Cardiovascular: positive: No symptoms Gastrointestinal: positive: No symptoms Genitourinary: positive: No symptoms Musculoskeletal: positive: No symptoms All Other Systems: positive: Reviewed and negative - Other Other Information/Narrative: Continues to feel better each day. Describes more abdominal cramping and says things are definitely "on the move" in there. No nausea. No fever. Good spirits Objective - Patient Data Reviewed Vital Signs: Yes Vital Signs: Vital Signs x48h Temp Pulse Resp BP Pulse Ox 08/01/21 16:00 36.5 C 79 18 122/54 L 100 Weight: Weight 07/30/21 07/31/21 08/01/21 23:59 23:59 23:59 Weight (kg) 43 kg 42.5 kg 42.5 kg Intake & Output: Intake and Output Totals x24h 07/30/21 07/31/21 08/01/21 23:59 23:59 23:59 Intake Total 2858.750 2518.917 868.3 Output Total 950 900 500 Balance 3864.378 3621.917 368.3 - Lab Results Lab Results: 08/01/21 06:10 08/01/21 06:10 Other Lab Results: Lab Results x24hrs 08/01/21 08/01/21 Range/Units 06:10 06:10 WBC 6.6 (4.8-10.8) x10^3/uL RBC 3.61 L (4.20-5.40) 10^6/uL Hgb 11.6 L (12.0-16.0) g/dL Hct 33.8 L (37.0-47.0) % MCV 93.6 (81.0-99.0) fL MCH 32.1 H (27.0-31.0) pg MCHC 34.3 (32.0-36.0) g/dL RDW 12.9 (12.0-15.0) % Plt Count 416 (130-450) 10^3/uL MPV 11.1 H (7.9-10.8) fL Neut # (Auto) 3.9 (1.5-6.6) 10^3/uL Lymph # (Auto) 1.4 L (1.5-3.5) 10^3/uL [place] # (Auto) 0.9 (0.0-1.0) 10^3/uL Eos # (Auto) 0.2 (0.0-0.7) 10^3/uL Baso # (Auto) 0.1 (0.0-0.1) 10^3/uL Absolute Nucleated RBC 0.00 x10^3/uL Nucleated RBC % 0.0 /100WBC Sodium 139 (135-145) mmol/L Potassium 3.7 (3.5-5.0) mmol/L Chloride 101 (101-111) mmol/L Carbon Dioxide 28 (21-32) mmol/L Anion Gap 10.0 (6-13) BUN 23 H (6-20) mg/dL Creatinine 0.6 (0.4-1.0) mg/dL Estimated GFR (MDRD) 98 (>89) Glucose 114 H (70-100) mg/dL Calcium 9.1 (8.5-10.3) mg/dL Ionized Calcium NO Magnesium 2.0 (1.7-2.8) mg/dL Total Bilirubin 0.4 (0.2-1.0) mg/dL AST 20 (10-42) IU/L ALT 19 (10-60) IU/L Alkaline Phosphatase 88 (42-121) IU/L Total Protein 5.9 L (6.7-8.2) g/dL Albumin 3.1 L (3.2-5.5) g/dL Globulin 2.8 (2.1-4.2) g/dL Albumin/Globulin Ratio 1.1 (1.0-2.2) - Current Medications Current Medications: Current Medications Generic Name Dose Route Start Last Admin Trade Name Jazmin PRN Reason Stop Dose Admin Acetaminophen 650 mg 07/28/21 20:04 07/30/21 22:13 Acetaminophen 325 Mg Tablet PO 650 mg Q4HR PRN Administration Pain 1 to 4, or Fever Amlodipine Besylate 2.5 mg 07/29/21 09:00 08/01/21 09:17 Amlodipine 5 Mg Tablet PO 2.5 mg DAILY KARLY Administration Duloxetine HCl 20 mg 07/29/21 09:00 08/01/21 09:18 Duloxetine 20 Mg Capsule PO 20 mg DAILY KARLY Administration Heparin Sodium (Porcine) 5,000 unit 07/28/21 21:00 08/01/21 09:18 Heparin 5,000 Unit/Ml Vial SUBQ 5,000 unit BID KARLY Administration Hydromorphone HCl 0.5 mg 07/28/21 20:04 07/29/21 11:24 Hydromorphone 0.5 Mg/0.5 Ml Syringe IVP 0.5 mg Q2H PRN Administration Pain 8 to 10 Hydroxychloroquine Sulfate 200 mg 07/29/21 08:00 08/01/21 09:17 Hydroxychloroquine 200 Mg Tablet PO 200 mg QDBREAKFAST KARLY Administration Potassium Chloride/Dextrose/Sod Cl 1,000 mls @ 125 mls/hr 07/28/21 21:00 08/01/21 15:47 D5.45ns W/20 Meq Kcl IV Not Given .Q8H [facility] Fat Emulsion Intravenous 250 mls @ 21 mls/hr 07/30/21 19:00 08/01/21 07:02 Intralipid 20% IV Infused 1900 [facility] Infusion Multivitamins 10 ml/ TRACE 2,073 mls @ 83 mls/hr 07/31/21 19:00 07/31/21 19:06 ELEMENTS 1 ml/ Sodium IV 83 mls/hr Phosphate 30 mmol/ Potassium 1900 [facility] Administration Chloride 60 meq/ Calcium Gluconate 2,000 mg/ Magnesium Sulfate 1 gm/ Amino Acids/ Protocol Dextrose Sodium Chloride 10 ml 07/28/21 20:04 07/29/21 11:25 Sodium Chloride Flush 0.9% 10 Ml Syringe IVP 10 ml PRN PRN Administration NEEDED PER PROVIDER ORDERS Sodium Chloride 10 ml 07/29/21 01:00 08/01/21 16:57 Sodium Chloride Flush 0.9% 10 Ml Syringe IVP 10 ml 0100,0900,1700 [facility] Administration - Physical Exam Wound/Incisions: positive: Healing well General Appearance: positive: No acute distress Eyes Bilateral: positive: Normal inspection Respiratory: positive: No respiratory distress, Breath sounds nml Cardiovascular: positive: Regular rate & rhythm Abdomen: positive: Non-tender, Nml bowel sounds, No distention Back: negative: CVA tenderness (R), CVA tenderness (L) Neurologic/Psychiatric: positive: Oriented x3 ABX Reporting Has patient been on IV antibiotics over the past 48 hours?: No Impression/Plan - Problem List Problem List: Improving daily. Continue NG over night. Will get a gastrograffin small bowel follow through in the AM to look at the small bowel and the caliber. This will help us to determine if she will need a low residue diet over the next several weeks.
[2021-08-01] MEDS: FAT EMULSION 20% 250 ML IV SCH (18:43)
[2021-08-01] MEDS: [UNRECOGNIZED DRUG - OTHER] IV SCH ×7 (18:44)
[2021-08-01] MEDS: TRACE ELEMENTS IV SCH ×7 (18:44)
[2021-08-01] MEDS: PPN IV SCH ×7 (18:44)
[2021-08-01] MEDS: MULTIVITAMIN IV SCH ×7 (18:44)
[2021-08-02] MEDS: SODIUM CHLORIDE FLUSH 0.9% 10 ML SYRINGE IVP SCH ×2 (01:00→22:22)
[2021-08-02 05:23] LABS: ALBUMIN/GLOBULIN RATIO 1.2 (1.0-2.2); BILIRUBIN,TOTAL 0.4 mg/dL (0.2-1.0); CALCIUM 8.8 mg/dL (8.5-10.3); CREATININE 0.5 mg/dL (0.4-1.0); MAGNESIUM 1.9 mg/dL (1.7-2.8); TOTAL PROTEIN 5.6 g/dL (6.7-8.2)
[2021-08-02] MEDS: DULoxetine 20 MG CAPSULE PO SCH (08:09)
[2021-08-02] MEDS: amLODIPine 5 MG TABLET PO SCH (08:09)
[2021-08-02] MEDS: HYDROXYCHLOROQUINE 200 MG TABLET PO SCH (08:09)
[2021-08-02] MEDS: HEPARIN 5,000 UNIT/ML VIAL SUBQ SCH ×2 (08:10→22:27)
[2021-08-02] MEDS ORDERED: DIATR MEGLU/DIATRIZOATE SODIUM 120 ML BOTTLE PO ONE (08:37)
--- NOTE | 2021-08-02 11:05 | XRAY Report ---
PROCEDURE: SBFT Challenge Panel INDICATIONS: small bowel obstruction COMPARISON: CT abdomen/pelvis 1122 CONTRAST: Gastrografin oral contrast material FLUOROSCOPY TIME: FINDINGS: KUB: No suspicious abdominal calcifications. Visualized solid organ contours appear normal. No susp icious bony abnormalities. Enteric tube is seen terminating in the stomach. Surgical clips are seen projecting over the lower abdomen. Small bowel: There is normal transit time of barium through the small bowel. Small bowel loops are of normal caliber throughout. Mucosal folds are smooth and of normal thickness. No strictures, intr aluminal masses, or extrinsic mass effects are noted. The terminal ileum is identified, and is daniel l in morphology. Extravasated contrast material is seen projecting over the right upper quadrant, wh ich is most likely outside of the patient. IMPRESSION: No signs of small bowel obstruction. Reviewed by: Gatito Hernández MD on 08/02/2021 11:04 AM PDT Approved by: Gatito Hernández MD on 08/02/2021 11:04 AM PDT Station ID: [id number]
--- NOTE | 2021-08-02 13:11 | PROVIDER PROGRESS NOTE ---
Subjective - General Admit Date: 07/28/21 Procedure Date: 07/14/21 Post Op Days: 19 Procedure Performed: Exploratory laparotomy with small bowel resection - Review of Systems Wound/Incisions: positive: Healing well General: positive: No symptoms HEENT: positive: No symptoms Pulmonary: positive: No symptoms Cardiovascular: positive: No symptoms Gastrointestinal: positive: No symptoms Genitourinary: positive: No symptoms Musculoskeletal: positive: No symptoms All Other Systems: positive: Reviewed and negative - Other Other Information/Narrative: Feeling much better today. Had sbft this AM and has had a normal bowel movement. No pain. Objective - Patient Data Reviewed Vital Signs: Yes Vital Signs: Vital Signs x48h Temp Pulse Resp BP Pulse Ox 08/02/21 07:26 36.5 C 74 16 145/68 H 98 Weight: Weight 07/31/21 08/01/21 08/02/21 23:59 23:59 23:59 Weight (kg) 42.5 kg 42.5 kg 43.5 kg Intake & Output: Intake and Output Totals x24h 07/31/21 08/01/21 08/02/21 23:59 23:59 23:59 Intake Total 2518.917 3371.567 513.55 Output Total 900 650 100 Balance 2122.771 5006.567 413.55 - Lab Results Lab Results: 08/01/21 06:10 08/02/21 04:20 Other Lab Results: Lab Results x24hrs 08/02/21 Range/Units 04:20 Sodium 136 (135-145) mmol/L Potassium 4.0 (3.5-5.0) mmol/L Chloride 103 (101-111) mmol/L Carbon Dioxide 25 (21-32) mmol/L Anion Gap 8.0 (6-13) BUN 21 H (6-20) mg/dL Creatinine 0.5 (0.4-1.0) mg/dL Estimated GFR (MDRD) 121 (>89) Glucose 111 H (70-100) mg/dL Calcium 8.8 (8.5-10.3) mg/dL Phosphorus 4.0 (2.5-4.6) mg/dL Magnesium 1.9 (1.7-2.8) mg/dL Total Bilirubin 0.4 (0.2-1.0) mg/dL AST 29 (10-42) IU/L ALT 21 (10-60) IU/L Alkaline Phosphatase 84 (42-121) IU/L Total Protein 5.6 L (6.7-8.2) g/dL Albumin 3.0 L (3.2-5.5) g/dL Globulin 2.6 (2.1-4.2) g/dL Albumin/Globulin Ratio 1.2 (1.0-2.2) Prealbumin 18 (18-45) mg/dL Triglycerides 105 ( - 149) mg/dL - Current Medications Current Medications: Current Medications Generic Name Dose Route Start Last Admin Trade Name Freq PRN Reason Stop Dose Admin Acetaminophen 650 mg 07/28/21 20:04 07/30/21 22:13 Acetaminophen 325 Mg Tablet PO 650 mg Q4HR PRN Administration Pain 1 to 4, or Fever Amlodipine Besylate 2.5 mg 07/29/21 09:00 08/02/21 08:09 Amlodipine 5 Mg Tablet PO 2.5 mg DAILY KARLY Administration Duloxetine HCl 20 mg 07/29/21 09:00 08/02/21 08:09 Duloxetine 20 Mg Capsule PO 20 mg DAILY KARLY Administration Heparin Sodium (Porcine) 5,000 unit 07/28/21 21:00 08/02/21 08:10 Heparin 5,000 Unit/Ml Vial SUBQ 5,000 unit BID KARLY Administration Hydromorphone HCl 0.5 mg 07/28/21 20:04 07/29/21 11:24 Hydromorphone 0.5 Mg/0.5 Ml Syringe IVP 0.5 mg Q2H PRN Administration Pain 8 to 10 Hydroxychloroquine Sulfate 200 mg 07/29/21 08:00 08/02/21 08:09 Hydroxychloroquine 200 Mg Tablet PO 200 mg QDBREAKFAST KARLY Administration Potassium Chloride/Dextrose/Sod Cl 1,000 mls @ 125 mls/hr 07/28/21 21:00 08/02/21 07:16 D5.45ns W/20 Meq Kcl IV 42 mls/hr .Q8H KARLY Infusion Fat Emulsion Intravenous 250 mls @ 21 mls/hr 07/30/21 19:00 08/02/21 06:40 Intralipid 20% IV Infused 1900 KARLY Infusion Multivitamins 10 ml/ TRACE 2,073 mls @ 83 mls/hr 07/31/21 19:00 08/01/21 18:44 ELEMENTS 1 ml/ Sodium IV 83 mls/hr Phosphate 30 mmol/ Potassium 1900 KARLY Administration Chloride 60 meq/ Calcium Gluconate 2,000 mg/ Magnesium Sulfate 1 gm/ Amino Acids/ Protocol Dextrose Sodium Chloride 10 ml 07/28/21 20:04 07/29/21 11:25 Sodium Chloride Flush 0.9% 10 Ml Syringe IVP 10 ml PRN PRN Administration NEEDED PER PROVIDER ORDERS Sodium Chloride 10 ml 07/29/21 01:00 08/02/21 01:00 Sodium Chloride Flush 0.9% 10 Ml Syringe IVP Not Given 0100,0900,1700 [facility] - Physical Exam Wound/Incisions: positive: Healing well General Appearance: positive: No acute distress Eyes Bilateral: positive: Normal inspection ENT: positive: ENT inspection nml Neck: positive: Nml inspection Respiratory: positive: Chest non-tender, No respiratory distress, Breath sounds nml Cardiovascular: positive: Regular rate & rhythm Abdomen: positive: Nml bowel sounds, No distention. negative: Guarding, Rebound Back: positive: Nml inspection Skin: positive: Color nml Neurologic/Psychiatric: positive: Oriented x3 ABX Reporting Has patient been on IV antibiotics over the past 48 hours?: No Impression/Plan - Problem List Problem List: Normal appearance of bowel on SBFT this AM. Obstruction appears to have resolved. Will start a full liquid diet now and advance to soft foods in the AM. Can stop PPN after the current bag.
[2021-08-02] MEDS: D5.45NS W/20 MEQ KCL 1,000 ML IV SCH ×3 (20:32→22:23)
[2021-08-03] MEDS: SODIUM CHLORIDE FLUSH 0.9% 10 ML SYRINGE IVP SCH ×2 (01:24→09:46)
[2021-08-03] MEDS: D5.45NS W/20 MEQ KCL 1,000 ML IV SCH (04:51)
[2021-08-03] MEDS: HEPARIN 5,000 UNIT/ML VIAL SUBQ SCH (09:44)
[2021-08-03] MEDS: amLODIPine 5 MG TABLET PO SCH (09:46)
[2021-08-03] MEDS: DULoxetine 20 MG CAPSULE PO SCH (09:46)
[2021-08-03] MEDS: HYDROXYCHLOROQUINE 200 MG TABLET PO SCH (09:46)
[2021-08-03 10:31] LABS: CALCIUM 8.9 mg/dL (8.5-10.3); CREATININE 0.6 mg/dL (0.4-1.0); POTASSIUM 4.3 mmol/L (3.5-5.0)
--- NOTE | 2021-08-03 11:43 | Discharge Plan ---
Discharge Plan Problem Reviewed?: Yes Disposition: Home, Self Care Diet: Soft Activity Restrictions: 10 lb lifting limit Shower Restrictions: No Driving Restrictions: No No Smoking: If you smoke, Please STOP! Call for help. Follow-up with: Sam Franz MD [Primary Care Provider] - Tanna Orozco MD [Provider Admit Priv/Credential] -
--- NOTE | 2021-08-03 11:48 | DISCHARGE SUMMARY ---
"Discharge Summary Discharge Disposition: 01 Home, Self Care - DIAGNOSES Admission Diagnoses: Small bowel obstruction Discharge Diagnoses with Status of Each Condition: Resolved - HPI History of Present Illness: Alysa is a pleasant 71-year-old lady was recently diagnosed with small bowel obstruction resulting in ischemic bowel requiring small bowel resection. She did well from her original operation though it was noted at the time of r esection that she had 50 cm of truly ischemic and necrotic bowel and another 100 cm that remained in situ and was ischemic but still had arterial pulse. Fortunately, this portion of the bowel lifted. She was able to start a regular diet and was discharged home after several days in the hospital. She called the office last evening reporting nausea and an episode of vomiting. She was subsequently referred to the emergency room where she was seen and evaluated there. She was diagnosed with small bowel obstruction on CT and admitted for observation and supportive care. - CONSULTS | PROCEDURES Consultations: None Procedures: None - HOSPITAL COURSE Hospital Course: Alysa was admitted to the [facility] unit and started on peripheral parenteral nutrition. Her NG tube output was initially high but began to drift down over the ensuing days. At the same time, her abdominal pain improved until finally she was pain-free and did pass some flatus. A Gastrografin challenge revealed no evidence of obstruction, free flow of contrast through the small bowel, and a small bowel of normal caliber and form.She has tolerated a regular diet. She has been walking in the halls. She has not required any pain medication in more than 24 hours. She is discharged to her home in the care of her . She will follow-up with me in my office in 2 weeks for a postoperative visit. I ahsan l have her preadmission medications have been resumed. - ALLERGIES Allergies/Adverse Reactions: Allergies Allergy/AdvReac Type Severity Reaction Status Date / Time imipenem Allergy Unknown Verified 07/28/21 17:45 latex Allergy Unknown Verified 07/28/21 17:45 levofloxacin Allergy Unknown Verified 07/28/21 17:45 Penicillins Allergy Hives Verified 07/28/21 17:45 - MEDICATIONS Home Medications: Ambulatory Orders Medication Instructions Recorded Confirmed Cholecalciferol (Vitamin D3) 2,000 unit PO DAILY 05/03/16 07/28/21 [Vitamin D3] Albuterol Sulfate [Proair Hfa 2 puffs INH Q4H PRN 12/25/18 07/28/21 Inhaler] Calcium Carb/Vitamin D3/Vit K1 1 tab PO DAILY 12/25/18 07/28/21 [Viactiv 650 mg-12.5 Mcg Chew] Multivitamin [Multiple Vitamins] 1 tab PO DAILY 12/25/18 07/28/21 DULoxetine [Cymbalta] 20 mg PO DAILY 07/15/21 07/28/21 Hydroxychloroquine [Plaquenil] 200 mg PO DAILY 07/15/21 07/28/21 Sucralfate [Carafate] 1 tablet PO ACHS 07/15/21 07/28/21 amLODIPine [Norvasc] 2.5 mg PO DAILY 07/15/21 07/28/21 hydroCHLOROthiazide [Hydrodiuril] 25 mg PO DAILY 07/15/21 07/28/21 traMADol [Ultram] 50 mg PO Q6HR PRN #20 tablet 07/21/21 07/28/21 - PHYSICAL EXAM AT DISCHARGE General Appearance: positive: No acute distress, Alert Eyes Bilateral: positive: Normal inspection, PERRL, EOMI ENT: positive: ENT inspection nml Neck: positive: Nml inspection Respiratory: positive: Chest non-tender, No respiratory distress, Breath sounds nml Cardiovascular: positive: Regular rate & rhythm Peripheral Pulses: positive: 1+ Abdomen: positive: Non-tender, Nml bowel sounds, No distention Back: negative: CVA tenderness (R), CVA tenderness (L) Skin: positive: Color nml Neurologic/Psychiatric: positive: Oriented x3 - LABS Result Diagrams: 08/01/21 06:10 08/03/21 10:11 - QUALITY (Female Hip Fx Only) Was patient sent home on osteoporosis medication?: No - FOLLOW UP Follow Up: 2 weeks with [facility] - TIME SPENT Time Spent in Discharge (Minutes): 20"
[2021-08-03 12:24] VITALS: BP 121/61
== END 2021-08-03 12:40 | disposition home or self-care (01) | DRG 390 ==
LOC: ED 17:37 → MS2 20:04
PROVIDERS: ADMIT Surgery; ATTEND Surgery
DX: K56.609 Unspecified intestinal obstruction, unspecified as to partial versus complete obstruction (principal); Z90.49 Acquired absence of other specified parts of digestive tract; I48.91 Unspecified atrial fibrillation; I10 Essential (primary) hypertension; E11.9 Type 2 diabetes mellitus without complications; J90 Pleural effusion, not elsewhere classified; Z20.822 Contact with and (suspected) exposure to COVID-19
CPT/HCPCS: 36415; 74177; 74250; 80048; 80053; 83605; 83690; 83735; 84100; 84134; 84478; 85025; 87040; 87633; 99285; A9270; J1170; J3490; Q9963; Q9967

== ENCOUNTER 2021-12-21 12:27 | Outpatient (CLI) | payer MEDICARE, OTHER | END 2021-12-21 12:28 | disposition home or self-care (01) | LOC: DI 12:27 | PROVIDERS: ATTEND Family Medicine | DX: I48.0 Paroxysmal atrial fibrillation (principal) | CPT/HCPCS: 93306 ==

== ENCOUNTER 2022-03-29 13:04 | Outpatient (CLI) | payer MEDICARE, OTHER ==
--- NOTE | 2022-03-30 11:04 | Mammography Report ---
BILATERAL DIGITAL SCREENING MAMMOGRAM 3D/2D WITH EXAGGERATED CC: 03/29/2022 CLINICAL: Routine screening. Comparison is made to exam dated: 08/29/2018 mammogram - [facility]. Both breasts are extremely dense, which lowers the sensitivity of mammography (category d />75% gland ular tissue). No significant masses, calcifications, or other findings are seen in either breast. There has been no significant interval change. IMPRESSION: NEGATIVE There is no mammographic evidence of malignancy. A 1 year screening mammogram is recommended. Based on the Tyrer Cuzick model (a risk assessment model) the patients lifetime risk is 12.1% and he r 10 year risk is 10.0%. According to the ACR, ACS, and NCCN guidelines, an annual breast MRI exam al sebastian with mammogram is recommended if the patients lifetime risk is 20% or greater. This exam was interpreted at Station ID: [id number]. NOTE: For mammograms, a report in lay terms will be sent to the patient. Approximately 15% of breast malignancies will not be visualized mammographically. In the management of a palpable breast mass, a negative mammogram must not discourage biopsy of a clinically suspicious lesion. Electronically Signed By: Leila miranda/anatoly:03/29/2022 17:19:30 ACR BI-RADS Category 1: Negative 3341F PARENCHYMAL PATTERN: (VD) - The breast(s) demonstrate(s) extremely dense parenchyma, limiting the sen sitivity of mammography. BI-RADS CATEGORY: (1) - 1 RECOMMENDATION: (ANNUAL) - Recommend routine annual screening mammography. [id number] 1 year screening LATERALITY: (B)
== END 2022-03-29 13:05 | disposition home or self-care (01) ==
LOC: DI 13:04
DX: Z12.31 Encounter for screening mammogram for malignant neoplasm of breast (principal)

== ENCOUNTER 2022-11-10 09:19 | Outpatient (CLI) | payer MEDICARE, OTHER ==
[2022-11-10 09:49] LABS: BASOPHILS % (AUTO) 0.8 %; EOSINOPHILS # (AUTO) 0.1 10^3/uL (0.0-0.7); EOSINOPHILS % (AUTO) 1.2 %; HCT - HEMATOCRIT 45.2 % (37.0-47.0); HGB - HEMOGLOBIN 15.1 g/dL (12.0-16.0); LYMPHOCYTES # (AUTO) 1.6 10^3/uL (1.5-3.5); LYMPHOCYTES % (AUTO) 33.6 %; MEAN CORPUSCULAR HEMOGLOBIN 30.7 pg (27.0-31.0); MEAN CORPUSCULAR HGB CONC 33.4 g/dL (32.0-36.0); MEAN CORPUSCULAR VOLUME 91.9 fL (81.0-99.0); MEAN PLATELET VOLUME 10.9 fL (7.9-10.8); MONOCYTES # (AUTO) 0.6 10^3/uL (0.0-1.0); MONOCYTES % (AUTO) 11.3 %; NEUTROPHILS # (AUTO) 2.6 10^3/uL (1.5-6.6); NEUTROPHILS % (AUTO) 52.9 %; PLT - PLATELET COUNT 273 10^3/uL (130-450); RED BLOOD COUNT 4.92 10^6/uL (4.20-5.40); RED CELL DISTRIBUTION WIDTH 11.9 % (12.0-15.0); WHITE BLOOD COUNT 4.9 x10^3/uL (4.8-10.8)
[2022-11-10 09:59] LABS: ALBUMIN 4.8 g/dL (3.2-5.5); ALBUMIN/GLOBULIN RATIO 1.8 (1.0-2.2); ALKALINE PHOSPHATASE 55 IU/L (42-121); ALT ALANINE AMINOTRANSFERASE 10 IU/L (10-60); AST ASPARTATE AMINOTRANSFERASE 22 IU/L (10-42); BILIRUBIN,TOTAL 0.7 mg/dL (0.2-1.0); BUN - BLOOD UREA NITROGEN 20 mg/dL (6-20); CALCIUM 10.2 mg/dL (8.5-10.3); CARBON DIOXIDE - CO2 33 mmol/L (21-32); CHLORIDE 97 mmol/L (101-111); CHOL/HDL RATIO 2.7 (<4.4); CHOLESTEROL 211 mg/dL; CREATININE 0.9 mg/dL (0.6-1.3); GFR - MDRD 61 (>89); GLUCOSE 98 mg/dL (74-104); HDL CHOLESTEROL 79 mg/dL; LDL CHOLESTEROL,CALCULATED 119 mg/dL; LDL/HDL RATIO 1.5 (<4.4); POTASSIUM 3.9 mmol/L (3.5-4.5); SODIUM 135 mmol/L (135-145); TOTAL PROTEIN 7.4 g/dL (6.4-8.9); TRIGLYCERIDES 66 mg/dL (48-352); VLDL CHOLESTEROL 13 mg/dL
[2022-11-10 10:09] LABS: THYROID STIMULATING HORMONE 1.54 uIU/mL (0.34-5.60)
== END 2022-11-10 09:20 | disposition home or self-care (01) ==
LOC: LAB 09:19
PROVIDERS: ATTEND Family Medicine
DX: I48.0 Paroxysmal atrial fibrillation (principal); R63.6 Underweight; Z87.19 Personal history of other diseases of the digestive system; I35.1 Nonrheumatic aortic (valve) insufficiency; M06.9 Rheumatoid arthritis, unspecified
CPT/HCPCS: 36415; 80053; 80061; 83721; 84443; 85025

== ENCOUNTER 2023-03-30 12:44 | Outpatient (CLI) | payer MEDICARE, OTHER ==
--- NOTE | 2023-03-31 11:37 | Mammography Report ---
BILATERAL DIGITAL SCREENING MAMMOGRAM 3D/2D: 03/30/2023 CLINICAL: Routine screening. Comparison is made to exams dated: 03/29/2022 mammogram and 08/29/2018 mammogram - [facility]. Both breasts are heterogeneously dense, which may obscure small masses (category c / 51-75% glandular tissue). No significant masses, calcifications, or other findings are seen in either breast. There has been no significant interval change. IMPRESSION: NEGATIVE There is no mammographic evidence of malignancy. A 1 year screening mammogram is recommended. Based on the Tyrer Cuzick model (a risk assessment model) the patients lifetime risk is 7.6% and her 10 year risk is 6.8%. According to the ACR, ACS, and NCCN guidelines, an annual breast MRI exam wisam g with mammogram is recommended if the patients lifetime risk is 20% or greater. This exam was interpreted at Station ID: [id number]. NOTE: For mammograms, a report in lay terms will be sent to the patient. Approximately 15% of breast malignancies will not be visualized mammographically. In the management of a palpable breast mass, a negative mammogram must not discourage biopsy of a clinically suspicious lesion. Electronically Signed By: Gatito machado/anatoly:03/30/2023 13:46:24 letter sent: No_Letter ACR BI-RADS Category 1: Negative 3341F PARENCHYMAL PATTERN: (D) - The breast(s) demonstrate(s) heterogeneously dense fibroglandular claire sanz. BI-RADS CATEGORY: (1) - 1 Mammogram [id number] 1 year screening LATERALITY: (B)
== END 2023-03-30 12:45 | disposition home or self-care (01) ==
LOC: DI 12:44
DX: Z12.31 Encounter for screening mammogram for malignant neoplasm of breast (principal); R92.333 Mammographic heterogeneous density, bilateral breasts

== ENCOUNTER 2025-02-18 20:37 | Inpatient (IN) ==
--- OUTSIDE RECORDS SUMMARY | 2025-02-18 20:44 | EXTERNAL MEDICAL SUMMARY RPT | Continuity of Care Document ---
Author Organization [place] Address [address] [address] Phone Problems date description facility 2024-11-28 00:01 Hypo-osmolality and hyponatremi a [facility] 2024-11-28 00:01 Essential (primary) hypertensio n [facility] 2024-11-28 00:01 Paroxysmal atrial fibrillation [facility] 2024-11-28 00:01 Unspecified atrial fibrillation [facility] 2024-11-28 00:01 Hypotension, unspecified [facility] 2024-11-28 00:04 Hypo-osmolality and hyponatremi a [facility] 2024-11-28 00:04 Essential (primary) hypertensio n [facility] 2024-11-28 00:04 Paroxysmal atrial fibrillation [facility] 2024-11-28 00:04 Unspecified [facility] 2024-11-28 00:04 Hypotension, unspecified [facility] 2024-11-29 13:36 Essential (primary) hypertensio n [facility] 2025-01-06 08:07 [facility]calcemia [facility] 2025-01-06 08:07 Essential (primary) hypertensio n [facility] 2025-01-06 08:07 Hypotension, unspecified [facility] 2025-01-07 00:03 Hypercalcemia [facility] 2025-01-07 00:03 Essential (primary) hypertensio n [facility] 2025-01-07 00:03 Hypotension, unspecified [facility] 2025-01-07 10:10 Hypercalcemia [facility] 2025-01-07 10:10 Essential (primary) hypertensio n [facility] 2025-01-07 10:10 Hypotension, unspecified [facility] 2025-01-07 13:51 Rheumatoid arthritis without rheumatoid factor, unspecified site [facility] 2025-01-15 17:20 Pain in left wrist [facility] 2025-01-15 17:22 [facility] in left wrist [facility] 2025-01-15 18:37 Hypo-osmolality and hyponatremi a [facility] 2025-01-15 18:37 Hypokalemia [facility] 2025-01-15 18:37 Essential (primary) hypertensio n [facility] 2025-01-15 18:37 Unspecified atrial fibrillation [facility] 2025-01-15 18:37 Other cerebral infarction [facility] 2025-01-15 18:37 Cerebral infarction, unspecifie d [facility] 2025-01-15 18:37 Pain in left wrist [facility] 2025-01-15 18:37 Arthralgia of right temporomand ibular joint [facility] 2025-01-15 18:37 Pain in left lower leg [facility] 2025-01-15 18:37 Arnold-Chiari syndro me without spina bifida or hydrocephalus [facility] 2025-01-15 18:37 Other chest pain [facility] 2025-01-15 18:37 Other symptoms and s igns involving the musculoskeletal system [facility] 2025-01-15 18:37 Hematuria, unspecified [facility] 2025-01-15 18:37 Disorientation, unspecified [facility] 2025-01-15 18:37 Aphasia [facility] 2025-01-15 18:37 Unspecified sprain of left wris t, initial encounter [facility] 2025-01-16 00:02 Pain in left wrist [facility] 2025-01-16 00:02 Unspecified sprain of left wris t, initial encounter [facility] 2025-01-16 00:03 Pain in left wrist [facility] 2025-01-27 09:54 Hypo-osmolality and hyponatremi a [facility] 2025-01-27 09:54 Hypokalemia [facility] 2025-01-27 09:54 Hemiplegic migraine, not intractable, with status migrainosus [facility] 2025-01-27 09:54 Essential (primary) hypertensio n [facility] 2025-01-27 09:54 Paroxysmal atrial fibrillation [facility] 2025-01-27 09:54 Unspecified atrial fibrillation [facility] 2025-01-27 09:54 Other cerebral [facility] 2025-[facility] 09:54 Cerebral infarction, unspecifie d [facility] 2025-01-27 09:54 Unspecified asthma, uncomplicat ed [facility] 2025-01-27 09:54 Rheumatoid arthritis, unspecifi ed [facility] 2025-01-27 09:54 Arthralgia of right temporomand ibular joint [facility] 2025-01-27 09:54 Spinal stenosis, cervical regio n [facility] 2025-01-27 09:54 Unspecified cervical disc disorder, mid-cervical region, unspecified level [facility] 2025-01-27 09:54 Pain in left lower leg [facility] 2025-01-27 09:54 Fibromyalgia [facility] 2025-01-27 09:54 Arnold-Chiari syndro 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 spina bifida or hydrocephalus [facility] 2025-01-27 09:54 Other chest pain [facility] 2025-01-27 09:54 Other symptoms and s igns involving the musculoskeletal system [facility] 2025-01-27 09:54 Hematuria, unspecified [facility] 2025-01-27 09:54 Disorientation, unspecified i [facility] 2025-01-27 09:54 Aphasia [facility] 2025-01-27 09:54 Unspecified sprain of left wris t, initial encounter [facility] 2025-01-27 09:54 Fall on same level f rom slipping, tripping and stumbling without subsequent striking against object, initial encounter [facility] 2025-01-31 13:14 Abnormal levels of other serum enzymes [facility] 2025-02-01 00:04 Abnormal levels of other serum enzymes [facility] Results/Labs test date facility value unit notes Result panel 1 NUCLEATED RED BLOOD CELLS AUTO 2024-11-27 17:48 [facility] 0.0 /100wbc (missing) NRBC ABSOLUTE COUNT (AUTO) 2024-11-27 17:48 [facility] 0.00 x10 3/ul (missing) BASOPHILS # (AUTO) 2024-11-27 17:48 [facility] 0.1 10 3/ul (missing) EOSINOPHILS # (AUTO) 2024-11-27 17:48 [facility] 0.1 10 3/ul (missing) CREATININE 2024-11-27 17:48 [facility] 0.8 mg/dl As of September 2022 testing method has changed, this may include reference ranges. MONOCYTES # (AUTO) 2024-11-27 17:48 [facility] 1.0 10 3/ul (missing) THYROID STIMULATING HORMONE 2024-11-27 17:48 [facility] 1.51 uiu/ml (missing) MAGNESIUM 2024-11-27 17:48 [facility] 1.9 mg/dl As of September 2022 testing method has changed, this may include reference ranges. MEAN PLATELET VOLUME 2024-11-27 17:48 [facility] 10.3 fl (missing) CALCIUM 2024-11-27 17:48 [facility] 10.6 mg/dl As of September 2022 testing method has changed, this may include reference ranges. RED CELL DISTRIBUTION WIDTH 2024-11-27 17:48 [facility] 12.5 % (mi ssing) SODIUM 2024-11-27 17:48 [facility] 131 mmol/l (missing) HGB - HEMOGLOBIN 2024-11-27 17:48 [facility] 14.4 g /dl (missing) LYMPHOCYTES # (AUTO) 2024-11-27 17:48 [facility] 2.1 10 3/ul (missing) BUN - BLOOD UREA NITROGEN 2024-11-27 17:48 [facility] 28 mg/dl As of Sep testing method has changed, this may include reference ranges. PLT - PLATELET COUNT 2024-11-27 17:48 [facility] 281 10 3/ul (missing) URIC ACID 2024-11-27 17:48 [facility] 3.4 mg/dl As of September 2022 testing method has changed, this may include reference ranges. POTASSIUM 2024-11-27 17:48 [facility] 3.8 mmol/l As of September 2022 testing method has changed, this may include reference ranges. MEAN CORPUSCULAR HEMOGLOBIN 2024-11-27 17:48 [facility] 32.4 pg (missing) MEAN CORPUSCULAR HGB CONC 2024-11-27 17:48 [facility] 34.6 g/dl (missing) CARBON DIOXIDE - CO2 2024-11-27 17:48 [facility] 35 mmol/l As of September 2022 testing method has changed, this may include reference ranges. NEUTROPHILS # (AUTO) 2024-11-27 17:48 [facility] 4.3 10 3/ul (missing) RED BLOOD COUNT 2024-11-27 17:48 [facility] 4.44 10 6/ul (missing) HCT - HEMATOCRIT 2024-11-27 17:48 [facility] 41.6 % (missing) ANION GAP 2024-11-27 17:48 [facility] 5.0 (missing ) (missing) WHITE BLOOD COUNT 2024-11-27 17:48 [facility] 7.6 x10 3/ul (missing) GFR - MDRD 2024-11-27 17:48 [facility] 70 (missin g) The IDNY-traceable MDRD Study Equation has been validated extensively in and populations between the ages of 18 and 70 with impaired kidney function (eGFR < 60 mL/min/1.73m2) and has shown good performance for patients with all common causes of kidney disease. Although this equation has not been validated for patients older than 70, an MDRD-derived eGFR may still be a useful tool for providers caring for patients older than 70. References: http://www.nkdep.n ih.gov/lab-evaluat ion/gfr/creatinine -stand ardization, last updated May 2011. CHLORIDE 2024-11-27 17:48 [facility] 91 mmol/l As of September 2022 testing method has changed, this may include reference ranges. GLUCOSE 2024-11-27 17:48 [facility] 92 mg/dl As of September 2022 testing method has changed, this may include reference ranges. MEAN CORPUSCULAR VOLUME 2024-11-27 17:48 [facility] 93.7 fl (missing) Result panel 2 NUCLEATED RED BLOOD CELLS AUTO 2025-01-06 08:16 [facility] 0.0 /100wbc (missing) NRBC ABSOLUTE COUNT (AUTO) 2025-01-06 08:16 [facility] 0.00 x10 3/ul (missing) BASOPHILS # (AUTO) 2025-01-06 08:16 [facility] 0.1 10 3/ul (missing) EOSINOPHILS # (AUTO) 2025-01-06 08:16 [facility] 0.2 10 3/ul (missing) CRP - C-REACTIVE PROTEIN 2025-01-06 08:16 [facility] 0.6 mg/dl As of September 2022 testing method has changed, this may include reference ranges. MONOCYTES # (AUTO) 2025-01-06 08:16 [facility] 0.7 10 3/ul (missing) CREATININE 2025-01-06 08:16 [facility] 1.0 mg/dl As of September 2022 testing method has changed, this may include reference ranges. LYMPHOCYTES # (AUTO) 2025-01-06 08:16 [facility] 1.6 10 3/ul (missing) MAGNESIUM 2025-01-06 08:16 [facility] 1.7 mg/dl As of September 2022 testing method has changed, this may include reference ranges. MEAN PLATELET VOLUME 2025-01-06 08:16 [facility] 10.5 fl (missing) GLUCOSE 2025-01-06 08:16 [facility] 103 mg/dl As of September 2022 testing method has changed, this may include reference ranges. RED CELL DISTRIBUTION WIDTH 2025-01-06 08:16 [facility] 12.2 % (missing) SODIUM 2025-01-06 08:16 [facility] 133 mmol/l (missing) HGB - HEMOGLOBIN 2025-01-06 08:16 [facility] 14.6 g/dl (missing) BUN - BLOOD UREA NITROGEN 2025-01-06 08:16 [facility] 21 mg/dl As of September 2022 testing method has changed, this may include reference ranges. PLT - PLATELET COUNT 2025-01-06 08:16 [facility] 282 10 3/ul (missing) NEUTROPHILS # (AUTO) 2025-01-06 08:16 [facility] 3.1 10 3/ul (missing) POTASSIUM 2025-01-06 08:16 [facility] 3.5 mmol/l As of September 2022 testing method has changed, this may include reference ranges. MEAN CORPUSCULAR HEMOGLOBIN 2025-01-06 08:16 [facility] 30.4 pg (missing) MEAN CORPUSCULAR HGB CONC 2025-01-06 08:16 [facility] 32.9 g/dl (missing) CARBON DIOXIDE - CO2 2025-01-06 08:16 [facility] 33 mmol/l As of September 2022 testing method has changed, this may include reference ranges. CK- CREATINE KINASE 2025-01-06 08:16 [facility] 348 iu/l As of September 2022 testing method has changed, this may include reference ranges. RED BLOOD COUNT 2025-01-06 08:16 [facility] 4.80 10 6/ul (missing) CALCIUM IONIZED SERUM 2025-01-06 08:16 [facility] 4.9 mg/dl Please note reference interval and unit change Performed at: [facility] [id number] [employer] Machine Operator: Fer Miller MD, Phone: [phone] HCT - HEMATOCRIT 2025-01-06 08:16 [facility] 44.4 % (missing) ESR- ERYTHROCYTE SEDIMENT RATE 2025-01-06 08:16 [facility] 5 mm/hr (missing) WHITE BLOOD COUNT 2025-01-06 08:16 [facility] 5.6 x10 3/ul (missing) GFR - MDRD 2025-01-06 08:16 [facility] 54 (missing) The IDMS-traceable MDRD Study Equation has been validated extensively in and populations between the ages of 18 and 70 with impaired kidney function (eGFR < 60 mL/min/1.73m2) and has shown good performance for patients with all common causes of kidney disease. Although this equation has not been validated for patients older than 70, an MDRD-derived eGFR may still be a useful tool for providers caring for patients older than 70. References: http://www.nkdep. nih.gov/lab-evalu ation/gfr/creatin ine-stand ardization, last updated May 2011. ANION GAP 2025-01-06 08:16 [facility] 6.0 (missing) (missing) CALCIUM 2025-01-06 08:16 [facility] 9.7 mg/dl As of September 2022 testing method has changed, this may include reference ranges. MEAN CORPUSCULAR VOLUME 2025-01-06 08:16 [facility] 92.5 fl (missing) CHLORIDE 2025-01-06 08:16 [facility] 94 mmol/l As of September 2022 testing method has changed, this may include reference ranges. RHEUMATOID FACTOR 2025-01-06 08:16 [facility] NEGATIVE (missing) (missing) Result panel 3 CK- CREATINE KINASE 2025-01-31 13:22 [facility] 155 iu/l As of September 2022 testing method has changed, this may include reference ranges. Social History date description facility
[2025-02-18 21:03] LABS: HCT - HEMATOCRIT 43.7 % (37.0-47.0); HGB - HEMOGLOBIN 14.2 g/dL (12.0-16.0); MEAN PLATELET VOLUME 9.7 fL (7.9-10.8); NRBC ABSOLUTE COUNT (AUTO) 0.00 x10^3/uL; NUCLEATED RED BLOOD CELLS AUTO 0.0 /100WBC; PLT - PLATELET COUNT 262 10^3/uL (130-450); RED CELL DISTRIBUTION WIDTH 13.3 % (12.0-15.0)
[2025-02-18 21:15] LABS: INR 1.0 (0.8-1.2); PT - PROTHROMBIN TIME 11.7 secs (9.9-12.6)
--- NOTE | 2025-02-18 21:20 | XRAY Report ---
PROCEDURE: XR Chest 1V INDICATIONS: AMS, aphasia TECHNIQUE: One view of the chest was acquired. COMPARISON: 04/29/2024 FINDINGS: Surgical changes and devices: None. Lungs and pleura: No pleural effusions or pneumothorax. No consolidation. Mediastinum: Mediastinal contours appear normal. Heart size is normal. Bones and chest wall: No suspicious bony lesions. Overlying soft tissues appear unremarkable. IMPRESSION: Chest without acute cardiopulmonary abnormalities or focal airspace disease. Reviewed by: Shane Ariza MD on 02/18/2025 9:16 PM PST Approved by: Shane Ariza MD on 02/18/2025 9:16 PM PST Station ID: [id number]
[2025-02-18 21:21] LABS: ETOH - ETHANOL < 10.0 mg/dL
--- NOTE | 2025-02-18 21:25 | CT Report ---
PROCEDURE: CT Head W/O Stroke Protocol, CT Angio Head/Neck INDICATIONS: AMS, weakness TECHNIQUE: Noncontrast angled axial sections acquired from the foramen magnum to the vertex, with coronal reformats. For radiation dose reduction, the following was used: automated exposure control, adjustment of mA and/or kV according to patient size. COMPARISON: MR brain , CT head 04/29/2024 FINDINGS: Image quality: Excellent. CSF spaces: Basal cisterns are patent. No extra-axial fluid collections. Ventricles are normal in size and shape. Brain: No midline shift. No intracranial mass effect or hemorrhage. Bonds- white matter interface is normal. Skull and face: Calvarium and visualized facial bones are intact, without suspicious lesions. Sinuses: Visualized sinuses and mastoids are clear. Cerebral CT Angiogram: Internal carotid arteries: No acute findings. Intracranial ICA are patent with no significant stenosis. No occlusion. No aneurysm. Anterior cerebral arteries: Unremarkable. No significant stenosis. No occlusion. No aneurysm. Middle cerebral arteries: Unremarkable. No significant stenosis. No occlusion. No aneurysm. Posterior cerebral arteries: Unremarkable. No significant stenosis. No occlusion. No aneurysm. Basilar artery: Unremarkable. No significant stenosis. No occlusion. No aneurysm. Vertebral arteries: Unremarkable as visualized. Dural venous sinuses: Unremarkable given phase of enhancement. Other: Arterial phase appearance of the brain parenchyma is unremarkable. Neck CT Angiogram: Internal carotid arteries: Unremarkable. No significant stenosis. No dissection or occlusion. Common carotid arteries: Unremarkable. No significant stenosis. No dissection or occlusion. External carotid arteries: Unremarkable. No occlusion. Vertebral arteries: Unremarkable. No significant stenosis. No dissection or occlusion. Aortic Arch and Mediastinum: Partially visualized aortic arch unremarkable without evidence of aneurysm. Origins of the great vessels unremarkable. Other: Arterial phase soft tissues of the neck and chest are unremarkable. IMPRESSION: No acute intracranial abnormality. No significant intracranial arterial abnormality. No significant abnormality is seen within the arteries of the neck. Findings discussed with ED MD Hodges at approximately 9:10 p.m. on 02/18/2025. This study fulfills neurological imaging criteria for inclusion or exclusion of acute stroke therapies based on available published neurological imaging guidelines. Reviewed by: Betsy Cisneros MD on 02/18/2025 9:22 PM PST Approved by: Betsy Cisneros MD on 02/18/2025 9:22 PM PST Station ID: [email or web address]
--- NOTE | 2025-02-18 21:42 | ED Physician Documentation ---
PD HPI FOCAL NEURO Stated complaint Stated Complaint: CODE STROKE Chief complaint Chief Complaint: Neuro Additional information Additional information: BIBA. HPI from EMS, patient's spouse (in ED at patient's bedside). Patient is unable to contribute to HPI/ROS due to AMS/aphasia. Patient's spouse says that patient woke up this morning at approximately 8:30 AM without any deficits (at her neurologic/mental status baseline). However, at approximately 9:00 AM this morning, she began to exhibit difficulty with speech as well as signs of left-sided weakness. Patient's says that patient has had several previous similar episodes attributed to TIA and that the symptoms typically resolve within hours. Thus, he did not call 911 until 7:30 PM tonight when, in addition to her symptoms persisting, the weakness apparently spread to involve the right side, as well. Furthermore, her difficulty with speech progressed to the point of being nonverbal. Her prescription medications include Eliquis for atrial fibrillation. No recent injury/fall. [place] Coma Scale Assess Eye opening: To Voice Verbal response: None Motor response: Obeys Commands Total score: 10 Meds/Allgy Home Medications Ambulatory Orders Medication Instructions Recorded Confirmed hydroxychloroquine 200 mg tablet 200 mg PO DAILY 07/1501/23/25 apixaban 5 mg tablet (Eliquis) 5 mg PO BID 01/22/24 duloxetine 20 mg capsule,delayed 20 mg PO DAILY #90 ca ps 02/22/24 01/23/25 release potassium chloride 10 mEq See Rx Instructions .Route 0 03/26/24 01/23/25 tablet,extended release .COMPLEX #90 tabs calcium 600 mg (as 1 tab PO DAILY 04/30/2409/11 carbonate)-vitamin D3 10 mcg (400 unit) tablet (Calcium with Vitamin D) cholecalciferol (vitamin D3) 25 50 mcg PO QDAY 5 01/23/25 mcg (1,000 unit) tablet ubrogepant 100 mg tablet (Ubrelvy) 100 mg PO .COMPLEX 06/03/24 01/23/25 benzonatate 200 mg capsule 200 mg PO TID #90 caps 05/1801/23/25 hydrochlorothiazide 25 mg tablet See Rx Instructions . Route 07/25/24 01/23/25 .COMPLEX #90 tabs albuterol sulfate 90 mcg/actuation 1 inh inhalation QI D PRN shortness 08/25/24 01/23/25 aerosol inhaler (Ventolin HFA) of breath or wheezing # 6.7 grams fluticasone 100 mcg-salmeterol 50 1 inh inhalation BID #60 ea 08/25/24 01/23/25 mcg/dose blistr powdr for inhalation diltiazem HCl 120 mg capsule,24 120 mg PO DAILY #90 ca ps 11/13/24 01/23/25 hr,extended release diltiazem HCl 120 mg capsule,24 120 mg PO QAM #90 caps 11/13/24 01/23/25 hr,extended release (Tiadylt ER) triamcinolone acetonide 0.1 % 1 applic topical QDAY #3 0 grams 11/13/24 01/23/25 topical cream verapamil 120 mg 24 hr 120 mg PO QAM #90 caps 11/2701/23/25 capsule,extended release sulfasalazine 500 mg PO 01/23/25 01/23/25 tablet,delayed release Allergies Allergies Allergy/AdvReac Type Severity Reaction Status Date / Time imipenem Allergy Unknown Verified 02/18/25 20:56 latex Allergy Unknown Verified 02/18/25 20:56 levofloxacin Allergy Unknown Verified 02/18/25 20:56 Penicillins Allergy Hives Verified 02/18/25 20:56 PFSH Active Problems All Active Problems (Updated 02/18/25 @ 21:43 by Griffin Hodges MD) Cerebrovascular accident (CVA) (Acute) Myalgia and myositis (Acute 02/06/20) Fall from slip, trip, or stumble (Acute) Sprain of left wrist (Acute) Acute pain of left wrist (Acute) Elevated CK (Acute) Rheumatoid arthritis (Acute) Hypercalcemia (Chronic) Hypotension (Acute) Spider bite allergy, current reaction (Acute) Muscle spasm (Acute) Muscle spasms of neck (Acute) Cervical disc disorder of mid-cervical region (Acute) Cervical stenosis of spinal canal (Acute) Hemiplegic migraine with status migrainosus (Acute) Hematuria (Acute) Hyponatremia (Acute) Atrial fibrillation (Acute) Aphasia (Acute) Acute stroke due to ischemia (Acute) Significantly low body weight concurrent with and due to restricting type anorexia nervosa (Acute 11/09/21) Chronic EBV infection (Acute 09/18/19) DJD (degenerative joint disease) of knee (Acute 05/07/17) Atrial septal defect (Acute 11/12/20) Paroxysmal atrial fibrillation (Acute 08/11/21) Arthritis of knee (Acute 05/16/17) Arnold-Chiari malformation (Acute 05/07/17) Mild aortic insufficiency (Acute 05/06/21) Screening for depression (Acute 07/20/18) Screening for breast cancer (Acute 08/09/18) Esophageal reflux (Acute 05/07/17) Proximal muscle weakness (Acute 01/07/19) Postmenopausal (Acute 07/20/18) Plantar fasciitis (Acute 07/24/19) Peripheral edema (Acute 02/06/19) Osteoporosis (Acute 05/07/17) Neuropathic pain (Acute 07/24/19) Knee pain, bilateral (Acute 01/19/16) Hypovitaminosis D (Acute 05/07/17) Fibromyalgia (Acute 04/02/20) Epigastric pain (Acute 12/17/19) Dorsalgia (Acute 07/01/19) Diverticular disease of colon (Acute 04/02/20) Colon polyps (Acute 05/07/17) Chronic bronchitis (Acute 05/07/17) Bilateral primary osteoarthritis of knee (Acute 01/19/16) Balance problem (Acute 01/07/19) Asthma (Acute 05/07/17) Actinic keratoses (Acute 05/07/17) Dysphonia (Chronic) Hypertension (Chronic) Medical History Medical History (Updated 02/18/25 @ 21:43 by Griffin Hodges MD) Malaise and fatigue (12/24/18) Unilateral weakness History of atrial fibrillation Hypokalemia (05/06/21) Chiari I malformation Ischemic stricture intestine (11/09/21) History of TIA due to embolism (02/06/19) Melanoma (05/07/17) Hx of small bowel obstruction (08/11/21) History of mononucleosis (12/24/18) Family History Family History (Updated 01/22/24 @ 12:27 by Kristine Palacio LPN) Other Family history unknown Social History Social History (Updated 01/18/25 @ 19:04 by Kiran Hale PA-C) Smoking Status: Unknown if ever smoked Second hand tobacco smoke exposure: No Do you dip or chew tobacco?: No Do you vape?: No Patient requests smoking cessation consult: No Initiate information on smoking cessation: No Living arrangement: At home Marital Status: Living Condition: With spouse/s.o. 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 Known occupational exposures/hazards (Current/Previous): None Known Service: No Are you following a diet prescribed by a doctor: No Are you following a special diet: No POLST Patient has POLST: No Exam Exam Vital Signs: Vital Signs x48h Temp Pulse Resp BP Pulse Ox 02/18/25 21:50 178/84 H 02/18/25 20:40 36.4 C L 81 20 181/70 H 98 Constitutional normal general appearance, no apparent distress and level of alertness abnormal (lethargic) HENMT head/scalp atraumatic and oral mucous membranes normal (dry mucous membranes) Eyes PERRL and EOMs intact bilaterally Respiratory breath sounds equal bilaterally and clear to auscultation bilaterally Cardiovascular normal heart rate noted, regular rhythm noted, no murmur and no edema Gastrointestinal abdomen soft to palpation, nontender to palpation, nondistended and normoactive bowel sounds Neurology GCS calculation - Eye opening: To Voice Verbal response: None Motor response: Obeys Commands [place] Coma Scale total score: 10 Psychiatry mental status abnormal Skin skin color normal Results Vitals Vitals: Vital Signs - 24 hr 02/18/25 20:40 02/18/25 21:50 Temperature 36.4 C L Temperature Source Temporal Artery Scan Pulse Rate 81 Respiratory Rate 20 Blood Pressure 181/70 H 178/84 H O2 Saturation 98 O2 Source Room air Pain Intensity 0 Oxygen O2 Source Room air EKG (time done) 20:56: EKG releavant findings:: EKG personally interpreted by author of this note. Relevant findings are: Rate: Rate (enter#) (84) Rhythm: NSR and Normal P waves [place]: LAD Intervals: Normal HI QRS: Wide QRS (NSIVCD) Ischemia: Normal ST segments and Q waves (V1, V2) Compare to prior EKG: Unchanged from prior EKG (no significant change compared to 10/03/24) Labs Labs: Laboratory Tests 02/18/25 20:58 WBC 6.3 RBC 4.72 Hgb 14.2 Hct 43.7 MCV 92.6 MCH 30.1 MCHC 32.5 RDW 13.3 Plt Count 262 MPV 9.7 Neut # (Auto) 3.1 Lymph # (Auto) 1.9 [place] # (Auto) 1.0 Eos # (Auto) 0.2 Baso # (Auto) 0.1 Absolute Nucleated RBC 0.00 Nucleated RBC % 0.0 PT 11.7 INR 1.0 APTT 25.8 Sodium 131 L Potassium 3.1 L Chloride 93 L Carbon Dioxide 31 Anion Gap 7.0 BUN 15 Creatinine 0.8 Estimated GFR (MDRD) 70 L Glucose 107 H Calcium 9.6 Total Bilirubin 0.7 AST 33 ALT 22 Alkaline Phosphatase 57 Troponin I High Sens 7.3 Total Protein 7.3 Albumin 4.6 Globulin 2.7 Albumin/Globulin Ratio 1.7 Lipase 13 Ethyl Alcohol < 10.0 Rads (name of study) CTH: Relevant Findings:: Prelim report reviewed and See rad report CTA head/neck: Relevant Findings:: Prelim report reviewed and See rad report PD Medical Decision Making ED course Complexity details: reviewed results, re-evaluated patient, considered differential and d/w family ED course: No concerning nor diagnostic findings on EKG, blood work (mild hyponatremia (NA 131) and hypokalemia (K3.1) noted), CXR, CTH, CTA head/neck. Normal hs-cTn. Patient is not within window for consideration of thrombolytics (and takes eliquis), and no LVO on CTA head. Plan is to admit to [facility] for completion of stroke workup (MRI). I discussed this case with [employer] who accepts patient to [facility] hospitalist service TPA CVA checklist Inclusion crititeria: positive Sig neuro deficit and CT no bleed; negative Onset know < 4.5 hr Discharge Plan Discharge Patient Disposition: [facility] DC/Xfer Condition: Stable Clinical Impression: Cerebrovascular accident (CVA) Interventions: ED Admission Assessment Last Done: 02/18/25 22:45 Vitals documented within 30 minutes of discharge?: Yes NIHSS Time 21:35: Time: 21:35 Level of Consciousness Level of consciousness: (2) Not alert, requires repeated stimulation to attend LOC Questions: (2) Answers neither correct LOC Commands: (0) Performs both correctly Gaze Best Gaze: (0) Normal Visual Visual: (0) No loss Facial Palsy Facial Palsy: (0) Normal, symmetrical movement Motor Arms (both separate) Motor Arm (right): (4) No movement Motor Arm (left): (4) No movement Motor Legs (both separate) Motor Leg (right): (4) No movement Motor Leg (left): (4) No movement Limb Ataxia Limb Ataxia: (2) Present in 2 limbs (unable to test) Sensory Sensory: (0) Normal Best Language Best Language: (3) Mute, global aphasia Dysarthria Dysarthria: (-) Intubated or other barrier, use comment (nonverbal) Extinction and Inattention (formally neg Extinction and inattention: (1) Visual,tactile,auditory,spatial, or personal inattention Total Score/Results Total Score/Result: 26
[2025-02-18 21:50] LABS: ALT ALANINE AMINOTRANSFERASE 22 IU/L (10-60); AST ASPARTATE AMINOTRANSFERASE 33 IU/L (10-42); BUN - BLOOD UREA NITROGEN 15 mg/dL (6-20); CARBON DIOXIDE - CO2 31 mmol/L (21-32); CREATININE 0.8 mg/dL (0.6-1.3); GFR - MDRD 70 (>89)
[2025-02-18] MEDS ORDERED: SODIUM CHLORIDE FLUSH 0.9% 10 ML SYRINGE IVP PRN (22:37)
[2025-02-18] MEDS ORDERED: MORPHINE 2 MG/ML CARPUJECT IVP PRN (22:37)
--- NOTE | 2025-02-18 22:39 | HISTORY & PHYSICAL EXAMINATION ---
Chief Complaint Chief Complaint Chief Complaint: left sided weakness and speech difficulty History of Present Illness History Obtained From Exam Limitations: telemedicine, patient current condition History of Present Illness HPI Comment/Other: Mrs. Valverde is a 74yoF with a h/o hypertension, atrial fibrillation, TIA presented with bilateral weakness and aphasia. was at bedside and provided history. Patient was experiencing headaches and malaise the night prior to the onset of symptoms. On the day of presentation she woke up with left sided weakness. This progress throughout the day to involve her right upper and lower extremity. she also had slurring of speech that progressed to her not being able to speak at all. In the ED, CT head, CTA head and neck were unremarkable. This visit was performed using telehealth tools, including phone and live-video. patient provided verbal consent to complete this telemedicine encounter. During the time my interview and evaluation, the patient was located at [facility] in the [facility], I was located in [place] . Meds/Allgy Home Medications Ambulatory Orders Medication Instructions Recorded Confirmed hydroxychloroquine 200 mg tablet 200 mg PO DAILY 07/1501/23/25 apixaban 5 mg tablet (Eliquis) 5 mg PO BID 01/22/24 duloxetine 20 mg capsule,delayed 20 mg PO DAILY #90 ca ps 02/22/24 01/23/25 release potassium chloride 10 mEq See Rx Instructions .Route 0 03/26/24 01/23/25 tablet,extended release .COMPLEX #90 tabs calcium 600 mg (as 1 tab PO DAILY 04/30/2409/11 carbonate)-vitamin D3 10 mcg (400 unit) tablet (Calcium with Vitamin D) cholecalciferol (vitamin D3) 25 50 mcg PO QDAY 5 01/23/25 mcg (1,000 unit) tablet ubrogepant 100 mg tablet (Ubrelvy) 100 mg PO .COMPLEX 06/03/24 01/23/25 benzonatate 200 mg capsule 200 mg PO TID #90 caps 05/1801/23/25 hydrochlorothiazide 25 mg tablet See Rx Instructions . Route 07/25/24 01/23/25 .COMPLEX #90 tabs albuterol sulfate 90 mcg/actuation 1 inh inhalation QI D PRN shortness 08/25/24 01/23/25 aerosol inhaler (Ventolin HFA) of breath or wheezing # 6.7 grams fluticasone 100 mcg-salmeterol 50 1 inh inhalation BID #60 ea 08/25/24 01/23/25 mcg/dose blistr powdr for inhalation diltiazem HCl 120 mg capsule,24 120 mg PO DAILY #90 ca ps 11/13/24 01/23/25 hr,extended release diltiazem HCl 120 mg capsule,24 120 mg PO QAM #90 caps 11/13/24 01/23/25 hr,extended release (Tiadylt ER) triamcinolone acetonide 0.1 % 1 applic topical QDAY #3 0 grams 11/13/24 01/23/25 topical cream verapamil 120 mg 24 hr 120 mg PO QAM #90 caps 11/2701/23/25 capsule,extended release sulfasalazine 500 mg PO 01/23/25 01/23/25 tablet,delayed release Allergies Allergies Allergy/AdvReac Type Severity Reaction Status Date / Time imipenem Allergy Unknown Verified 02/18/25 20:56 latex Allergy Unknown Verified 02/18/25 20:56 levofloxacin Allergy Unknown Verified 02/18/25 20:56 Penicillins Allergy Hives Verified 02/18/25 20:56 PFSH Active Problems All Active Problems (Updated 02/18/25 @ 21:43 by Griffin Hodges MD) Cerebrovascular accident (CVA) (Acute) Myalgia and myositis (Acute 02/06/20) Fall from slip, trip, or stumble (Acute) Sprain of left wrist (Acute) Acute pain of left wrist (Acute) Elevated CK (Acute) Rheumatoid arthritis (Acute) Hypercalcemia (Chronic) Hypotension (Acute) Spider bite allergy, current reaction (Acute) Muscle spasm (Acute) Muscle spasms of neck (Acute) Cervical disc disorder of mid-cervical region (Acute) Cervical stenosis of spinal canal (Acute) Hemiplegic migraine with status migrainosus (Acute) Hematuria (Acute) Hyponatremia (Acute) Atrial fibrillation (Acute) Aphasia (Acute) Acute stroke due to ischemia (Acute) Significantly low body weight concurrent with and due to restricting type anorexia nervosa (Acute 11/09/21) Chronic EBV infection (Acute 09/18/19) DJD (degenerative joint disease) of knee (Acute 05/07/17) Atrial septal defect (Acute 11/12/20) Paroxysmal atrial fibrillation (Acute 08/11/21) Arthritis of knee (Acute 05/16/17) Arnold-Chiari malformation (Acute 05/07/17) Mild aortic insufficiency (Acute 05/06/21) Screening for depression (Acute 07/20/18) Screening for breast cancer (Acute 08/09/18) Esophageal reflux (Acute 05/07/17) Proximal muscle weakness (Acute 01/07/19) Postmenopausal (Acute 07/20/18) Plantar fasciitis (Acute 07/24/19) Peripheral edema (Acute 02/06/19) Osteoporosis (Acute 05/07/17) Neuropathic pain (Acute 07/24/19) Knee pain, bilateral (Acute 01/19/16) Hypovitaminosis D (Acute 05/07/17) Fibromyalgia (Acute 04/02/20) Epigastric pain (Acute 12/17/19) Dorsalgia (Acute 07/01/19) Diverticular disease of colon (Acute 04/02/20) Colon polyps (Acute 05/07/17) Chronic bronchitis (Acute 05/07/17) Bilateral primary osteoarthritis of knee (Acute 01/19/16) Balance problem (Acute 01/07/19) Asthma (Acute 05/07/17) Actinic keratoses (Acute 05/07/17) Dysphonia (Chronic) Hypertension (Chronic) Medical History Medical History (Updated 02/18/25 @ 21:43 by Griffin Hodges MD) Malaise and fatigue (12/24/18) Unilateral weakness History of atrial fibrillation Hypokalemia (05/06/21) Chiari I malformation Ischemic stricture intestine (11/09/21) History of TIA due to embolism (02/06/19) Melanoma (05/07/17) Hx of small bowel obstruction (08/11/21) History of mononucleosis (12/24/18) Family History Family History (Updated 01/22/24 @ 12:27 by Kristine Palacio LPN) Other Family history unknown Social History Social History (Updated 01/18/25 @ 19:04 by Kiran Hale PA-C) Smoking Status: Unknown if ever smoked Second hand tobacco smoke exposure: No Do you dip or chew tobacco?: No Do you vape?: No Patient requests smoking cessation consult: No Initiate information on smoking cessation: No Living arrangement: At home Marital Status: Living Condition: With spouse/s.o. 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 Known occupational exposures/hazards (Current/Previous): None Known Service: No Are you following a diet prescribed by a doctor: No Are you following a special diet: No POLST Patient has POLST: No Review of Systems Status of ROS: 10 or more systems reviewed and unremarkable except as noted in history and below Exam Exam Vital Signs: Vital Signs x48h Temp Pulse Resp BP Pulse Ox 02/18/25 21:50 178/84 H 02/18/25 20:40 36.4 C L 81 20 181/70 H 98 Constitutional no apparent distress, limitations noted and alert HENMT normocephalic Eyes PERRL and EOMs intact bilaterally Neck/C-Spine visual inspection normal Cardiovascular normal heart rate noted and regular rhythm noted Extremities normal to inspection and abnormal ROM noted Neurology movement abnormality noted, no sensory deficits noted, gait abnormality noted, speech abnormality noted and GCS 15 NIHSS 22 Psychiatry oriented x3 Conclusion/Plan Problem List (1) Cerebrovascular accident (CVA): Plan: patient with aphasia and bilateral upper and lower extremity weakness. sensation intact.Not a tpa candidate out of window and patient on Eliquis -CT head reviewed without contrast. No acute intracranial abnormality noted -CTA reviewed negative -will followup with MRI head w/0, consider neurology consultation pending results -if positive for acute stroke will add aspirin -check lipid panel -q4h neuro checks -monitor on telemetry -permissive hypertension x 24hours -PT/OT/ST consultation pending (2) Atrial fibrillation: Plan: home medications reviewed. -contineu telemetry -will resume eliquis and rate mangement as tolerated. consider IV if fails swallow study (3) Hypertension: Plan: home medications reviewed will resume as tolerated Qualifiers: Hypertension type: essential hypertension Qualified Code(s): I10 - Essential (primary) hypertension Plan Patient will be admitted to the hospitalist service under outpatient-observation status. less than 2 midnights expected for management. Lab Results Lab results reviewed: Yes 02/18/25 20:58 02/18/25 20:58 EKG Results EKG Interpreted Independently: Yes Core Measures Anticipated LOS I expect patient to be DC'd or transferred within 96 hours.: Yes DVT/VTE - Prophylaxis VTE/DVT Device ordered at admit?: Yes
[2025-02-18 23:32] LABS: AMPHETAMINE SCREEN,URINE NEGATIVE (NEGATIVE); BARBITURATE SCREEN,UR NEGATIVE (NEGATIVE); BENZODIAZEPINES SCREEN, URINE NEGATIVE (NEGATIVE); BUPRENORPHINE SCREEN, URINE NEGATIVE (NEGATIVE); COCAINE SCREEN URINE NEGATIVE (NEGATIVE); GLUCOSE, URINE (UA) NEGATIVE (NEGATIVE); KETONES,URINE (UA) NEGATIVE (NEGATIVE); METHADONE SCREEN, URINE NEGATIVE (NEGATIVE); METHAMPHETAMINES SCREEN, URINE NEGATIVE (NEGATIVE); OCCULT BLOOD,URINE TRACE (NEGATIVE); OPIATE SCREEN, URINE NEGATIVE (NEGATIVE); SQUAMOUS EPITHELIAL CELL,UR RARE Squamous (<= Few); THC CANNABINOID SCREEN, URINE NEGATIVE (NEGATIVE)
[2025-02-19] MEDS: SODIUM CHLORIDE FLUSH 0.9% 10 ML SYRINGE IVP SCH (00:59)
[2025-02-19] MEDS ORDERED: ACETAMINOPHEN 1,000 MG/100 ML 1,000 MG/100 ML BAG IV ONE (01:12)
[2025-02-19] MEDS: ACETAMINOPHEN 1,000 MG/100 ML 1,000 MG/100 ML BAG IV ONE (01:20)
--- NOTE | 2025-02-19 10:16 | PROVIDER PROGRESS NOTE ---
Subjective Subjective Subjective: This morning, patient is having a difficult time speaking. Although she is able to form words coherently, expressed to self, she is having some dysphonia. She is also unable to move her arms or legs at this time. She is unable to stick her tongue out as well. She tells me that she has had about 60 episodes similar to this in the last year. She has seen a neurologist in the past as well, although she cannot remember their name. She does have complex migraines and previous episodes were attributed to this. Previous MRI of the brain was completed in 05/14, which did not show any acute abnormalities. At that time, she also had aphasia, as well as left-sided weakness. Current Medications Current Medications Current Medications: Current Medications Generic Name Dose Route Start Last Admin Trade Name Freq PRN Reason Stop Dose Admin Apixaban 5 mg 02/19/25 09:00 Apixaban 5 Mg Tablet PO BID KARLY Ondansetron HCl 4 mg 02/18/25 22:37 Ondansetron 4 Mg/2 Ml Vial IVP Q6HR PRN Nausea / Vomiting Sodium Chloride 10 ml 02/18/25 22:37 Sodium Chloride Flush 0.9% 10 Ml Syringe IVP PRN PRN NEEDED PER PROVIDER ORDERS Sodium Chloride 10 ml 02/19/25 01:00 02/19/25 00:59 Sodium Chloride Flush 0.9% 10 Ml Syringe IVP 10 ml 0100,0900,1700 [facility] Administration Objective Vital Signs/Intake & Output Reviewed Vital Signs: Yes Vital Signs: Vital Signs x48h Temp Pulse Resp BP Pulse Ox 02/19/25 08:21 97.7 F 81 16 125/68 96 02/19/25 05:00 97.9 F 78 18 138/73 H 96 Intake & Output: Intake & Output 02/16/25 02/17/25 02/18/25 02/19/25 23:59 23:59 23:59 23:59 Intake Total 100 / 100 Balance 100 / 100 Weight (kg) 60.5 kg Objective General Appearance: positive No acute distress, Alert and Anxious Eyes Bilateral: positive Normal inspection, PERRL and EOMI ENT: positive ENT inspection nml and Other (Patient unable to stick out her tongue. She is unable to puff up her cheeks. She is able to raise her eyebrows minimally.) Neck: positive Nml inspection Respiratory: positive Chest non-tender and Breath sounds nml Cardiovascular: positive Regular rate & rhythm, No murmur and No gallop Abdomen: positive Non-tender and Nml bowel sounds; negative Tenderness, Guarding, Hepatomegaly or Splenomegaly Skin: positive Color nml, No rash and Warm Extremities: positive Non-tender Neurologic/Psychiatric: positive Other Comments/Other: Patient with dysphonia. No expressive aphasia or receptive aphasia. Patient is able to coherently express her thoughts, but is having difficulty moving her mouth to pronounce the words. She is unable to protrude her tongue, or move it [id number]. Her extraocular movements are intact, and her pupils are equal and reactive to light. She has no notable facial droop noted. She is unable to participate in a physical exam0/5 strength in her upper extremities and lower extremities. Sensation is intact. She is unable to move anything at this time. Reflexes are intact and appropriate. Lab Results 02/18/25 20:58 02/18/25 20:58 Other Labs: Lab Results x24hrs 02/18/25 02/18/25 Range/Units 23:00 20:58 WBC 6.3 (4.8-10.8) x10^3/uL RBC 4.72 (4.20-5.40) 10^6/uL Hgb 14.2 (12.0-16.0) g/dL Hct 43.7 (37.0-47.0) % MCV 92.6 (81.0-99.0) fL MCH 30.1 (27.0-31.0) pg MCHC 32.5 (32.0-36.0) g/dL RDW 13.3 (12.0-15.0) % Plt Count 262 (130-450) 10^3/uL MPV 9.7 (7.9-10.8) fL Neut # (Auto) 3.1 (1.5-6.6) 10^3/uL Lymph # (Auto) 1.9 (1.5-3.5) 10^3/uL [place] # (Auto) 1.0 (0.0-1.0) 10^3/uL Eos # (Auto) 0.2 (0.0-0.7) 10^3/uL Baso # (Auto) 0.1 (0.0-0.1) 10^3/uL Absolute Nucleated RBC 0.00 x10^3/uL Nucleated RBC % 0.0 /100WBC PT 11.7 (9.9-12.6) secs INR 1.0 (0.8-1.2) APTT 25.8 (24.9-33.3) secs Sodium 131 L (135-145) mmol/L Potassium 3.1 L (3.5-4.5) mmol/L Chloride 93 L (101-111) mmol/L Carbon Dioxide 31 (21-32) mmol/L Anion Gap 7.0 (6-13) BUN 15 (6-20) mg/dL Creatinine 0.8 (0.6-1.3) mg/dL Estimated GFR (MDRD) 70 L (>89) Glucose 107 H (74-104) mg/dL Calcium 9.6 (8.5-10.3) mg/dL Total Bilirubin 0.7 (0.2-1.0) mg/dL AST 33 (10-42) IU/L ALT 22 (10-60) IU/L Alkaline Phosphatase 57 (42-121) IU/L Troponin I High Sens 7.3 (2.3-14.8) ng/L Total Protein 7.3 (6.4-8.9) g/dL Albumin 4.6 (3.2-5.5) g/dL Globulin 2.7 (2.1-4.2) g/dL Albumin/Globulin Ratio 1.7 (1.0-2.2) Lipase 13 (11-82) U/L Urine Color YELLOW Urine Clarity CLEAR (CLEAR) Urine pH 7.0 (5.0-7.5) PH Ur Specific [place] 1.005 (1.002-1.030) Urine Protein NEGATIVE (NEGATIVE) mg/dL Urine Glucose (UA) NEGATIVE (NEGATIVE) mg/dL Urine Ketones NEGATIVE (NEGATIVE) mg/dL Urine Occult Blood TRACE (NEGATIVE) Urine Nitrite NEGATIVE (NEGATIVE) Urine Bilirubin NEGATIVE (NEGATIVE) Urine Urobilinogen 0.2 (NORMAL) (NORMAL) E.U./dL Ur Leukocyte Esterase NEGATIVE (NEGATIVE) Urine RBC 0-5 (0-5) /HPF Urine WBC 0-3 (0-5) /HPF Ur Squamous Epith Cells RARE Squamous (<= Few) Urine Bacteria Rare (None Seen) /HPF Ur Microscopic Review INDICATED Urine Culture Comments NOT INDICATED Urine Opiates Screen NEGATIVE (NEGATIVE) Ur Buprenorphine Scrn NEGATIVE (NEGATIVE) Ur Oxycodone Screen NEGATIVE (NEGATIVE) Urine Methadone Screen NEGATIVE (NEGATIVE) Urine Fentanyl Screen Negative (NEGATIVE) Ur Barbiturates Screen NEGATIVE (NEGATIVE) Ur Tricyclics Screen NEGATIVE (NEGATIVE) Ur Phencyclidine Scrn NEGATIVE (NEGATIVE) Ur Amphetamine Screen NEGATIVE (NEGATIVE) U Methamphetamines Scrn NEGATIVE (NEGATIVE) U Benzodiazepines Scrn NEGATIVE (NEGATIVE) Urine Cocaine Screen NEGATIVE (NEGATIVE) U Cannabinoids Screen NEGATIVE (NEGATIVE) Ur Drug Screen Comment CUTOFF CONC BELOW: Ethyl Alcohol < 10.0 mg/dL Diagnostic Imaging Diagnostic Imaging Results: positive Final report reviewed Assessment/Plan Problem List (1) Bilateral arm weakness: (2) Bilateral leg weakness: (3) Dysphonia: Impression: Patient presented with bilateral leg weakness, bilateral arm weakness, as well as dysphonia. She states that she has had about 60 episodes in the past year with a similar presentation. Head CT, CT angiography of the head and neck showed no significant abnormalities. Outpatient records from neurology, Dr. Tariq Fonseca at [facility] were reviewed. This was in 06/11. At that time, they noted recurrent episodes of migrainous headaches with transient left hemiparesis and aphasia. She was recommended to be started on preventative and acute therapy, but she had several contraindications to first-line preventative therapies, and a referral to the pharmacotherapy clinic was sent. She was started on a trial of Ubrelvy. They also noted that prior to the recurrence of her migraine headaches, she had developed behavioral changes such as pressured speech, hyperactivity, restlessness, etc. MRI of the brain has been ordered, and is pending. If negative, I will reach out to her neurologist for second opinion. Concern for recurrence of these complex migraines vs. a functional neurological disorder. TIA remains a consideration. PT, ST ordered. (4) Atrial fibrillation: Impression: Paroxysmal atrial fibrillation. Continue home Eliquis and diltiazem. Qualifiers: Atrial fibrillation type: unspecified Qualified Code(s): I48.91 - Unspecified atrial fibrillation (5) Hypertension: Impression: Allow permissive hypertension. Qualifiers: Hypertension type: essential hypertension Qualified Code(s): I10 - Essential (primary) hypertension (6) Hyponatremia: Impression: Continue to encourage P.O. intake, continue to trend daily. (7) Arnold-Chiari malformation: Impression: Stable, known. 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 Patient will need continued and close follow-up with cardiology.
[2025-02-19] MEDS: POTASSIUM CHLORIDE 20 MEQ TABLET PO ONE (12:40)
[2025-02-19] MEDS: APIXABAN 5 MG TABLET PO SCH (12:40)
--- NOTE | 2025-02-19 12:40 | MRI Report ---
PROCEDURE: MRI Brain WO INDICATIONS: stroke work up TECHNIQUE: Multisequence MRI of the brain was performed without intravenous contrast. COMPARISON: CTs 02/18/2025 FINDINGS: Image quality: Diagnostic. CSF Spaces: Basal cisterns are patent. No extra-axial fluid collections. Ventricles are normal in size and shape. Brain: No intracranial mass effect or hemorrhage. Bonds/white matter interface is normal. Brainstem appears normal. Diffusion-weighted images demonstrate no acute ischemic insult. Normal intravascular flow voids are present. Leukoaraiosis, commonly caused by chronic small vessel ischemic disease. Age- related volume loss. Skull and face: Calvarium has normal marrow signal. Orbits appear normal. Sinuses: Sinuses and mastoids are clear. IMPRESSION: No restricted diffusion to suggest acute infarct. Reviewed by: Josue Linda MD on 02/19/2025 12:37 PM PST Approved by: Josue Linda MD on 02/19/2025 12:37 PM PST Station ID: [email or web address]
[2025-02-19] MEDS: ACETAMINOPHEN 325 MG TABLET PO PRN (16:11)
--- NOTE | 2025-02-19 18:11 | PHARMACY PROGRESS NOTE ---
Best Possible Medication History Admit Date and Time: 02/19/25 1531 Home Medications Medication Instructions Recorded Confirmed Type hydroxychloroquine 200 mg tablet 200 mg PO DAILY 07/1502/19/25 History apixaban 5 mg tablet (Eliquis) 5 mg PO BID 01/22/24 History duloxetine 20 mg capsule,delayed 20 mg PO DAILY #90 ca ps 02/22/24 02/19/25 Rx release calcium 600 mg (as 1 tab PO DAILY 04/30/2406/11 History carbonate)-vitamin D3 10 mcg (400 unit) tablet (Calcium with Vitamin D) cholecalciferol (vitamin D3) 25 50 mcg PO DAILY 02/19/25 History mcg (1,000 unit) tablet ubrogepant 100 mg tablet (Ubrelvy) 100 mg PO .COMPLEX 06/03/24 02/19/25 History albuterol sulfate 90 mcg/actuation 1 inh inhalation QI D PRN shortness 08/25/24 02/19/25 Rx aerosol inhaler (Ventolin HFA) of breath or wheezing # 6.7 grams diltiazem HCl 120 mg capsule,24 120 mg PO DAILY #90 ca ps 11/13/24 02/19/25 Rx hr,extended release verapamil 120 mg 24 hr 120 mg PO QAM #90 caps 11/2702/19/25 Rx capsule,extended release sulfasalazine 500 mg 2 g PO BID 01/23/25 02/19/25 History tablet,delayed release hydrochlorothiazide 25 mg tablet 25 mg PO DAILY 02/19/25 History magnesium citrate 1 tab PO DAILY 02/19/2506/11 History mecobalamin (vitamin B12) 1 tab PO DAILY 02/19/2506/11 History potassium chloride 10 mEq 10 meq PO DAILY 02/19/2506/11 History tablet,extended release triamcinolone acetonide 0.1 % 1 applic topical DAILY P RN rash 02/19/25 02/19/25 History topical cream Processed by: Pharmacy (Medication reconciliation completed by Gl[employer] Special[employer] SupervisorSri) Medications reviewed in ED?: No Medication History completed: Yes Patient Interview: Completed Secondary Source(s): Insurance records [facility] Statement: As the person ultimately responsible for medication therapy, providers are able to order a medication from an existing home medication list in [facility] via the "Reconcile Routine" prior to Confirmation of that medication by peer support specialist. Such practice is discouraged except when the physician, in their clinical judgment, deems that a medical need exists for a medication without regard to previous use.
[2025-02-20] MEDS: ONDANSETRON 4 MG/2 ML VIAL IVP PRN (00:24)
[2025-02-20 07:08] LABS: HCT - HEMATOCRIT 44.6 % (37.0-47.0); HGB - HEMOGLOBIN 14.4 g/dL (12.0-16.0); MEAN PLATELET VOLUME 10.3 fL (7.9-10.8); PLT - PLATELET COUNT 258.0 10^3/uL (130-450); RED CELL DISTRIBUTION WIDTH 13.2 % (12.0-15.0)
[2025-02-20 07:38] LABS: BUN - BLOOD UREA NITROGEN 17.0 mg/dL (6-20); CARBON DIOXIDE - CO2 29.0 mmol/L (21-32); CREATININE 0.9 mg/dL (0.6-1.3); GFR - MDRD 61.0 (>89)
[2025-02-20] MEDS: HYDROXYCHLOROQUINE 200 MG TABLET PO SCH (08:16)
[2025-02-20] MEDS: POTASSIUM CHLORIDE 10 MEQ CAPSULE PO SCH (08:16)
[2025-02-20] MEDS: CALCIUM CARB (OYSTER SHELL) 500 MG TABLET PO SCH (08:16)
[2025-02-20] MEDS: CHOLECALCIFEROL 25 MCG TABLET PO SCH (08:16)
--- NOTE | 2025-02-20 10:02 | Speech Therapy Plan of Care ---
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 Etiology remains unclear. Serial MRIs, including the most recent, show no acute abnormalities. She has a known Chiari malformation without prior surgical intervention. Episodes are associated with transient dysarthria and intermittent dysphagia and aphasia, resolving within ~24 hours. She is followed by Neurology at the [facility] with extensive evaluation; no definitive diagnosis has been established. Atypical migraine has been considered; current therapy has been ineffective. Conversion disorder or functional neurological disorder has also been raised. See chart for full review. Current Evaluation: Patient seen in bed with spouse. She reports acute inability to move upper and lower extremities. Speech is dysarthric due to decreased jaw movement, noted as a new symptom by spouse. Oral-Motor Exam: Lips/tongue: decreased strength, ROM, and agility Jaw: strength within normal limits, ROM decreased Functional dry swallow: intact Voice: weak, decreased volume, otherwise clear Volitional cough: present Speech: mildly dysarthric PO Trials: Thin liquids via straw and cup Medications crushed in pudding/apple sauce Jeevan cracker No overt signs of penetration or aspiration observed; silent aspiration cannot be fully ruled out at bedside but is not suspected. Assessment: Patient demonstrates a functional oropharyngeal swallow but remains at mildly elevated risk for penetration/aspiration due to fluctuating symptoms and mildly decreased oral musculature strength and ROM. Cognition intact. Plan / Recommendations: Initiate soft and bite-sized diet with total assistance at meals Reassess diet and swallow safety once upper and lower extremity weakness resolves Will continue to follow for dysphagia management, monitoring swallow function, diet progression, and airway safety SPEECH [facility] GOALS Dysphagia: ST group home goal: Patient will safely consume the least restrictive diet and liquid level, as determined by ongoing swallow assessment, without overt s/s aspiration or pulmonary compromise, in order to maintain adequate nutrition and hydration Goal start date: 02/19/25 SPEECH PLAN OF CARE Treatment Frequency: prn Treatment Duration: 4 weeks
--- NOTE | 2025-02-20 10:08 | PROVIDER PROGRESS NOTE ---
Subjective Subjective Subjective: This morning, patient is able to speak appropriately without any dysphonia. She does slur her speech occasionally. She is able to move her neck, and has regained some function in her right side. She states that usually with these episodes, she has left-sided weakness, and this is the first time the right side has been involved. Her is at bedside, and we discussed the symptoms prior to the onset of these episodes. He recalls that they have worsened since April. He states that they are usually preceded by emotional episodes where she is in a flurry of activity. She has increased activity, which sounds most like a manic episode. This leads to a migraine headache, which results in this paraplegia. The paraplegia resolve slowly over the next few days. He also notes that her brother was diagnosed with bipolar disorder later in life. Is unclear if he presented with similar symptoms. She states that she has no history of any psychiatric disorders. She takes duloxetine for fibromyalgia. She is open to speaking with a psychiatrist in case there is a psychosomatic component to these episodes. Current Medications Current Medications Current Medications: Current Medications Generic Name Dose Route Start Last Admin Trade Name Freq PRN Reason Stop Dose Admin Acetaminophen 650 mg 02/19/25 14:38 02/20/25 00:24 Acetaminophen 325 Mg Tablet PO 650 mg Q4HR PRN Administration Pain or Fever > 38C (100.4F) Apixaban 5 mg 02/19/25 09:00 02/20/25 08:16 Apixaban 5 Mg Tablet PO 5 mg BID KARLY Administration Calcium Carbonate/Glycine 500 mg 02/20/25 09:00 02/20/25 08:16 Calcium Carb (Oyster Shell) 500 Mg Tablet PO 500 mg DAILY KARLY Administration Cholecalciferol 50 mcg 02/20/25 09:00 02/20/25 08:16 Cholecalciferol 25 Mcg Tablet PO 50 mcg DAILY KARLY Administration Diltiazem HCl 120 mg 02/20/25 09:00 02/20/25 08:16 Diltiazem Cd 120 Mg Capsule PO 120 mg DAILY KARLY Administration Duloxetine HCl 20 mg 02/20/25 09:00 02/20/25 08:16 Duloxetine 20 Mg Capsule PO 20 mg DAILY KARLY Administration Hydroxychloroquine Sulfate 200 mg 02/20/25 09:00 02/20/25 08:16 Hydroxychloroquine 200 Mg Tablet PO 200 mg DAILY KARLY Administration Ondansetron HCl 4 mg 02/18/25 22:37 02/20/25 00:24 Ondansetron 4 Mg/2 Ml Vial IVP 4 mg Q6HR PRN Administration Nausea / Vomiting (Ubrogepant [Ubrelvy 100 each 02/19/25 15:00 ] 100 Mg Tablet) PO .COMPLEX KARLY Sulfasalazine 500 Mg 4 each 02/20/25 09:00 02/20/25 08:17 Tablet,Delayed PO Not Given Release (Dr/Ec)) BID KARLY Potassium Chloride 10 meq 02/20/25 08:00 02/20/25 08:16 Potassium Chloride 10 Meq Capsule PO 10 meq DAILYWM KARLY Administration Sodium Chloride 10 ml 02/18/25 22:37 Sodium Chloride Flush 0.9% 10 Ml Syringe IVP PRN PRN NEEDED PER PROVIDER ORDERS Sodium Chloride 10 ml 02/19/25 01:00 02/20/25 08:17 Sodium Chloride Flush 0.9% 10 Ml Syringe IVP 10 ml 0100,0900,1700 KARLY Administration Objective Vital Signs/Intake & Output Reviewed Vital Signs: Yes Vital Signs: Vital Signs x48h Temp Pulse Resp BP Pulse Ox 02/20/25 04:51 97.5 F L 70 16 155/76 H 94 Intake & Output: Intake & Output 02/17/25 02/18/25 02/19/25 02/20/25 23:59 23:59 23:59 23:59 Intake Total 820 / 820 Balance 820 / 820 Weight (kg) 60.5 kg Objective General Appearance: positive No acute distress and Alert; negative Anxious Eyes Bilateral: positive Normal inspection, PERRL and EOMI ENT: positive ENT inspection nml and Other (Any, she is able to partially stick her tongue out, and move it [id number]. She is unable to puff up her cheeks. She is able to raise her eyebrows symmetrically.) Neck: positive Nml inspection Respiratory: positive Chest non-tender and Breath sounds nml Cardiovascular: positive Regular rate & rhythm, No murmur and No gallop Abdomen: positive Non-tender and Nml bowel sounds; negative Tenderness, Guarding, Hepatomegaly or Splenomegaly Skin: positive Color nml, No rash and Warm Extremities: positive Non-tender Comments/Other: Patient with mild dysphonia, improved. No expressive aphasia or receptive aphasia. Her extraocular movements are intact, and her pupils are equal and reactive to light. She has no notable facial droop noted. Today, her right upper extremity is 2 out of 5 in strength, and she is able to move it partially against gravity. Her home health manager strength is 1 out of 5 on the right side as well. She is able to wiggle her right toes. On her left side, there is some muscle fasciculations noted, but no other meaningful activity. Sensation is intact. Reflexes are intact and appropriate. Lab Results 02/20/25 06:21 02/20/25 06:21 Other Labs: Lab Results x24hrs 02/20/25 Range/Units 06:21 WBC 4.5 L (4.8-10.8) x10^3/uL RBC 4.74 (4.20-5.40) 10^6/uL Hgb 14.4 (12.0-16.0) g/dL Hct 44.6 (37.0-47.0) % MCV 94.1 (81.0-99.0) fL MCH 30.4 (27.0-31.0) pg MCHC 32.3 (32.0-36.0) g/dL RDW 13.2 (12.0-15.0) % Plt Count 258 (130-450) 10^3/uL MPV 10.3 (7.9-10.8) fL Sodium 135 (135-145) mmol/L Potassium 3.7 (3.5-4.5) mmol/L Chloride 99 L (101-111) mmol/L Carbon Dioxide 29 (21-32) mmol/L Anion Gap 7.0 (6-13) BUN 17 (6-20) mg/dL Creatinine 0.9 (0.6-1.3) mg/dL Estimated GFR (MDRD) 61 L (>89) Glucose 94 (74-104) mg/dL Calcium 8.9 (8.5-10.3) mg/dL Magnesium 2.1 (1.7-2.3) mg/dL Diagnostic Imaging Diagnostic Imaging Results: positive Final report reviewed Assessment/Plan Problem List (1) Bilateral arm weakness: (2) Bilateral leg weakness: (3) Dysphonia: Impression: Patient presented with bilateral leg weakness, bilateral arm weakness, as well as dysphonia. Today, she has improvement in her muscle strength on the right side, as well as improvement in her dysphonia.She states that she has had about 60 episodes in the past year with a similar presentation. Head CT, CT angiography of the head and neck showed no significant abnormalities. Outpatient records from neurology, Dr. Tariq Fonseca at [facility] were reviewed. This was in 06/11. At that time, they noted recurrent episodes of migrainous headaches with transient left hemiparesis and aphasia. She was recommended to be started on preventative and acute therapy, but she had several contraindications to first-line preventative therapies, and a referral to the pharmacotherapy clinic was sent. She was started on a trial of Ubrelvy. They also noted that prior to the recurrence of her migraine headaches, she had developed behavioral changes such as pressured speech, hyperactivity, restlessness, etc. MRI of the brain has been ordered, and is negative. Will reach out to discuss further with patient's neurologist. Concern for recurrence of these complex migraines vs. a functional neurological disorder. Also concern for some behavioral component or psychosomatic component to these episodes. Telepsych has been consulted, and appreciate recommendations. PT, ST ordered. (4) Atrial fibrillation: Impression: Paroxysmal atrial fibrillation. Continue home Eliquis and diltiazem. Qualifiers: Atrial fibrillation type: unspecified Qualified Code(s): I48.91 - Unspecified atrial fibrillation (5) Hypertension: Impression: Continue hydrochlorothiazide. Qualifiers: Hypertension type: essential hypertension Qualified Code(s): I10 - Essential (primary) hypertension (6) Hyponatremia: Impression: Resolved. Continue to encourage P.O. intake, continue to trend daily. (7) Arnold-Chiari malformation: Impression: Stable, known. 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 Patient will need continued and close follow-up with cardiology. (9) Rheumatoid arthritis: Impression: Continue hydroxychloroquine, sulfasalazine. Qualifiers: Rheumatoid arthritis location: unspecified site Rheumatoid factor presence: without rheumatoid factor Qualified Code(s): M06.00 - Rheumatoid arthritis without rheumatoid factor, unspecified site (10) Fibromyalgia: Impression: Continue duloxetine.
--- NOTE | 2025-02-20 14:50 | TELEPSYCH PHYS NOTE ---
[facility] Telepsych Consult Consult Date: 02/20/25 Name of Referring Provider:: Medical provider Reason for Consult: psychiatric evaluation Suicide Risk Sreening (ASQ Tool) In the past few weeks, have you wished you were ?: No In the past few weeks, have you felt that you or your family would be better off if you were ?: No In the past week, have you been having thoughts about killing yourself?: No Have you ever tried to kill yourself?: No Assessment Language: Japanese Mobile Pet Groomer Required: No Cultural, Orthodox or Spiritual Preferences: none identified Notes: per referral note: "Evaluation of patient for possible manic and psychosomatic episodes". Chief Complaint: "I'm not sure why this has been occurring, trying to get to the bottom of it" History of Present Illness: 74 yr old female with no psychiatric history presented to the ED on 02/18/2025 with altered mental status, difficulties with speech and left sided weakness that had evolved into right sided weakness also. Patient has a significant medical history that includes CVA, chiari malformation, TIA's, atrial fibrillation, hypertension, migraine headaches, etc. She is alert and oriented upon evaluation today. She is very pleasant and engages well in assessment. is present with patient's permission also. She is able to provide appropriate history in regards to the episodes that essentially have been occurring since April. She correctly identifies the date as 02/20, shares that she had presented to the ED on with the symptoms identified in ED record. States she's currently feeling much better, pleased that she has regained her speech and some mobility, states that she still has limited functioning in her legs but this is improving. Memory is intact, confirms history that patient provides. She denies any prior psychiatric diagnoses or treatment. She denies any current or recent increase in stress, states that things have been going well for her. Shares about her son in [place], her daughter who is a nurse in [place]. She denies any difficulties with mood-denies feeling depressed or having periods of elevated mood. Reports that her pre-migraine aura includes increase in activity but denies that she ever experiences any changes in sleep patterns when this occurs. Reports that she sleeps well, established pattern of sleep. She denies AVH, does not appear to be responding to internal stimuli. She denies any substance use other than an occasional glass of wine. Suicide Ideation - Homicide Ideation - Self Harm: denies SI/HI Psychiatric History - Treatment History: none Community Resources Accessed: none Family Psych History/ History of suicide: brother with history of bipolar disorder Medication & Allergies Ambulatory Orders Medication Instructions Recorded Confirmed hydroxychloroquine 200 mg tablet 200 mg PO DAILY 07/1502/19/25 apixaban 5 mg tablet (Eliquis) 5 mg PO BID 01/22/24 duloxetine 20 mg capsule,delayed 20 mg PO DAILY #90 ca ps 02/22/24 02/19/25 release calcium 600 mg (as 1 tab PO DAILY 04/30/2406/11 carbonate)-vitamin D3 10 mcg (400 unit) tablet (Calcium with Vitamin D) cholecalciferol (vitamin D3) 25 50 mcg PO DAILY 02/19/25 mcg (1,000 unit) tablet ubrogepant 100 mg tablet (Ubrelvy) 100 mg PO .COMPLEX 06/03/24 02/19/25 albuterol sulfate 90 mcg/actuation 1 inh inhalation QI D PRN shortness 08/25/24 02/19/25 aerosol inhaler (Ventolin HFA) of breath or wheezing # 6.7 grams diltiazem HCl 120 mg capsule,24 120 mg PO DAILY #90 ca ps 11/13/24 02/19/25 hr,extended release verapamil 120 mg 24 hr 120 mg PO QAM #90 caps 11/2702/19/25 capsule,extended release sulfasalazine 500 mg 2 g PO BID 01/23/25 02/19/25 tablet,delayed release hydrochlorothiazide 25 mg tablet 25 mg PO DAILY 02/19/25 magnesium citrate 1 tab PO DAILY 02/19/2506/11 mecobalamin (vitamin B12) 1 tab PO DAILY 02/19/2506/11 potassium chloride 10 mEq 10 meq PO DAILY 02/19/2506/11 tablet,extended release triamcinolone acetonide 0.1 % 1 applic topical DAILY P RN rash 02/19/25 02/19/25 topical cream Allergies Allergy/AdvReac Type Severity Reaction Status Date / Time imipenem Allergy Unknown Verified 02/18/25 20:56 latex Allergy Unknown Verified 02/18/25 20:56 levofloxacin Allergy Unknown Verified 02/18/25 20:56 Penicillins Allergy Hives Verified 02/18/25 20:56 Drug & Alcohol History Does patient have Drug/ETOH history or addictive behavior?: No Use: Uses substance without health or social issues: Alcohol (1 glass of wine) Trauma Does the patient have a history of trauma, abuse, neglect or explotation?: No Personal Information History or present tendencies for violence (Notes): none Services History: none Does patient have any Legal Charges or Investigations?: No Environment & Living Situation - Social, Peer-Group (Note): At home Environment & Living Situation - Social, Peer-Group (Notes): lives with of 52 yrs Marital Status - Family Circumstances: Stressors - Financial Concerns: none identified Occupation: retired Medical History Psychiatric: reports None Neurological: reports Other Eyes, Ears, Nose, Throat: reports Other Cardiovascular: reports Hypertension and Atrial fibrillation Respiratory: reports None Gastrointestinal: reports Diverticulitis Urinary: reports None MARKETING ASSOCIATE: reports Other () Musculoskeletal: reports Osteoarthritis and Osteoporosis Skin: reports Other Surgical History General: reports Bowel surgery HEENT: reports Cataracts Orthopedic: reports Knee replacement /MARKETING ASSOCIATE: reports Hysterectomy Dermatologic: reports Skin cancer surgery Family & Social History Family History: Father: COPD/Emphysema and Diabetes, Type 2 and Other family: Diabetes, Type 2 Family History Comment/Other: Father had a history of diabetes, COPD, heart disease, stroke Mom had a history of osteoporosis, anxiety, Parkinson's disease Living Situation: With spouse/s.o. Social History Notes: The patient has been to her for over 40 years. They have 2 children together 1 of whom lives in [place]. 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 She and her moved to [facility] about 2015. Prior to that they lived in [facility], [facility] and [place]. Patient's was in the . The patient does not smoke cigarettes, she occasionally drinks alcohol and denies any illicit drug use. Childhood History: not assessed Mental Status Exam Appearance and Attire: appropriately groomed, wearing hospital pajamas. Attitude and Behavior: calm, cooperative Speech: regular rate, rhythm, volume Affect and Mood: mood is euthymic. affect is congruent with mood Association and Thought Process: logical, goal directed Thought Content: no delusional content noted. denies SI/HI Perception: denies AVH, does not appear to be responding to internal stimuli Sensorium, memory and orientation: alert, oriented. no gross memory deficits noted Intellectual - Cognitive functioning: average Insight and Judgement: good Emotional and Behavioral Functioning: demonstrates ability to control emotions/behavior throughout assessment Ability to Self-Care: unable to assess Personal Goals Short-term Goals: does not identify Long-term Goals: does not identify Risk/Protective Factors Risk Factors: Chronic physical pain or other acute medication problem(s) Protective Factors / Internal: Ability to cope with stre and Identifies reasons for living Protective Factors / External: Responsibility to children and Supportive social network of family or friends Plan Impression/Risk Assessment: 74 yr old female with no history of psychiatric illness or treatment is seen on the medical unit for consideration of potential psychiatric contributing factors in regards to the medical/neurological difficulties that she has been experiencing. Patient is calm, cooperative. Thought processes are logical and goal directed. Mood is euthymic, sleep is reported to be stable/consistent. She denies any current or recent stressors. She denies SI/HI. Denies AVH. Based on the history and current assessment, she does not meet criteria for psychiatric diagnosis at this time. Treatment - Therapy Recommendations: recommend continued medical/neurological evaluation/mgmt Pharmacological Recommendations: no psychiatric medication indicated at this time. It is noted that she is prescribed low dose duloxetine currently from medical provider for fibromyalgia- not prescribed for psychiatric treatment Problem List (1) Bilateral arm weakness: (2) Bilateral leg weakness: (3) Dysphonia: (4) Atrial fibrillation: Qualifiers: Atrial fibrillation type: unspecified Qualified Code(s): I48.91 - Unspecified atrial fibrillation (5) Hypertension: Qualifiers: Hypertension type: essential hypertension Qualified Code(s): I10 - Essential (primary) hypertension (6) Hyponatremia: (7) Arnold-Chiari malformation: (8) Left ventricular to right atrial shunt: (9) Rheumatoid arthritis: Qualifiers: Rheumatoid arthritis location: unspecified site Rheumatoid factor presence: without rheumatoid factor Qualified Code(s): M06.00 - Rheumatoid arthritis without rheumatoid factor, unspecified site (10) Fibromyalgia: Time Spent & Provider Location Telepsych consultation conducted via videoconferencing: Yes List names and roles of persons who participated in consult: nursing staff Telepsych Provider Location: [place] Time Spent (Minutes): 75 PFSH Active Problems All Active Problems (Updated 02/20/25 @ 10:12 by Danica Robles MD) Left ventricular to right atrial shunt (Acute) Bilateral leg weakness (Acute) Bilateral arm weakness (Acute) Cerebrovascular accident (CVA) (Acute) Myalgia and myositis (Acute 02/06/20) Fall from slip, trip, or stumble (Acute) Sprain of left wrist (Acute) Acute pain of left wrist (Acute) Elevated CK (Acute) Rheumatoid arthritis (Acute) Hypercalcemia (Chronic) Hypotension (Acute) Spider bite allergy, current reaction (Acute) Muscle spasm (Acute) Muscle spasms of neck (Acute) Cervical disc disorder of mid-cervical region (Acute) Cervical stenosis of spinal canal (Acute) Hemiplegic migraine with status migrainosus (Acute) Hematuria (Acute) Hyponatremia (Acute) Atrial fibrillation (Acute) Aphasia (Acute) Acute stroke due to ischemia (Acute) Significantly low body weight concurrent with and due to restricting type anorexia nervosa (Acute 11/09/21) Chronic EBV infection (Acute 09/18/19) DJD (degenerative joint disease) of knee (Acute 05/07/17) Atrial septal defect (Acute 11/12/20) Paroxysmal atrial fibrillation (Acute 08/11/21) Arthritis of knee (Acute 05/16/17) Arnold-Chiari malformation (Acute 05/07/17) Mild aortic insufficiency (Acute 05/06/21) Screening for depression (Acute 07/20/18) Screening for breast cancer (Acute 08/09/18) Esophageal reflux (Acute 05/07/17) Proximal muscle weakness (Acute 01/07/19) Postmenopausal (Acute 07/20/18) Plantar fasciitis (Acute 07/24/19) Peripheral edema (Acute 02/06/19) Osteoporosis (Acute 05/07/17) Neuropathic pain (Acute 07/24/19) Knee pain, bilateral (Acute 01/19/16) Hypovitaminosis D (Acute 05/07/17) Fibromyalgia (Acute 04/02/20) Epigastric pain (Acute 12/17/19) Dorsalgia (Acute 07/01/19) Diverticular disease of colon (Acute 04/02/20) Colon polyps (Acute 05/07/17) Chronic bronchitis (Acute 05/07/17) Bilateral primary osteoarthritis of knee (Acute 01/19/16) Balance problem (Acute 01/07/19) Asthma (Acute 05/07/17) Actinic keratoses (Acute 05/07/17) Dysphonia (Chronic) Hypertension (Chronic) Medical History Medical History (Updated 02/20/25 @ 10:12 by Danica Robles MD) Malaise and fatigue (12/24/18) Unilateral weakness History of atrial fibrillation Hypokalemia (05/06/21) Chiari I malformation Ischemic stricture intestine (11/09/21) History of TIA due to embolism (02/06/19) Melanoma (05/07/17) Hx of small bowel obstruction (08/11/21) History of mononucleosis (12/24/18) Family History Family History (Updated 01/22/24 @ 12:27 by Kristine Palacio LPN) Other Family history unknown Social History Social History (Updated 01/18/25 @ 19:04 by Kiran Hale PA-C) Smoking Status: Unknown if ever smoked Second hand tobacco smoke exposure: No Do you dip or chew tobacco?: No Do you vape?: No Patient requests smoking cessation consult: No Initiate information on smoking cessation: No Living arrangement: At home Marital Status: Living Condition: With spouse/s.o. 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
[2025-02-21] MEDS: HYDROCORTISONE 1% CREAM 28 GM TUBE TOP SCH (01:12)
[2025-02-21 06:53] LABS: HCT - HEMATOCRIT 41.4 % (37.0-47.0); HGB - HEMOGLOBIN 13.7 g/dL (12.0-16.0); MEAN PLATELET VOLUME 10.4 fL (7.9-10.8); PLT - PLATELET COUNT 266.0 10^3/uL (130-450); RED CELL DISTRIBUTION WIDTH 13.0 % (12.0-15.0)
[2025-02-21 07:12] LABS: BUN - BLOOD UREA NITROGEN 17.0 mg/dL (6-20); CARBON DIOXIDE - CO2 27.0 mmol/L (21-32); CREATININE 0.8 mg/dL (0.6-1.3); GFR - MDRD 70.0 (>89)
--- NOTE | 2025-02-21 10:23 | PROVIDER PROGRESS NOTE ---
Subjective Subjective Subjective: This morning, when patient was seen around 7:30 AM, she was recovering from one of her episodes. She was unable to speak coherently, and was unable to move either side of her body. She was then seen later around 11:30 AM, and she was able to move her right side, and was speaking appropriately. This morning, I was able to speak with the neurologist, Dr. Fonseca. We discussed her symptomology, as well as her repeat MRI being negative. She also shared that she has had an EEG done in her clinic, which was negative. She was worried about psychosomatization of her symptoms, as well as functional neurological disorder. To complete the workup, she did recommend a lumbar puncture to rule out any inflammatory markers or inflammation that was noted. I spoke with the patient and at bedside extensively about the possibility of functional neurological disorder, and the fact that it had a high cure rate with extensive physical therapy and cognitive behavioral therapy. We discussed the lumbar puncture as well. Current Medications Current Medications Current Medications: Current Medications Generic Name Dose Route Start Last Admin Trade Name Freq PRN Reason Stop Dose Admin Acetaminophen 650 mg 02/19/25 14:38 02/21/25 00:22 Acetaminophen 325 Mg Tablet PO 650 mg Q4HR PRN Administration Pain or Fever > 38C (100.4F) Apixaban 5 mg 02/19/25 09:00 02/21/25 07:55 Apixaban 5 Mg Tablet PO 5 mg BID KARLY Administration Calcium Carbonate/Glycine 500 mg 02/20/25 09:00 02/21/25 07:55 Calcium Carb (Oyster Shell) 500 Mg Tablet PO 500 mg DAILY KARLY Administration Cholecalciferol 50 mcg 02/20/25 09:00 02/21/25 07:55 Cholecalciferol 25 Mcg Tablet PO 50 mcg DAILY KARLY Administration Diltiazem HCl 120 mg 02/20/25 09:00 02/21/25 07:56 Diltiazem Cd 120 Mg Capsule PO 120 mg DAILY KARLY Administration Diphenhydramine HCl 25 mg 02/21/25 00:39 02/21/25 01:12 Diphenhydramine 25 Mg Capsule PO 25 mg Q4HR PRN Administration Allergy Symptoms Duloxetine HCl 20 mg 02/20/25 09:00 02/21/25 07:55 Duloxetine 20 Mg Capsule PO 20 mg DAILY KARLY Administration Hydrochlorothiazide 25 mg 02/21/25 09:00 02/21/25 08:00 Hydrochlorothiazide 25 Mg Tablet PO 25 mg DAILY KARLY Administration Hydrocortisone 1 applic 02/21/25 01:00 02/21/25 07:57 Hydrocortisone 1% Cream 28 Gm Tube TOP 1 appful BID KARLY Administration Hydroxychloroquine Sulfate 200 mg 02/20/25 09:00 02/21/25 07:56 Hydroxychloroquine 200 Mg Tablet PO 200 mg DAILY KARLY Administration Ondansetron HCl 4 mg 02/18/25 22:37 02/20/25 00:24 Ondansetron 4 Mg/2 Ml Vial IVP 4 mg Q6HR PRN Administration Nausea / Vomiting (Ubrogepant [Ubrelvy 100 each 02/19/25 15:00 ] 100 Mg Tablet) PO .COMPLEX KARLY Sulfasalazine 500 Mg 4 each 02/20/25 09:00 02/21/25 07:57 Tablet,Delayed PO Not Given Release (Dr/Ec)) BID KARLY Potassium Chloride 10 meq 02/20/25 08:00 02/21/25 07:54 Potassium Chloride 10 Meq Capsule PO 10 meq DAILYWM KARLY Administration Sodium Chloride 10 ml 02/18/25 22:37 Sodium Chloride Flush 0.9% 10 Ml Syringe IVP PRN PRN NEEDED PER PROVIDER ORDERS Sodium Chloride 10 ml 02/19/25 01:00 02/21/25 07:57 Sodium Chloride Flush 0.9% 10 Ml Syringe IVP 10 ml 0100,0900,1700 KARLY Administration Objective Vital Signs/Intake & Output Reviewed Vital Signs: Yes Vital Signs: Vital Signs x48h Temp Pulse Resp BP BP Pulse Ox 02/21/25 08:39 98.1 F 75 16 153/77 H 96 02/21/25 05:00 97.5 F L 72 15 146/78 H 92 Intake & Output: Intake & Output 02/18/25 02/19/25 02/20/25 02/21/25 23:59 23:59 23:59 23:59 Intake Total 820 / 820 1160 / 1160 440 / 440 Balance 820 / 820 1160 / 1160 440 / 440 Weight (kg) 60.5 kg Objective General Appearance: positive No acute distress and Alert; negative Anxious Eyes Bilateral: positive Normal inspection, PERRL and EOMI ENT: positive ENT inspection nml and Other (Any, she is able to partially stick her tongue out, and move it [id number]. She is unable to puff up her cheeks. She is able to raise her eyebrows symmetrically.) Neck: positive Nml inspection Respiratory: positive Chest non-tender and Breath sounds nml Cardiovascular: positive Regular rate & rhythm, No murmur and No gallop Abdomen: positive Non-tender and Nml bowel sounds; negative Tenderness, Guarding, Hepatomegaly or Splenomegaly Skin: positive Color nml, No rash and Warm Extremities: positive Non-tender Comments/Other: Patient with mild dysphonia, improved. No expressive aphasia or receptive aphasia. Her extraocular movements are intact, and her pupils are equal and reactive to light. She has no notable facial droop noted. Today, her right upper extremity is 3 out of 5 in strength, and she is able to move it freely against gravity. 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 She is able to wiggle her right toes. On her left side, there is some muscle fasciculations noted, but no other meaningful activity. Sensation is intact. Reflexes are intact and appropriate. Lab Results 02/21/25 05:57 02/21/25 05:57 Other Labs: Lab Results x24hrs 02/21/25 Range/Units 05:57 WBC 5.3 (4.8-10.8) x10^3/uL RBC 4.47 (4.20-5.40) 10^6/uL Hgb 13.7 (12.0-16.0) g/dL Hct 41.4 (37.0-47.0) % MCV 92.6 (81.0-99.0) fL MCH 30.6 (27.0-31.0) pg MCHC 33.1 (32.0-36.0) g/dL RDW 13.0 (12.0-15.0) % Plt Count 266 (130-450) 10^3/uL MPV 10.4 (7.9-10.8) fL Sodium 134 L (135-145) mmol/L Potassium 3.8 (3.5-4.5) mmol/L Chloride 101 (101-111) mmol/L Carbon Dioxide 27 (21-32) mmol/L Anion Gap 6.0 (6-13) BUN 17 (6-20) mg/dL Creatinine 0.8 (0.6-1.3) mg/dL Estimated GFR (MDRD) 70 L (>89) Glucose 98 (74-104) mg/dL Calcium 9.0 (8.5-10.3) mg/dL Diagnostic Imaging Diagnostic Imaging Results: positive Final report reviewed Assessment/Plan Problem List (1) Bilateral arm weakness: (2) Bilateral leg weakness: (3) Dysphonia: Impression: Patient presented with bilateral leg weakness, bilateral arm weakness, as well as dysphonia. Today, she has improvement in her muscle strength on the right side, as well as improvement in her dysphonia. She states that she has had about 60 episodes in the past year with a similar presentation. Head CT, CT angiography of the head and neck showed no significant abnormalities. Outpatient records from neurology, Dr. Tariq Fonseca at [facility] were reviewed. This was in 06/11. At that time, they noted recurrent episodes of migrainous headaches with transient left hemiparesis and aphasia. She was recommended to be started on preventative and acute therapy, but she had several contraindications to first-line preventative therapies, and a referral to the pharmacotherapy clinic was sent. She was started on a trial of Ubrelvy. They also noted that prior to the recurrence of her migraine headaches, she had developed behavioral changes such as pressured speech, hyperactivity, restlessness, etc. and had recommended outpatient psychiatric workup. MRI of the brain has been ordered, and is negative. As there were concerns for some behavioral component or psychosomatic component to these episodes, telepsych was consulted - no new recommendations at this time. Today, I spoke with patient's neurologist, Dr. Fonseca. She reviewed her clinical notes, and we discussed her negative MRI, and symptomology during this hospital stay. 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 She does recommend an lumbar puncture to complete workup and assess for any inflammatory markers. After this, she will need extensive cognitive behavioral therapy and physical therapy. PT has seen the patient, and recommends [facility], we will work on getting her there. Spoke with CARBURETOR MECHANIC regarding completion of lumbar puncture, pending. CSF studies ordered. (4) Atrial fibrillation: Impression: Paroxysmal atrial fibrillation. Continue home Eliquis and diltiazem. Qualifiers: Atrial fibrillation type: unspecified Qualified Code(s): I48.91 - Unspecified atrial fibrillation (5) Hypertension: Impression: Continue hydrochlorothiazide. Qualifiers: Hypertension type: essential hypertension Qualified Code(s): I10 - Essential (primary) hypertension (6) Hyponatremia: Impression: Resolved. Continue to encourage P.O. intake, continue to trend daily. (7) Arnold-Chiari malformation: Impression: Stable, known. 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 Patient will need continued and close follow-up with cardiology. (9) Rheumatoid arthritis: Impression: Continue hydroxychloroquine, sulfasalazine. Qualifiers: Rheumatoid arthritis location: unspecified site Rheumatoid factor presence: without rheumatoid factor Qualified Code(s): M06.00 - Rheumatoid arthritis without rheumatoid factor, unspecified site (10) Fibromyalgia: Impression: Continue duloxetine.
--- NOTE | 2025-02-21 12:30 | PT Plan of Care ---
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 Pt is indep at baseline and lives with " Tamir." Of note, pt is known to this PT having been seen for similar presentation in Apr 2024. At that time, she was dcd to [facility] and returned home after rehab. Cleared for eval by hospitalist. Upon PT eval, pt presents with weakness and incoordination in all 4 limbs L > R . Pt unable to participate in standard MMT d/t clinical presentation of FND. Functional strength approx 3/5. Seated EOB x10min during ADLs Yuri. Unable to stand d/t poor eccentric control and ongoing variable neuromuscular weakness. Completes squat pivot transfer with minAx1 to b/s chair. Given variability of symptoms, presence of changes in vital signs, positive diaphoresis, aphasia, severe headaches with nausea and neuromuscular weakness, signs/ symptoms give clinical impression of functional neurological disorder. Pt will benefit from skilled PT in acute setting to progress mobility as able. When medically clear, PT rec dc to [facility] as her level of assist requirement varies d/t variable neurological presentation. She has excellent rehab potential given her indep baseline and previous success with [facility]. PT further recommends rapid follow up with neurologist to determine appropriate interventions. Goals Improve bed mobility to: Contact Guard Improve supine to sit to: Contact Guard Improve sit to stand to: Minimal Assist Improve pivot transfer ability Minimal Assist to: Improve sit to supine to: Contact Guard Improve gait ability to: Min A Other gait goal: least restrictive AD Improve Standing Balance to: Good PT Plan of Care Frequency 1-2x/day Duration Until discharge Discharge Recommendations Discharge Location [facility] Other tbd Transport Needs at Discharge tbd Other dc transport dependent on symptom presentation at time of dc. may tolerate POV, may require BLS
--- NOTE | 2025-02-21 12:31 | ANESTHESIA PROCEDURE NOTE ---
Pre-Anesthesia VS, & Labs Diagnosis Surgical Diagnosis:: AMS, weakness Procedure Procedure: Lumbar puncture Vitals Vital Signs: Temp Pulse Resp BP Pulse Ox 36.5 C 100 18 156/93 H 95 02/21/25 12:15 02/21/25 12:15 02/21/25 12:15 02/21/25 12:15 02/21/25 12:15 Is Patient ?: No Lab Results Current Lab Results: Laboratory Tests 02/21/25 05:57: WBC 5.3, RBC 4.47, Hgb 13.7, Hct 41.4, MCV 92.6, MCH 30.6, MCHC 33.1, RDW 13.0, Plt Count 266, MPV 10.4, Sodium 134 L, Potassium 3.8, Chloride 101, Carbon Dioxide 27, Anion Gap 6.0, BUN 17, Creatinine 0.8, Estimated GFR (MDRD) 70 L, Glucose 98, Calcium 9.0 02/20/25 06:21: WBC 4.5 L, RBC 4.74, Hgb 14.4, Hct 44.6, MCV 94.1, MCH 30.4, MCHC 32.3, RDW 13.2, Plt Count 258, MPV 10.3, Sodium 135, Potassium 3.7, C hloride 99 L, Carbon Dioxide 29, Anion Gap 7.0, BUN 17, Creatinine 0.9, E stimated GFR (MDRD) 61 L, Glucose 94, Calcium 8.9, Magnesium 2.1 02/18/25 23:00: Urine Opiates Screen NEGATIVE, Ur Buprenorphine Scrn NEGATIVE, Ur Oxycodone Screen NEGATIVE, Urine Methadone Screen NEGATIVE, Urine Fentanyl Screen Negative, Ur Barbiturates Screen NEGATIVE, Ur Tricyclics Screen NEGATIVE, Ur Phencyclidine Scrn NEGATIVE, Ur Amphetamine Screen NEGATIVE, U Methamphetamines Scrn NEGATIVE, U Benzodiazepines Scrn NEGATIVE, Urine Cocaine Screen NEGATIVE, U Cannabinoids Screen NEGATIVE, Ur Drug Screen Comment CUTOFF CONC BELOW: 02/18/25 20:58: WBC 6.3, RBC 4.72, Hgb 14.2, Hct 43.7, MCV 92.6, MCH 30.1, MCHC 32.5, RDW 13.3, Plt Count 262, MPV 9.7, Neut # (Auto) 3.1, Lymph # (Auto) 1.9, [place] # (Auto) 1.0, Eos # (Auto) 0.2, Baso # (Auto) 0.1, Absolute Nucleated RBC 0.00, Nucleated RBC % 0.0, PT 11.7, INR 1.0, APTT 25.8, Sodium 131 L, Potassium 3.1 L, Chloride 93 L, Carbon Dioxide 31, Anion Gap 7.0, BUN 15, Creatinine 0.8, Estimated GFR (MDRD) 70 L, Glucose 107 H, Calcium 9.6, Total Bilirubin 0.7, AST 33, ALT 22, Alkaline Phosphatase 57, Troponin I High Sens 7.3, Total Protein 7.3, Albumin 4.6, Globulin 2.7, Albumin/Globulin Ratio 1.7, Lipase 13, Ethyl Alcohol < 10.0 Lab results reviewed: Yes 02/21/25 05:57 02/21/25 05:57 Meds/Allgy Home Medications Ambulatory Orders Medication Instructions Recorded Confirmed hydroxychloroquine 200 mg tablet 200 mg PO DAILY 07/1502/19/25 apixaban 5 mg tablet (Eliquis) 5 mg PO BID 01/22/24 duloxetine 20 mg capsule,delayed 20 mg PO DAILY #90 ca ps 02/22/24 02/19/25 release calcium 600 mg (as 1 tab PO DAILY 04/30/2406/11 carbonate)-vitamin D3 10 mcg (400 unit) tablet (Calcium with Vitamin D) cholecalciferol (vitamin D3) 25 50 mcg PO DAILY 02/19/25 mcg (1,000 unit) tablet ubrogepant 100 mg tablet (Ubrelvy) 100 mg PO .COMPLEX 06/03/24 02/19/25 albuterol sulfate 90 mcg/actuation 1 inh inhalation QI D PRN shortness 08/25/24 02/19/25 aerosol inhaler (Ventolin HFA) of breath or wheezing # 6.7 grams diltiazem HCl 120 mg capsule,24 120 mg PO DAILY #90 ca ps 11/13/24 02/19/25 hr,extended release verapamil 120 mg 24 hr 120 mg PO QAM #90 caps 11/2702/19/25 capsule,extended release sulfasalazine 500 mg 2 g PO BID 01/23/25 02/19/25 tablet,delayed release hydrochlorothiazide 25 mg tablet 25 mg PO DAILY 02/19/25 magnesium citrate 1 tab PO DAILY 02/19/2506/11 mecobalamin (vitamin B12) 1 tab PO DAILY 02/19/2506/11 potassium chloride 10 mEq 10 meq PO DAILY 02/19/2506/11 tablet,extended release triamcinolone acetonide 0.1 % 1 applic topical DAILY P RN rash 02/19/25 02/19/25 topical cream Allergies Allergies Allergy/AdvReac Type Severity Reaction Status Date / Time imipenem Allergy Unknown Verified 02/18/25 20:56 latex Allergy Unknown Verified 02/18/25 20:56 levofloxacin Allergy Unknown Verified 02/18/25 20:56 Penicillins Allergy Hives Verified 02/18/25 20:56 [facility] Active Problems All Active Problems Left ventricular to right atrial shunt (Acute) Bilateral leg weakness (Acute) Bilateral arm weakness (Acute) Cerebrovascular accident (CVA) (Acute) Myalgia and myositis (Acute 02/06/20) Fall from slip, trip, or stumble (Acute) Sprain of left wrist (Acute) Acute pain of left wrist (Acute) Elevated CK (Acute) Rheumatoid arthritis (Acute) Hypercalcemia (Chronic) Hypotension (Acute) Spider bite allergy, current reaction (Acute) Muscle spasm (Acute) Muscle spasms of neck (Acute) Cervical disc disorder of mid-cervical region (Acute) Cervical stenosis of spinal canal (Acute) Hemiplegic migraine with status migrainosus (Acute) Hematuria (Acute) Hyponatremia (Acute) Atrial fibrillation (Acute) Aphasia (Acute) Acute stroke due to ischemia (Acute) Significantly low body weight concurrent with and due to restricting type anorexia nervosa (Acute 11/09/21) Chronic EBV infection (Acute 09/18/19) DJD (degenerative joint disease) of knee (Acute 05/07/17) Atrial septal defect (Acute 11/12/20) Paroxysmal atrial fibrillation (Acute 08/11/21) Arthritis of knee (Acute 05/16/17) Arnold-Chiari malformation (Acute 05/07/17) Mild aortic insufficiency (Acute 05/06/21) Screening for depression (Acute 07/20/18) Screening for breast cancer (Acute 08/09/18) Esophageal reflux (Acute 05/07/17) Proximal muscle weakness (Acute 01/07/19) Postmenopausal (Acute 07/20/18) Plantar fasciitis (Acute 07/24/19) Peripheral edema (Acute 02/06/19) Osteoporosis (Acute 05/07/17) Neuropathic pain (Acute 07/24/19) Knee pain, bilateral (Acute 01/19/16) Hypovitaminosis D (Acute 05/07/17) Fibromyalgia (Acute 04/02/20) Epigastric pain (Acute 12/17/19) Dorsalgia (Acute 07/01/19) Diverticular disease of colon (Acute 04/02/20) Colon polyps (Acute 05/07/17) Chronic bronchitis (Acute 05/07/17) Bilateral primary osteoarthritis of knee (Acute 01/19/16) Balance problem (Acute 01/07/19) Asthma (Acute 05/07/17) Actinic keratoses (Acute 05/07/17) Dysphonia (Chronic) Hypertension (Chronic) Medical History Medical History Malaise and fatigue (12/24/18) Unilateral weakness History of atrial fibrillation Hypokalemia (05/06/21) Chiari I malformation Ischemic stricture intestine (11/09/21) History of TIA due to embolism (02/06/19) Melanoma (05/07/17) Hx of small bowel obstruction (08/11/21) History of mononucleosis (12/24/18) Family History Family History (Updated 01/22/24 @ 12:27 by Kristine Palacio LPN) Other Family history unknown Social History Social History Smoking Status: Unknown if ever smoked Second hand tobacco smoke exposure: No Do you dip or chew tobacco?: No Do you vape?: No Patient requests smoking cessation consult: No Initiate information on smoking cessation: No Living arrangement: At home Marital Status: Living Condition: With spouse/s.o. 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 Known occupational exposures/hazards (Current/Previous): None Known Service: No Are you following a diet prescribed by a doctor: No Are you following a special diet: No POLST Patient has POLST: No Anesthesia Exam (Expanded) Exam General: Alert and Oriented x3 Dental: WNL Mouth Openin Fingerbreadth Neck Mobility: Reduced Mallampati classification: II Thyromental Distance: 4-6 cm Respiratory: Lungs clear and Normal breath sounds Cardiovascular: Regular rate Neurological: Other (BLE weakness) Mental/Cognitive Status: Alert/Oriented X3 Cognitive Status: Within normal limits Exam Exam Vital Signs: Vital Signs x48h Temp Pulse Resp BP BP Pulse Ox 02/21/25 12:15 36.5 C 100 18 156/93 H 95 02/21/25 08:39 36.7 C 75 16 153/77 H 96 02/21/25 05:00 36.4 C L 72 15 146/78 H 92 Respiratory breath sounds equal bilaterally Cardiovascular normal heart rate noted Extremities BLE weakness Plan Problem List (1) Bilateral arm weakness: (2) Bilateral leg weakness: (3) Dysphonia: (4) Atrial fibrillation: Plan: home medications reviewed. -contineu telemetry -will resume eliquis and rate mangement as tolerated. 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 less than 2 midnights expected for management. Plan Anesthesia Type: Spinal (Patient has been admitted with AMS and weakness by the hospitalist service who have requested a lumbar puncture as part of their work up for her presenting symptoms. She was assessed at bedside and consented for the procedure for which she was agreeable to. . ) Consent for Procedure(s) Verified and Reviewed: Yes Code Status: Attempt Resuscitation ASA Classification ASA classification: 3-Severe systemic disease Is this case an emergency?: Yes
[2025-02-21 12:50] LABS: CLARITY,CSF CLEAR (CLEAR); COLOR,CSF COLORLESS (COLORLESS); CSF TUBE # CSF TUBE# 3
[2025-02-21 12:51] LABS: CSF XANTHOCHROMIA ABSENT (ABSENT)
[2025-02-21 12:59] LABS: CSF - GLUCOSE 62 mg/dL (45-70)
[2025-02-21 13:06] LABS: TOTAL PROTEIN,CSF 44 mg/dL (15-60)
--- NOTE | 2025-02-21 18:35 | ANESTHESIA POST OP EVALUATION ---
Anesthesia Post Eval Post Anesthesia Eval Vitals: Last Vital Signs Temp 36.5 C 02/21/25 16:49 Pulse 74 02/21/25 16:49 Resp 18 02/21/25 16:49 BP 139/67 H 02/21/25 16:49 Pulse Ox 97 02/21/25 16:49 CV Function Including HR & BP: Stable Pain Control: Satisfactory Nausea & Vomiting: Negative Mental Status: Baseline Respiratory Status: Airway Patent Hydration Status: Satisfactory Anesthesia Complications: None Other Details/Therapies Other Details/Therapies: Pt seen and assessed at bedside post LP. Denies any symptoms currently. Vital signs are stable.
--- NOTE | 2025-02-22 07:44 | PROVIDER PROGRESS NOTE ---
Subjective Subjective Subjective: This morning, patient is having less symptoms. She is able to move her face appropriately. She has improved strength in both her right and left side, although her left side still feels a little weaker. We talked about her her lumbar puncture was negative. We also talked about how other likely diagnosis is functional neurological disorder. Her was also present for this discussion. She is hopeful that this is a curative disorder, and is looking forward to behavioral therapy, as well as physical therapy. [facility] is still her first choice. Current Medications Current Medications Current Medications: Current Medications Generic Name Dose Route Start Last Admin Trade Name Freq PRN Reason Stop Dose Admin Acetaminophen 650 mg 02/19/25 14:38 02/21/25 21:08 Acetaminophen 325 Mg Tablet PO 650 mg Q4HR PRN Administration Pain or Fever > 38C (100.4F) Apixaban 5 mg 02/19/25 09:00 02/21/25 20:59 Apixaban 5 Mg Tablet PO 5 mg BID KARLY Administration Calcium Carbonate/Glycine 500 mg 02/20/25 09:00 02/21/25 07:55 Calcium Carb (Oyster Shell) 500 Mg Tablet PO 500 mg DAILY KARLY Administration Cholecalciferol 50 mcg 02/20/25 09:00 02/21/25 07:55 Cholecalciferol 25 Mcg Tablet PO 50 mcg DAILY KARLY Administration Diltiazem HCl 120 mg 02/20/25 09:00 02/21/25 07:56 Diltiazem Cd 120 Mg Capsule PO 120 mg DAILY KARLY Administration Diphenhydramine HCl 25 mg 02/21/25 00:39 02/21/25 20:59 Diphenhydramine 25 Mg Capsule PO 25 mg Q4HR PRN Administration Allergy Symptoms Duloxetine HCl 20 mg 02/20/25 09:00 02/21/25 07:55 Duloxetine 20 Mg Capsule PO 20 mg DAILY KARLY Administration Hydrochlorothiazide 25 mg 02/21/25 09:00 02/21/25 08:00 Hydrochlorothiazide 25 Mg Tablet PO 25 mg DAILY KARLY Administration Hydrocortisone 1 applic 02/21/25 01:00 02/21/25 21:01 Hydrocortisone 1% Cream 28 Gm Tube TOP 1 appful BID KARLY Administration Hydroxychloroquine Sulfate 200 mg 02/20/25 09:00 02/21/25 07:56 Hydroxychloroquine 200 Mg Tablet PO 200 mg DAILY KARLY Administration Ondansetron HCl 4 mg 02/18/25 22:37 02/20/25 00:24 Ondansetron 4 Mg/2 Ml Vial IVP 4 mg Q6HR PRN Administration Nausea / Vomiting (Ubrogepant [Ubrelvy 100 each 02/19/25 15:00 ] 100 Mg Tablet) PO .COMPLEX KARLY Sulfasalazine 500 Mg 4 each 02/20/25 09:00 02/21/25 21:02 Tablet,Delayed PO Not Given Release (Dr/Ec)) BID KARLY Potassium Chloride 10 meq 02/20/25 08:00 02/21/25 07:54 Potassium Chloride 10 Meq Capsule PO 10 meq DAILYWM KARLY Administration Sodium Chloride 10 ml 02/18/25 22:37 Sodium Chloride Flush 0.9% 10 Ml Syringe IVP PRN PRN NEEDED PER PROVIDER ORDERS Sodium Chloride 10 ml 02/19/25 01:00 02/21/25 23:43 Sodium Chloride Flush 0.9% 10 Ml Syringe IVP 10 ml 0100,0900,1700 KARLY Administration Objective Vital Signs/Intake & Output Reviewed Vital Signs: Yes Vital Signs: Vital Signs x48h Temp Pulse Resp BP Pulse Ox 02/22/25 03:29 97.7 F 86 18 136/79 H 95 Intake & Output: Intake & Output 02/19/25 02/20/25 02/21/25 02/22/25 23:59 23:59 23:59 23:59 Intake Total 820 / 820 1160 / 1160 1150 / 1150 657 / 657 Balance 820 / 820 1160 / 1160 1150 / 1150 657 / 657 Objective General Appearance: positive No acute distress and Alert; negative Anxious Eyes Bilateral: positive Normal inspection, PERRL and EOMI ENT: positive ENT inspection nml and Other (She is post stick her tongue out, it is midline, and she is able to move it [id number]. She is able to puff of her cheeks, and raise eyebrows. No facial droop is noted.) Neck: positive Nml inspection Respiratory: positive Chest non-tender and Breath sounds nml Cardiovascular: positive Regular rate & rhythm, No murmur and No gallop Abdomen: positive Non-tender and Nml bowel sounds; negative Tenderness, Guarding, Hepatomegaly or Splenomegaly Skin: positive Color nml, No rash and Warm Extremities: positive Non-tender Comments/Other: Patient with no dysphonia today. No expressive aphasia or receptive aphasia. Her extraocular movements are intact, and her pupils are equal and reactive to light. She has no notable facial droop noted. Today, her right upper extremity is 4 out of 5 in strength, and she is able to move it freely against gravity. Her epic ambulatory analyst strength is 4 out of 5 on the right side as well. She is able to wiggle her right toes. Her upper extremity is 2 out of 5 in strength, 2 out of 5 epic ambulatory analyst strength. Her bilateral lower extremities, she is able to move [id number]. She is unable to flex or extend them. Sensation is intact. Reflexes are intact and appropriate. Lab Results 02/21/25 05:57 02/21/25 05:57 Other Labs: Lab Results x24hrs 02/21/25 Range/Units 12:24 CSF Color COLORLESS (COLORLESS) CSF Clarity CLEAR (CLEAR) Xanthrochromic ABSENT (ABSENT) CSF WBC 4 (0-5) /mm^3 CSF RBC 0 (0-1) /mm^3 CSF Cell Count Tube # CSF TUBE# 3 CSF Glucose 62 (45-70) mg/dL CSF Total Protein 44 (15-60) mg/dL Diagnostic Imaging Diagnostic Imaging Results: positive Final report reviewed Assessment/Plan Problem List (1) Bilateral arm weakness: (2) Bilateral leg weakness: (3) Dysphonia: Impression: Patient presented with bilateral leg weakness, bilateral arm weakness, as well as dysphonia. Today, she has improvement in her muscle strength on the right side, as well as improvement in her dysphonia. She states that she has had about 60 episodes in the past year with a similar presentation. Head CT, CT angiography of the head and neck showed no significant abnormalities. Outpatient records from neurology, Dr. Tariq Fonseca at [facility] were reviewed. This was in 06/11. At that time, they noted recurrent episodes of migrainous headaches with transient left hemiparesis and aphasia. She was recommended to be started on preventative and acute therapy, but she had several contraindications to first-line preventative therapies, and a referral to the pharmacotherapy clinic was sent. She was started on a trial of Ubrelvy which she takes inconsistenly. They also noted that prior to the recurrence of her migraine headaches, she had developed behavioral changes such as pressured speech, hyperactivity, restlessness, etc. and had recommended outpatient psychiatric workup. MRI of the brain has been ordered, and is negative. As there were concerns for some behavioral component or psychosomatic component to these episodes, telepsych was consulted - no new recommendations at this time. I spoke with patient's neurologist, Dr. Fonseca, on 02/21. She reviewed her clinical notes, and we discussed her negative MRI, and symptomology during this hospital stay. 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 She does recommend an lumbar puncture to complete workup and assess for any inflammatory markers - this was completed and was negative. After this, she will need extensive cognitive behavioral therapy and physical therapy. PT has seen the patient, and recommends [facility], we will work on getting her there. Patient is medically cleared for discharge; awaiting placement. (4) Atrial fibrillation: Impression: Paroxysmal atrial fibrillation. Continue home Eliquis and diltiazem. Qualifiers: Atrial fibrillation type: unspecified Qualified Code(s): I48.91 - Unspecified atrial fibrillation (5) Hypertension: Impression: Continue hydrochlorothiazide. Qualifiers: Hypertension type: essential hypertension Qualified Code(s): I10 - Essential (primary) hypertension (6) Hyponatremia: Impression: Resolved. Continue to encourage P.O. intake, continue to trend daily. (7) Arnold-Chiari malformation: Impression: Stable, known. 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 Patient will need continued and close follow-up with cardiology. (9) Rheumatoid arthritis: Impression: Continue hydroxychloroquine, sulfasalazine. Qualifiers: Rheumatoid arthritis location: unspecified site Rheumatoid factor presence: without rheumatoid factor Qualified Code(s): M06.00 - Rheumatoid arthritis without rheumatoid factor, unspecified site (10) Fibromyalgia: Impression: Continue duloxetine.
[2025-02-22] MEDS: HYDROCORTISONE 1% CREAM 28 GM TUBE TOP SCH (12:47)
--- OUTSIDE RECORDS SUMMARY | 2025-02-22 23:21 | EXTERNAL MEDICAL SUMMARY RPT | Clinical Summary ---
Author Organization [facility] Address [address] [place] [address] Care Team Providers Care Practice Administrator Name Role Phone Sam Franz MD Primary Care Provider [phone] Allergies Active Allergy Reactions Criticality Noted Date Comments Latex Skin: Hives 07/12/2017 Nsaids GI:Nausea/vomiting 11/22/2017 Penicillins Skin: Hives 07/12/2017 Potassium Skin: Hives 07/12/2017 Medications CALCIUM OR Active Cholecalciferol (VITAMIN D3 OR) Acti ve JANTOVEN 5 MG Oral Tab 0 8 Active Acetaminophen 500 MG Oral Tab Take 1,000 mg by mouth every 6 hours as needed for pain. Active Multiple Vitamin (MULTI-VITAMIN DAILY OR) Take by mouth daily. Active amLODIPine 5 MG tablet Take 2.5 mg by mouth daily. 9 Active atorvastatin 40 MG tablet Take 40 mg by mouth daily. 9 Active pantoprazole 40 MG EC tablet Take 40 mg by mouth daily. 9 Active benzonatate 100 MG capsule Take 100 mg by mouth daily. 9 Active Naproxen Sodium (ALEVE OR) Take 100 mg by mouth. Active ASPIRIN 81 OR Take 81 mg by mouth. Active diclofenac 1 % gelIndications:S tatus post total right knee replacement Apply 2 g topically 4 times a day as needed. Apply to affected area(s). 100 g 1 9 Active hydroCHLOROthiaz jose 12.5 MG tablet Take 12.5 mg by mouth daily. Active Riboflavin (B2) 100 MG tablet Take by mouth. A ctive Magnesium Citrate 200 MG tablet Take by mouth. Activ e Active Problems Problem Noted Date Diagnosed Date Primary osteoarthritis of right knee 08/28/2017 Social History Tobacco Use Types Packs/Day Years Used Date Smoking Tobacco: Never Smokeless Tobacco: Never Alcohol Use Standard Drinks/Week Comments Yes 1 (1 standard drink = 0.6 oz pur e alcohol) 1 glass of wine every night Comments Unknown Sex and Gender Information Value Date Recorded Sex Assigned at Not on file Legal Sex Female 9:53 AM PDT Gender Identity Not on file Sexual Orientation Not on file Last Filed Vital Signs Vital Sign Reading Time Taken Comments Blood Pressure 120/70 02/28/2020 4:04 PM PST Pulse 82 02/28/2020 4:04 PM PST Temperature - - Respiratory Rate - - Oxygen Saturation 97% 02/28/2020 4:04 PM PST Inhaled Oxygen Concentration - - Weight 64 kg (141 lb) 02/28/2020 4:04 PM PST Height 165.1 cm (5' 5") 03/14/2019 10:48 AM PST Body Mass Index 23.46 03/14/2019 10:48 AM PST Plan of Treatment Not on file Insurance MEDICARE [employer]ICARE [employer] Care Teams Practice Administrator Relationship Specialty Start Date End Date Sam Franz MD [facility] [address] [address] PCP - General Family Practice 03/14/19
--- OUTSIDE RECORDS SUMMARY | 2025-02-22 23:21 | EXTERNAL MEDICAL SUMMARY RPT | Encounter Summary ---
Author Organization [facility] Address [address] [address] Care Team Providers Care Scale Mechanic Name Role Phone Unavailable Primary Care Provider Unavailabl e Encounter Details Date Type Department Care Team (Late st Contact Info) Description 01/21/[address] [facility] [employer] [place] [address] [place], [place] [id number] Michele Sylvester MD [address] [place] [address] Social History Tobacco Use Types Packs/Day Years Used Date Smoking Tobacco: Never Assessed Comments Unknown Sex and Gender Information Value Date Recorded Sex Assigned at Not on file Legal Sex Female 6:55 PM PDT Gender Identity Not on file Sexual Orientation Not on file documented as of this encounter Plan of Treatment Not on file documented as of this encounter Procedures Procedure Name Priority Date/Time Associated Diagnosis Comments HLA-B27 Routine 01/21/2016 1:43 PM PDT documented in this encounter Results * HLA-B27 (01/21/2016 1:43 PM PDT) HLA-B27 Negative 01/23/2016 3:03 PM PDT [facility] Blood 01/21/2016 1:43 PM PDT 01/21/2016 11:04 PM PDT N[facility]ative [facility] [employer] - 01/23/2016 3:03 PM PDT The negative HLA-B27 flow cytometry result makes it highly unlikely that this patient is HLA-B27 positive. There is however a small HLA-B27 positive subgroup (<5%) that is not detected with this method. If there is a very strong clinical suspicion of ankylosing spondylitis or a related disorder linked to HLA-B27 then more definitive blood WBC DNA HLA-B27 analysis can be performed ([employer]). Blood is held in the flow cytometry dept for additional testing if requested for one week from date of receipt. Please contact [facility] ([facility] [phone]) to add testing if desired. This/these test(s) were developed and performance characteristics determined by [facility]. Although not cleared or approved by the U.S. Food and Drug Administration (FDA), the FDA has determined such clearance or approval is not required for analyte-specific reagents of this type. us Michele Sylvester MD LAB BLOOD ORDERABLES Final Resul t [employer] [address] [place] [address] documented in this encounter Visit Diagnoses Not on filedocumented in this encounter
--- OUTSIDE RECORDS SUMMARY | 2025-02-22 23:21 | EXTERNAL MEDICAL SUMMARY RPT | Encounter Summary ---
Author Organization [facility] Address [address] [address] Care Team Providers Care Shipping Room Supervisor Name Role Phone Unavailable Primary Care Provider Unavailabl e Encounter Details Date Type Department Care Team (Late st Contact Info) Description 04/06/2016 Lab [facility] [employer] [place], [place] [address] [place], [place] [id number] Michele Sylvester MD [address] [place] [address] Social History Tobacco Use Types [...] Procedure Name Priority Date/Time Associated Diagnosis Comments VITAMIN D,25-HYDROXY Routine 04/06/2016 3:40 PM PST documented in this encounter Results * Vitamin D, 25-Hydroxy (04/06/2016 3:40 PM PST) Vitamin D, 25-Hydroxy 53.3 See Comment ng/mL 04/07/2016 9:[address] [facility] [employer] Comment: Reference ranges: Deficiency: <20 ng/mL Insufficiency: 20-29 ng/mL Optimum Level: 30-80 ng/mL Possible Toxicity: > 150 ng/mL Blood 04/06/2016 3:40 PM PST 04/06/2016 10:49 PM PST Michele Sylvester MD LAB BLOOD ORDERABLES Final Resul t [facility] [employer] [address] [place] [address] documented in this encounter Visit Diagnoses Not on filedocumented in this encounter
--- OUTSIDE RECORDS SUMMARY | 2025-02-22 23:21 | EXTERNAL MEDICAL SUMMARY RPT | Encounter Summary ---
Author Organization [facility] Address [facility] [address] Care Team Providers Care Rejected Items Clerk Name Role Phone Unavailable Primary Care Provider Unavailabl e Encounter Details Date Type Department Care Team (Late st Contact Info) Description 01/06/2016 Lab [facility] [employer] [place], [place] [address] [place], [place] [id number] Michele Sylvester MD [address] [place] [address] Social History Tobacco Use Types [...] Date/Time Associated Diagnosis Comments VITAMIN D,25-HYDROXY Routine 01/06/2016 2:25 PM PDT documented in this encounter Results * (ABNORMAL) Vitamin D, 25-Hydroxy (01/06/2016 2:25 PM PDT) Vitamin D, 25-Hydroxy 26.3(L) See Comment ng/mL 01/07/2016 11:25 AM PDT [facility] [employer] Comment: Reference ranges: Deficiency: <20 ng/mL Insufficiency: 20-29 ng/mL Optimum Level: 30-80 ng/mL Possible Toxicity: > 150 ng/mL Blood 01/06/2016 2:25 PM PDT 01/06/2016 11:02 PM PDT us Michele Sylvester MD LAB BLOOD ORDERABLES Final Resul t [facility] [address] [place] [address] documented in this encounter Visit Diagnoses Not on filedocumented in this encounter
--- OUTSIDE RECORDS SUMMARY | 2025-02-22 23:21 | EXTERNAL MEDICAL SUMMARY RPT | Clinical Summary ---
Author Organization [facility] Address [address] [place] [address] Care Team Providers Care Spike Machine Heater Name Role Phone Pcp, None Selected Primary Care Provider Unavail able Allergies Active Allergy Reactions Criticality Noted Date Comments Latex Hives High 02/04/2016 Penicillins Hives High 02/04/2016 Medications atorvastatin (LIPITOR) 40 mg tablet 0 Active pantoprazole (PROTONIX) 40 mg EC tablet 0 Active amLODIPine (NORVASC) 5 mg tablet 0 Active benzonatate (TESSALON) 100 mg capsule Take 100 mg by mouth daily 9 Active triamcinolone (KENALOG) 0.1 % ointment 0 Active diclofenac sodium (VOLTAREN) 1 % gel Apply topically 4 (four) times a day Active hydroCHLOROthia zide (HYDRODIURIL) 12.5 mg tablet Take 1 tablet (12.5 mg total) by mouth daily Active magnesium 200 mg tablet Take by mouth Active multivitamin (multivitamin) tablet tablet Take 1 tablet by mouth daily Active cholecalciferol , vitamin D3, (Vitamin D3) 50 mcg (2,000 unit) capsule Take by mouth Ac tive riboflavin, vitamin B2, (Vitamin B-2) 100 mg tablet Take by mouth Ac tive predniSONE (DELTASONE) 5 mg tablet Take 3 tablets (15 mg total) by mouth daily (start with 5 mg daily and every 3-4 days increase by 5 mg daily) 30 tablet 0 Active Additional Information Patient not taking.Reported on 05/13/2024 diltiazem CD (CARDIZEM CD) 120 mg 24 hr capsule Take 1 capsule (120 mg total) by mouth daily Active DULoxetine (CYMBALTA) 20 mg capsule Take 1 capsule (20 mg total) by mouth daily Active apixaban (Eliquis) 5 mg tablet Take 1 tablet (5 mg total) by mouth 2 (two) times a day Active melatonin 3 mg tablet,disinteg rating Take 1 tablet by mouth nightly as needed (insominia) Active naproxen (EC NAPROSYN) 500 mg EC tablet Take 1 tablet (500 mg total) by mouth every 12 (twelve) hours as needed for mild pain (1-3), headaches or fever Active potassium chloride (KLOR-CON) 10 mEq CR tablet Take 1 tablet (10 mEq total) by mouth daily Active hydroxychloroqu ine (PLAQUENIL) 200 mg tablet Take 1 tablet (200 mg total) by mouth daily Active sennosides-docu sate sodium (Senna with Docusate Sodium) 8.6-50 mg Take 1 tablet by mouth every 12 (twelve) hours as needed for constipation Active ondansetron (ZOFRAN) 4 mg tablet Take 1 tablet (4 mg total) by mouth every 6 (six) hours as needed for nausea or vomiting Active Active Problems Problem Noted Date Diagnosed Date Severe protein-calorie malnutrition 05/13/2024 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 05/13/2024 Family History Medical History Relation Comments Osteopenia Mother Parkinsonism Mother Crohn's disease Niece Relation Status Comments Mother Niece Social History Tobacco Use Types Packs/Day Years Used Date Smoking Tobacco: Never Smokeless Tobacco: Never Comments Unknown Sex and Gender Information Value Date Recorded Sex Assigned at Not on file Legal Sex Female 2:32 PM PDT Gender Identity Not on file Sexual Orientation Not on file Last Filed Vital Signs Vital Sign Reading Time Taken Comments Blood Pressure 176/90 05/13/2024 11:22 AM PST Pulse 100 05/13/2024 11:22 AM PST Temperature 35.8 C (96.4 F) 05/13/2024 11:22 AM PST Respiratory Rate 17 05/13/2024 11:2 2 AM PST Oxygen Saturation 98% 02/11/2020 2:07 PM PST Inhaled Oxygen Concentration - - Weight 48.9 kg (107 lb 12.8 oz) 025 11:22 AM PST Height 167.6 cm (5' 6") 02/11/2020 2:07 PM PST Body Mass Index 17.4 02/11/2020 2:07 PM PST Plan of Treatment Health Maintenance Due Date Last Done Comments Bone Density Scan 1950 Medicare Annual Wellness (AWV) 1950 COVID-19 Vaccine (#1) 1954 Depression Screening (PHQ-2) 1961 HM Pneumococcal Adult 50+ (1 of 2 - PCV) 1968 Zoster Vaccines (1 of 2) 1968 Colorectal Cancer Screening (Colonoscopy) 1994 Colorectal Cancer Screening (FOBT) 1994 Colorectal Cancer Screening (Fecal DNA) 1994 Colorectal Cancer Screening Combined 1994 Fall Risk Screening 2014 RSV Patients Over 60 years O R qualifying ( Patients) (1 - 1-dose 75+ series) 2024 Influenza Vaccine (#1) 2024 01/07/2019 DTaP,Tdap,and Td Vaccines (2 - Td or Tdap) 01/26/2028 01/25/2018 HPV Vaccines Aged Out No longer eligi ble based on patient's age to complete this topic Hepatitis A Vaccines Aged Out No long er eligible based on patient's age to complete this topic Hepatitis B Vaccines Aged Out No long er eligible based on patient's age to complete this topic IPV Vaccines Aged Out No longer eligi ble based on patient's age to complete this topic MMR Vaccines Aged Out No longer eligi ble based on patient's age to complete this topic Insurance MEDICARE PART A AND B [facility] Care Teams Spike Machine Heater Relationship Specialty Start Date End Date Pcp, None Selected PCP - General 07/04/24
--- OUTSIDE RECORDS SUMMARY | 2025-02-22 23:21 | EXTERNAL MEDICAL SUMMARY RPT | Encounter Summary ---
Author Organization [facility] Address [address] [place] [address] Care Team Providers Care Deck Lid Fitter Name Role Phone Pcp, None Selected Primary Care Provider Unavail able Encounter Details Date Type Department Care Team (Late st Contact Info) Description 02/04/2020 Telephone [facility] [address] [place] [address] [place] Social History Tobacco Use Types Packs/Day Years Used Date Smoking Tobacco: Never Assessed Comments Unknown Sex and Gender Information Value Date Recorded Sex Assigned at Not on file Legal Sex Female 2:32 PM PDT Gender Identity Not on file Sexual Orientation Not on file documented as of this encounter Plan of Treatment Not on file documented as of this encounter Visit Diagnoses Not on filedocumented in this encounter Care Teams Deck Lid Fitter Relationship Specialty Start Date End Date Pcp, None Selected PCP - General 07/04/24 documented as of this encounter
--- OUTSIDE RECORDS SUMMARY | 2025-02-22 23:21 | EXTERNAL MEDICAL SUMMARY RPT | Encounter Summary ---
Author Organization [facility] Address [address] [address] Care Team Providers Care Naval Surface Fire Support Planner Name Role Phone Unavailable Primary Care Provider Unavailabl e Encounter Details Date Type Department Care Team (Late st Contact Info) Description 01/21/2016 [facility] [place] [place] [address] [place], [place] [address] Michele Sylvester MD [address] [place] [address] Social History Tobacco Use Types [...] Procedure Name Priority Date/Time Associated Diagnosis Comments CH 50 TOTAL COMPLEMENT Routine 01/21/2016 1:43 PM PDT COMPLEMENT C3 Routine 01/21/2016 1:43 PM PDT documented in this encounter Results * Complement C3 (01/21/2016 1:43 PM PDT) Complement C3 118 60 - 184 mg/dL 01/26/2016 4:20 PM PST [facility] Blood 01/21/2016 1:43 PM PDT 01/21/2016 11:13 PM PDT us Michele Sylvester MD LAB BLOOD ORDERABLES Final Resul t [facility] [address] [place], [place] [id number] * CH 50 Total Complement (01/21/2016 1:43 PM PDT) CH 50 Total Complement 256 >100 CH 50 units 01/26/2016 3:12 PM [facility] Blood 01/21/2016 1:43 PM PDT 01/21/2016 11:13 PM PDT Narrative [facility] - 01/26/2016 3:12 PM [facility] CH-50 Total Complement Result Interpretation: 0 - 100 CH50 Units: Absent or Low >100 CH50 Units: Normal The results obtained by this assay will provide a quantitative value for the functional activity of total complement. This test can determine whole complement levels, but does not identify the component or components that are abnormal. Assessment of CH-50 is useful in screening for genetic deficiencies in the complement system and in monitoring the progress of patients with immune complex disease. us Michele Sylvester MD LAB BLOOD ORDERABLES Final Resul t [facility] [address] [place], [place] [id number] documented in this encounter Visit Diagnoses Not on filedocumented in this encounter
--- OUTSIDE RECORDS SUMMARY | 2025-02-22 23:21 | EXTERNAL MEDICAL SUMMARY RPT | Encounter Summary ---
Author Organization [facility] Address [facility] [address] Care Team Providers Care Mis Manager Name Role Phone Unavailable Primary Care Provider Unavailabl e Encounter Details Date Type Department Care Team (Late st Contact Info) Description 01/21/2016 Lab Requisition [place], [place] [address] [place], [place] [id number] Michele Sylvester MD [address] [place] [address] Social History Tobacco Use Types [...]
--- OUTSIDE RECORDS SUMMARY | 2025-02-22 23:21 | EXTERNAL MEDICAL SUMMARY RPT | Clinical Summary ---
Author Organization [facility] Address [address] [place] [address] Care Team Providers Care Traveling Auditor Name Role Phone Unavailable Primary Care Provider Unavailabl e Social History Tobacco Use Types Packs/Day Years Used Date Smoking Tobacco: Never Assessed Comments Unknown Sex and Gender Information Value Date Recorded Sex Assigned at Not on file Legal Sex Female 6:55 PM PDT Gender Identity Not on file Sexual Orientation Not on file Plan of Treatment Not on file
--- OUTSIDE RECORDS SUMMARY | 2025-02-22 23:21 | EXTERNAL MEDICAL SUMMARY RPT | Encounter Summary ---
Author Organization [facility] Address [address] [address] Care Team Providers Care Transmitter Chief Name Role Phone Unavailable Primary Care Provider Unavailabl e Encounter Details Date Type Department Care Team (Late st Contact Info) Description 01/21/2016 [facility] [place] [place] [address] [place], [place] [id number] Michele Sylvester MD [address] [place] [address] Social History Tobacco Use Types [...] Procedure Name Priority Date/Time Associated Diagnosis Comments COMPLEMENT C4 Routine 01/21/2016 1:43 PM PDT documented in this encounter Results * Complement C4 (01/21/2016 1:43 PM PDT) Complement C4 18 8 - 38 mg/dL 01/22/2016 1:34 PM PDT [facility] Blood 01/21/2016 1:43 PM PDT 01/21/2016 11:13 PM PDT us Michele Sylvester MD LAB BLOOD ORDERABLES Final Resul t [facility] [address] [place] [address] documented in this encounter Visit Diagnoses Not on filedocumented in this encounter
--- NOTE | 2025-02-23 07:54 | PROVIDER PROGRESS NOTE ---
Subjective Subjective Subjective: This morning, patient did have another episode around 5 AM. This time she did, she could not open her eyes up. It is completely resolved in a few minutes, but the first time has read to her eyes. She understands that we are still waiting for rehab authorization. [facility] is a first choice, but some steps have also been contacted by social work. Current Medications Current Medications Current Medications: Current Medications Generic Name Dose Route Start Last Admin Trade Name Freq PRN Reason Stop Dose Admin Acetaminophen 650 mg 02/19/25 14:38 02/23/25 05:04 Acetaminophen 325 Mg Tablet PO 650 mg Q4HR PRN Administration Pain or Fever > 38C (100.4F) Apixaban 5 mg 02/19/25 09:00 02/22/25 20:02 Apixaban 5 Mg Tablet PO 5 mg BID KARLY Administration Calcium Carbonate/Glycine 500 mg 02/20/25 09:00 02/22/25 09:54 Calcium Carb (Oyster Shell) 500 Mg Tablet PO 500 mg DAILY KARLY Administration Cholecalciferol 50 mcg 02/20/25 09:00 02/22/25 09:55 Cholecalciferol 25 Mcg Tablet PO 50 mcg DAILY KARLY Administration Diltiazem HCl 120 mg 02/20/25 09:00 02/22/25 09:55 Diltiazem Cd 120 Mg Capsule PO 120 mg DAILY KARLY Administration Diphenhydramine HCl 25 mg 02/21/25 00:39 02/23/25 00:04 Diphenhydramine 25 Mg Capsule PO 25 mg Q4HR PRN Administration Allergy Symptoms Duloxetine HCl 20 mg 02/20/25 09:00 02/22/25 12:46 Duloxetine 20 Mg Capsule PO 20 mg DAILY KARLY Administration Hydrochlorothiazide 25 mg 02/21/25 09:00 02/22/25 09:55 Hydrochlorothiazide 25 Mg Tablet PO 25 mg DAILY KARLY Administration Hydrocortisone 1 applic 02/22/25 10:00 02/22/25 20:02 Hydrocortisone 1% Cream 28 Gm Tube TOP 1 applic BID KARLY Administration Hydroxychloroquine Sulfate 200 mg 02/20/25 09:00 02/22/25 09:58 Hydroxychloroquine 200 Mg Tablet PO 200 mg DAILY KARLY Administration Ondansetron HCl 4 mg 02/18/25 22:37 02/20/25 00:24 Ondansetron 4 Mg/2 Ml Vial IVP 4 mg Q6HR PRN Administration Nausea / Vomiting (Ubrogepant [Ubrelvy 100 each 02/19/25 15:00 ] 100 Mg Tablet) PO .COMPLEX KARLY Sulfasalazine 500 Mg 2 each 02/22/25 18:00 02/22/25 19:19 Tablet,Delayed PO Not Given Release (Dr/Ec)) 0900,1800 [facility] Potassium Chloride 10 meq 02/20/25 08:00 02/22/25 09:55 Potassium Chloride 10 Meq Capsule PO 10 meq DAILYWM KARLY Administration Sodium Chloride 10 ml 02/18/25 22:37 Sodium Chloride Flush 0.9% 10 Ml Syringe IVP PRN PRN NEEDED PER PROVIDER ORDERS Sodium Chloride 10 ml 02/19/25 01:00 02/23/25 00:04 Sodium Chloride Flush 0.9% 10 Ml Syringe IVP 10 ml 0100,0900,1700 KARLY Administration Objective Vital Signs/Intake & Output Reviewed Vital Signs: Yes Vital Signs: Vital Signs x48h Temp Pulse Resp BP Pulse Ox 02/23/25 04:54 97.7 F 73 18 131/73 H 97 Intake & Output: Intake & Output 02/20/25 02/21/25 02/22/25 02/23/25 23:59 23:59 23:59 23:59 Intake Total 1160 / 1160 1150 / 1150 1767 / 1767 50 / 50 Balance 1160 / 1160 1150 / 1150 1767 / 1767 50 / 50 Objective General Appearance: positive No acute distress and Alert; negative Anxious Eyes Bilateral: positive Normal inspection, PERRL and EOMI ENT: positive ENT inspection nml and Other (She is post stick her tongue out, it is midline, and she is able to move it [id number]. She is able to puff of her cheeks, and raise eyebrows. No facial droop is noted.) Neck: positive Nml inspection Respiratory: positive Chest non-tender and Breath sounds nml Cardiovascular: positive Regular rate & rhythm, No murmur and No gallop Abdomen: positive Non-tender and Nml bowel sounds; negative Tenderness, Guarding, Hepatomegaly or Splenomegaly Skin: positive Color nml, No rash and Warm Extremities: positive Non-tender Comments/Other: Patient with no dysphonia today. No expressive aphasia or receptive aphasia. Her extraocular movements are intact, and her pupils are equal and reactive to light. She has no notable facial droop noted. Today, her right upper extremity is 4 out of 5 in strength, and she is able to move it freely against gravity. Her acid conditioner strength is 4 out of 5 on the right side as well. She is able to wiggle her right toes. Her upper extremity is 2 out of 5 in strength, 2 out of 5 acid conditioner strength. Her bilateral lower extremities, she is able to move [id number]. She is unable to flex or extend them. Sensation is intact. Reflexes are intact and appropriate. Lab Results 02/21/25 05:57 02/21/25 05:57 Other Labs: Lab Results x24hrs 02/21/25 Range/Units 12:24 CSF Color COLORLESS (COLORLESS) CSF Clarity CLEAR (CLEAR) Xanthrochromic ABSENT (ABSENT) CSF WBC 4 (0-5) /mm^3 CSF RBC 0 (0-1) /mm^3 CSF Cell Count Tube # CSF TUBE# 3 CSF Glucose 62 (45-70) mg/dL CSF Total Protein 44 (15-60) mg/dL Diagnostic Imaging Diagnostic Imaging Results: positive Final report reviewed Assessment/Plan Problem List (1) Bilateral arm weakness: (2) Bilateral leg weakness: (3) Dysphonia: Impression: Patient presented with bilateral leg weakness, bilateral arm weakness, as well as dysphonia. Today, she has improvement in her muscle strength on the right side, as well as improvement in her dysphonia. She states that she has had about 60 episodes in the past year with a similar presentation. Head CT, CT angiography of the head and neck showed no significant abnormalities. Outpatient records from neurology, Dr. Tariq Fonseca at [facility] were reviewed. This was in 06/11. At that time, they noted recurrent episodes of migrainous headaches with transient left hemiparesis and aphasia. She was recommended to be started on preventative and acute therapy, but she had several contraindications to first-line preventative therapies, and a referral to the pharmacotherapy clinic was sent. She was started on a trial of Ubrelvy which she takes inconsistenly. They also noted that prior to the recurrence of her migraine headaches, she had developed behavioral changes such as pressured speech, hyperactivity, restlessness, etc. and had recommended outpatient psychiatric workup. MRI of the brain has been ordered, and is negative. As there were concerns for some behavioral component or psychosomatic component to these episodes, telepsych was consulted - no new recommendations at this time. I spoke with patient's neurologist, Dr. Fonseca, on 02/21. She reviewed her clinical notes, and we discussed her negative MRI, and symptomology during this hospital stay. 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 She does recommend an lumbar puncture to complete workup and assess for any inflammatory markers - this was completed and was negative. After this, she will need extensive cognitive behavioral therapy and physical therapy. PT has seen the patient, and recommends IPR, we will work on getting her there. Patient is medically cleared for discharge; awaiting placement. (4) Atrial fibrillation: Impression: Paroxysmal atrial fibrillation. Continue home Eliquis and diltiazem. Qualifiers: Atrial fibrillation type: unspecified Qualified Code(s): I48.91 - Unspecified atrial fibrillation (5) Hypertension: Impression: Continue hydrochlorothiazide. Qualifiers: Hypertension type: essential hypertension Qualified Code(s): I10 - Essential (primary) hypertension (6) Hyponatremia: Impression: Resolved. Continue to encourage P.O. intake, continue to trend daily. (7) Arnold-Chiari malformation: Impression: Stable, known. 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 Patient will need continued and close follow-up with cardiology. (9) Rheumatoid arthritis: Impression: Continue hydroxychloroquine, sulfasalazine. Qualifiers: Rheumatoid arthritis location: unspecified site Rheumatoid factor presence: without rheumatoid factor Qualified Code(s): M06.00 - Rheumatoid arthritis without rheumatoid factor, unspecified site (10) Fibromyalgia: Impression: Continue duloxetine.
[2025-02-23] MEDS: HYDROXYCHLOROQUINE 200 MG TABLET PO SCH (08:53)
--- NOTE | 2025-02-24 08:31 | PROVIDER PROGRESS NOTE ---
Subjective Subjective Subjective: This morning, patient was in the middle of an episode and was unable to speak. She has a mild headache. When seen later, this was improved. She understands that we are still waiting for rehab authorization. [facility] is a first choice, but some steps have also been contacted by social work. Current Medications Current Medications Current Medications: Current Medications Generic Name Dose Route Start Last Admin Trade Name Freq PRN Reason Stop Dose Admin Acetaminophen 650 mg 02/19/25 14:38 02/24/25 04:45 Acetaminophen 325 Mg Tablet PO 650 mg Q4HR PRN Administration Pain or Fever > 38C (100.4F) Apixaban 5 mg 02/19/25 09:00 02/23/25 20:21 Apixaban 5 Mg Tablet PO 5 mg BID KARLY Administration Calcium Carbonate/Glycine 500 mg 02/20/25 09:00 02/23/25 08:48 Calcium Carb (Oyster Shell) 500 Mg Tablet PO 500 mg DAILY KARLY Administration Cholecalciferol 50 mcg 02/20/25 09:00 02/23/25 08:47 Cholecalciferol 25 Mcg Tablet PO 50 mcg DAILY KARLY Administration Diltiazem HCl 120 mg 02/20/25 09:00 02/23/25 08:47 Diltiazem Cd 120 Mg Capsule PO 120 mg DAILY KARLY Administration Diphenhydramine HCl 25 mg 02/21/25 00:39 02/23/25 19:19 Diphenhydramine 25 Mg Capsule PO 25 mg Q4HR PRN Administration Allergy Symptoms Duloxetine HCl 20 mg 02/20/25 09:00 02/23/25 08:48 Duloxetine 20 Mg Capsule PO 20 mg DAILY KARLY Administration Hydrochlorothiazide 25 mg 02/21/25 09:00 02/23/25 08:48 Hydrochlorothiazide 25 Mg Tablet PO 25 mg DAILY KARLY Administration Hydrocortisone 1 applic 02/22/25 10:00 02/23/25 20:22 Hydrocortisone 1% Cream 28 Gm Tube TOP 1 applic BID KARLY Administration Hydroxychloroquine Sulfate 200 mg 02/23/25 09:00 02/23/25 08:53 Hydroxychloroquine 200 Mg Tablet PO 200 mg DAILY KARLY Administration Ondansetron HCl 4 mg 02/18/25 22:37 02/20/25 00:24 Ondansetron 4 Mg/2 Ml Vial IVP 4 mg Q6HR PRN Administration Nausea / Vomiting (Ubrogepant [Ubrelvy 100 each 02/19/25 15:00 ] 100 Mg Tablet) PO .COMPLEX KARLY Sulfasalazine 500 Mg 2 each 02/22/25 18:00 02/23/25 17:34 Tablet,Delayed PO 2 each Release (Dr/Ec)) 0900,1800 KARLY Administration Potassium Chloride 10 meq 02/20/25 08:00 02/23/25 08:48 Potassium Chloride 10 Meq Capsule PO 10 meq DAILYWM KARLY Administration Sodium Chloride 10 ml 02/18/25 22:37 Sodium Chloride Flush 0.9% 10 Ml Syringe IVP PRN PRN NEEDED PER PROVIDER ORDERS Sodium Chloride 10 ml 02/19/25 01:00 02/23/25 23:32 Sodium Chloride Flush 0.9% 10 Ml Syringe IVP 10 ml 0100,0900,1700 KARLY Administration Objective Vital Signs/Intake & Output Reviewed Vital Signs: Yes Vital Signs: Vital Signs x48h Temp Pulse Resp BP BP Pulse Ox 02/24/25 08:11 97.5 F L 68 18 158/77 H 94 02/24/25 04:41 97.9 F 70 18 140/77 H 97 Intake & Output: Intake & Output 02/21/25 02/22/25 02/23/25 02/24/25 23:59 23:59 23:59 23:59 Intake Total 1150 / 1150 1767 / 1767 1790 / 1790 240 / 240 Balance 1150 / 1150 1767 / 1767 1790 / 1790 240 / 240 Objective General Appearance: positive No acute distress and Alert; negative Anxious Eyes Bilateral: positive Normal inspection, PERRL and EOMI ENT: positive ENT inspection nml and Other (She is post stick her tongue out, it is midline, and she is able to move it [id number]. She is able to puff of her cheeks, and raise eyebrows. No facial droop is noted.) Neck: positive Nml inspection Respiratory: positive Chest non-tender and Breath sounds nml Cardiovascular: positive Regular rate & rhythm, No murmur and No gallop Abdomen: positive Non-tender and Nml bowel sounds; negative Tenderness, Guarding, Hepatomegaly or Splenomegaly Skin: positive Color nml, No rash and Warm Extremities: positive Non-tender Comments/Other: Patient with no dysphonia today. No expressive aphasia or receptive aphasia. Her extraocular movements are intact, and her pupils are equal and reactive to light. She has no notable facial droop noted. Today, her right upper extremity is 4 out of 5 in strength, and she is able to move it freely against gravity. 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 She is able to wiggle her right toes. Her upper extremity is 2 out of 5 in strength, 2 out of 5 hotel service supervisor strength. Her bilateral lower extremities, she is able to move [id number]. She is unable to flex or extend them. Sensation is intact. Reflexes are intact and appropriate. Lab Results 02/21/25 05:57 02/21/25 05:57 Other Labs: Lab Results x24hrs 02/21/25 Range/Units 12:24 CSF Color COLORLESS (COLORLESS) CSF Clarity CLEAR (CLEAR) Xanthrochromic ABSENT (ABSENT) CSF WBC 4 (0-5) /mm^3 CSF RBC 0 (0-1) /mm^3 CSF Cell Count Tube # CSF TUBE# 3 CSF Glucose 62 (45-70) mg/dL CSF Total Protein 44 (15-60) mg/dL Diagnostic Imaging Diagnostic Imaging Results: positive Final report reviewed Assessment/Plan Problem List (1) Bilateral arm weakness: (2) Bilateral leg weakness: (3) Dysphonia: Impression: Patient presented with bilateral leg weakness, bilateral arm weakness, as well as dysphonia. Today, she has improvement in her muscle strength on the right side, as well as improvement in her dysphonia. She states that she has had about 60 episodes in the past year with a similar presentation. Head CT, CT angiography of the head and neck showed no significant abnormalities. Outpatient records from neurology, Dr. Tariq Fonseca at [facility] were reviewed. This was in 06/11. At that time, they noted recurrent episodes of migrainous headaches with transient left hemiparesis and aphasia. She was recommended to be started on preventative and acute therapy, but she had several contraindications to first-line preventative therapies, and a referral to the pharmacotherapy clinic was sent. She was started on a trial of Ubrelvy which she takes inconsistenly. They also noted that prior to the recurrence of her migraine headaches, she had developed behavioral changes such as pressured speech, hyperactivity, restlessness, etc. and had recommended outpatient psychiatric workup. MRI of the brain has been ordered, and is negative. As there were concerns for some behavioral component or psychosomatic component to these episodes, telepsych was consulted - no new recommendations at this time. I spoke with patient's neurologist, Dr. Fonseca, on 02/21. She reviewed her clinical notes, and we discussed her negative MRI, and symptomology during this hospital stay. 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 She does recommend an lumbar puncture to complete workup and assess for any inflammatory markers - this was completed and was negative. After this, she will need extensive cognitive behavioral therapy and physical therapy. PT has seen the patient, and recommends [facility], we will work on getting her there. Patient is medically cleared for discharge; awaiting placement. (4) Atrial fibrillation: Impression: Paroxysmal atrial fibrillation. Continue home Eliquis and diltiazem. Qualifiers: Atrial fibrillation type: unspecified Qualified Code(s): I48.91 - Unspecified atrial fibrillation (5) Hypertension: Impression: Continue hydrochlorothiazide. Qualifiers: Hypertension type: essential hypertension Qualified Code(s): I10 - Essential (primary) hypertension (6) Hyponatremia: Impression: Resolved. Continue to encourage P.O. intake, continue to trend daily. (7) Arnold-Chiari malformation: Impression: Stable, known. 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 Patient will need continued and close follow-up with cardiology. (9) Rheumatoid arthritis: Impression: Continue hydroxychloroquine, sulfasalazine. Qualifiers: Rheumatoid arthritis location: unspecified site Rheumatoid factor presence: without rheumatoid factor Qualified Code(s): M06.00 - Rheumatoid arthritis without rheumatoid factor, unspecified site (10) Fibromyalgia: Impression: Continue duloxetine.
--- NOTE | 2025-02-25 07:36 | PROVIDER PROGRESS NOTE ---
Subjective Subjective Subjective: This morning, patient is doing well. She can move both her arms, and is able to talk appropriately. Earlier around 5 AM, she had another episode. She states that now she does not have any prodrome, no headache. The headache usually evolves after she has noticed garbled speech or weaknesses. They are becoming little less frequent, only occurring 1 or twice a day. She understands that someone from [facility] is coming around noon today. She is looking forward to this visit. Current Medications Current Medications Current Medications: Current Medications Generic Name Dose Route Start Last Admin Trade Name Freq PRN Reason Stop Dose Admin Acetaminophen 650 mg 02/19/25 14:38 02/25/25 02:27 Acetaminophen 325 Mg Tablet PO 650 mg Q4HR PRN Administration Pain or Fever > 38C (100.4F) Apixaban 5 mg 02/19/25 09:00 02/24/25 21:29 Apixaban 5 Mg Tablet PO 5 mg BID KARLY Administration Calcium Carbonate/Glycine 500 mg 02/20/25 09:00 02/24/25 09:43 Calcium Carb (Oyster Shell) 500 Mg Tablet PO 500 mg DAILY KARLY Administration Cholecalciferol 50 mcg 02/20/25 09:00 02/24/25 09:43 Cholecalciferol 25 Mcg Tablet PO 50 mcg DAILY KARLY Administration Diltiazem HCl 120 mg 02/20/25 09:00 02/24/25 09:42 Diltiazem Cd 120 Mg Capsule PO 120 mg DAILY KARLY Administration Diphenhydramine HCl 25 mg 02/21/25 00:39 02/24/25 15:55 Diphenhydramine 25 Mg Capsule PO 25 mg Q4HR PRN Administration Allergy Symptoms Duloxetine HCl 20 mg 02/20/25 09:00 02/24/25 09:42 Duloxetine 20 Mg Capsule PO 20 mg DAILY KARLY Administration Hydrochlorothiazide 25 mg 02/21/25 09:00 02/24/25 09:43 Hydrochlorothiazide 25 Mg Tablet PO 25 mg DAILY KARLY Administration Hydrocortisone 1 applic 02/22/25 10:00 02/24/25 21:29 Hydrocortisone 1% Cream 28 Gm Tube TOP 1 applic BID KARLY Administration Hydroxychloroquine Sulfate 200 mg 02/23/25 09:00 02/24/25 09:39 Hydroxychloroquine 200 Mg Tablet PO 200 mg DAILY KARLY Administration Ondansetron HCl 4 mg 02/18/25 22:37 02/20/25 00:24 Ondansetron 4 Mg/2 Ml Vial IVP 4 mg Q6HR PRN Administration Nausea / Vomiting (Ubrogepant [Ubrelvy 100 each 02/19/25 15:00 ] 100 Mg Tablet) PO .COMPLEX KARLY Sulfasalazine 500 Mg 2 each 02/22/25 18:00 02/24/25 18:10 Tablet,Delayed PO 2 each Release (Dr/Ec)) 0900,1800 KARLY Administration Potassium Chloride 10 meq 02/20/25 08:00 02/24/25 09:42 Potassium Chloride 10 Meq Capsule PO 10 meq DAILYWM KARLY Administration Sodium Chloride 10 ml 02/18/25 22:37 Sodium Chloride Flush 0.9% 10 Ml Syringe IVP PRN PRN NEEDED PER PROVIDER ORDERS Sodium Chloride 10 ml 02/19/25 01:00 02/24/25 23:43 Sodium Chloride Flush 0.9% 10 Ml Syringe IVP 10 ml 0100,0900,1700 KARLY Administration Objective Vital Signs/Intake & Output Reviewed Vital Signs: Yes Vital Signs: Vital Signs x48h Temp Pulse Resp BP Pulse Ox 02/25/25 06:00 97.7 F 77 16 132/73 H 97 02/25/25 00:00 97.7 F 73 16 128/63 95 Intake & Output: Intake & Output 02/22/25 02/23/25 02/24/25 02/25/25 23:59 23:59 23:59 23:59 Intake Total 1767 / 1767 1790 / 1790 1140 / 1140 Balance 1767 / 1767 1790 / 1790 1140 / 1140 Objective General Appearance: positive No acute distress and Alert; negative Anxious Eyes Bilateral: positive Normal inspection, PERRL and EOMI ENT: positive ENT inspection nml and Other (She is post stick her tongue out, it is midline, and she is able to move it [id number]. She is able to puff of her cheeks, and raise eyebrows. No facial droop is noted.) Neck: positive Nml inspection Respiratory: positive Chest non-tender and Breath sounds nml Cardiovascular: positive Regular rate & rhythm, No murmur and No gallop Abdomen: positive Non-tender and Nml bowel sounds; negative Tenderness, Guarding, Hepatomegaly or Splenomegaly Skin: positive Color nml, No rash and Warm Extremities: positive Non-tender Comments/Other: Patient with no dysphonia today. No expressive aphasia or receptive aphasia. Her extraocular movements are intact, and her pupils are equal and reactive to light. She has no notable facial droop noted. Today, her right upper extremity is 4 out of 5 in strength, and she is able to move it freely against gravity. Her clinical data research strength is 4 out of 5 on the right side as well. She is able to wiggle her right toes. Her left upper extremity is 3 out of 5 in strength, 2 out of 5 clinical data research strength. Her bilateral lower extremities, she is able to move [id number]. Sensation is intact. Reflexes are intact and appropriate. Lab Results 02/21/25 05:57 02/21/25 05:57 Other Labs: Lab Results x24hrs 02/21/25 Range/Units 12:24 CSF Color COLORLESS (COLORLESS) CSF Clarity CLEAR (CLEAR) Xanthrochromic ABSENT (ABSENT) CSF WBC 4 (0-5) /mm^3 CSF RBC 0 (0-1) /mm^3 CSF Cell Count Tube # CSF TUBE# 3 CSF Glucose 62 (45-70) mg/dL CSF Total Protein 44 (15-60) mg/dL Diagnostic Imaging Diagnostic Imaging Results: positive Final report reviewed Assessment/Plan Problem List (1) Bilateral arm weakness: (2) Bilateral leg weakness: (3) Dysphonia: Impression: Patient presented with bilateral leg weakness, bilateral arm weakness, as well as dysphonia. She continues to have improvement in her muscle strength on the right side, as well as improvement in her dysphonia. She states that she has had about 60 episodes in the past year with a similar presentation. Head CT, CT angiography of the head and neck showed no significant abnormalities. Outpatient records from neurology, Dr. Tariq Fonseca at [facility] were reviewed from 06/11. They noted recurrent episodes of migrainous headaches with transient left hemiparesis and aphasia. She was recommended to be started on preventative and acute therapy, but she had several contraindications to first-line preventative therapies, and a referral to the pharmacotherapy clinic was sent. She was started on a trial of Ubrelvy which she takes inconsistently. They also noted that prior to the recurrence of her migraine headaches, she had developed behavioral changes such as pressured speech, hyperactivity, restlessness, etc. and had recommended outpatient psychiatric workup. MRI of the brain completed and was negative. As there were concerns for some behavioral component or psychosomatic component to these episodes, telepsych was consulted - no new recommendations at this time. I spoke with patient's neurologist, Dr. Fonseca, on 02/21. She reviewed her clinical notes, and we discussed her negative MRI, and symptomology during this hospital stay. 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 She does recommend an lumbar puncture to complete workup and assess for any inflammatory markers - this was completed and was negative. After this, she will need extensive cognitive behavioral therapy and physical therapy. PT has seen the patient, and recommends [facility], we will work on getting her there. Patient is medically cleared for discharge; awaiting placement. (4) Atrial fibrillation: Impression: Paroxysmal atrial fibrillation. Continue home Eliquis and diltiazem. Qualifiers: Atrial fibrillation type: unspecified Qualified Code(s): I48.91 - Unspecified atrial fibrillation (5) Hypertension: Impression: Continue hydrochlorothiazide. Qualifiers: Hypertension type: essential hypertension Qualified Code(s): I10 - Essential (primary) hypertension (6) Hyponatremia: Impression: Resolved. Continue to encourage P.O. intake, continue to trend daily. (7) Arnold-Chiari malformation: Impression: Stable, known. 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 Patient will need continued and close follow-up with cardiology. (9) Rheumatoid arthritis: Impression: Continue hydroxychloroquine, sulfasalazine. Qualifiers: Rheumatoid arthritis location: unspecified site Rheumatoid factor presence: without rheumatoid factor Qualified Code(s): M06.00 - Rheumatoid arthritis without rheumatoid factor, unspecified site (10) Fibromyalgia: Impression: Continue duloxetine.
--- NOTE | 2025-02-25 15:21 | Discharge Summary ---
Discharge Summary Admit Date: 02/18/25 Discharge Date: 02/26/25 Discharging Provider: Dr. Fco Landeros Primary Care Provider: Dr. Sam Franz Code Status: Attempt Resuscitation Discharge Facility Name: [facility] DIAGNOSES Discharge Diagnoses with Status of Each Condition: Bilateral arm weakness, bilateral leg weakness, dysphonia Many of her symptoms have improved. She continues to have waxing and waning symptoms with daily exacerbations. Patient presented with bilateral leg weakness, bilateral arm weakness, as well as dysphonia. Her episodes typically come with associated occipital headache, photophobia and occasionally nausea. Overall somewhat suspicious for complex migraine, but has been recalcitrant prior treatments for this reportedly. Imaging including CT head, CT angiography, MRI of the brain were all negative. Lumbar puncture completed here was also negative. Spoke with her neurologist, Dr. Tariq Fonseca. 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 Patiently to extensive physical therapy, cognitive behavioral therapy, etc. she will be discharged to [facility], will require close follow-up with neurology, psychiatry, neuropsychiatry. Paroxysmal atrial fibrillation - Continue home Eliquis and diltiazem. Hypertension Continue hydrochlorothiazide. Hyponatremia Resolved. Continue to encourage P.O. intake, continue to trend daily. Arnold-Chiari malformation Stable, known. Left ventricular to right atrial shunt Echo from 05/14 was reviewedthis was positive for an atrial shunt. Patient will need continued and close follow-up with cardiology. Rheumatoid arthritis Continue hydroxychloroquine, sulfasalazine. Fibromyalgia Continue duloxetine. HPI History of Present Illness: Per Dr. Dorene Castillo: Mrs. Valverde is a 74yoF with a h/o hypertension, atrial fibrillation, TIA presented with bilateral weakness and aphasia. was at bedside and provided history. Patient was experiencing headaches and malaise the night prior to the onset of symptoms. On the day of presentation she woke up with left sided weakness. This progress throughout the day to involve her right upper and lower extremity. she also had slurring of speech that progressed to her not being able to speak at all. In the ED, CT head, CTA head and neck were unremarkable. This visit was performed using telehealth tools, including phone and live-video. patient provided verbal consent to complete this telemedicine encounter. During the time my interview and evaluation, the patient was located at [facility] in the [facility], I was located in [place] CONSULTS | PROCEDURES Consultations: Telepsych, physical therapy, neurology Procedures: Head CT12/2no acute intracranial abnormality. CT angiography of the head and neck122no acute intracranial abnormality. Brain MRI02/19negative. Chest x-rayegative. Lumbar puncturenegative. HOSPITAL COURSE Hospital Course: Patient is a jimi 74-year-old with a history of rheumatoid arthritis, fibromyalgia who presents with transient episodes of hemiparesis that have been going on for the past better part of the year. Initially, she had Then with bilateral leg weakness, bilateral arm weakness as well as dysphonia. CT head, CT angiogram of the head and neck were negative for any acute infarcts. This was followed by an MRI which was also negative. Outpatient records from neurology, Dr. Tariq Fonseca at [facility] were reviewed from 06/11. They noted recurrent episodes of migrainous headaches with transient left hemiparesis and aphasia. She was recommended to be started on preventative and acute therapy, but she had several contraindications to first-line preventative therapies, and a referral to the pharmacotherapy clinic was sent. She was started on a trial of Ubrelvy which she takes inconsistently. They also noted that prior to the recurrence of her migraine headaches, she had developed behavioral changes such as pressured speech, hyperactivity, restlessness, etc. and had recommended outpatient psychiatric workup. Telepsych was consulted, and they had no new recommendations at this time. With this symptomology, and negative workup, she does believe that this may be a functional neurological disorder. Physical therapy was consulted, and they recommended inpatient rehab. Patient will be discharged to [facility] in stable condition and will need extensive physical therapy, cognitive behavioral therapy, as well as follow-up with neurology, neuropsychiatry, etc. ALLERGIES Allergies Allergy/AdvReac Type Severity Reaction Status Date / Time imipenem Allergy Unknown Verified 02/18/25 20:56 latex Allergy Unknown Verified 02/18/25 20:56 levofloxacin Allergy Unknown Verified 02/18/25 20:56 Penicillins Allergy Hives Verified 02/18/25 20:56 MEDICATIONS Ambulatory Orders Medication Instructions Recorded Confirmed hydroxychloroquine 200 mg tablet 200 mg PO DAILY 07/1502/19/25 apixaban 5 mg tablet (Eliquis) 5 mg PO BID 01/22/24 duloxetine 20 mg capsule,delayed 20 mg PO DAILY #90 ca ps 02/22/24 02/19/25 release calcium 600 mg (as 1 tab PO DAILY 04/30/2406/11 carbonate)-vitamin D3 10 mcg (400 unit) tablet (Calcium with Vitamin D) cholecalciferol (vitamin D3) 25 50 mcg PO DAILY 02/19/25 mcg (1,000 unit) tablet ubrogepant 100 mg tablet (Ubrelvy) 100 mg PO .COMPLEX 06/03/24 02/19/25 albuterol sulfate 90 mcg/actuation 1 inh inhalation QI D PRN shortness 08/25/24 02/19/25 aerosol inhaler (Ventolin HFA) of breath or wheezing # 6.7 grams diltiazem HCl 120 mg capsule,24 120 mg PO DAILY #90 ca ps 11/13/24 02/19/25 hr,extended release sulfasalazine 500 mg 2 g PO BID 01/23/25 02/19/25 tablet,delayed release hydrochlorothiazide 25 mg tablet 25 mg PO DAILY 02/19/25 magnesium citrate 1 tab PO DAILY 02/19/2506/11 mecobalamin (vitamin B12) 1 tab PO DAILY 02/19/2506/11 potassium chloride 10 mEq 10 meq PO DAILY 02/19/2506/11 tablet,extended release triamcinolone acetonide 0.1 % 1 applic topical DAILY P RN rash 02/19/25 02/19/25 topical cream PHYSICAL EXAM AT DISCHARGE Vital Signs: Vital Signs x48h Temp Pulse Resp BP Pulse Ox 02/26/25 08:42 36.6 C 86 16 137/60 H 94 02/26/25 04:51 36.6 C 71 16 141/72 H 93 LABS 02/26/25 04:49 02/26/25 04:49 DIAGNOSTIC IMAGING Diagnostic Imaging Results: Final report reviewed Diagnostic Imaging Results Comments: MRI 02/19 No restricted diffusion to suggest acute infarct. CXR 02/18: Chest without acute cardiopulmonary abnormalities or focal airspace disease. CT head 02/18 CTA Head/Neck 02/18: No acute intracranial abnormality. No significant intracranial arterial abnormality. No significant abnormality is seen within the arteries of the neck. Echo 04/30/2024 LV systolic function is normal with EF 60 to 65% Right ventricle systolic function is normal Contrast injection of agitated saline was positive for atrial shunt. Bubbles observed in the left atrium. FOLLOW UP Follow Up: Follow up neurology, Would benefit from multidisciplinary team including psychiatry, neuropsychiatry TIME SPENT Time Spent in Discharge (Minutes): 41 Discharge Plan Discharge Patient Disposition: 62 IRF DC/Xfer Condition: Stable Prescriptions: Continued duloxetine 20 mg capsule,delayed release(DR/EC) 20 mg PO DAILY Qty: 90 3RF albuterol sulfate [Ventolin HFA] 90 mcg/actuation HFA aerosol inhaler 1 inh inhalation QID PRN (Reason: shortness of breath or wheezing) Qty: 6.7 2RF hydroxychloroquine 200 MG tablet 200 mg PO DAILY calcium carbonate-vitamin D3 [Calcium with Vitamin D] 600 mg-10 mcg (400 unit) tablet 1 tab PO DAILY mecobalamin (vitamin B12) 1 tab PO DAILY magnesium citrate 1 tab PO DAILY potassium chloride 10 mEq tablet extended release 10 meq PO DAILY triamcinolone acetonide 0.1 % cream 1 applic topical DAILY PRN (Reason: rash) hydrochlorothiazide 25 mg tablet 25 mg PO DAILY Rx Instructions: TAKE 1 TABLET EVERY MORNING LONG THERE IS SWELLING Eliquis 5 mg tablet 5 mg PO BID cholecalciferol (vitamin D3) 25 mcg (1,000 unit) tablet 50 mcg PO DAILY Ubrelvy 100 mg tablet 100 mg PO .COMPLEX Rx Instructions: 100 mg orally take one tab prn for migraine. May repeat initial dose after 2 hours. Do not exceed 200 mg in 24 hours; sulfasalazine 500 mg tablet,delayed release (DR/EC) 2 g PO BID diltiazem HCl 120 mg capsule,extended release 24hr 120 mg PO DAILY Qty: 90 0RF Discontinued verapamil 120 mg capsule,ext rel. pellets 24 hr 120 mg PO QAM Qty: 90 3RF Activity Restrictions: Activity as Tolerated Diet: Regular Health Concerns: You may have a diagnosis of functional neurological disorder (FND). This is a medical condition where the nervous system is not functioning properly, even though there is no structural damage to the nerves or brain. FND is potentially reversible with appropriate treatment. You are being transferred to inpatient rehabilitation where you will work with a team of specialists including physical therapists, occupational therapists, and mental health professionals. This multidisciplinary approach has shown the most promise for treating FND. Your rehabilitation will focus on: - Relearning normal movement patterns through specialized physical therapy that differs from traditional rehabilitation - Starting with basic movements (like weight-shifting) and gradually progressing to more complex activities - Focusing on automatic, functional movements (like walking) rather than isolated muscle strengthening - Using distraction techniques to redirect attention toward movement goals rather than individual body parts Improvement is a gradual, active process. Recovery requires your active participation and may take time. Mayes strategies include: - Focus on the goal of your movement (like getting from bed to chair) rather than thinking about specific body parts - Practice movements that feel more automatic, such as rhythmic activities or novel movements like walking backward - Challenge thoughts like "my nerves are damaged" that may hold you back from progress - Avoid acting as though movement could cause more damage to your body Many people with FND also experience chronic pain, fatigue, anxiety, or depression. Your rehabilitation team will address these issues as part of your treatment plan. If you have these symptoms, your therapy may be adjusted in intensity or approach. After Discharge from Rehabilitation Continue working with your outpatient therapy team as recommended. Your recovery plan should include: - Self-management strategies to maintain progress - A relapse prevention plan to address setbacks - Techniques to recognize and manage warning symptoms or triggers What You Should Know * New symptoms should always be evaluated: While you have FND, new symptoms should be assessed on their own merits, as FND can occur alongside other medical conditions. * Avoid unnecessary testing: Work with your healthcare team to prevent undergoing unnecessary investigations that may be harmful. * Family involvement: Involving family members and caregivers in your treatment can improve outcomes. Attend all scheduled follow-up appointments with your neurologist and rehabilitation team. Continue any prescribed therapies even after you feel better, as this helps prevent relapse. If you develop new or worsening symptoms, contact your healthcare provider. Do not assume all new symptoms are related to FND. Your rehabilitation team will provide you with specific resources and support information tailored to your needs. Ask your team about patient education materials and support groups for people with FND. Print Language: Guatemalan Patient Instructions: ED Functional Neurological ... Stand Alone Forms: SNF Discharge Follow-up Care: Sam Franz MD [Primary Care Provider, [facility]] Vitals documented within 30 minutes of discharge?: Yes
[2025-02-26 04:56] LABS: HCT - HEMATOCRIT 38.8 % (37.0-47.0); HGB - HEMOGLOBIN 13.3 g/dL (12.0-16.0); MEAN PLATELET VOLUME 10.0 fL (7.9-10.8); PLT - PLATELET COUNT 254.0 10^3/uL (130-450); RED CELL DISTRIBUTION WIDTH 12.2 % (12.0-15.0)
[2025-02-26 05:17] LABS: BUN - BLOOD UREA NITROGEN 13.0 mg/dL (6-20); CARBON DIOXIDE - CO2 28.0 mmol/L (21-32); CREATININE 0.7 mg/dL (0.6-1.3); GFR - MDRD 82.0 (>89)
[2025-02-26 12:20] VITALS: TEMP 98.1; O2SAT 96
[2025-02-26 15:52] VITALS: BP 138/65
== END 2025-02-26 15:45 | DRG 92 ==
LOC: ED 20:37 → MS2 20:37 → SUATTDRO 02-19 15:31
PROVIDERS: ADMIT Hospitalist; ATTEND Student in an Organized Health Care Education/Training Program